=== PATIENT | male | born 1955 | race Caucasian/White ===

== ENCOUNTER 2021-08-04 20:48 | Inpatient (IN) | payer MEDICARE, MEDICAID, SELFPAY ==
[2021-08-04 21:20] VITALS: BP 131/73; PULSE 75; RESP 16; TEMP 36.7; O2SAT 97
[2021-08-04 22:54] LABS: Anion Gap 9 (12-20); Blood Urea Nitrogen 26 mg/dL (9-16); Carbon Dioxide 27 mmol/L (22-29); Chloride 109 mmol/L (96-108); Estimated Glomerular Filt Rate > 60; Potassium 4.1 mmol/L (3.3-5.1); Sodium 141 mmol/L (135-145)
[2021-08-05 02:28] VITALS: BMI 25.7
[2021-08-05] MEDS: LORazepam 0.5 MG TABLET PO (03:55)
--- NOTE | 2021-08-05 06:07 | PC.NURSE ---
Patient arrived on unit at 5 via stretcher. He was dressed in [facility] and appeared somewhat dissheveled. Vitals were taken and were stable. Patient was alert and oriented to person and place. Patient was tired and did not want to engage in conversation. As a result, admission assessment was not done. Patient went to sleep very quickly.
[2021-08-05 07:02] LABS: MANUAL DIFF FLAG NO
[2021-08-05 07:05] LABS: Basophils Percent Auto 0.5 % (0-2); Eosinophils Absolute Auto 0.2 X10*3/uL (0.0-0.4); Eosinophils Percent Auto 1.8 % (0-4); Hematocrit 39.3 % (42-52); Hemoglobin 13.5 g/dl (14.0-18.0); Imm Gran Abs Auto 0.04 X10*3/uL (0.00-0.03); Imm Gran Pct Auto 0.5 % (0.0-0.4); Lymphocytes Absolute Auto 2.2 X10*3/uL (1.2-4.9); Lymphocytes Percent Auto 25.9 % (20-40); Mean Corpuscular HGB Conc 34.4 g/dl (31.0-36.0); Mean Corpuscular Hemoglobin 29.2 pg (27.0-33.0); Mean Corpuscular Volume 85.1 fL (80-98); Mean Platelet Volume 10.2 fL (9.4-12.4); Monocytes Absolute Auto 0.5 X10*3/uL (0.1-1.2); Monocytes Percent Auto 6.3 % (2-11); Neutrophils Absolute Auto 5.6 X10*3/uL (2.0-8.3); Platelet Count 201 X10*3/uL (160-400); Red Blood Count 4.62 X10*6/uL (4.60-5.80); Red Cell Distribution Width 13.3 % (11.0-16.0); White Blood Count 8.6 X10*3/uL (4.8-10.8)
[2021-08-05 07:29] LABS: Alanine Aminotransferase 18 U/L (0-40); Albumin Level 3.5 g/dL (3.5-5.0); Alkaline Phosphatase 56 U/L (39-117); Aspartate Amino Transferase 15 U/L (5-37); Bilirubin Direct 0.2 mg/dL (0.0-0.5); Bilirubin Total 0.5 mg/dL (0.0-1.0); Cholesterol 178 mg/dL; HDL Cholesterol 43 mg/dL; LDL Cholesterol Calculated 115 mg/dl; Total Protein 5.6 g/dL (6.5-8.0); Triglycerides 103 mg/dL
[2021-08-05 07:50] LABS: Thyroid Stimulating Hormone 0.98 uIU/mL (0.32-4.0)
[2021-08-05 08:26] LABS: Estimated Average Glucose 114 mg/dL; Hemoglobin A1c % 5.6 %
[2021-08-05 10:04] VITALS: BP 168/83; PULSE 84; RESP 16; TEMP 36.5
--- NOTE | 2021-08-05 12:11 | HO.PSYADMNOT ---
HPI Chief Complaint: Major Depression Disorder Sources of Information: patient interviewed and chart reviewed HPI Subjective Notes: Conditional Voluntary Narrative: The patient is a 65-year-old male, single, with no children, unemployed on SSI for several years, living by himself with good social support provided by her sister and brother who does not live with him. He was referred by crisis since he walked into the emergency room asking for help. The patient's last admission was 10 days ago when he was discharged from [facility] with antidepressants for his depression and OCD. He stated that over there, he had ECT at least 9 sessions with fair improvement of his depression. But, as soon as he arrived home, he lost ?his jinriksha driver's license? and he could not fill the scripts. He called crisis asking for help after 10 days without any treatment. On interview, the patient denies active suicidal ideation, he is very dysphoric but able to contract for safety. He stated that he has not taking any medications in more than 10 days. He denies past history of manic symptoms and he denies history of psychosis. Past Psychiatric History: The patient's 1st psychiatric contact was in his 20s for depression. He also carries a diagnosis of OCD and he has germ phobia. He has several admissions into the hospital at [facility], this facility, and others. He has outpatient providers Medical Evaluation Reviewed: No [facility] Narrative: The patient denies medical problems, he reported high blood pressure sporadically. Family History: Denies Social History: The patient is due oldest of 3 children, his milestones were achieved at expected age, he was raised by his parents and he had a good childhood. 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 He has never been and he has been admitted several times into the hospital for depression and OCD and he has received ECT Substance History: . Denies. Trauma History: Denies. Diagnostics Vital Signs (24Hr): Vital Signs - 24 hr 08/04/21 21:20 08/05/21 10:04 Temperature 98.1 F 97.7 F Pulse Rate 75 84 Respiratory Rate 16 16 Blood Pressure 131/73 168/83 H Pulse Oximetry 97 Body Mass Index 25.7 Labs Results: 08/05/21 06:56 08/04/21 22:27 Labs: Laboratory Results - last 48 hr 08/04/21 08/05/21 08/05/21 22:27 06:56 06:56 WBC 8.6 RBC 4.62 Hgb 13.5 L Hct 39.3 L MCV 85.1 MCH 29.2 MCHC 34.4 RDW 13.3 Plt Count 201 MPV 10.2 Immature Gran % (Auto) 0.5 H Neut % (Auto) 65.0 Lymph % (Auto) 25.9 [place] % (Auto) 6.3 Eos % (Auto) 1.8 Baso % (Auto) 0.5 Lymph # (Auto) 2.2 [place] # (Auto) 0.5 Eos # (Auto) 0.2 Baso # (Auto) 0.0 Abs Immat Gran (auto) 0.04 H Absolute Neuts (auto) 5.6 Absolute Nucleated RBC 0.000 Nucleated RBC % (auto) 0.0 Sodium 141 Potassium 4.1 Chloride 109 H Carbon Dioxide 27 Anion Gap 9 L BUN 26 H Creatinine 0.83 Estim Creat Clear Calc TNP Estimated GFR > 60 Estimat Average Glucose Hemoglobin A1c % Total Bilirubin 0.5 Direct Bilirubin 0.2 AST 15 ALT 18 Alkaline Phosphatase 56 Total Protein 5.6 L Albumin 3.5 Triglycerides 103 Cholesterol 178 LDL Cholesterol, Calc 115 HDL Cholesterol 43 TSH 0.98 08/05/21 06:56 WBC RBC Hgb Hct MCV MCH MCHC RDW Plt Count MPV Immature Gran % (Auto) Neut % (Auto) Lymph % (Auto) [place] % (Auto) Eos % (Auto) Baso % (Auto) Lymph # (Auto) [place] # (Auto) Eos # (Auto) Baso # (Auto) Abs Immat Gran (auto) Absolute Neuts (auto) Absolute Nucleated RBC Nucleated RBC % (auto) Sodium Potassium Chloride Carbon Dioxide Anion Gap BUN Creatinine Estim Creat Clear Calc Estimated GFR Estimat Average Glucose 114 Hemoglobin A1c % 5.6 Total Bilirubin Direct Bilirubin AST ALT Alkaline Phosphatase Total Protein Albumin Triglycerides Cholesterol LDL Cholesterol, Calc HDL Cholesterol TSH Meds/Allergies Meds Home Medications Acetaminophen (Acetaminophen 325 Mg Tablet) 650 mg PO Q6H PRN PRN Reason: Headache/Pain Mild Scale (1-3) Al Hydroxide/Mg Hydroxide (Magnesium Hydrox/Alum Hydrox 30 Ml Oral.Susp) 30 ml PO Q6H PRN PRN Reason: Heartburn/Nausea Hydroxyzine HCl (Hydroxyzine Hcl 50 Mg Tablet) 50 mg PO BID PRN PRN Reason: Anxiety Lorazepam (Lorazepam 0.5 Mg Tablet) 0.5 mg PO Q8H PRN PRN Reason: anxiety Last Admin: 08/05/21 03:55 Dose: 0.5 mg Documented by: Magnesium Hydroxide (Milk Of Magnesia 30 Ml Oral.Susp) 30 ml PO DAILY PRN PRN Reason: Constipation Allergies Allergies Allergy/AdvReac Type Severity Reaction Status Date / Time paroxetine [From PAXIL] AdvReac Unknown AGITATION, Unverified 08/07/20 17:12 MOOD SWINGS, ALL KINDS OF WEIRD THOUGHTS Mental Status Exam Mental Status Exam Narrative: On hospital gowns, looks disheveled with good eye contact. The patient is awake and alert, oriented in time person and place. Mood is described as dysphoric, his affect is constricted and appropriate. Thought processes is circumstantial, thought content denies hallucinations or delusions no suicidal or homicidal ideation. Insight judgment and impulse control limited Assessment & Plan Assessment & Plan (1) Major depressive disorder, recurrent: Status: Acute Code(s): F33.9 - Major depressive disorder, recurrent, unspecified (2) Obsessive compulsive disorder: Status: Acute Code(s): F42.9 - Obsessive-compulsive disorder, unspecified Assessment and Plan: The patient is a 65-year-old male with a long history of depression and OCD symptoms with several admissions into the hospital for suicidality. The patient was recently discharged from [facility] but he was unable to continue treatment in the community. Plan 1. Start Prozac 20 mg p.o. now. 2. Start Remeron 15 mg p.o. q.h.s.. 3. Get collateral information. Reason for continued inpatient stay Substantial Risk for: harm to self, inability to function, rapid decompensation and med/psych decompensation
[2021-08-05] MEDS: FLUoxetine HCl Oral Solution 20 MG/5 ML SOLUTION PO (16:01)
--- NOTE | 2021-08-05 16:40 | HO.HSGERICON ---
History of Present Illness Data of Consult Service Date: 08/05/21 Primary Care Provider: Unknown Physician HPI Reason for consult: medical H+P 65yo M with HTN, depression, OCD with history of ECT sessions who called crisis for dysphoria and has been admitted to inpatient psychiatry. He denies fever, chills, dyspnea, cough, chest pain, or headache. No history of CAD or angina or CVA. He states he was fully vaccinated against COVID-19. Review of Systems Review of Systems: Yes all other systems are reviewed and are negative (except for psychiatric symptom) [facility] Social History Household Members: None Housing: Apartment Do you presently have visiting nurse or other home services: No Patient Tobacco Use Status: Former Tobacco user Tobacco use type: Cigarette Smoked in Last 30 Days: No e-Cigarette/Vaping Use: Never Used Patient Interested in Nicotine Replacement: No Patient Given Instructions on How to Stop Smoking: No (Patient declined teaching) Second Hand Smoke Exposure: No Use of substances other than those prescribed or required for medical reasons: No Currently Displaying Signs/Symptoms of Drug Intoxication Withdrawal: No Any prior treatment program specific to substance use: No Have you been hit, kicked, punched, or otherwise hurt by someone within the past year? If so, by whom?: No Do you feel safe in your current relationship?: No Current Relationship Is there a partner from a previous relationship who is making you feel unsafe now?: No Are you made to feel afraid or neglected: No Advance Directives: No Do you have thoughts of harming others: None Do you have a plan to hurt others: No Plan Recently lost weight without trying: No Nutrition Risks: No Nutritional Risk service: No Sexual orientation: Straight/Heterosexual Meds Allergies Allergy/AdvReac Type Severity Reaction Status Date / Time paroxetine [From PAXIL] AdvReac Unknown AGITATION, Unverified 08/07/20 17:12 MOOD SWINGS, ALL KINDS OF WEIRD THOUGHTS Active Medications: Current Medications Generic Name Dose Route Start Last Admin Trade Name Freq PRN Reason Stop Dose Admin Acetaminophen 650 mg 08/04/21 22:10 Acetaminophen 325 Mg Tablet PO Q6H PRN Headache/Pain Mild Scale (1-3) Al Hydroxide/Mg Hydroxide 30 ml 08/04/21 22:10 Magnesium Hydrox/Alum Hydrox 30 Ml Oral.Susp PO Q6H PRN Heartburn/Nausea Fluoxetine HCl 40 mg 08/06/21 09:00 Fluoxetine Hcl Oral Solution 20 Mg/5 Ml Solution PO DAILY ELEAZAR Hydroxyzine HCl 50 mg 08/04/21 22:10 Hydroxyzine Hcl 50 Mg Tablet PO BID PRN Anxiety Lorazepam 0.5 mg 08/04/21 22:10 08/05/21 03:55 Lorazepam 0.5 Mg Tablet PO 0.5 mg Q8H PRN Administration anxiety Magnesium Hydroxide 30 ml 08/04/21 22:10 Milk Of Magnesia 30 Ml Oral.Susp PO DAILY PRN Constipation Mirtazapine 15 mg 08/05/21 21:00 Mirtazapine 15 Mg Tablet PO BEDTIME ELEAZAR Non-Formulary Medication 5 mg 08/05/21 16:45 Amlodipine PO DAILY [facility] Home Medications Medication Instructions Recorded Confirmed Last Taken Type Risperdal 0.5 mg PO QAM 08/04/21 08/05/21 08/04/21 07:30 History 0.5 mg Risperdal 2 mg PO QPM 08/04/21 08/05/21 08/03/21 21:35 History 2 mg amlodipine 5 mg PO DAILY 08/04/21 08/05/21 08/04/21 09:00 History 5 mg clonazepam 0.5 mg tablet 0.25 mg PO BID 08/04/21 08/05/21 08/04/21 09:00 History 0.25 fluoxetine 20 mg tablet 80 mg PO DAILY 08/04/21 08/05/21 08/04/21 09:00 History 20 mg hydroxyzine HCl 50 mg PO BID PRN 08/04/21 08/05/21 08/03/21 01:00 History 50 mg lorazepam 0.5 mg PO TID PRN 08/04/21 08/05/21 08/02/21 03:30 History 2 mg mirtazapine 7.5 mg PO QPM 08/04/21 08/04/21 Unknown History Results Labs CBC and Chem 7: 08/05/21 06:56 08/04/21 22:27 Labs: Laboratory Results - last 24 hr 08/04/21 08/05/21 08/05/21 22:27 06:56 06:56 MCV 85.1 MCH 29.2 MCHC 34.4 RDW 13.3 Plt Count 201 MPV 10.2 Immature Gran % (Auto) 0.5 H Neut % (Auto) 65.0 Lymph % (Auto) 25.9 [place] % (Auto) 6.3 Eos % (Auto) 1.8 Baso % (Auto) 0.5 Lymph # (Auto) 2.2 [place] # (Auto) 0.5 Eos # (Auto) 0.2 Baso # (Auto) 0.0 Abs Immat Gran (auto) 0.04 H Absolute Neuts (auto) 5.6 Absolute Nucleated RBC 0.000 Nucleated RBC % (auto) 0.0 Anion Gap 9 L Estim Creat Clear Calc TNP Estimated GFR > 60 Estimat Average Glucose Hemoglobin A1c % Total Bilirubin 0.5 Direct Bilirubin 0.2 AST 15 ALT 18 Alkaline Phosphatase 56 Total Protein 5.6 L Albumin 3.5 Triglycerides 103 Cholesterol 178 LDL Cholesterol, Calc 115 HDL Cholesterol 43 TSH 0.98 08/05/21 06:56 MCV MCH MCHC RDW Plt Count MPV Immature Gran % (Auto) Neut % (Auto) Lymph % (Auto) [place] % (Auto) Eos % (Auto) Baso % (Auto) Lymph # (Auto) [place] # (Auto) Eos # (Auto) Baso # (Auto) Abs Immat Gran (auto) Absolute Neuts (auto) Absolute Nucleated RBC Nucleated RBC % (auto) Anion Gap Estim Creat Clear Calc Estimated GFR Estimat Average Glucose 114 Hemoglobin A1c % 5.6 Total Bilirubin Direct Bilirubin AST ALT Alkaline Phosphatase Total Protein Albumin Triglycerides Cholesterol LDL Cholesterol, Calc HDL Cholesterol TSH Assessment and Plan (1) Hypertension: Status: Acute 65yo M with HTN, OCD, depression admitted to inpatient psychiatry, routine medical H+P # HTN - continue amlodipine # depression/OCD - medications as per psychiatry team. QT monitoring as indicated by pharmacology of agents used. Thank you for this consult. We are signing off. Please call if there are any questions. If he were to undergo ECT, I recommend he have an EKG, and if unremarkable for ischemic changes, he would be considered low-risk for the procedure. Physical Exam Vital Signs: Last Vital Signs Temp 97.7 F 08/05/21 10:04 Pulse 84 08/05/21 10:04 Resp 16 08/05/21 10:04 BP 168/83 H 08/05/21 10:04 Pulse Ox 97 08/04/21 21:20 Body Mass Index 25.7 Gen: in no acute distress HEENT: sclera anicteric, moist mucus membranes Neck: supple Lungs: clear to auscultation bilaterally Heart: regular rate and rhythm, no murmurs Abd: soft, non-tender, non-distended Ext: no edema Skin: warm/well-perfused Neuro: alert and oriented x3, no focal findings Psych: appropriate affect Neuro Cranial nerves: Yes CN's II-XII intact bilaterally
[2021-08-05 18:00] VITALS: BP 159/88; PULSE 81; RESP 16; TEMP 36.8; O2SAT 95
--- NOTE | 2021-08-05 19:57 | PC.ADMIT ---
Admission completed. Patient admit 08/04/2021 at 2115. Patient admitted here from [facility] ED. Patient was discharged from [facility] in-patient Behavioral Health were He had 9 ECT treatments. patient stop his medications when at home. Patient became very disorganized and quickly decompensated. Patient was unable to participate in admission assessment last night due to fatigue. Today patient was alert and oriented x 3. Patient remains depressed and anxious. Denies suicidal ideation. Patient reports he feels safe on unit and would come to staff with any thoughts of SI. Patient denies ,VH. Patient met with Dr Choi, started on Prozac 20mg liquid solution x one dose. Scheduled Prozac will start 08/06/21. Patient isolative to self and room. Patient did come out for meals, appetite good. Patient now on 15 minute checks. Legal: CV Patient lives alone in apartment, patient has out-patient mental health support.
[2021-08-05] MEDS: Mirtazapine 15 MG TABLET PO (20:36)
[2021-08-06 10:08] VITALS: BP 134/76; PULSE 65; RESP 18; TEMP 36.4; O2SAT 97
[2021-08-06] MEDS: FLUoxetine HCl Oral Solution 20 MG/5 ML SOLUTION 40 MG PO (10:12)
[2021-08-06 10:13] VITALS: BP 134/76; PULSE 65
[2021-08-06] MEDS: amLODIPine Besylate 5 MG TABLET PO (10:13)
--- NOTE | 2021-08-06 14:57 | HO.PSYCHPN ---
Subjective Subjective Date of Service: 08/06/21 Reason For Visit: Major Depression Disorder Subjective Notes: Conditional Voluntary Interim History: Nursing staff reported that patient slept well last night. He showered today. Occupational therapy reported he attended to some groups but he has been mostly sleepy during the day. On interview, the patient denies new symptoms he reports chronic dysphoria and anxiety, no new symptoms with that fast titration of Prozac. He agreed on the plan to increase Prozac up to 60 mg tomorrow a.m.. Medication Compliance: Yes Side effects from medications: No Attending Groups: Intermittent Review of Systems Acute medical concerns: No Medical Review of Systems: unchanged Mental Status Exam Mental Status Exam Patient Appearance: Well Grooomed (On hospital gowns) Patient Orientation: Person Level of Consciousness: Awake Patient Behavior: Cooperative Mood Description: Constricted Affect Description: Depressed Patient Cognition Impaired: Yes Ability to Follow Directions: Fair Speech Pattern: Clear Hallucinations: None Delusions: Not Present Thought Process: Distracted and Evasive Thought Content: positive for Circumstantial Judgement: Fair Diagnostics Vital Signs (24Hr): Vital Signs - 24 hr 08/05/21 18:00 08/06/21 10:08 08/06/21 10:13 Temperature 98.3 F 97.5 F Pulse Rate 81 65 65 Respiratory Rate 16 18 Blood Pressure 159/88 H 134/76 134/76 Pulse Oximetry 95 97 Body Mass Index 25.7 Labs Results: 08/05/21 06:56 08/04/21 22:27 Labs: Laboratory Results - last 48 hr 08/04/21 08/05/21 08/05/21 22:27 06:56 06:56 WBC 8.6 RBC 4.62 Hgb 13.5 L Hct 39.3 L MCV 85.1 MCH 29.2 MCHC 34.4 RDW 13.3 Plt Count 201 MPV 10.2 Immature Gran % (Auto) 0.5 H Neut % (Auto) 65.0 Lymph % (Auto) 25.9 [place] % (Auto) 6.3 Eos % (Auto) 1.8 Baso % (Auto) 0.5 Lymph # (Auto) 2.2 [place] # (Auto) 0.5 Eos # (Auto) 0.2 Baso # (Auto) 0.0 Abs Immat Gran (auto) 0.04 H Absolute Neuts (auto) 5.6 Absolute Nucleated RBC 0.000 Nucleated RBC % (auto) 0.0 Sodium 141 Potassium 4.1 Chloride 109 H Carbon Dioxide 27 Anion Gap 9 L BUN 26 H Creatinine 0.83 Estim Creat Clear Calc TNP Estimated GFR > 60 Estimat Average Glucose Hemoglobin A1c % Total Bilirubin 0.5 Direct Bilirubin 0.2 AST 15 ALT 18 Alkaline Phosphatase 56 Total Protein 5.6 L Albumin 3.5 Triglycerides 103 Cholesterol 178 LDL Cholesterol, Calc 115 HDL Cholesterol 43 TSH 0.98 08/05/21 06:56 WBC RBC Hgb Hct MCV MCH MCHC RDW Plt Count MPV Immature Gran % (Auto) Neut % (Auto) Lymph % (Auto) [place] % (Auto) Eos % (Auto) Baso % (Auto) Lymph # (Auto) [place] # (Auto) Eos # (Auto) Baso # (Auto) Abs Immat Gran (auto) Absolute Neuts (auto) Absolute Nucleated RBC Nucleated RBC % (auto) Sodium Potassium Chloride Carbon Dioxide Anion Gap BUN Creatinine Estim Creat Clear Calc Estimated GFR Estimat Average Glucose 114 Hemoglobin A1c % 5.6 Total Bilirubin Direct Bilirubin AST ALT Alkaline Phosphatase Total Protein Albumin Triglycerides Cholesterol LDL Cholesterol, Calc HDL Cholesterol TSH Medications Medications Current Medications Generic Name Dose Route Start Last Admin Trade Name Freq PRN Reason Stop Dose Admin Acetaminophen 650 mg 08/04/21 22:10 Acetaminophen 325 Mg Tablet PO Q6H PRN Headache/Pain Mild Scale (1-3) Al Hydroxide/Mg Hydroxide 30 ml 08/04/21 22:10 Magnesium Hydrox/Alum Hydrox 30 Ml Oral.Susp PO Q6H PRN Heartburn/Nausea Amlodipine Besylate 5 mg 08/06/21 09:00 08/06/21 10:13 Amlodipine Besylate 5 Mg Tablet PO 5 mg DAILY ELEAZAR Administration Fluoxetine HCl 40 mg 08/06/21 09:00 08/06/21 10:12 Fluoxetine Hcl Oral Solution 20 Mg/5 Ml Solution PO 40 mg DAILY ELEAZAR Administration Hydroxyzine HCl 50 mg 08/04/21 22:10 Hydroxyzine Hcl 50 Mg Tablet PO BID PRN Anxiety Lorazepam 0.5 mg 08/04/21 22:10 08/05/21 03:55 Lorazepam 0.5 Mg Tablet PO 0.5 mg Q8H PRN Administration anxiety Magnesium Hydroxide 30 ml 08/04/21 22:10 Milk Of Magnesia 30 Ml Oral.Susp PO DAILY PRN Constipation Mirtazapine 15 mg 08/05/21 21:00 08/05/21 20:36 Mirtazapine 15 Mg Tablet PO 15 mg BEDTIME ELEAZAR Administration Allergies Allergies Allergy/AdvReac Type Severity Reaction Status Date / Time paroxetine [From PAXIL] AdvReac Unknown AGITATION, Unverified 08/07/20 17:12 MOOD SWINGS, ALL KINDS OF WEIRD THOUGHTS Assessment & Plan Assessment & Plan (1) Hypertension: Status: Acute Code(s): I10 - Essential (primary) hypertension Assessment and Plan: 65yo M with HTN, OCD, depression admitted to inpatient psychiatry, routine medical H+P # HTN - continue amlodipine # depression/OCD - medications as per psychiatry team. QT monitoring as indicated by pharmacology of agents used. Plan 1. Continue titration of Prozac up to 80 mg daily. Currently he is on 40 mg tumor will have 60 mg p.o. q.a.m. and will keep that over the weekend. On Tuesday we will continue the titration up to 80 mg p.o. q.day Greater than 50% of the session was spent on counseling and/or coordination of care Reason for contiued inpatient stay Substantial Risk for: inability to function, rapid decompensation and med/psych decompensation
[2021-08-06 18:35] VITALS: BP 153/82; PULSE 77; RESP 18; TEMP 37.2; O2SAT 98
[2021-08-06] MEDS: Mirtazapine 15 MG TABLET PO (21:03)
[2021-08-07 08:07] VITALS: BP 133/88; PULSE 88; RESP 18; TEMP 36.1; O2SAT 96
[2021-08-07] MEDS: FLUoxetine HCl Oral Solution 20 MG/5 ML SOLUTION 60 MG PO (08:16)
[2021-08-07 08:17] VITALS: BP 133/88; PULSE 88
[2021-08-07] MEDS: LORazepam 0.5 MG TABLET PO (08:17)
[2021-08-07] MEDS: amLODIPine Besylate 5 MG TABLET PO (08:17)
--- NOTE | 2021-08-07 13:43 | P.PNPSI_ITS ---
Subjective Subjective Date of Service: 08/07/21 Reason For Visit: Major Depression Disorder Subjective Notes: Conditional Voluntary Healthcare Proxy: Yes Guardianship: No Medical Problems Affecting Mental Status: No Interim History: The nursing staff reported the patient has been isolative he reports anxiety 04/30, denies pain. Also, the nursing staff has reported at night some restless leg syndrome The social media assistant has arranged a family meeting on Tuesday. He was referred to [facility] and her services Medication Compliance: Yes Side effects from medications: Yes (Restless leg syndrome) Attending Groups: No Review of Systems Acute medical concerns: No Medical Review of Systems: unchanged Mental Status Exam Mental Status Exam Patient Appearance: Disheveled Patient Orientation: Person Level of Consciousness: Awake Patient Behavior: Appropriate and Passive Mood Description: Depressed Affect Description: Constricted Patient Cognition Impaired: No Ability to Follow Directions: Good Speech Pattern: Clear Hallucinations: None Delusions: Not Present Thought Process: Distracted Thought Content: positive for Circumstantial Judgement: Fair Diagnostics Vital Signs (24Hr): Vital Signs - 24 hr 08/06/21 18:35 08/07/21 08:07 08/07/21 08:17 Temperature 98.9 F 97.0 F Pulse Rate 77 88 88 Respiratory Rate 18 18 Blood Pressure 153/82 H 133/88 133/88 Pulse Oximetry 98 96 Body Mass Index 25.7 Labs Results: 08/05/21 06:56 08/04/21 22:27 Medications Medications Current Medications Acetaminophen (Acetaminophen 325 Mg Tablet) 650 mg PO Q6H PRN PRN Reason: Headache/Pain Mild Scale (1-3) Al Hydroxide/Mg Hydroxide (Magnesium Hydrox/Alum Hydrox 30 Ml Oral.Susp) 30 ml PO Q6H PRN PRN Reason: Heartburn/Nausea Amlodipine Besylate (Amlodipine Besylate 5 Mg Tablet) 5 mg PO DAILY [facility] Last Admin: 08/07/21 08:17 Dose: 5 mg Documented by: Fluoxetine HCl (Fluoxetine Hcl Oral Solution 20 Mg/5 Ml Solution) 60 mg PO DAILY [facility] Last Admin: 08/07/21 08:16 Dose: 60 mg Documented by: Hydroxyzine HCl (Hydroxyzine Hcl 50 Mg Tablet) 50 mg PO BID PRN PRN Reason: Anxiety Lorazepam (Lorazepam 0.5 Mg Tablet) 0.5 mg PO Q8H PRN PRN Reason: anxiety Last Admin: 08/07/21 08:17 Dose: 0.5 mg Documented by: Magnesium Hydroxide (Milk Of Magnesia 30 Ml Oral.Susp) 30 ml PO DAILY PRN PRN Reason: Constipation Mirtazapine (Mirtazapine 15 Mg Tablet) 15 mg PO BEDTIME ELEAZAR Last Admin: 08/06/21 21:03 Dose: 15 mg Documented by: Allergies Allergies Allergy/AdvReac Type Severity Reaction Status Date / Time paroxetine [From PAXIL] AdvReac Unknown AGITATION, Unverified 08/07/20 17:12 MOOD SWINGS, ALL KINDS OF WEIRD THOUGHTS Assessment & Plan Assessment & Plan (1) Hypertension: Status: Acute Code(s): I10 - Essential (primary) hypertension Assessment and Plan: 65yo M with HTN, OCD, depression admitted to inpatient psychiatry, routine medical H+P # HTN - continue amlodipine # depression/OCD - medications as per psychiatry team. QT monitoring as indicated by pharmacology of agents used. Plan 1. Continue titration of Prozac up to 80 mg daily, we will get it on Tuesday or Tuesday Currently he is on 60 mg . Greater than 50% of the session was spent on counseling and/or coordination of care Reason for contiued inpatient stay Substantial Risk for: inability to function, rapid decompensation and med/psych decompensation
[2021-08-07] MEDS: Mirtazapine 15 MG TABLET PO (20:02)
[2021-08-07 21:41] VITALS: BP 137/76; PULSE 75; RESP 18; TEMP 37.1; O2SAT 99
[2021-08-08] MEDS: LORazepam 0.5 MG TABLET PO ×2 (02:46→23:27)
[2021-08-08] MEDS: hydrOXYzine HCL 50 MG TABLET PO ×2 (03:44→22:43)
[2021-08-08 08:00] VITALS: BP 137/65; PULSE 65; RESP 18; TEMP 36.4; O2SAT 97
[2021-08-08 08:31] VITALS: BP 137/65; PULSE 65
[2021-08-08] MEDS: amLODIPine Besylate 5 MG TABLET PO (08:31)
[2021-08-08] MEDS: FLUoxetine HCl Oral Solution 20 MG/5 ML SOLUTION 60 MG PO (08:32)
[2021-08-08 18:00] VITALS: BP 142/84; PULSE 72; RESP 18; TEMP 37; O2SAT 98
[2021-08-08] MEDS: Mirtazapine 15 MG TABLET PO (21:02)
--- NOTE | 2021-08-08 21:05 | P.PNPSI_ITS ---
Subjective Subjective Date of Service: 08/09/21 Reason For Visit: Major Depression Disorder Interim History: H and P reviewed. Pt known to [facility] from [facility] admissions. Looks more deteriorated with loss of teeth. States Anxiety >> depression. Asks for Lorazepam. Recent ECT followed by non compliance with meds. Ct meds. Medication Compliance: Yes Side effects from medications: No Attending Groups: No Review of Systems Acute medical concerns: No Review of Systems Review of Systems Yes all other systems are reviewed and are negative (except for psychiatric symptom) Mental Status Exam Mental Status Exam Narrative: On hospital gowns, looks disheveled with good eye contact. The patient is awake and alert, oriented in time person and place. Mood is described as dysphoric, his affect is constricted and appropriate. Thought processes is circumstantial, thought content denies hallucinations or delusions no suicidal or homicidal ideation. Insight judgment and impulse control limited Patient Appearance: Disheveled Patient Orientation: Person Level of Consciousness: Awake Patient Behavior: Appropriate and Passive Mood Description: Depressed Affect Description: Constricted Patient Cognition Impaired: No Ability to Follow Directions: Good Speech Pattern: Clear Diagnostics Vital Signs (24Hr): Vital Signs - 24 hr 08/07/21 21:41 08/08/21 08:00 08/08/21 08:31 Temperature 98.8 F 97.6 F Pulse Rate 75 65 65 Respiratory Rate 18 18 Blood Pressure 137/76 137/65 137/65 Pulse Oximetry 99 97 Body Mass Index 25.7 Labs Results: 08/05/21 06:56 08/04/21 22:27 Medications Medications Current Medications Acetaminophen (Acetaminophen 325 Mg Tablet) 650 mg PO Q6H PRN PRN Reason: Headache/Pain Mild Scale (1-3) Al Hydroxide/Mg Hydroxide (Magnesium Hydrox/Alum Hydrox 30 Ml Oral.Susp) 30 ml PO Q6H PRN PRN Reason: Heartburn/Nausea Amlodipine Besylate (Amlodipine Besylate 5 Mg Tablet) 5 mg PO DAILY [facility] Last Admin: 08/08/21 08:31 Dose: 5 mg Documented by: Fluoxetine HCl (Fluoxetine Hcl Oral Solution 20 Mg/5 Ml Solution) 60 mg PO DAILY [facility] Last Admin: 08/08/21 08:32 Dose: 60 mg Documented by: Hydroxyzine HCl (Hydroxyzine Hcl 50 Mg Tablet) 50 mg PO BID PRN PRN Reason: Anxiety Last Admin: 08/08/21 03:44 Dose: 50 mg Documented by: Lorazepam (Lorazepam 0.5 Mg Tablet) 0.5 mg PO Q8H PRN PRN Reason: anxiety Last Admin: 08/08/21 02:46 Dose: 0.5 mg Documented by: Magnesium Hydroxide (Milk Of Magnesia 30 Ml Oral.Susp) 30 ml PO DAILY PRN PRN Reason: Constipation Mirtazapine (Mirtazapine 15 Mg Tablet) 15 mg PO BEDTIME [facility] Last Admin: 08/08/21 21:02 Dose: 15 mg Documented by: Allergies Allergies Allergy/AdvReac Type Severity Reaction Status Date / Time paroxetine [From PAXIL] AdvReac Unknown AGITATION, Unverified 08/07/20 17:12 MOOD SWINGS, ALL KINDS OF WEIRD THOUGHTS Assessment & Plan Assessment & Plan (1) Hypertension: Status: Acute Code(s): I10 - Essential (primary) hypertension Assessment and Plan: 65yo M with HTN, OCD, depression admitted to inpatient psychiatry, routine medical H+P # HTN - continue amlodipine # depression/OCD - medications as per psychiatry team. QT monitoring as indicated by pharmacology of agents used. Plan 1. Continue titration of Prozac up to 80 mg daily, we will get it on Tuesday or Tuesday Currently he is on 60 mg . Greater than 50% of the session was spent on counseling and/or coordination of care Patient educated on: diagnosis Reason for contiued inpatient stay Substantial Risk for: inability to function
--- NOTE | 2021-08-09 07:31 | P.PNPSI_ITS ---
Subjective Subjective Date of Service: 08/09/21 Reason For Visit: Major Depression Disorder Interim History: H and P reviewed. Pt known to [facility] from [facility] admissions. Looks more deteriorated with loss of teeth. States Anxiety >> depression. Asks for Lorazepam. Recent ECT followed by non compliance with meds. Ct meds. Remains much the same as 08/08. Review of Systems Review of Systems Yes all other systems are reviewed and are negative (except for psychiatric symptom) Mental Status Exam Mental Status Exam Narrative: On hospital gowns, looks disheveled with good eye contact. The patient is awake and alert, oriented in time person and place. Mood is described as dysphoric, his affect is constricted and appropriate. Thought processes is circumstantial, thought content denies hallucinations or delusions no suicidal or homicidal ideation. Insight judgment and impulse control limited Patient Appearance: Disheveled Patient Orientation: Person Level of Consciousness: Awake Patient Behavior: Appropriate and Passive Mood Description: Depressed Affect Description: Constricted Patient Cognition Impaired: No Ability to Follow Directions: Good Speech Pattern: Clear Diagnostics Vital Signs (24Hr): Vital Signs - 24 hr 08/08/21 08:00 08/08/21 08:31 08/08/21 18:00 Temperature 97.6 F 98.6 F Pulse Rate 65 65 72 Respiratory Rate 18 18 Blood Pressure 137/65 137/65 142/84 H Pulse Oximetry 97 98 Body Mass Index 25.7 Labs Results: 08/05/21 06:56 08/04/21 22:27 Medications Medications Current Medications Acetaminophen (Acetaminophen 325 Mg Tablet) 650 mg PO Q6H PRN PRN Reason: Headache/Pain Mild Scale (1-3) Al Hydroxide/Mg Hydroxide (Magnesium Hydrox/Alum Hydrox 30 Ml Oral.Susp) 30 ml PO Q6H PRN PRN Reason: Heartburn/Nausea Amlodipine Besylate (Amlodipine Besylate 5 Mg Tablet) 5 mg PO DAILY [facility] Last Admin: 08/08/21 08:31 Dose: 5 mg Documented by: Fluoxetine HCl (Fluoxetine Hcl Oral Solution 20 Mg/5 Ml Solution) 60 mg PO DAILY [facility] Last Admin: 08/08/21 08:32 Dose: 60 mg Documented by: Hydroxyzine HCl (Hydroxyzine Hcl 50 Mg Tablet) 50 mg PO BID PRN PRN Reason: Anxiety Last Admin: 08/08/21 22:43 Dose: 50 mg Documented by: Lorazepam (Lorazepam 0.5 Mg Tablet) 0.5 mg PO Q8H PRN PRN Reason: anxiety Last Admin: 08/08/21 23:27 Dose: 0.5 mg Documented by: Magnesium Hydroxide (Milk Of Magnesia 30 Ml Oral.Susp) 30 ml PO DAILY PRN PRN Reason: Constipation Mirtazapine (Mirtazapine 15 Mg Tablet) 15 mg PO BEDTIME [facility] Last Admin: 08/08/21 21:02 Dose: 15 mg Documented by: Allergies Allergies Allergy/AdvReac Type Severity Reaction Status Date / Time paroxetine [From PAXIL] AdvReac Unknown AGITATION, Unverified 08/07/20 17:12 MOOD SWINGS, ALL KINDS OF WEIRD THOUGHTS Assessment & Plan Assessment & Plan (1) Hypertension: Status: Acute Code(s): I10 - Essential (primary) hypertension Assessment and Plan: 65yo M with HTN, OCD, depression admitted to inpatient psychiatry, routine medical H+P # HTN - continue amlodipine # depression/OCD - medications as per psychiatry team. QT monitoring as indicated by pharmacology of agents used. Plan 1. Continue titration of Prozac up to 80 mg daily, we will get it on Tuesday or Tuesday Currently he is on 60 mg . Greater than 50% of the session was spent on counseling and/or coordination of care Reason for contiued inpatient stay Substantial Risk for: inability to function
[2021-08-09 07:42] VITALS: BP 140/85; PULSE 98
[2021-08-09] MEDS: amLODIPine Besylate 5 MG TABLET PO ×2 (07:42→10:21)
[2021-08-09] MEDS: LORazepam 0.5 MG TABLET PO (07:42)
[2021-08-09] MEDS: FLUoxetine HCl Oral Solution 20 MG/5 ML SOLUTION 60 MG PO (07:44)
[2021-08-09 09:00] VITALS: BP 142/83; PULSE 91; RESP 18; TEMP 36.4; O2SAT 94
[2021-08-09 10:21] VITALS: BP 140/80; PULSE 98
[2021-08-09] MEDS: hydrOXYzine HCL 50 MG TABLET PO (10:43)
[2021-08-09 18:00] VITALS: BP 150/87; PULSE 63; RESP 18; TEMP 36.2; O2SAT 96
[2021-08-09] MEDS: Mirtazapine 15 MG TABLET PO (20:32)
[2021-08-10] MEDS: hydrOXYzine HCL 50 MG TABLET PO (02:18)
[2021-08-10] MEDS: Acetaminophen 325 MG TABLET 650 MG PO (03:23)
[2021-08-10 09:51] VITALS: BP 190/89; PULSE 84; RESP 18; TEMP 35.7; O2SAT 97
[2021-08-10 09:54] VITALS: BP 190/89; PULSE 84
[2021-08-10] MEDS: FLUoxetine HCl Oral Solution 20 MG/5 ML SOLUTION 60 MG PO (09:54)
[2021-08-10] MEDS: amLODIPine Besylate 5 MG TABLET PO (09:54)
[2021-08-10] MEDS: LORazepam 0.5 MG TABLET PO ×3 (11:02→20:48)
[2021-08-10 11:04] VITALS: BP 161/95; PULSE 83
[2021-08-10 13:03] VITALS: BP 145/86; PULSE 75; O2SAT 98
--- NOTE | 2021-08-10 13:27 | HO.PSYCHPN ---
Subjective Subjective Date of Service: 08/10/21 Reason For Visit: Major Depression Disorder Subjective Notes: Conditional Voluntary Interim History: The nursing staff reported that the patient has been withdrawn, depressed and isolative, very guarded and flat. He has not attended to groups. On interview, the patient denies new symptoms, he complains of depression and lack of energy. He is fully aware that we are increasing his Prozac up to 80 mg today. The mental health social worker will arrange a family meeting tomorrow by Zoom at 11:00 o'clock Mental Status Exam Mental Status Exam Patient Appearance: Disheveled Patient Orientation: Person Level of Consciousness: Awake Patient Behavior: Cooperative and Passive Mood Description: Constricted Affect Description: Constricted and Depressed Patient Cognition Impaired: Yes Ability to Follow Directions: Good Speech Pattern: Clear Hallucinations: None Thought Process: Evasive and Slowed Thinking Thought Content: positive for Poverty of Content Judgement: Fair Diagnostics Vital Signs (24Hr): Vital Signs - 24 hr 08/09/21 18:00 08/10/21 09:51 08/10/21 09:54 Temperature 97.2 F 96.3 F L Pulse Rate 63 84 84 Respiratory Rate 18 18 Blood Pressure 150/87 H 190/89 H 190/89 H Pulse Oximetry 96 97 08/10/21 11:04 08/10/21 13:03 Temperature Pulse Rate 83 75 Respiratory Rate Blood Pressure 161/95 H 145/86 H Pulse Oximetry 98 Body Mass Index 25.7 Labs Results: 08/05/21 06:56 08/04/21 22:27 Medications Medications Current Medications Acetaminophen (Acetaminophen 325 Mg Tablet) 650 mg PO Q6H PRN PRN Reason: Headache/Pain Mild Scale (1-3) Last Admin: 08/10/21 03:23 Dose: 650 mg Documented by: Al Hydroxide/Mg Hydroxide (Magnesium Hydrox/Alum Hydrox 30 Ml Oral.Susp) 30 ml PO Q6H PRN PRN Reason: Heartburn/Nausea Amlodipine Besylate (Amlodipine Besylate 5 Mg Tablet) 5 mg PO DAILY [facility] Last Admin: 08/10/21 09:54 Dose: 5 mg Documented by: Fluoxetine HCl (Fluoxetine Hcl Oral Solution 20 Mg/5 Ml Solution) 80 mg PO DAILY [facility] Hydroxyzine HCl (Hydroxyzine Hcl 50 Mg Tablet) 50 mg PO BID PRN PRN Reason: Anxiety Last Admin: 09/20/21 02:18 Dose: 50 mg Documented by: Lorazepam (Lorazepam 0.5 Mg Tablet) 0.5 mg PO BID PRN PRN Reason: Anxiety Last Admin: 08/10/21 11:02 Dose: 0.5 mg Documented by: Magnesium Hydroxide (Milk Of Magnesia 30 Ml Oral.Susp) 30 ml PO DAILY PRN PRN Reason: Constipation Mirtazapine (Mirtazapine 15 Mg Tablet) 15 mg PO BEDTIME [facility] Last Admin: 08/09/21 20:32 Dose: 15 mg Documented by: Allergies Allergies Allergy/AdvReac Type Severity Reaction Status Date / Time paroxetine [From PAXIL] AdvReac Unknown AGITATION, Unverified 08/07/20 17:12 MOOD SWINGS, ALL KINDS OF WEIRD THOUGHTS Assessment & Plan Assessment & Plan (1) Hypertension: Status: Acute Code(s): I10 - Essential (primary) hypertension Assessment and Plan: 65yo M with HTN, OCD, depression admitted to inpatient psychiatry, routine medical H+P # HTN - continue amlodipine # depression/OCD - medications as per psychiatry team. QT monitoring as indicated by pharmacology of agents used. Plan 1. Continue titration of Prozac up to 80 mg daily, we will get it on Tuesday Currently he is on 60 mg . Greater than 50% of the session was spent on counseling and/or coordination of care Reason for contiued inpatient stay Substantial Risk for: inability to function, rapid decompensation and med/psych decompensation
[2021-08-10 18:00] VITALS: BP 135/84; PULSE 70; RESP 17; TEMP 36.6; O2SAT 98
[2021-08-10] MEDS: Mirtazapine 15 MG TABLET PO (20:47)
[2021-08-11] MEDS: hydrOXYzine HCL 50 MG TABLET PO ×2 (03:04→08:23)
[2021-08-11 04:55] VITALS: BP 135/88; PULSE 224; RESP 16; O2SAT 99
[2021-08-11] MEDS: LORazepam 0.5 MG TABLET PO (05:16)
[2021-08-11 05:37] VITALS: BP 163/97; PULSE 74; O2SAT 97
[2021-08-11] MEDS: FLUoxetine HCl Oral Solution 20 MG/5 ML SOLUTION 80 MG PO (08:21)
[2021-08-11 08:23] VITALS: BP 119/75; PULSE 76
[2021-08-11] MEDS: amLODIPine Besylate 5 MG TABLET PO (08:23)
--- NOTE | 2021-08-11 11:24 | P.PNPSI_ITS ---
Subjective Subjective Date of Service: 08/11/21 Reason For Visit: Major Depression Disorder Subjective Notes: Conditional Voluntary Interim History: The nursing staff reported that the patient has shortness of breath, anxiety, restless legs syndrome, frequent panic attacks mostly at night. We review his medication list and apparently has been on Klonopin in the [facility] in the past and he has been using Ativan very frequently. Today home family meeting over Zoom, his brother reports a long history of anxiety and dysphoria. Today on interview, the patient reports anxiety shortness of breath and panic attacks most likely used to the lack of benzodiazepines in the last days. We discussed risks, benefits, side-effects and alternatives and he agreed to change Ativan to Klonopin that he has been using the community before. Medication Compliance: Yes Side effects from medications: No Attending Groups: Intermittent Review of Systems Acute medical concerns: No Medical Review of Systems: unchanged Mental Status Exam Mental Status Exam Patient Appearance: Well Grooomed (on hospital gowns) Patient Orientation: Person, Place and Situation Level of Consciousness: Awake and Alert Patient Behavior: Appropriate, Cooperative and Passive Mood Description: Withdrawn and Constricted Affect Description: Depressed Ability to Follow Directions: Fair Speech Pattern: Clear Hallucinations: None Delusions: Not Present Thought Process: Linear and Slowed Thinking Thought Content: positive for Circumstantial, positive for Perseveration and positive for Poverty of Content Depressive Symptoms: Changes in Appetite Judgement: Fair Diagnostics Vital Signs (24Hr): Vital Signs - 24 hr 08/10/21 13:03 08/10/21 18:00 08/11/21 04:55 Temperature 97.8 F Pulse Rate 75 70 224 H Respiratory Rate 17 16 Blood Pressure 145/86 H 135/84 135/88 Pulse Oximetry 98 98 99 08/11/21 05:37 08/11/21 08:23 Temperature Pulse Rate 74 76 Respiratory Rate Blood Pressure 163/97 H 119/75 Pulse Oximetry 97 Body Mass Index 25.7 Labs Results: 08/05/21 06:56 08/04/21 22:27 Medications Medications Current Medications Acetaminophen (Acetaminophen 325 Mg Tablet) 650 mg PO Q6H PRN PRN Reason: Headache/Pain Mild Scale (1-3) Last Admin: 08/10/21 03:23 Dose: 650 mg Documented by: Al Hydroxide/Mg Hydroxide (Magnesium Hydrox/Alum Hydrox 30 Ml Oral.Susp) 30 ml PO Q6H PRN PRN Reason: Heartburn/Nausea Amlodipine Besylate (Amlodipine Besylate 5 Mg Tablet) 5 mg PO DAILY [facility] Last Admin: 08/11/21 08:23 Dose: 5 mg Documented by: Clonazepam (Clonazepam 0.5 Mg Tablet) 0.5 mg PO TID [facility] Fluoxetine HCl (Fluoxetine Hcl Oral Solution 20 Mg/5 Ml Solution) 80 mg PO DAILY [facility] [place] Last Admin: 08/11/21 08:21 Dose: 80 mg Documented by: Hydroxyzine HCl (Hydroxyzine Hcl 50 Mg Tablet) 50 mg PO BID PRN PRN Reason: Anxiety Last Admin: 08/11/21 08:23 Dose: 50 mg Documented by: Magnesium Hydroxide (Milk Of Magnesia 30 Ml Oral.Susp) 30 ml PO DAILY PRN PRN Reason: Constipation Mirtazapine (Mirtazapine 15 Mg Tablet) 15 mg PO BEDTIME [facility] [place] Last Admin: 08/10/21 20:47 Dose: 15 mg Documented by: Allergies Allergies Allergy/AdvReac Type Severity Reaction Status Date / Time paroxetine [From PAXIL] AdvReac Unknown AGITATION, Unverified 08/07/20 17:12 MOOD SWINGS, ALL KINDS OF WEIRD THOUGHTS Assessment & Plan Assessment & Plan (1) Hypertension: Status: Acute Code(s): I10 - Essential (primary) hypertension Assessment and Plan: 65yo M with HTN, OCD, depression admitted to inpatient psychiatry, routine medical H+P # HTN - continue amlodipine # depression/OCD - medications as per psychiatry team. QT monitoring as indicated by pharmacology of agents used. Plan 1. Continue Prozac 80 mg daily. 2. Change Ativan to Klonopin 0.5 mg po tid. 3. Bloodwork for tomorrow. Greater than 50% of the session was spent on counseling and/or coordination of care Reason for contiued inpatient stay Substantial Risk for: inability to function, rapid decompensation and med/psych decompensation
[2021-08-11] MEDS: clonazePAM 0.5 MG TABLET PO ×2 (12:28→21:03)
[2021-08-11 20:05] VITALS: BP 105/68; PULSE 71; RESP 16; TEMP 36.1; O2SAT 100
[2021-08-11] MEDS: Mirtazapine 15 MG TABLET PO (21:03)
[2021-08-12 06:00] VITALS: BP 120/77; PULSE 78; RESP 20; TEMP 36.3; O2SAT 98
[2021-08-12 06:12] LABS: MANUAL DIFF FLAG NO
[2021-08-12] MEDS: hydrOXYzine HCL 50 MG TABLET PO ×2 (06:22→13:46)
[2021-08-12 06:39] LABS: Basophils Percent Auto 0.4 % (0-2); Eosinophils Absolute Auto 0.1 X10*3/uL (0.0-0.4); Eosinophils Percent Auto 1.9 % (0-4); Hematocrit 41.3 % (42-52); Hemoglobin 13.9 g/dl (14.0-18.0); Imm Gran Abs Auto 0.02 X10*3/uL (0.00-0.03); Imm Gran Pct Auto 0.4 % (0.0-0.4); Lymphocytes Absolute Auto 1.6 X10*3/uL (1.2-4.9); Lymphocytes Percent Auto 30.5 % (20-40); Mean Corpuscular HGB Conc 33.7 g/dl (31.0-36.0); Mean Corpuscular Hemoglobin 28.6 pg (27.0-33.0); Mean Platelet Volume 9.9 fL (9.4-12.4); Monocytes Absolute Auto 0.4 X10*3/uL (0.1-1.2); Monocytes Percent Auto 8.1 % (2-11); Neutrophils Absolute Auto 3.1 X10*3/uL (2.0-8.3); Neutrophils Percent Auto 58.7 % (45-73); Platelet Count 196 X10*3/uL (160-400); Red Blood Count 4.86 X10*6/uL (4.60-5.80); Red Cell Distribution Width 13.6 % (11.0-16.0); White Blood Count 5.3 X10*3/uL (4.8-10.8)
[2021-08-12 06:41] LABS: Anion Gap 12 (12-20); Blood Urea Nitrogen 15 mg/dL (9-16); Calcium 8.8 mg/dL (8.4-10.2); Carbon Dioxide 21 mmol/L (22-29); Chloride 110 mmol/L (96-108); Creatinine Clr Calc Pharmacy 90.4; Estimated Glomerular Filt Rate > 60; Glucose Random 113 mg/dL (60-115); Potassium 4.1 mmol/L (3.3-5.1); Sodium 139 mmol/L (135-145)
[2021-08-12 07:04] LABS: Thyroid Stimulating Hormone 1.02 uIU/mL (0.32-4.0)
[2021-08-12 09:18] VITALS: BP 133/80; PULSE 72
[2021-08-12] MEDS: amLODIPine Besylate 5 MG TABLET PO (09:18)
[2021-08-12] MEDS: FLUoxetine HCl Oral Solution 20 MG/5 ML SOLUTION 80 MG PO (09:19)
[2021-08-12] MEDS: clonazePAM 0.5 MG TABLET PO ×3 (09:19→20:25)
[2021-08-12 09:27] VITALS: BP 133/80; PULSE 72; RESP 17; TEMP 36.9; O2SAT 96
--- NOTE | 2021-08-12 11:09 | P.PNPSI_ITS ---
Subjective Subjective Date of Service: 08/12/21 Reason For Visit: Major Depression Disorder Subjective Notes: Conditional Voluntary Guardianship: No Interim History: pt with severe anxiety ruminations dysphoric tardive dyskinesia restlessness ? akathesia Medication Compliance: Yes Side effects from medications: Yes Mental Status Exam Mental Status Exam Patient Appearance: Well Grooomed (on hospital gowns) Patient Orientation: Person, Place and Situation Level of Consciousness: Awake and Alert Patient Behavior: Cooperative, Passive and Anxious Mood Description: Withdrawn and Constricted Affect Description: Depressed Ability to Follow Directions: Fair Speech Pattern: Clear Hallucinations: None Delusions: Not Present Thought Process: Linear and Slowed Thinking Thought Content: positive for Circumstantial, positive for Perseveration and positive for Poverty of Content Depressive Symptoms: Changes in Appetite Judgement: Fair Diagnostics Vital Signs (24Hr): Vital Signs - 24 hr 08/11/21 20:05 08/12/21 06:00 08/12/21 09:18 Temperature 96.9 F 97.3 F Pulse Rate 71 78 72 Respiratory Rate 16 20 Blood Pressure 105/68 120/77 133/80 Pulse Oximetry 100 98 08/12/21 09:27 Temperature 98.5 F Pulse Rate 72 Respiratory Rate 17 Blood Pressure 133/80 Pulse Oximetry 96 Body Mass Index 25.7 Labs Results: 08/12/21 06:07 08/12/21 06:07 Labs: Laboratory Results - last 48 hr 08/12/21 08/12/21 06:07 06:07 WBC 5.3 RBC 4.86 Hgb 13.9 L Hct 41.3 L MCV 85.0 MCH 28.6 MCHC 33.7 RDW 13.6 Plt Count 196 MPV 9.9 Immature Gran % (Auto) 0.4 Neut % (Auto) 58.7 Lymph % (Auto) 30.5 [place] % (Auto) 8.1 Eos % (Auto) 1.9 Baso % (Auto) 0.4 Lymph # (Auto) 1.6 [place] # (Auto) 0.4 Eos # (Auto) 0.1 Baso # (Auto) 0.0 Abs Immat Gran (auto) 0.02 Absolute Neuts (auto) 3.1 Absolute Nucleated RBC 0.000 Nucleated RBC % (auto) 0.0 Sodium 139 Potassium 4.1 Chloride 110 H Carbon Dioxide 21 L Anion Gap 12 BUN 15 Creatinine 0.87 Estim Creat Clear Calc 90.4 Estimated GFR > 60 Random Glucose 113 Calcium 8.8 TSH 1.02 Medications Medications Current Medications Acetaminophen (Acetaminophen 325 Mg Tablet) 650 mg PO Q6H PRN PRN Reason: Headache/Pain Mild Scale (1-3) Last Admin: 08/10/21 03:23 Dose: 650 mg Documented by: Al Hydroxide/Mg Hydroxide (Magnesium Hydrox/Alum Hydrox 30 Ml Oral.Susp) 30 ml PO Q6H PRN PRN Reason: Heartburn/Nausea Amlodipine Besylate (Amlodipine Besylate 5 Mg Tablet) 5 mg PO DAILY [facility] Last Admin: 08/12/21 09:18 Dose: 5 mg Documented by: Clonazepam (Clonazepam 0.5 Mg Tablet) 0.5 mg PO TID [facility] Last Admin: 08/12/21 09:19 Dose: 0.5 mg Documented by: Fluoxetine HCl (Fluoxetine Hcl Oral Solution 20 Mg/5 Ml Solution) 80 mg PO DAILY [facility] Last Admin: 08/12/21 09:19 Dose: 80 mg Documented by: Hydroxyzine HCl (Hydroxyzine Hcl 50 Mg Tablet) 50 mg PO BID PRN PRN Reason: Anxiety Last Admin: 08/12/21 06:22 Dose: 50 mg Documented by: Magnesium Hydroxide (Milk Of Magnesia 30 Ml Oral.Susp) 30 ml PO DAILY PRN PRN Reason: Constipation Mirtazapine (Mirtazapine 15 Mg Tablet) 15 mg PO BEDTIME [facility] Last Admin: 08/11/21 21:03 Dose: 15 mg Documented by: Allergies Allergies Allergy/AdvReac Type Severity Reaction Status Date / Time paroxetine [From PAXIL] AdvReac Unknown AGITATION, Unverified 08/07/20 17:12 MOOD SWINGS, ALL KINDS OF WEIRD THOUGHTS Assessment & Plan Assessment & Plan (1) Hypertension: Status: Acute Code(s): I10 - Essential (primary) hypertension Assessment and Plan: Patient depressed patient depressed anxious ruminating restless complains of shortness of breath no noted tachypnea no fever Patient recently had ECT some improvement noted from [facility] anxious agitated and ruminating question akathisia from fluoxetine 80 mg versus anxiety patient with noted tardive dyskinesia Plan 1. Continue Prozac 80 mg daily. Consider decreasefluoxetine Continue mirtazapine consider low-dose Seroquel start tenormin 12.5 mg for restlessness and anxiety Greater than 50% of the session was spent on counseling and/or coordination of care Reason for contiued inpatient stay Substantial Risk for: inability to function and rapid decompensation
[2021-08-12 18:00] VITALS: BP 138/78; PULSE 70; RESP 18; TEMP 36.6; O2SAT 97
[2021-08-12] MEDS: Mirtazapine 15 MG TABLET PO (20:25)
[2021-08-13 06:00] VITALS: BP 138/87; PULSE 78; RESP 18; TEMP 36.4; O2SAT 97
[2021-08-13 07:00] VITALS: BMI 27.7
[2021-08-13] MEDS: clonazePAM 0.5 MG TABLET PO ×3 (08:03→20:11)
[2021-08-13 08:04] VITALS: BP 154/76; PULSE 86
[2021-08-13] MEDS: atenoloL 25 MG TABLET 12.5 MG PO (08:04)
[2021-08-13 08:06] VITALS: BP 154/76; PULSE 86
[2021-08-13] MEDS: amLODIPine Besylate 5 MG TABLET PO (08:06)
[2021-08-13] MEDS: FLUoxetine HCl Oral Solution 20 MG/5 ML SOLUTION 80 MG PO (09:37)
[2021-08-13] MEDS: hydrOXYzine HCL 50 MG TABLET PO ×2 (10:09→18:38)
[2021-08-13] MEDS: QUEtiapine Fumarate 25 MG TABLET PO ×2 (11:00→22:23)
[2021-08-13] MEDS: LORazepam 1 MG TABLET PO (20:11)
[2021-08-13] MEDS: Mirtazapine 15 MG TABLET PO (20:11)
--- NOTE | 2021-08-13 20:28 | P.PNPSI_ITS ---
Subjective Subjective Date of Service: 08/13/21 Reason For Visit: Major Depression Disorder Subjective Notes: Conditional Voluntary Interim History: Patient anxious ruminating restless. Does not appear to be related to antidepressants patient had been on fluoxetine 80 mg previously. He he had however been off them for 1 month. Patient does have tardive dyskinesia but he had been on 2.5 mg of Risperdal after being discharged a month ago from [facility] patient hopeless helpless isolated Medication Compliance: Yes Mental Status Exam Mental Status Exam Narrative: Restless pacing Patient Appearance: Fatigued Patient Orientation: Person, Place and Situation Level of Consciousness: Awake and Alert Patient Behavior: Cooperative, Passive and Anxious Mood Description: Withdrawn and Constricted Affect Description: Depressed Ability to Follow Directions: Fair Speech Pattern: Clear Hallucinations: None Delusions: Not Present Thought Process: Linear and Slowed Thinking Thought Content: positive for Circumstantial, positive for Perseveration and positive for Poverty of Content Depressive Symptoms: Changes in Appetite Judgement: Fair Diagnostics Vital Signs (24Hr): Vital Signs - 24 hr 08/13/21 06:00 08/13/21 08:04 08/13/21 08:06 Temperature 97.5 F Pulse Rate 78 86 86 Respiratory Rate 18 Blood Pressure 138/87 154/76 H 154/76 H Pulse Oximetry 97 Body Mass Index 27.7 Labs Results: 08/12/21 06:07 08/12/21 06:07 Labs: Laboratory Results - last 48 hr 08/12/21 08/12/21 06:07 06:07 WBC 5.3 RBC 4.86 Hgb 13.9 L Hct 41.3 L MCV 85.0 MCH 28.6 MCHC 33.7 RDW 13.6 Plt Count 196 MPV 9.9 Immature Gran % (Auto) 0.4 Neut % (Auto) 58.7 Lymph % (Auto) 30.5 [place] % (Auto) 8.1 Eos % (Auto) 1.9 Baso % (Auto) 0.4 Lymph # (Auto) 1.6 [place] # (Auto) 0.4 Eos # (Auto) 0.1 Baso # (Auto) 0.0 Abs Immat Gran (auto) 0.02 Absolute Neuts (auto) 3.1 Absolute Nucleated RBC 0.000 Nucleated RBC % (auto) 0.0 Sodium 139 Potassium 4.1 Chloride 110 H Carbon Dioxide 21 L Anion Gap 12 BUN 15 Creatinine 0.87 Estim Creat Clear Calc 90.4 Estimated GFR > 60 Random Glucose 113 Calcium 8.8 TSH 1.02 Medications Medications Current Medications Acetaminophen (Acetaminophen 325 Mg Tablet) 650 mg PO Q6H PRN PRN Reason: Headache/Pain Mild Scale (1-3) Last Admin: 08/10/21 03:23 Dose: 650 mg Documented by: Al Hydroxide/Mg Hydroxide (Magnesium Hydrox/Alum Hydrox 30 Ml Oral.Susp) 30 ml PO Q6H PRN PRN Reason: Heartburn/Nausea Amlodipine Besylate (Amlodipine Besylate 5 Mg Tablet) 5 mg PO DAILY [facility] Last Admin: 08/13/21 08:06 Dose: 5 mg Documented by: Atenolol (Atenolol 25 Mg Tablet) 12.5 mg PO DAILY [facility]; Protocol Last Admin: 08/13/21 08:04 Dose: 12.5 mg Documented by: Clonazepam (Clonazepam 0.5 Mg Tablet) 0.5 mg PO TID [facility] Last Admin: 08/13/21 20:11 Dose: 0.5 mg Documented by: Fluoxetine HCl (Fluoxetine Hcl Oral Solution 20 Mg/5 Ml Solution) 80 mg PO DAILY [facility] Last Admin: 08/13/21 09:37 Dose: 80 mg Documented by: Hydroxyzine HCl (Hydroxyzine Hcl 50 Mg Tablet) 50 mg PO BID PRN PRN Reason: Anxiety Last Admin: 08/13/21 18:38 Dose: 50 mg Documented by: Magnesium Hydroxide (Milk Of Magnesia 30 Ml Oral.Susp) 30 ml PO DAILY PRN PRN Reason: Constipation Mirtazapine (Mirtazapine 15 Mg Tablet) 15 mg PO BEDTIME [facility] Last Admin: 08/13/21 20:11 Dose: 15 mg Documented by: Quetiapine Fumarate (Quetiapine Fumarate 25 Mg Tablet) 25 mg PO Q6H PRN PRN Reason: anxiety/restlessness Allergies Allergies Allergy/AdvReac Type Severity Reaction Status Date / Time paroxetine [From PAXIL] AdvReac Unknown AGITATION, Verified 08/12/21 20:25 MOOD SWINGS, ALL KINDS OF WEIRD THOUGHTS Assessment & Plan Assessment & Plan (1) Hypertension: Status: Acute Code(s): I10 - Essential (primary) hypertension Assessment and Plan: Patient depressed patient depressed anxious ruminating restless complains of shortness of breath no noted tachypnea no fever Patient recently had ECT some improvement noted from [facility] anxious agitated and ruminating question akathisia from fluoxetine 80 mg versus anxiety patient with noted tardive dyskinesia Plan [place] started for anxiety and restlessness. Continue clonazepam. Seroquel 25 mg appear to be quite helpful for anxiety will start 25 t.i.d. hold for systolic less than 90 could consider maintenance continuation treatments while in the hospital if needed ECT Greater than 50% of the session was spent on counseling and/or coordination of care Reason for contiued inpatient stay Substantial Risk for: inability to function, rapid decompensation and med/psych decompensation
[2021-08-13 21:13] VITALS: BP 111/62; PULSE 65; RESP 18; TEMP 36.9; O2SAT 99
[2021-08-14 06:00] VITALS: BP 123/70; PULSE 71; TEMP 36.6; O2SAT 98
[2021-08-14] MEDS: amLODIPine Besylate 5 MG TABLET PO (10:01)
[2021-08-14] MEDS: clonazePAM 0.5 MG TABLET PO ×3 (10:02→19:45)
[2021-08-14] MEDS: atenoloL 25 MG TABLET 12.5 MG PO (10:02)
[2021-08-14] MEDS: FLUoxetine HCl Oral Solution 20 MG/5 ML SOLUTION 80 MG PO (10:02)
[2021-08-14] MEDS: QUEtiapine Fumarate 25 MG TABLET PO ×4 (10:05→19:45)
--- NOTE | 2021-08-14 13:36 | P.PNPSI_ITS ---
Subjective Subjective Date of Service: 08/14/21 Reason For Visit: Major Depression Disorder Interim History: Pt seen in bed, tapping feet and moving feet as meeting with this life insurance underwriter. He reports some anxious mood but thinks it may be better than yesterday. He does report some sense of restlessness. He reports intermittent suicidal ideation but denies any plan or intent. He reports sleeping and eating well. Medication Compliance: Yes Attending Groups: No Review of Systems Review of Systems Yes all other systems are reviewed and are negative (except for psychiatric symptom) Diagnostics Vital Signs (24Hr): Vital Signs - 24 hr 08/13/21 21:13 08/14/21 06:00 Temperature 98.5 F 97.8 F Pulse Rate 65 71 Respiratory Rate 18 Blood Pressure 111/62 123/70 Pulse Oximetry 99 98 Body Mass Index 27.7 Labs Results: 08/12/21 06:07 08/12/21 06:07 Medications Medications Current Medications Acetaminophen (Acetaminophen 325 Mg Tablet) 650 mg PO Q6H PRN PRN Reason: Headache/Pain Mild Scale (1-3) Last Admin: 08/10/21 03:23 Dose: 650 mg Documented by: Al Hydroxide/Mg Hydroxide (Magnesium Hydrox/Alum Hydrox 30 Ml Oral.Susp) 30 ml PO Q6H PRN PRN Reason: Heartburn/Nausea Amlodipine Besylate (Amlodipine Besylate 5 Mg Tablet) 5 mg PO DAILY [facility] Last Admin: 08/14/21 10:01 Dose: 5 mg Documented by: Atenolol (Atenolol 25 Mg Tablet) 12.5 mg PO DAILY [facility]; Protocol Last Admin: 08/14/21 10:02 Dose: 12.5 mg Documented by: Clonazepam (Clonazepam 0.5 Mg Tablet) 0.5 mg PO TID [facility] Last Admin: 08/14/21 10:02 Dose: 0.5 mg Documented by: Fluoxetine HCl (Fluoxetine Hcl Oral Solution 20 Mg/5 Ml Solution) 80 mg PO DAILY [facility] Last Admin: 08/14/21 10:02 Dose: 80 mg Documented by: Hydroxyzine HCl (Hydroxyzine Hcl 50 Mg Tablet) 50 mg PO BID PRN PRN Reason: Anxiety Last Admin: 08/13/21 18:38 Dose: 50 mg Documented by: Magnesium Hydroxide (Milk Of Magnesia 30 Ml Oral.Susp) 30 ml PO DAILY PRN PRN Reason: Constipation Mirtazapine (Mirtazapine 15 Mg Tablet) 15 mg PO BEDTIME [facility] Last Admin: 08/13/21 20:11 Dose: 15 mg Documented by: Quetiapine Fumarate (Quetiapine Fumarate 25 Mg Tablet) 25 mg PO Q6H PRN PRN Reason: anxiety/restlessness Last Admin: 08/14/21 13:01 Dose: 25 mg Documented by: Quetiapine Fumarate (Quetiapine Fumarate 25 Mg Tablet) 25 mg PO TID [facility] Last Admin: 08/14/21 10:05 Dose: 25 mg Documented by: Allergies Allergies Allergy/AdvReac Type Severity Reaction Status Date / Time paroxetine [From PAXIL] AdvReac Unknown AGITATION, Verified 08/12/21 20:25 MOOD SWINGS, ALL KINDS OF WEIRD THOUGHTS Assessment & Plan Assessment & Plan (1) Hypertension: Status: Acute Code(s): I10 - Essential (primary) hypertension Assessment and Plan: Patient depressed patient depressed anxious ruminating restless complains of shortness of breath no noted tachypnea no fever Patient recently had ECT some improvement noted from [facility] anxious agitated and ruminating question akathisia from fluoxetine 80 mg versus anxiety patient with noted tardive dyskinesia Continue PLAN: [place] started for anxiety and restlessness. Continue clonazepam. Seroquel 25 mg appear to be quite helpful for anxiety will start 25 t.i.d. hold for systolic less than 90 could consider maintenance continuation treatments while in the hospital if needed ECT Greater than 50% of the session was spent on counseling and/or coordination of care Reason for contiued inpatient stay Substantial Risk for: inability to function
[2021-08-14] MEDS: hydrOXYzine HCL 50 MG TABLET PO (17:45)
[2021-08-14] MEDS: Mirtazapine 15 MG TABLET PO (19:45)
[2021-08-15 08:18] VITALS: BP 120/77; PULSE 60; RESP 16; TEMP 36.6; O2SAT 100
[2021-08-15 08:23] VITALS: BP 120/77; PULSE 60
[2021-08-15] MEDS: amLODIPine Besylate 5 MG TABLET PO (08:23)
[2021-08-15] MEDS: clonazePAM 0.5 MG TABLET PO ×3 (08:23→20:37)
[2021-08-15] MEDS: QUEtiapine Fumarate 25 MG TABLET PO ×5 (08:23→20:37)
[2021-08-15] MEDS: FLUoxetine HCl Oral Solution 20 MG/5 ML SOLUTION 80 MG PO (08:23)
[2021-08-15 08:24] VITALS: BP 120/77; PULSE 60
[2021-08-15] MEDS: atenoloL 25 MG TABLET 12.5 MG PO (08:24)
--- NOTE | 2021-08-15 10:15 | HO.PSYCHPN ---
Subjective Subjective Date of Service: 08/15/21 Reason For Visit: Major Depression Disorder Subjective Notes: [place] Warning and Conditional Voluntary Interim History: Patient was seen in rounds today. He has been doing better since taking Klonopin. There is less shaking of his leg. He is more mobile. Attending some groups. He does state that he is feeling better. No complaints or side effects. Eating and sleeping adequately. No changes were made today Review of Systems Review of Systems Yes all other systems are reviewed and are negative (except for psychiatric symptom) Mental Status Exam Mental Status Exam Narrative: Restless pacing Patient Appearance: Fatigued Patient Orientation: Person, Place and Situation Level of Consciousness: Awake and Alert Patient Behavior: Cooperative, Passive and Anxious Mood Description: Withdrawn and Constricted Affect Description: Depressed Ability to Follow Directions: Fair Speech Pattern: Clear Hallucinations: None Delusions: Not Present Thought Process: Linear and Slowed Thinking Thought Content: positive for Circumstantial, positive for Perseveration and positive for Poverty of Content Depressive Symptoms: Changes in Appetite Judgement: Fair Diagnostics Vital Signs (24Hr): Vital Signs - 24 hr 08/15/21 08:18 08/15/21 08:23 08/15/21 08:24 Temperature 97.9 F Pulse Rate 60 60 60 Respiratory Rate 16 Blood Pressure 120/77 120/77 120/77 Pulse Oximetry 100 Body Mass Index 27.7 Labs Results: 08/12/21 06:07 08/12/21 06:07 Medications Medications Current Medications Acetaminophen (Acetaminophen 325 Mg Tablet) 650 mg PO Q6H PRN PRN Reason: Headache/Pain Mild Scale (1-3) Last Admin: 08/10/21 03:23 Dose: 650 mg Documented by: Al Hydroxide/Mg Hydroxide (Magnesium Hydrox/Alum Hydrox 30 Ml Oral.Susp) 30 ml PO Q6H PRN PRN Reason: Heartburn/Nausea Amlodipine Besylate (Amlodipine Besylate 5 Mg Tablet) 5 mg PO DAILY [facility] Last Admin: 08/15/21 08:23 Dose: 5 mg Documented by: Atenolol (Atenolol 25 Mg Tablet) 12.5 mg PO DAILY [facility]; Protocol Last Admin: 08/15/21 08:24 Dose: 12.5 mg Documented by: Clonazepam (Clonazepam 0.5 Mg Tablet) 0.5 mg PO TID [facility] Last Admin: 08/15/21 08:23 Dose: 0.5 mg Documented by: Fluoxetine HCl (Fluoxetine Hcl Oral Solution 20 Mg/5 Ml Solution) 80 mg PO DAILY [facility] Last Admin: 08/15/21 08:23 Dose: 80 mg Documented by: Hydroxyzine HCl (Hydroxyzine Hcl 50 Mg Tablet) 50 mg PO BID PRN PRN Reason: Anxiety Last Admin: 08/14/21 17:45 Dose: 50 mg Documented by: Magnesium Hydroxide (Milk Of Magnesia 30 Ml Oral.Susp) 30 ml PO DAILY PRN PRN Reason: Constipation Mirtazapine (Mirtazapine 15 Mg Tablet) 15 mg PO BEDTIME [facility] Last Admin: 08/14/21 19:45 Dose: 15 mg Documented by: Quetiapine Fumarate (Quetiapine Fumarate 25 Mg Tablet) 25 mg PO Q6H PRN PRN Reason: anxiety/restlessness Last Admin: 08/14/21 13:01 Dose: 25 mg Documented by: Quetiapine Fumarate (Quetiapine Fumarate 25 Mg Tablet) 25 mg PO TID [facility] Last Admin: 08/15/21 08:23 Dose: 25 mg Documented by: Allergies Allergies Allergy/AdvReac Type Severity Reaction Status Date / Time paroxetine [From PAXIL] AdvReac Unknown AGITATION, Verified 08/12/21 20:25 MOOD SWINGS, ALL KINDS OF WEIRD THOUGHTS Assessment & Plan Assessment & Plan (1) Hypertension: Status: Acute Code(s): I10 - Essential (primary) hypertension Assessment and Plan: Patient depressed patient depressed anxious ruminating restless complains of shortness of breath no noted tachypnea no fever Patient recently had ECT some improvement noted from [facility] anxious agitated and ruminating question akathisia from fluoxetine 80 mg versus anxiety patient with noted tardive dyskinesia Continue current regimen and plans. Plans and medications were reviewed Greater than 50% of the session was spent on counseling and/or coordination of care Reason for contiued inpatient stay Substantial Risk for: other
[2021-08-15 18:00] VITALS: BP 118/65; PULSE 62; RESP 18; TEMP 36.9; O2SAT 96
[2021-08-15] MEDS: Mirtazapine 15 MG TABLET PO (20:36)
[2021-08-16 06:00] VITALS: BP 128/65; PULSE 60; TEMP 36.4; O2SAT 98
[2021-08-16] MEDS: FLUoxetine HCl Oral Solution 20 MG/5 ML SOLUTION 80 MG PO (07:57)
[2021-08-16 07:58] VITALS: BP 128/68; PULSE 60
[2021-08-16] MEDS: QUEtiapine Fumarate 25 MG TABLET PO ×3 (07:58→21:01)
[2021-08-16] MEDS: atenoloL 25 MG TABLET 12.5 MG PO (07:58)
[2021-08-16] MEDS: clonazePAM 0.5 MG TABLET PO ×3 (07:58→21:01)
[2021-08-16 07:59] VITALS: BP 128/68; PULSE 60
[2021-08-16] MEDS: amLODIPine Besylate 5 MG TABLET PO (07:59)
--- NOTE | 2021-08-16 09:25 | P.PNPSI_ITS ---
Subjective Subjective Date of Service: 08/16/21 Reason For Visit: Major Depression Disorder Subjective Notes: Conditional Voluntary Interim History: Patient was seen and reviewed in rounds. Records were reviewed. He is doing much better. These Seroquel and Klonopin have been very helpful to him. Hardly having an restlessness in his legs. He is less depressed. Eating and sleeping adequately. No complaints were side effects. No changes were made today. Review of Systems Review of Systems Yes all other systems are reviewed and are negative (except for psychiatric symptom) Mental Status Exam Mental Status Exam Narrative: Restless pacing Patient Appearance: Fatigued Patient Orientation: Person, Place and Situation Level of Consciousness: Awake and Alert Patient Behavior: Cooperative, Passive and Anxious Mood Description: Withdrawn and Constricted Affect Description: Depressed Ability to Follow Directions: Fair Speech Pattern: Clear Hallucinations: None Delusions: Not Present Thought Process: Linear and Slowed Thinking Thought Content: positive for Circumstantial, positive for Perseveration and po sitive for Poverty of Content Depressive Symptoms: Changes in Appetite Judgement: Fair Diagnostics Vital Signs (24Hr): Vital Signs - 24 hr 08/15/21 18:00 08/16/21 06:00 08/16/21 07:58 Temperature 98.5 F 97.6 F Pulse Rate 62 60 60 Respiratory Rate 18 Blood Pressure 118/65 128/65 128/68 Pulse Oximetry 96 98 08/16/21 07:59 Temperature Pulse Rate 60 Respiratory Rate Blood Pressure 128/68 Pulse Oximetry Body Mass Index 27.7 Labs Results: 08/12/21 06:07 08/12/21 06:07 Medications Medications Current Medications Acetaminophen (Acetaminophen 325 Mg Tablet) 650 mg PO Q6H PRN PRN Reason: Headache/Pain Mild Scale (1-3) Last Admin: 08/10/21 03:23 Dose: 650 mg Documented by: Al Hydroxide/Mg Hydroxide (Magnesium Hydrox/Alum Hydrox 30 Ml Oral.Susp) 30 ml PO Q6H PRN PRN Reason: Heartburn/Nausea Amlodipine Besylate (Amlodipine Besylate 5 Mg Tablet) 5 mg PO DAILY [facility] Last Admin: 08/16/21 07:59 Dose: 5 mg Documented by: Atenolol (Atenolol 25 Mg Tablet) 12.5 mg PO DAILY [facility]; Protocol Last Admin: 08/16/21 07:58 Dose: 12.5 mg Documented by: Clonazepam (Clonazepam 0.5 Mg Tablet) 0.5 mg PO TID [facility] Last Admin: 08/16/21 07:58 Dose: 0.5 mg Documented by: Fluoxetine HCl (Fluoxetine Hcl Oral Solution 20 Mg/5 Ml Solution) 80 mg PO DAILY [facility] Last Admin: 08/16/21 07:57 Dose: 80 mg Documented by: Hydroxyzine HCl (Hydroxyzine Hcl 50 Mg Tablet) 50 mg PO BID PRN PRN Reason: Anxiety Last Admin: 08/14/21 17:45 Dose: 50 mg Documented by: Magnesium Hydroxide (Milk Of Magnesia 30 Ml Oral.Susp) 30 ml PO DAILY PRN PRN Reason: Constipation Mirtazapine (Mirtazapine 15 Mg Tablet) 15 mg PO BEDTIME [facility] Last Admin: 08/15/21 20:36 Dose: 15 mg Documented by: Quetiapine Fumarate (Quetiapine Fumarate 25 Mg Tablet) 25 mg PO Q6H PRN PRN Reason: anxiety/restlessness Last Admin: 08/15/21 17:38 Dose: 25 mg Documented by: Quetiapine Fumarate (Quetiapine Fumarate 25 Mg Tablet) 25 mg PO TID [facility] Last Admin: 08/16/21 07:58 Dose: 25 mg Documented by: Allergies Allergies Allergy/AdvReac Type Severity Reaction Status Date / Time paroxetine [From PAXIL] AdvReac Unknown AGITATION, Verified 08/12/21 20:25 MOOD SWINGS, ALL KINDS OF WEIRD THOUGHTS Assessment & Plan Assessment & Plan (1) Hypertension: Status: Acute Code(s): I10 - Essential (primary) hypertension Assessment and Plan: Patient depressed patient depressed anxious ruminating restless complains of shortness of breath no noted tachypnea no fever Patient recently had ECT some improvement noted from [facility] anxious agitated and ruminating question akathisia from fluoxetine 80 mg versus anxiety patient with noted tardive dyskinesia Continue current regimen and plans. Plans and medications were reviewed Continue current regimen and plans Reason for contiued inpatient stay Substantial Risk for: other
--- NOTE | 2021-08-16 14:01 | PC.NURSE ---
Patient out of room much more this shift compared to yesterday. He states I am feeling much better with the Klonopin and Seroque. He is dressed today in street clothes insteaad of hospital attire. Appetitie is good. Enjoying football game with peers. Acknowledges depression 03/30. Compliant with care and meds.
[2021-08-16 18:51] VITALS: BP 101/60; PULSE 58; RESP 18; TEMP 36.3; O2SAT 98
[2021-08-16] MEDS: Mirtazapine 15 MG TABLET PO (21:01)
[2021-08-17 08:07] VITALS: BP 127/72; PULSE 58; RESP 14; TEMP 36.2; O2SAT 97
[2021-08-17 08:33] VITALS: BP 127/72; PULSE 58
[2021-08-17] MEDS: amLODIPine Besylate 5 MG TABLET PO (08:33)
[2021-08-17] MEDS: clonazePAM 0.5 MG TABLET PO ×3 (08:33→20:00)
[2021-08-17] MEDS: QUEtiapine Fumarate 25 MG TABLET PO ×3 (08:34→20:00)
[2021-08-17] MEDS: FLUoxetine HCl Oral Solution 20 MG/5 ML SOLUTION 80 MG PO (08:36)
[2021-08-17 09:37] VITALS: BP 132/68; PULSE 68
[2021-08-17 09:38] VITALS: BP 132/68; PULSE 68
[2021-08-17] MEDS: atenoloL 25 MG TABLET 12.5 MG PO (09:38)
[2021-08-17 15:12] VITALS: BP 109/65; PULSE 56; RESP 14; O2SAT 98
--- NOTE | 2021-08-17 15:49 | HO.PSYCHPN ---
Subjective Subjective Date of Service: 08/17/21 Reason For Visit: Major Depression Disorder Subjective Notes: Conditional Voluntary Interim History: The nursing staff reported that patient has been eating well and sleeping well the last 2 days. She feels much better with the combination of Klonopin and Seroquel 25 t.i.d.. Even though, they have noticed that he is restless at times. Today he was seen playing actively with the occupational therapist with a brighter affect. On interview, the patient denies new symptoms and he was contemplated the possibility of ECT in the future Review of Systems Acute medical concerns: No Medical Review of Systems: unchanged Mental Status Exam Mental Status Exam Patient Appearance: Unkempt Patient Orientation: Person Patient Behavior: Appropriate and Cooperative Mood Description: Depressed Affect Description: Constricted Patient Cognition Impaired: Yes Ability to Follow Directions: Good Speech Pattern: Clear Thought Process: Linear and Evasive Thought Content: positive for Circumstantial and positive for Poverty of Content Judgement: Fair Diagnostics Vital Signs (24Hr): Vital Signs - 24 hr 08/16/21 18:51 08/17/21 08:07 08/17/21 08:33 Temperature 97.3 F 97.1 F Pulse Rate 58 58 58 Respiratory Rate 18 14 Blood Pressure 101/60 127/72 127/72 Pulse Oximetry 98 97 08/17/21 09:37 08/17/21 09:38 08/17/21 15:12 Temperature Pulse Rate 68 68 56 Respiratory Rate 14 Blood Pressure 132/68 132/68 109/65 Pulse Oximetry 98 Body Mass Index 27.7 Labs Results: 08/12/21 06:07 08/12/21 06:07 Medications Medications Current Medications Acetaminophen (Acetaminophen 325 Mg Tablet) 650 mg PO Q6H PRN PRN Reason: Headache/Pain Mild Scale (1-3) Last Admin: 08/10/21 03:23 Dose: 650 mg Documented by: Al Hydroxide/Mg Hydroxide (Magnesium Hydrox/Alum Hydrox 30 Ml Oral.Susp) 30 ml PO Q6H PRN PRN Reason: Heartburn/Nausea Amlodipine Besylate (Amlodipine Besylate 5 Mg Tablet) 5 mg PO DAILY [facility] Last Admin: 08/17/21 08:33 Dose: 5 mg Documented by: Atenolol (Atenolol 25 Mg Tablet) 12.5 mg PO DAILY [facility]; Protocol Last Admin: 08/17/21 09:38 Dose: 12.5 mg Documented by: Clonazepam (Clonazepam 0.5 Mg Tablet) 0.5 mg PO TID [facility] Last Admin: 08/17/21 15:11 Dose: 0.5 mg Documented by: Fluoxetine HCl (Fluoxetine Hcl Oral Solution 20 Mg/5 Ml Solution) 80 mg PO DAILY [facility] Last Admin: 08/17/21 08:36 Dose: 80 mg Documented by: Hydroxyzine HCl (Hydroxyzine Hcl 50 Mg Tablet) 50 mg PO BID PRN PRN Reason: Anxiety Last Admin: 08/14/21 17:45 Dose: 50 mg Documented by: Magnesium Hydroxide (Milk Of Magnesia 30 Ml Oral.Susp) 30 ml PO DAILY PRN PRN Reason: Constipation Mirtazapine (Mirtazapine 15 Mg Tablet) 15 mg PO BEDTIME [facility] Last Admin: 08/16/21 21:01 Dose: 15 mg Documented by: Quetiapine Fumarate (Quetiapine Fumarate 25 Mg Tablet) 25 mg PO Q6H PRN PRN Reason: anxiety/restlessness Last Admin: 08/15/21 17:38 Dose: 25 mg Documented by: Quetiapine Fumarate (Quetiapine Fumarate 25 Mg Tablet) 25 mg PO TID [facility] Last Admin: 08/17/21 15:11 Dose: 25 mg Documented by: Allergies Allergies Allergy/AdvReac Type Severity Reaction Status Date / Time paroxetine [From PAXIL] AdvReac Unknown AGITATION, Verified 08/12/21 20:25 MOOD SWINGS, ALL KINDS OF WEIRD THOUGHTS Assessment & Plan Assessment & Plan (1) Hypertension: Status: Acute Code(s): I10 - Essential (primary) hypertension Assessment and Plan: Patient depressed patient depressed anxious ruminating restless complains of shortness of breath no noted tachypnea no fever Patient recently had ECT some improvement noted from [facility] anxious agitated and ruminating question akathisia from fluoxetine 80 mg versus anxiety patient with noted tardive dyskinesia Continue current regimen and plans. Plans and medications were reviewed Continue current regimen and plans [place] testing tomorrow Greater than 50% of the session was spent on counseling and/or coordination of care Reason for contiued inpatient stay Substantial Risk for: inability to function, rapid decompensation and med/psych decompensation
[2021-08-17 18:00] VITALS: BP 96/53; PULSE 54; RESP 17; TEMP 36.6; O2SAT 97
[2021-08-17] MEDS: Mirtazapine 15 MG TABLET PO (20:00)
[2021-08-18 06:00] VITALS: BP 123/81; PULSE 59; TEMP 36.4; O2SAT 97
[2021-08-18 10:10] VITALS: BP 123/81; PULSE 59
[2021-08-18] MEDS: atenoloL 25 MG TABLET 12.5 MG PO (10:10)
[2021-08-18] MEDS: amLODIPine Besylate 5 MG TABLET PO (10:10)
[2021-08-18] MEDS: clonazePAM 0.5 MG TABLET PO ×3 (10:11→20:25)
[2021-08-18] MEDS: QUEtiapine Fumarate 25 MG TABLET PO ×3 (10:11→20:25)
--- NOTE | 2021-08-18 14:57 | HO.PSYCHPN ---
Subjective Subjective Date of Service: 08/18/21 Reason For Visit: Major Depression Disorder Subjective Notes: Conditional Voluntary Interim History: The patient has been isolative as per nursing report but he has attended a few groups. Usually he does not interact with peers or staff. On interview the patient denies new symptoms he is slightly depressed but able to cope with stressors. Most likely his discharge would be scheduled for this week Mental Status Exam Mental Status Exam Patient Appearance: Well Grooomed Patient Orientation: Person Level of Consciousness: Awake Patient Behavior: Cooperative Mood Description: Constricted Affect Description: Depressed Patient Cognition Impaired: Yes Ability to Follow Directions: Good Memory Description: Intact Delusions: Not Present Thought Process: Intact Thought Content: positive for Circumstantial Judgement: Fair Diagnostics Vital Signs (24Hr): Vital Signs - 24 hr 08/17/21 15:12 08/17/21 18:00 08/18/21 06:00 Temperature 97.9 F 97.6 F Pulse Rate 56 54 59 Respiratory Rate 14 17 Blood Pressure 109/65 96/53 L 123/81 Pulse Oximetry 98 97 97 08/18/21 10:10 Temperature Pulse Rate 59 Respiratory Rate Blood Pressure 123/81 Pulse Oximetry Body Mass Index 27.7 Labs Results: 08/12/21 06:07 08/12/21 06:07 Medications Medications Current Medications Acetaminophen (Acetaminophen 325 Mg Tablet) 650 mg PO Q6H PRN PRN Reason: Headache/Pain Mild Scale (1-3) Last Admin: 08/10/21 03:23 Dose: 650 mg Documented by: Al Hydroxide/Mg Hydroxide (Magnesium Hydrox/Alum Hydrox 30 Ml Oral.Susp) 30 ml PO Q6H PRN PRN Reason: Heartburn/Nausea Amlodipine Besylate (Amlodipine Besylate 5 Mg Tablet) 5 mg PO DAILY [facility] Last Admin: 08/18/21 10:10 Dose: 5 mg Documented by: Atenolol (Atenolol 25 Mg Tablet) 12.5 mg PO DAILY [facility]; Protocol Last Admin: 08/18/21 10:10 Dose: 12.5 mg Documented by: Clonazepam (Clonazepam 0.5 Mg Tablet) 0.5 mg PO TID [facility] Last Admin: 08/18/21 10:11 Dose: 0.5 mg Documented by: Fluoxetine HCl (Fluoxetine Hcl Oral Solution 20 Mg/5 Ml Solution) 80 mg PO DAILY [facility] Last Admin: 08/17/21 08:36 Dose: 80 mg Documented by: Hydroxyzine HCl (Hydroxyzine Hcl 50 Mg Tablet) 50 mg PO BID PRN PRN Reason: Anxiety Last Admin: 08/14/21 17:45 Dose: 50 mg Documented by: Magnesium Hydroxide (Milk Of Magnesia 30 Ml Oral.Susp) 30 ml PO DAILY PRN PRN Reason: Constipation Mirtazapine (Mirtazapine 15 Mg Tablet) 15 mg PO BEDTIME [facility] Last Admin: 08/17/21 20:00 Dose: 15 mg Documented by: Quetiapine Fumarate (Quetiapine Fumarate 25 Mg Tablet) 25 mg PO Q6H PRN PRN Reason: anxiety/restlessness Last Admin: 08/15/21 17:38 Dose: 25 mg Documented by: Quetiapine Fumarate (Quetiapine Fumarate 25 Mg Tablet) 25 mg PO TID [facility] Last Admin: 08/18/21 10:11 Dose: 25 mg Documented by: Allergies Allergies Allergy/AdvReac Type Severity Reaction Status Date / Time paroxetine [From PAXIL] AdvReac Unknown AGITATION, Verified 08/12/21 20:25 MOOD SWINGS, ALL KINDS OF WEIRD THOUGHTS Assessment & Plan Assessment & Plan (1) Hypertension: Status: Acute Code(s): I10 - Essential (primary) hypertension Assessment and Plan: Patient depressed patient depressed anxious ruminating restless complains of shortness of breath no noted tachypnea no fever Patient recently had ECT some improvement noted from [facility] anxious agitated and ruminating question akathisia from fluoxetine 80 mg versus anxiety patient with noted tardive dyskinesia Continue current regimen and plans. Plans and medications were reviewed Continue current regimen and plans [place] testing tomorrow Greater than 50% of the session was spent on counseling and/or coordination of care Reason for contiued inpatient stay Substantial Risk for: inability to function and med/psych decompensation
[2021-08-18] MEDS: FLUoxetine HCl Oral Solution 20 MG/5 ML SOLUTION 80 MG PO (15:47)
[2021-08-18] MEDS: Mirtazapine 15 MG TABLET PO (20:25)
[2021-08-18 20:50] VITALS: BP 128/76; PULSE 57; RESP 18; TEMP 36.9; O2SAT 98
[2021-08-18] MEDS: Acetaminophen 325 MG TABLET 650 MG PO (21:04)
[2021-08-19] MEDS: Acetaminophen 325 MG TABLET 650 MG PO ×2 (06:18→21:01)
[2021-08-19 07:56] VITALS: BP 127/73; PULSE 56; RESP 16; TEMP 36.1; O2SAT 99
[2021-08-19 09:42] VITALS: BP 123/63; PULSE 52; RESP 14; O2SAT 96
[2021-08-19 09:43] VITALS: BP 123/63; PULSE 52
[2021-08-19 09:44] VITALS: BP 123/63; PULSE 52
[2021-08-19] MEDS: clonazePAM 0.5 MG TABLET PO ×3 (09:54→20:02)
[2021-08-19] MEDS: FLUoxetine HCl 20 MG CAPSULE 80 MG PO (09:54)
[2021-08-19] MEDS: QUEtiapine Fumarate 25 MG TABLET PO ×3 (09:54→20:02)
--- NOTE | 2021-08-19 10:35 | HO.PSYCHPN ---
Subjective Subjective Date of Service: 08/19/21 Reason For Visit: Major Depression Disorder Subjective Notes: Conditional Voluntary Interim History: The nursing staff has reported that the patient has been medication compliant he looks better. OT has reported that he is more visible and he attends to groups since Seroquel and Klonopin was increased. On interview, the patient reports that he is doing much better, still mildly dysphoric but with no safety concerns at this moment. We discussed the possibility of discharge at the end of this week. Review of Systems Acute medical concerns: No Medical Review of Systems: unchanged Mental Status Exam Mental Status Exam Patient Appearance: Well Grooomed Patient Orientation: Person Level of Consciousness: Awake Patient Behavior: Appropriate and Passive Mood Description: Constricted Affect Description: Calm Patient Cognition Impaired: Yes Ability to Follow Directions: Good Speech Pattern: Appropriate Hallucinations: None Delusions: Not Present Thought Process: Linear Thought Content: positive for Circumstantial Judgement: Fair Diagnostics Vital Signs (24Hr): Vital Signs - 24 hr 08/18/21 20:50 08/19/21 07:56 08/19/21 09:42 Temperature 98.5 F 97.0 F Pulse Rate 57 56 52 Respiratory Rate 18 16 14 Blood Pressure 128/76 127/73 123/63 Pulse Oximetry 98 99 96 08/19/21 09:43 08/19/21 09:44 Temperature Pulse Rate 52 52 Respiratory Rate Blood Pressure 123/63 123/63 Pulse Oximetry Body Mass Index 27.7 Labs Results: 08/12/21 06:07 08/12/21 06:07 Medications Medications Current Medications Acetaminophen (Acetaminophen 325 Mg Tablet) 650 mg PO Q6H PRN PRN Reason: Headache/Pain Mild Scale (1-3) Last Admin: 08/19/21 06:18 Dose: 650 mg Documented by: Al Hydroxide/Mg Hydroxide (Magnesium Hydrox/Alum Hydrox 30 Ml Oral.Susp) 30 ml PO Q6H PRN PRN Reason: Heartburn/Nausea Amlodipine Besylate (Amlodipine Besylate 5 Mg Tablet) 5 mg PO DAILY [facility] Last Admin: 08/19/21 09:43 Dose: Not Given Documented by: Atenolol (Atenolol 25 Mg Tablet) 12.5 mg PO DAILY [facility]; Protocol Last Admin: 08/19/21 09:44 Dose: Not Given Documented by: Clonazepam (Clonazepam 0.5 Mg Tablet) 0.5 mg PO TID [facility] Last Admin: 08/19/21 09:54 Dose: 0.5 mg Documented by: Fluoxetine HCl (Fluoxetine Hcl 20 Mg Capsule) 80 mg PO DAILY [facility] Last Admin: 08/19/21 09:54 Dose: 80 mg Documented by: Hydroxyzine HCl (Hydroxyzine Hcl 50 Mg Tablet) 50 mg PO BID PRN PRN Reason: Anxiety Last Admin: 08/14/21 17:45 Dose: 50 mg Documented by: Magnesium Hydroxide (Milk Of Magnesia 30 Ml Oral.Susp) 30 ml PO DAILY PRN PRN Reason: Constipation Mirtazapine (Mirtazapine 15 Mg Tablet) 15 mg PO BEDTIME [facility] Last Admin: 08/18/21 20:25 Dose: 15 mg Documented by: Quetiapine Fumarate (Quetiapine Fumarate 25 Mg Tablet) 25 mg PO Q6H PRN PRN Reason: anxiety/restlessness Last Admin: 08/15/21 17:38 Dose: 25 mg Documented by: Quetiapine Fumarate (Quetiapine Fumarate 25 Mg Tablet) 25 mg PO TID [facility] Last Admin: 08/19/21 09:54 Dose: 25 mg Documented by: Allergies Allergies Allergy/AdvReac Type Severity Reaction Status Date / Time paroxetine [From PAXIL] AdvReac Unknown AGITATION, Verified 08/12/21 20:25 MOOD SWINGS, ALL KINDS OF WEIRD THOUGHTS Assessment & Plan Assessment & Plan (1) Hypertension: Status: Acute Code(s): I10 - Essential (primary) hypertension Assessment and Plan: Patient depressed patient depressed anxious ruminating restless complains of shortness of breath no noted tachypnea no fever Patient recently had ECT some improvement noted from [facility] anxious agitated and ruminating question akathisia from fluoxetine 80 mg versus anxiety patient with noted tardive dyskinesia Continue current regimen and plans. Plans and medications were reviewed Continue current regimen and plans [place] testing soon. Discharge most likely at the end of the week Greater than 50% of the session was spent on counseling and/or coordination of care Reason for contiued inpatient stay Substantial Risk for: inability to function, rapid decompensation and med/psych decompensation
[2021-08-19 14:43] VITALS: BP 123/61; PULSE 61
--- NOTE | 2021-08-19 15:28 | PC.NURSE ---
Patient's pulse has been consistently in the low 50s. MD was notified. AM Blood pressure medication were held.
[2021-08-19 18:00] VITALS: BP 119/63; PULSE 60; RESP 18; TEMP 36.3; O2SAT 98
[2021-08-19] MEDS: Mirtazapine 15 MG TABLET PO (20:02)
[2021-08-20 06:00] VITALS: BP 138/60; PULSE 66; RESP 16; TEMP 36.2; O2SAT 97
[2021-08-20 07:00] VITALS: BMI 29.0
[2021-08-20] MEDS: FLUoxetine HCl 20 MG CAPSULE 80 MG PO (08:53)
[2021-08-20] MEDS: QUEtiapine Fumarate 25 MG TABLET PO ×3 (08:55→20:04)
[2021-08-20] MEDS: clonazePAM 0.5 MG TABLET PO ×3 (08:55→20:04)
[2021-08-20 08:56] VITALS: BP 138/60; PULSE 66
[2021-08-20] MEDS: amLODIPine Besylate 5 MG TABLET PO (08:56)
[2021-08-20] MEDS: atenoloL 25 MG TABLET 12.5 MG PO (08:56)
--- NOTE | 2021-08-20 16:09 | HO.PSYCHPN ---
Subjective Subjective Date of Service: 08/20/21 Reason For Visit: Major Depression Disorder Subjective Notes: Conditional Voluntary Interim History: The nursing staff reported that the patient has been referred well. OT reported that he has attended a few groups. On interview, the patient denies new symptoms he feels comfortable with the current regimen, his only complaint is restless leg syndrome. He agreed to tried Requip Review of Systems Acute medical concerns: No Medical Review of Systems: unchanged Mental Status Exam Mental Status Exam Patient Appearance: Well Grooomed Patient Orientation: Person, Place and Situation Level of Consciousness: Awake Patient Behavior: Cooperative Mood Description: Depressed Affect Description: Constricted Patient Cognition Impaired: Yes Ability to Follow Directions: Good Speech Pattern: Clear Hallucinations: None Thought Process: Goal Oriented Thought Content: positive for Circumstantial Judgement: Fair Diagnostics Vital Signs (24Hr): Vital Signs - 24 hr 08/19/21 18:00 08/20/21 06:00 08/20/21 08:56 Temperature 97.4 F 97.2 F Pulse Rate 60 66 66 Respiratory Rate 18 16 Blood Pressure 119/63 138/60 138/60 Pulse Oximetry 98 97 Body Mass Index 29.0 Labs Results: 08/12/21 06:07 08/12/21 06:07 Medications Medications Current Medications Acetaminophen (Acetaminophen 325 Mg Tablet) 650 mg PO Q6H PRN PRN Reason: Headache/Pain Mild Scale (1-3) Last Admin: 08/19/21 21:01 Dose: 650 mg Documented by: Al Hydroxide/Mg Hydroxide (Magnesium Hydrox/Alum Hydrox 30 Ml Oral.Susp) 30 ml PO Q6H PRN PRN Reason: Heartburn/Nausea Amlodipine Besylate (Amlodipine Besylate 5 Mg Tablet) 5 mg PO DAILY [facility] Last Admin: 08/20/21 08:56 Dose: 5 mg Documented by: Atenolol (Atenolol 25 Mg Tablet) 12.5 mg PO DAILY [facility]; Protocol Last Admin: 08/20/21 08:56 Dose: 12.5 mg Documented by: Clonazepam (Clonazepam 0.5 Mg Tablet) 0.5 mg PO TID [facility] Last Admin: 08/20/21 15:05 Dose: 0.5 mg Documented by: Fluoxetine HCl (Fluoxetine Hcl 20 Mg Capsule) 80 mg PO DAILY [facility] Last Admin: 08/20/21 08:53 Dose: 80 mg Documented by: Hydroxyzine HCl (Hydroxyzine Hcl 50 Mg Tablet) 50 mg PO BID PRN PRN Reason: Anxiety Last Admin: 08/14/21 17:45 Dose: 50 mg Documented by: Magnesium Hydroxide (Milk Of Magnesia 30 Ml Oral.Susp) 30 ml PO DAILY PRN PRN Reason: Constipation Mirtazapine (Mirtazapine 15 Mg Tablet) 15 mg PO BEDTIME [facility] Last Admin: 08/19/21 20:02 Dose: 15 mg Documented by: Quetiapine Fumarate (Quetiapine Fumarate 25 Mg Tablet) 25 mg PO Q6H PRN PRN Reason: anxiety/restlessness Last Admin: 08/15/21 17:38 Dose: 25 mg Documented by: Quetiapine Fumarate (Quetiapine Fumarate 25 Mg Tablet) 25 mg PO TID [facility] Last Admin: 08/20/21 15:05 Dose: 25 mg Documented by: Allergies Allergies Allergy/AdvReac Type Severity Reaction Status Date / Time paroxetine [From PAXIL] AdvReac Unknown AGITATION, Verified 08/12/21 20:25 MOOD SWINGS, ALL KINDS OF WEIRD THOUGHTS Assessment & Plan Assessment & Plan (1) Hypertension: Status: Acute Code(s): I10 - Essential (primary) hypertension Assessment and Plan: Patient depressed patient depressed anxious ruminating restless complains of shortness of breath no noted tachypnea no fever Patient recently had ECT some improvement noted from [facility] anxious agitated and ruminating question akathisia from fluoxetine 80 mg versus anxiety patient with noted tardive dyskinesia Continue current regimen and plans. Plans and medications were reviewed Continue current regimen and plans [place] testing soon. Discharge most likely at the end of the week Requip Greater than 50% of the session was spent on counseling and/or coordination of care Reason for contiued inpatient stay Substantial Risk for: stable for discharge
[2021-08-20 18:00] VITALS: BP 105/54; PULSE 56; RESP 16; TEMP 36; O2SAT 97
[2021-08-20] MEDS: rOPINIRole HCL 0.25 MG TABLET PO (20:04)
[2021-08-20] MEDS: Mirtazapine 15 MG TABLET PO (20:04)
[2021-08-21] MEDS: clonazePAM 0.5 MG TABLET PO ×2 (09:27→14:42)
[2021-08-21] MEDS: amLODIPine Besylate 5 MG TABLET PO (09:27)
[2021-08-21] MEDS: FLUoxetine HCl 20 MG CAPSULE 80 MG PO (09:27)
[2021-08-21] MEDS: QUEtiapine Fumarate 25 MG TABLET PO ×2 (09:27→14:42)
[2021-08-21] MEDS: atenoloL 25 MG TABLET 12.5 MG PO (09:27)
--- NOTE | 2021-08-21 10:10 | PM.PSYDC ---
DS: Providers Provider Date of Service: 08/21/21 Date of admission: 08/04/21 20:48 Date of discharge: 08/21/21 Primary care physician: Unknown Physician Consults: 08/04/21 22:10 Consult to Hospitalist Routine Consulting Provider: Hospitalist Reason For Exam: admission physical Attending physician on discharge: Geraldo Choi DS: Diagnosis Discharge Diagnosis (1) Hypertension: Status: Acute (2) Major depressive disorder, recurrent: Status: Acute (3) Obsessive compulsive disorder: Status: Acute DS: Medications Discharge Medications Home Medications: Home Medications Medication Instructions Recorded Confirmed Risperdal 0.5 mg PO QAM 08/04/21 08/05/21 Risperdal 2 mg PO QPM 08/04/21 08/05/21 amlodipine 5 mg PO DAILY 08/04/21 08/05/21 clonazepam 0.5 mg tablet 0.25 mg PO BID 08/04/21 08/05/21 fluoxetine 20 mg tablet 80 mg PO DAILY 08/04/21 08/05/21 hydroxyzine HCl 50 mg PO BID PRN 08/04/21 08/05/21 lorazepam 0.5 mg PO TID PRN 08/04/21 08/05/21 mirtazapine 7.5 mg PO QPM 08/04/21 08/04/21 Mental Status Exam Mental Status Exam Patient Appearance: Well Grooomed Patient Orientation: Person, Place and Situation Level of Consciousness: Awake Patient Behavior: Appropriate and Cooperative Mood Description: Withdrawn Affect Description: Constricted Patient Cognition Impaired: Yes Ability to Follow Directions: Good Speech Pattern: Clear Hallucinations: None Delusions: Not Present Thought Process: Goal Oriented Thought Content: positive for Circumstantial Abnormal Motor Activity Signs and Symptoms: Restlessness Judgement: Fair DS: Summary Hospital Course Hospital Course: The patient was admitted after 10 days of being discharged from another facility due to noncompliance, apparently the patient could not fill his scripts and he decompensated with exacerbation of depression, anhedonia, lack of energy and feelings of hopelessness. Please see HPI for more details. On admission, the patient stated that he was on Prozac 80 mg a day for OCD and depression, we started slow titration up to 80 mg and restarted Remeron 15 mg p.o. q.h.s. to target depression. His mood started to improve slightly, even though that he was mostly isolative in his room. He was able to participate in group activities but his anxiety did improve. We titrated up Klonopin up to 0.5 mg p.o. t.i.d. and we have to what a low dose of Seroquel 25 mg p.o. t.i.d. with for improvement. We stopped her Risperdal and replace it with Seroquel with fair response. He complained of restless leg syndrome so we added Requip 0.5 mg at HS with good response. Since there were no safety concerns, discharge planning was discussed. The social service agency director contact his brother who is involved in his care and we arranged several outpatient services such as VNA and other ancillary services. Time spent discussing smoking cessation with patient: 3 to 10 minutes Status at Discharge Cognitive/behavioral status at discharge: At baseline Functional status at discharge: independent ambulation Overall status at discharge: patient is back to baseline Time Spent with Patient Time attestation: Total time spent providing and/or coordinating discharge services: Time spent: Less than 30 minutes Discharge Plan Discharge Patient Disposition: Home Health Service Discharge Diagnosis: Major depressive disorder recurrent episode severe without psychosis. Obsessive-compulsive disorder. Referrals: [facility] [Other] - 1 Week (Referral made for [facility] home care services on 08/18/21, they will call you to follow up and scheduled home visit after discharge back.) [facility] (therapsits) [Other] - 08/25/21 1:00 am (Appointment scheduled with [facility] outpatient therapists for 08/25/21 @ 1 PM in office visit.) [facility] (psychiatrist) [Other] - 09/15/21 8:00 am (Initial medication appointment scheduled for 09/15/21 @ 8:00-9:00 AM with [employer] via phone. Follow up appointment scheduled for 10/09/21 @ 8:30-8:50 AM with [employer] via phone. Please make sure you are by your phone to receive phone call.) [facility] [Other] - 1 Week (Please fax D/C paperwork to Attn: Iveth Musa ) Physician,Unknown [Primary Care Provider] - 1 Week Discharge Medications: New quetiapine 25 mg Tablet 25 mg PO TID 30 Days Qty: 90 RF: 0 clonazepam 0.5 mg Tablet 0.5 mg PO TID 30 Days Qty: 90 RF: 0 atenolol 25 mg Tablet 12.5 mg PO DAILY 30 Days Qty: 30 RF: 0 ropinirole 0.25 mg Tablet 0.25 mg PO BEDTIME 30 Days Qty: 30 RF: 0 mirtazapine 15 mg Tablet 15 mg PO BEDTIME 30 Days Qty: 30 RF: 0 fluoxetine 20 mg Capsule 80 mg PO DAILY 30 Days Qty: 120 RF: 0 Continued amlodipine 5 mg PO DAILY 30 Days Qty: 30 RF: 0 Discontinued clonazepam 0.5 mg Tablet 0.25 mg PO BID RF: 0 fluoxetine 20 mg Tablet 80 mg PO DAILY RF: 0 hydroxyzine HCl 50 mg PO BID PRN (Reason: Anxiety) RF: 0 Risperdal 0.5 mg PO QAM RF: 0 Risperdal 2 mg PO QPM RF: 0 lorazepam 0.5 mg PO TID PRN (Reason: Anxiety) RF: 0 mirtazapine 7.5 mg PO QPM RF: 0 Discharge Orders: Discharge Order (Routine); Ordered 08/21/21 Ordered By: Geraldo Choi Diet: advance to usual diet Activity on Discharge: As tolerated Stand Alone Forms: Patient Portal Discharge page Care Plan Goals: Care plan goals were achieved in the unit Health Concerns: Blood pressure controlled with the addition of atenolol, continue treatment as an outpatient with PCP Plan of Treatment: Continue medication treatment with his regular provider, psychotherapy for OCD as an outpatient. Ancillary services such as VNA, caser up in orders were already arranged Assessment: The patient is a middle-aged male with a known history of major depressive disorder and OCD, poorly functional at baseline who was readmitted into the hospital after 10 days of discharge due to noncompliance. The patient was restarted on Prozac but we change his Risperdal to Seroquel to target his anxiety with further improvement. Also increase Klonopin up to t.i.d. with for improvement of anxiety. At this moment, the patient is safe for discharge and several services were already arranged.
== END 2021-08-21 15:45 | disposition home health service (06) | DRG 885 ==
PROVIDERS: Psychiatry & Neurology Psychiatry; Admitting Provider Psychiatry & Neurology Psychiatry; Visit Provider Psychiatry & Neurology Psychiatry
DX: F33.2 Major depressive disorder, recurrent severe without psychotic features (principal); F42.9 Obsessive-compulsive disorder, unspecified; I10 Essential (primary) hypertension; Z91.19 Patient's noncompliance with other medical treatment and regimen; Z87.891 Personal history of nicotine dependence; Z79.899 Other long term (current) drug therapy
CPT/HCPCS: 36415; 80048; 80051; 80061; 80076; 82565; 83036; 84443; 84520; 85025

== ENCOUNTER 2021-11-19 12:21 | Emergency (ER) | payer MEDICARE, MEDICAID, SELFPAY ==
[2021-11-19 12:29] VITALS: BP 135/91; PULSE 108; RESP 20; TEMP 36.6; O2SAT 97; BMI 28.7
--- NOTE | 2021-11-19 12:51 | ED_ITS ---
HPI - Psych General Chief Complaint: Psychiatric Symptoms Stated Complaint: DEPRESSED X'S 2 DAYS W/SI Time Seen by Provider: 11/19/21 12:48 Source: patient Mode of arrival: EMS Limitations: no limitations History of Present Illness MD complaint: suicidal ideation and feels depressed Onset (ago): week(s) Duration: getting worse History of same: Yes Relieving factors: none Exacerbating factors: none Context: other (states his medications aren't helping) Associated psychiatric symptoms: depression and suicidal ideation Associated symptoms: denies other symptoms If self harm: admits thoughts of self harm and has plan Related Data Home Medications Medication Instructions Recorded Confirmed amlodipine 5 mg tablet 5 mg PO DAILY 11/19/21 11/19/21 cholecalciferol (vitamin D3) 25 25 mcg PO DAILY 11/19/21 11/19/21 mcg (1,000 unit) tablet (Vitamin D3) clonazepam 0.5 mg tablet 0.5 mg PO BID 11/19/21 11/19/21 mirtazapine 30 mg tablet 1 tab PO BEDTIME 11/19/21 11/19/21 omega-3 fatty acids 1 cap PO DAILY 11/19/21 11/19/21 Previous Rx's Medication Instructions Recorded fluoxetine 20 mg capsule 80 mg PO DAILY 30 Days #120 cap 08/21/21 Allergies Allergy/AdvReac Type Severity Reaction Status Date / Time paroxetine [From PAXIL] AdvReac Unknown AGITATION, Verified 11/19/21 12:38 MOOD SWINGS, ALL KINDS OF WEIRD THOUGHTS Review of Systems Review of Systems: Constitutional : No Fever, No Chills ENT/Mouth : No Ear Pain, No Nasal Congestion, No sore throat Eyes: No Eye Pain, No Swelling, No Redness Cardiovascular : No Chest Pain, No SOB Respiratory : No Cough, No Sputum, No Dyspnea Gastrointestinal : No Nausea, No Vomiting, No Diarrhea, No Hematochezia, No Melena Genitourinary : No Dysuria, No Urinary Frequency, No Hematuria Musculoskeletal : No Myalgias Skin : No Skin Lesions, No rash Neuro : No Weakness, No Numbness, No Paresthesias, No Dizziness, No Headache Psych : positive Anxiety, positive Depression, positive SI no HI Heme/Lymph: No Lymphadenopathy Endocrine : No Polyuria, No Polydipsia All other systems reviewed and are negative [facility] Past Medical History Medical History Anxiety Depression Social History Social History Household Members: None Housing: Apartment Do you presently have visiting nurse or other home services: No Patient Tobacco Use Status: Former Tobacco user Tobacco use type: Cigarette e-Cigarette/Vaping Use: Never Used Second Hand Smoke Exposure: No Advance Directives: No Advance Directives Information Provided: Yes service: No Sexual orientation: Straight/Heterosexual Physical Exam Vital Signs: Vital Signs: Last Vital Signs Temp 98 F 11/19/21 12:29 Pulse 108 H 11/19/21 12:29 Resp 20 11/19/21 12:29 BP 135/91 H 11/19/21 12:29 Pulse Ox 97 11/19/21 12:29 BMI result Body Mass Index 28.7 Appearance: Alert. Oriented X3. No acute distress. Anxious and pacing Eyes: Pupils equal, round and reactive to light. ENT: Pharynx normal. Neck: Normal inspection. Neck supple. CVS: Normal heart rate and rhythm. Pulses normal. Respiratory: No respiratory distress. Breath sounds normal. Abdomen: Soft and non-tender. Skin: Skin warm and dry. Normal skin color. Normal skin turgor. Extremities: No lower extremity edema. No calf ttp Neuro: Oriented X 3. No motor deficit. No sensory deficit. CN 2-12 intact Course Course Course Narrative: Physician observation started at 345pm. Patient placed in physician observation because the patient needed more time for BHN to assess the need for inpatient level of care given SI reports. At the time observation was started the patient's vitals were stable, patient is alert and oriented but slightly anxious, Neuro: nonfocal, CV RRR, Lungs clear MDM - Psych MDM Narrative Medical decision making narrative: 66 yo male with anxiety and depression here with c/o SI feels his meds aren't working at this time labs, BHN consult ordered, PO clonazepam for anxiety Lab Data Result diagrams: 11/19/21 14:02 11/19/21 14:02 Labs: Lab Results 11/19/21 11/19/21 11/19/21 Range/Units 14:02 14:02 14:02 WBC 6.4 (4.8-10.8) X10*3/uL RBC 5.03 (4.60-5.80) X10*6/uL Hgb 14.6 (14.0-18.0) g/dl Hct 43.3 (42.0-52.0) % MCV 86.1 (80.0-98.0) fL MCH 29.0 (27.0-33.0) pg MCHC 33.7 (31.0-36.0) g/dl RDW 13.2 (11.0-16.0) % Plt Count 230 (160-400) X10*3/uL MPV 10.0 (9.4-12.4) fL Immature Gran % (Auto) 0.3 (0.0-0.4) % Neut % (Auto) 66.3 (45-73) % Lymph % (Auto) 24.7 (20-40) % [place] % (Auto) 7.8 (2-11) % Eos % (Auto) 0.6 (0-4) % Baso % (Auto) 0.3 (0-2) % Lymph # (Auto) 1.6 (1.2-4.9) X10*3/uL [place] # (Auto) 0.5 (0.1-1.2) X10*3/uL Eos # (Auto) 0.0 (0.0-0.4) X10*3/uL Baso # (Auto) 0.0 (0.0-0.2) X10*3/uL Abs Immat Gran (auto) 0.02 (0.00-0.03) X10*3/uL Absolute Neuts (auto) 4.2 (2.0-8.3) x10*3/uL Absolute Nucleated RBC 0.000 (0.0-0.012) X10*3/uL Nucleated RBC % (auto) 0.0 (0.0-0.2) /100WBC Sodium 142 (135-145) mmol/L Potassium 4.9 (3.3-5.1) mmol/L Chloride 110 H (96-108) mmol/L Carbon Dioxide 25 (22-29) mmol/L Anion Gap 12 (12-20) BUN 26 H (9-16) mg/dL Creatinine 1.38 (0.5-1.4) mg/dL Estim Creat Clear Calc 66.9 Estimated GFR 51 Random Glucose 126 H (60-115) mg/dL Calcium 9.3 (8.4-10.2) mg/dL Total Bilirubin 0.6 (0.0-1.0) mg/dL Direct Bilirubin 0.2 (0.0-0.5) mg/dL AST 21 (5-37) U/L ALT 22 (0-40) U/L Alkaline Phosphatase 91 D (39-117) U/L Total Protein 7.0 D (6.5-8.0) g/dL Albumin 4.1 (3.5-5.0) g/dL Ethyl Alcohol mg/dL COVID-19 ([place]) Negative (Negative) COVID-19 Clin Com See Note 11/19/21 Range/Units 14:02 WBC (4.8-10.8) X10*3/uL RBC (4.60-5.80) X10*6/uL Hgb (14.0-18.0) g/dl Hct (42.0-52.0) % MCV (80.0-98.0) fL MCH (27.0-33.0) pg MCHC (31.0-36.0) g/dl RDW (11.0-16.0) % Plt Count (160-400) X10*3/uL MPV (9.4-12.4) fL Immature Gran % (Auto) (0.0-0.4) % Neut % (Auto) (45-73) % Lymph % (Auto) (20-40) % [place] % (Auto) (2-11) % Eos % (Auto) (0-4) % Baso % (Auto) (0-2) % Lymph # (Auto) (1.2-4.9) X10*3/uL [place] # (Auto) (0.1-1.2) X10*3/uL Eos # (Auto) (0.0-0.4) X10*3/uL Baso # (Auto) (0.0-0.2) X10*3/uL Abs Immat Gran (auto) (0.00-0.03) X10*3/uL Absolute Neuts (auto) (2.0-8.3) x10*3/uL Absolute Nucleated RBC (0.0-0.012) X10*3/uL Nucleated RBC % (auto) (0.0-0.2) /100WBC Sodium (135-145) mmol/L Potassium (3.3-5.1) mmol/L Chloride (96-108) mmol/L Carbon Dioxide (22-29) mmol/L Anion Gap (12-20) BUN (9-16) mg/dL Creatinine (0.5-1.4) mg/dL Estim Creat Clear Calc Estimated GFR Random Glucose (60-115) mg/dL Calcium (8.4-10.2) mg/dL Total Bilirubin (0.0-1.0) mg/dL Direct Bilirubin (0.0-0.5) mg/dL AST (5-37) U/L ALT (0-40) U/L Alkaline Phosphatase (39-117) U/L Total Protein (6.5-8.0) g/dL Albumin (3.5-5.0) g/dL Ethyl Alcohol < 10 mg/dL COVID-19 ([place]) (Negative) COVID-19 Clin Com Discharge Plan Discharge Clinical Impression: Depression, Suicidal ideation Prescriptions: No Action fluoxetine 20 mg Capsule 80 mg PO DAILY 30 Days Qty: 120 RF: 0 amlodipine 5 mg tablet 5 mg PO DAILY RF: 0 mirtazapine 30 mg tablet 1 tab PO BEDTIME RF: 0 clonazepam 0.5 mg tablet 0.5 mg PO BID RF: 0 Fish Oil Capsule 1 cap PO DAILY RF: 0 cholecalciferol (vitamin D3) [Vitamin D3] 25 mcg (1,000 unit) Tablet 25 mcg PO DAILY RF: 0
[2021-11-19] MEDS: clonazePAM 1 MG TABLET PO (13:15)
--- NOTE | 2021-11-19 13:17 | PC.NURSE ---
Pt received: AOX4 and noted to be in mild to moderately anxious. PO klonopin given. Pt currently sitting up and eating lunch. Pt came in stating SI with specific plan to hurt himself with knife. Pt continues with SI statement.
--- NOTE | 2021-11-19 13:55 | PHA.MEDREC ---
Pharmacy Consult ? Medication Reconciliation Pharmacy has completed the medication reconciliation. There are no remarkable issues for provider's attention. Anita Tesfaye, TamiD
[2021-11-19 14:08] LABS: MANUAL DIFF FLAG NO
[2021-11-19 14:12] LABS: Basophils Percent Auto 0.3 % (0-2); Eosinophils Percent Auto 0.6 % (0-4); Hematocrit 43.3 % (42.0-52.0); Hemoglobin 14.6 g/dl (14.0-18.0); Imm Gran Abs Auto 0.02 X10*3/uL (0.00-0.03); Imm Gran Pct Auto 0.3 % (0.0-0.4); Lymphocytes Absolute Auto 1.6 X10*3/uL (1.2-4.9); Lymphocytes Percent Auto 24.7 % (20-40); Mean Corpuscular HGB Conc 33.7 g/dl (31.0-36.0); Mean Corpuscular Volume 86.1 fL (80.0-98.0); Monocytes Absolute Auto 0.5 X10*3/uL (0.1-1.2); Monocytes Percent Auto 7.8 % (2-11); Neutrophils Absolute Auto 4.2 x10*3/uL (2.0-8.3); Neutrophils Percent Auto 66.3 % (45-73); Platelet Count 230 X10*3/uL (160-400); Red Blood Count 5.03 X10*6/uL (4.60-5.80); Red Cell Distribution Width 13.2 % (11.0-16.0); White Blood Count 6.4 X10*3/uL (4.8-10.8)
[2021-11-19 14:26] LABS: Ethanol < 10 mg/dL
[2021-11-19 14:34] LABS: Alanine Aminotransferase 22 U/L (0-40); Albumin Level 4.1 g/dL (3.5-5.0); Alkaline Phosphatase 91 U/L (39-117); Anion Gap 12 (12-20); Aspartate Amino Transferase 21 U/L (5-37); Bilirubin Direct 0.2 mg/dL (0.0-0.5); Bilirubin Total 0.6 mg/dL (0.0-1.0); Blood Urea Nitrogen 26 mg/dL (9-16); COVID-19 Test Negative (Negative); Calcium 9.3 mg/dL (8.4-10.2); Carbon Dioxide 25 mmol/L (22-29); Chloride 110 mmol/L (96-108); Creatinine Clr Calc Pharmacy 66.9; Estimated Glomerular Filt Rate 51; Glucose Random 126 mg/dL (60-115); Potassium 4.9 mmol/L (3.3-5.1); Sodium 142 mmol/L (135-145)
--- NOTE | 2021-11-19 19:04 | PC.NURSE ---
Pt D/C from [facility] as per orders. Pending ride home in about 1 hour. Handoff given to oncoming VIRY Pacheco
== END 2021-11-19 19:52 | disposition home or self-care (01) ==
PROVIDERS: Emergency Provider Emergency Medicine; PCP Nurse Practitioner Primary Care
DX: F33.1 Major depressive disorder, recurrent, moderate (principal); R45.851 Suicidal ideations; Z79.899 Other long term (current) drug therapy; Z87.891 Personal history of nicotine dependence; Z20.822 Contact with and (suspected) exposure to COVID-19
CPT/HCPCS: 36415; 80048; 80076; 82077; 85025; 87635; 99283; 99284

== ENCOUNTER 2021-11-20 13:30 | Emergency (ER) | payer MEDICARE, MEDICAID, SELFPAY ==
[2021-11-20 14:31] VITALS: BP 121/72; PULSE 73; RESP 18; TEMP 36.4; O2SAT 99; BMI 28.7
--- NOTE | 2021-11-20 14:42 | ED.PSYCH ---
HPI - Psych General Chief Complaint: Psychiatric Symptoms Stated Complaint: panic attack Time Seen by Provider: 11/20/21 14:35 Source: patient and old records reviewed Mode of arrival: ambulatory Limitations: no limitations History of Present Illness MD complaint: suicidal ideation and feels depressed Onset (ago): day(s) (5) Duration: getting worse History of same: Yes Relieving factors: none Exacerbating factors: other (felt his medications aren't working) Associated psychiatric symptoms: depression and suicidal ideation Associated symptoms: denies other symptoms Treatments prior to arrival: other (seen by N yesterday plan was for DC) If self harm: has plan Related Data Home Medications Medication Instructions Recorded Confirmed amlodipine 5 mg tablet 5 mg PO DAILY 11/19/21 11/20/21 cholecalciferol (vitamin D3) 25 25 mcg PO DAILY 11/19/21 11/19/21 mcg (1,000 unit) tablet (Vitamin D3) clonazepam 0.5 mg tablet 0.5 mg PO BID 11/19/21 11/20/21 mirtazapine 30 mg tablet 1 tab PO BEDTIME 11/19/21 11/19/21 omega-3 fatty acids 1 cap PO DAILY 11/19/21 11/19/21 Previous Rx's Medication Instructions Recorded fluoxetine 20 mg capsule 80 mg PO DAILY 30 Days #120 cap 08/21/21 Allergies Allergy/AdvReac Type Severity Reaction Status Date / Time paroxetine [From PAXIL] AdvReac Unknown AGITATION, Verified 11/19/21 12:38 MOOD SWINGS, ALL KINDS OF WEIRD THOUGHTS Review of Systems Review of Systems: Constitutional : No Fever, No Chills ENT/Mouth : No Ear Pain, No Nasal Congestion, No sore throat Eyes: No Eye Pain, No Swelling, No Redness Cardiovascular : No Chest Pain, No SOB Respiratory : No Cough, No Sputum, No Dyspnea Gastrointestinal : No Nausea, No Vomiting, No Diarrhea, No Hematochezia, No Melena Genitourinary : No Dysuria, No Urinary Frequency, No Hematuria Musculoskeletal : No Myalgias Skin : No Skin Lesions, No rash Neuro : No Weakness, No Numbness, No Paresthesias, No Dizziness, No Headache Psych : positive Anxiety, positive Depression, positive SI no HI Heme/Lymph: No Lymphadenopathy Endocrine : No Polyuria, No Polydipsia All other systems reviewed and are negative [facility] Past Medical History Medical History Anxiety Depression Social History Social History Household Members: None Housing: Apartment Do you presently have visiting nurse or other home services: No Patient Tobacco Use Status: Former Tobacco user Tobacco use type: Cigarette e-Cigarette/Vaping Use: Never Used Second Hand Smoke Exposure: No Advance Directives: No Advance Directives Information Provided: No service: No Sexual orientation: Straight/Heterosexual Physical Exam Vital Signs: Vital Signs: Last Vital Signs Temp 98.3 F 11/20/21 15:30 Pulse 69 11/20/21 15:30 Resp 18 11/20/21 15:30 BP 143/89 H 11/20/21 15:30 Pulse Ox 97 11/20/21 15:30 BMI result Body Mass Index 28.7 Appearance: Alert. Oriented X3. No acute distress. Anxious Eyes: Pupils equal, round and reactive to light. ENT: Pharynx normal. Neck: Normal inspection. Neck supple. CVS: Normal heart rate and rhythm. Pulses normal. Respiratory: No respiratory distress. Breath sounds normal. Abdomen: Soft and nontender. Skin: Skin warm and dry. Normal skin color. Normal skin turgor. Extremities: No lower extremity edema. No calf ttp Neuro: Oriented X 3. No motor deficit. No sensory deficit. CN2-12 intact Course Course Course Narrative: signed out to ALDEN Singer pending [facility] input MDM - Psych MDM Narrative Medical decision making narrative: 66 yo male with hx of anxiety and depression here with c/o SI again - was cleared states no one called him today will refer again to [facility] Lab Data Labs: Lab Results 11/20/21 Range/Units 15:15 COVID-19 ([facility]) Negative (Negative) COVID-19 Clin Com See Note Discharge Plan Discharge Clinical Impression: Acute anxiety Prescriptions: No Action fluoxetine 20 mg Capsule 80 mg PO DAILY 30 Days Qty: 120 RF: 0 amlodipine 5 mg tablet 5 mg PO DAILY RF: 0 mirtazapine 30 mg tablet 1 tab PO BEDTIME RF: 0 clonazepam 0.5 mg tablet 0.5 mg PO BID RF: 0 Fish Oil Capsule 1 cap PO DAILY RF: 0 cholecalciferol (vitamin D3) [Vitamin D3] 25 mcg (1,000 unit) Tablet 25 mcg PO DAILY RF: 0
[2021-11-20 15:30] VITALS: BP 143/89; PULSE 69; RESP 18; TEMP 36.8; O2SAT 97
[2021-11-20 15:36] LABS: COVID-19 Test Negative (Negative)
[2021-11-20 17:06] LABS: Amphetamine Screen Urine Not Detected (Not Detect); Barbiturates, Urine Not Detected (Not Detect); Benzodiazepines Screen Urine Not Detected (Not Detect); Cannabinoid Screen Urine Not Detected (Not Detect); Cocaine Screen Urine Not Detected (Not Detect); Fentanyl, urine Not Detected (Not Detect); Opiate Screen Urine Not Detected (Not Detect); Phencyclidine Screen Urine Not Detected (Not Detect)
[2021-11-20] MEDS: clonazePAM 0.5 MG TABLET PO (17:33)
--- NOTE | 2021-11-20 17:35 | PC.NURSE ---
bhn at bedside speaking w pt, given prn for anxiety. tolerating po w/o issue.
[2021-11-20] MEDS: Mirtazapine 30 MG TABLET PO (20:58)
[2021-11-21 03:48] VITALS: BP 119/84; PULSE 75; RESP 18; TEMP 36.4; O2SAT 96
--- NOTE | 2021-11-21 05:48 | PC.NURSE ---
Patient slept though the night, no distress observed/reported, patient was assessed by BHN with disposition Respite bed search in the morning, patient and provider aware of the plan, behavior appropriate and cooperative, medication compliant, VSS, appetite good, elimination intact, will continue to monitor.
--- NOTE | 2021-11-21 07:04 | PC.NURSE ---
patient appears to remain at rest at present respirations are even and unlabored patient appears in no distress
[2021-11-21 08:29] VITALS: BP 119/84; PULSE 75
[2021-11-21] MEDS: FLUoxetine HCl 20 MG CAPSULE 80 MG PO (08:29)
[2021-11-21] MEDS: amLODIPine Besylate 5 MG TABLET PO (08:29)
[2021-11-21] MEDS: clonazePAM 0.5 MG TABLET PO (08:29)
== END 2021-11-21 14:20 ==
PROVIDERS: Emergency Provider Emergency Medicine
DX: F41.9 Anxiety disorder, unspecified (principal); R45.851 Suicidal ideations; F32.A Depression, unspecified; Z79.899 Other long term (current) drug therapy; Z20.822 Contact with and (suspected) exposure to COVID-19
CPT/HCPCS: 36415; 80307; 87635; 99284; 99285

== ENCOUNTER 2021-11-28 20:18 | Inpatient (IN) | payer MEDICARE, MEDICAID, SELFPAY ==
[2021-11-28 20:38] VITALS: BP 146/100; PULSE 91; RESP 18; TEMP 37.2; O2SAT 98; BMI 29.9
[2021-11-28 21:09] LABS: COVID-19 Test Negative (Negative)
[2021-11-28 22:13] LABS: MANUAL DIFF FLAG NO
[2021-11-28 22:14] LABS: Amphetamine Screen Urine Not Detected (Not Detect); Barbiturates, Urine Not Detected (Not Detect); Benzodiazepines Screen Urine Not Detected (Not Detect); Cannabinoid Screen Urine Not Detected (Not Detect); Cocaine Screen Urine Not Detected (Not Detect); Fentanyl, urine Not Detected (Not Detect); Opiate Screen Urine Not Detected (Not Detect); Phencyclidine Screen Urine Not Detected (Not Detect)
[2021-11-28 22:15] LABS: Basophils Percent Auto 0.4 % (0-2); Eosinophils Percent Auto 0.3 % (0-4); Hematocrit 42.5 % (42.0-52.0); Hemoglobin 14.8 g/dl (14.0-18.0); Imm Gran Abs Auto 0.03 X10*3/uL (0.00-0.03); Imm Gran Pct Auto 0.3 % (0.0-0.4); Lymphocytes Absolute Auto 1.9 X10*3/uL (1.2-4.9); Lymphocytes Percent Auto 20.8 % (20-40); Mean Corpuscular HGB Conc 34.8 g/dl (31.0-36.0); Mean Corpuscular Hemoglobin 29.6 pg (27.0-33.0); Monocytes Absolute Auto 0.7 X10*3/uL (0.1-1.2); Monocytes Percent Auto 7.4 % (2-11); Neutrophils Absolute Auto 6.6 x10*3/uL (2.0-8.3); Neutrophils Percent Auto 70.8 % (45-73); Platelet Count 224 X10*3/uL (160-400); White Blood Count 9.3 X10*3/uL (4.8-10.8)
[2021-11-28 22:29] LABS: Ethanol < 10 mg/dL
[2021-11-28 22:36] LABS: Alanine Aminotransferase 21 U/L (0-40); Albumin Level 4.3 g/dL (3.5-5.0); Alkaline Phosphatase 79 U/L (39-117); Anion Gap 12 (12-20); Aspartate Amino Transferase 22 U/L (5-37); Bilirubin Total 0.4 mg/dL (0.0-1.0); Blood Urea Nitrogen 30 mg/dL (9-16); Calcium 9.5 mg/dL (8.4-10.2); Carbon Dioxide 19 mmol/L (22-29); Chloride 110 mmol/L (96-108); Creatinine Clr Calc Pharmacy 67.8; Estimated Glomerular Filt Rate 51; Glucose Random 114 mg/dL (60-115); Potassium 4.3 mmol/L (3.3-5.1); Sodium 137 mmol/L (135-145)
--- NOTE | 2021-11-28 22:43 | PC.NURSE ---
Patient resting comfortably in bed awaiting bhn eval.
--- NOTE | 2021-11-28 23:53 | ED_ITS ---
HPI - Psych General Chief Complaint: Psychiatric Symptoms Stated Complaint: SI W/PLAN Time Seen by Provider: 11/28/21 23:43 Source: patient Mode of arrival: ambulatory Limitations: no limitations History of Present Illness HPI Narrative: [age] year male with past medical history of major depressive disorder, obsessive-compulsive disorder and hypertension to the ED for anxiety, depression, and suicidal ideation. Patient was Section 12 by [facility]. Patient states he will try to kill himself by running into traffic or putting a knife into his heart. Patient's Section 12. Patient states no physical complaints Related Data Home Medications Medication Instructions Recorded Confirmed amlodipine 5 mg tablet 5 mg PO DAILY 11/19/21 11/28/21 cholecalciferol (vitamin D3) 25 125 mcg PO DAILY 11/19/21 11/28/21 mcg (1,000 unit) tablet (Vitamin D3) clonazepam 0.5 mg tablet 0.5 mg PO BID 11/19/21 11/28/21 mirtazapine 30 mg tablet 1 tab PO BEDTIME 11/19/21 11/28/21 omega-3 fatty acids 1 cap PO DAILY 11/19/21 11/28/21 buspirone 10 mg tablet 1.5 tab PO BID 11/28/21 11/28/21 Previous Rx's Medication Instructions Recorded fluoxetine 20 mg capsule 80 mg PO DAILY 30 Days #120 cap 08/21/21 Allergies Allergy/AdvReac Type Severity Reaction Status Date / Time paroxetine [From PAXIL] AdvReac Unknown AGITATION, Verified 11/19/21 12:38 MOOD SWINGS, ALL KINDS OF WEIRD THOUGHTS Review of Systems Review of Systems: Depression, suicide ideation, anxiety Yes all other systems are reviewed and are negative Constitutional: Constitutional: Reports as per HPI and Reports no additional constitutional complaints PMFSH Past Medical History Medical History Anxiety Depression Social History Social History Household Members: None Housing: Apartment Do you presently have visiting nurse or other home services: No Patient Tobacco Use Status: Former Tobacco user Tobacco use type: Cigarette e-Cigarette/Vaping Use: Never Used Second Hand Smoke Exposure: No Advance Directives: No Advance Directives Information Provided: No service: No Sexual orientation: Straight/Heterosexual Physical Exam Vital Signs: Vital Signs: Last Vital Signs Temp 98.9 F 11/28/21 20:38 Pulse 91 11/28/21 20:38 Resp 18 11/28/21 20:38 BP 146/100 H 11/28/21 20:38 Pulse Ox 98 11/28/21 20:38 BMI result Body Mass Index 29.9 Const: General: cooperative, healthy appearing, comfortable, no acute distress, well developed, alert, awake and Physically active Orientation/consciousness: patient oriented x3 HENMT: Head: Yes normal to inspection, Yes No palpable skull fracture present, Yes normocephalic, Yes atraumatic and No abrasion Eyes: General: appearance normal, both eyes and all related structures Neck: Neck: Yes normal visual inspection, Yes full ROM, Yes no lymphadenopathy, Yes no meningeal signs, Yes trachea midline, No supple, No anterior neck swelling and No tender Chest: Chest palpation & inspection: normal inspection of the chest and normal palpation of entire chest wall Resp: Effort & Inspection: normal respiratory effort and able to speak in complete sentences Auscultation: clear to auscultation bilaterally Cardio: Jugular venous distension: no JVD Heart sounds: S1 normal heart sound present and S2 normal heart sound present GI: Inspection: Yes normal to inspection and No abdominal wall ecchymosis Palpation (GI): Soft to palpation, not firm, nontender, no guarding and not rigid : General: Yes no CVA tenderness Back/Spine/Pelvis: Back: no CVA tenderness and No back tenderness Skin: General skin exam: no rashes or lesions noted and elasticity normal Neuro: General: patient oriented x3, gait normal and no meningeal signs Cranial nerves: Yes CN's II-XII intact bilaterally Extrem: General: Yes normal to inspection and Yes full ROM Psych: Other: Anxious. Depressed. Suicidal Appearance: grossly normal, well kempt and not disheveled Course Course Course Narrative: Labs ordered. Reevaluation(s) Reevaluation #1: Labs at baseline. Awaiting crisis evaluation Time: 02:29 MDM - Psych MDM Narrative Medical decision making narrative: Depression Lab Data Result diagrams: 11/28/21 22:08 11/28/21 22:08 Labs: Lab Results 11/28/21 11/28/21 11/28/21 Range/Units 20:48 21:45 22:08 WBC 9.3 (4.8-10.8) X10*3/uL RBC 5.00 (4.60-5.80) X10*6/uL Hgb 14.8 (14.0-18.0) g/dl Hct 42.5 (42.0-52.0) % MCV 85.0 (80.0-98.0) fL MCH 29.6 (27.0-33.0) pg MCHC 34.8 (31.0-36.0) g/dl RDW 13.0 (11.0-16.0) % Plt Count 224 (160-400) X10*3/uL MPV 11.0 (9.4-12.4) fL Immature Gran % (Auto) 0.3 (0.0-0.4) % Neut % (Auto) 70.8 (45-73) % Lymph % (Auto) 20.8 (20-40) % [place] % (Auto) 7.4 (2-11) % Eos % (Auto) 0.3 (0-4) % Baso % (Auto) 0.4 (0-2) % Lymph # (Auto) 1.9 (1.2-4.9) X10*3/uL [place] # (Auto) 0.7 (0.1-1.2) X10*3/uL Eos # (Auto) 0.0 (0.0-0.4) X10*3/uL Baso # (Auto) 0.0 (0.0-0.2) X10*3/uL Abs Immat Gran (auto) 0.03 (0.00-0.03) X10*3/uL Absolute Neuts (auto) 6.6 (2.0-8.3) x10*3/uL Absolute Nucleated RBC 0.000 (0.0-0.012) X10*3/uL Nucleated RBC % (auto) 0.0 (0.0-0.2) /100WBC Sodium (135-145) mmol/L Potassium (3.3-5.1) mmol/L Chloride (96-108) mmol/L Carbon Dioxide (22-29) mmol/L Anion Gap (12-20) BUN (9-16) mg/dL Creatinine (0.5-1.4) mg/dL Estim Creat Clear Calc Estimated GFR Random Glucose (60-115) mg/dL Calcium (8.4-10.2) mg/dL Total Bilirubin (0.0-1.0) mg/dL AST (5-37) U/L ALT (0-40) U/L Alkaline Phosphatase (39-117) U/L Total Protein (6.5-8.0) g/dL Albumin (3.5-5.0) g/dL Urine Opiates Screen Not Detected (Not Detect) Urine Fentanyl Screen Not Detected (Not Detect) Ur Barbiturates Screen Not Detected (Not Detect) Ur Phencyclidine Scrn Not Detected (Not Detect) Ur Amphetamines Screen Not Detected (Not Detect) U Benzodiazepines Scrn Not Detected (Not Detect) Urine Cocaine Screen Not Detected (Not Detect) U Marijuana (THC) Screen Not Detected (Not Detect) Ethyl Alcohol mg/dL COVID-19 ([facility]) Negative (Negative) COVID-19 Clin Com See Note 11/28/21 11/28/21 Range/Units 22:08 22:09 WBC (4.8-10.8) X10*3/uL RBC (4.60-5.80) X10*6/uL Hgb (14.0-18.0) g/dl Hct (42.0-52.0) % MCV (80.0-98.0) fL MCH (27.0-33.0) pg MCHC (31.0-36.0) g/dl RDW (11.0-16.0) % Plt Count (160-400) X10*3/uL MPV (9.4-12.4) fL Immature Gran % (Auto) (0.0-0.4) % Neut % (Auto) (45-73) % Lymph % (Auto) (20-40) % [place] % (Auto) (2-11) % Eos % (Auto) (0-4) % Baso % (Auto) (0-2) % Lymph # (Auto) (1.2-4.9) X10*3/uL [place] # (Auto) (0.1-1.2) X10*3/uL Eos # (Auto) (0.0-0.4) X10*3/uL Baso # (Auto) (0.0-0.2) X10*3/uL Abs Immat Gran (auto) (0.00-0.03) X10*3/uL Absolute Neuts (auto) (2.0-8.3) x10*3/uL Absolute Nucleated RBC (0.0-0.012) X10*3/uL Nucleated RBC % (auto) (0.0-0.2) /100WBC Sodium 137 (135-145) mmol/L Potassium 4.3 (3.3-5.1) mmol/L Chloride 110 H (96-108) mmol/L Carbon Dioxide 19 L (22-29) mmol/L Anion Gap 12 (12-20) BUN 30 H (9-16) mg/dL Creatinine 1.39 (0.5-1.4) mg/dL Estim Creat Clear Calc 67.8 Estimated GFR 51 Random Glucose 114 (60-115) mg/dL Calcium 9.5 (8.4-10.2) mg/dL Total Bilirubin 0.4 (0.0-1.0) mg/dL AST 22 (5-37) U/L ALT 21 (0-40) U/L Alkaline Phosphatase 79 (39-117) U/L Total Protein 7.0 (6.5-8.0) g/dL Albumin 4.3 (3.5-5.0) g/dL Urine Opiates Screen (Not Detect) Urine Fentanyl Screen (Not Detect) Ur Barbiturates Screen (Not Detect) Ur Phencyclidine Scrn (Not Detect) Ur Amphetamines Screen (Not Detect) U Benzodiazepines Scrn (Not Detect) Urine Cocaine Screen (Not Detect) U Marijuana (THC) Screen (Not Detect) Ethyl Alcohol < 10 mg/dL COVID-19 ([facility]) (Negative) COVID-19 Clin Com Discharge Plan Discharge Clinical Impression: Major depressive disorder, recurrent Patient Disposition: Still a Patient Prescriptions: No Action fluoxetine 20 mg Capsule 80 mg PO DAILY 30 Days Qty: 120 RF: 0 amlodipine 5 mg tablet 5 mg PO DAILY RF: 0 mirtazapine 30 mg tablet 1 tab PO BEDTIME RF: 0 clonazepam 0.5 mg tablet 0.5 mg PO BID RF: 0 Fish Oil Capsule 1 cap PO DAILY RF: 0 cholecalciferol (vitamin D3) [Vitamin D3] 25 mcg (1,000 unit) Tablet 125 mcg PO DAILY RF: 0 buspirone 10 mg tablet 1.5 tab PO BID RF: 0
[2021-11-29] MEDS: busPIRone HCl 5 MG TABLET 15 MG PO ×3 (00:21→21:30)
[2021-11-29] MEDS: Mirtazapine 30 MG TABLET PO ×2 (00:21→21:30)
[2021-11-29] MEDS: clonazePAM 0.5 MG TABLET PO ×3 (00:21→21:30)
[2021-11-29 08:37] VITALS: BP 113/67; PULSE 67; TEMP 36.6; O2SAT 97
[2021-11-29] MEDS: Cholecalciferol (Vitamin D3) 25 MCG TABLET 125 MCG PO (08:57)
[2021-11-29] MEDS: amLODIPine Besylate 5 MG TABLET PO (08:58)
[2021-11-29] MEDS: FLUoxetine HCl 20 MG CAPSULE 80 MG PO (08:58)
--- NOTE | 2021-11-29 19:25 | PC.NURSE ---
VIJAYA called spoke with Teresa, who confirmed patient's disposition, inpatient bed search, not clear on section 12, patient currently resting, will continue to monitor.
[2021-11-29 19:31] VITALS: BP 97/58; PULSE 69; RESP 16; TEMP 37; O2SAT 100
[2021-11-29 23:12] VITALS: BP 123/77; PULSE 67; RESP 16; TEMP 36.8; O2SAT 97
--- NOTE | 2021-11-30 | ECG_ITS ---
Test Reason : MED CLEARANCE Blood Pressure : / mmHG Vent. Rate : 073 BPM Atrial Rate : 073 BPM P-R Int : 176 ms QRS Dur : 124 ms QT Int : 422 ms P-R-T Axes : 070 -88 040 degrees QTc Int : 464 ms Normal sinus rhythm Left axis deviation Right bundle branch block Abnormal ECG When compared with ECG of 01-MAR-2020 23:18, Borderline criteria for Inferior infarct are no longer Present Nonspecific T wave abnormality now evident in Anterior leads Referred By: Ward Sanchez Electronically Signed By:MIMA RICO
--- NOTE | 2021-11-30 05:26 | PC.NURSE ---
Patient slept through the night, no distress observed/reported, behavior calm, quiet, cooperative, medication compliant, patient's disposition per [facility] is section inpatient bed search, VSS, will continue to monitor.
--- NOTE | 2021-11-30 07:34 | PC.NURSE ---
BKFST EATEN.BEDSEARCH CONTINUES
[2021-11-30 08:29] VITALS: BP 131/71; PULSE 66; RESP 17; TEMP 36.6; O2SAT 96
[2021-11-30] MEDS: busPIRone HCl 5 MG TABLET 15 MG PO ×2 (09:20→20:22)
[2021-11-30] MEDS: FLUoxetine HCl 20 MG CAPSULE 80 MG PO (09:20)
[2021-11-30] MEDS: Cholecalciferol (Vitamin D3) 25 MCG TABLET 125 MCG PO (09:21)
[2021-11-30] MEDS: clonazePAM 0.5 MG TABLET PO ×2 (09:21→20:22)
[2021-11-30] MEDS: amLODIPine Besylate 5 MG TABLET PO (09:21)
[2021-11-30 14:59] LABS: COVID-19 Test Negative (Negative)
--- NOTE | 2021-11-30 17:51 | PC.NURSE ---
Pt alert and oriented x4, calm and cooperative. Noted to be anxious at times. Ambulating without issues. Denies pain. Pt resting comfortably in bed. Will continue to monitor.
[2021-11-30 19:30] VITALS: BP 149/80; PULSE 83; RESP 14; TEMP 36.6; O2SAT 97
[2021-11-30] MEDS: Mirtazapine 30 MG TABLET PO (20:22)
[2021-11-30 23:24] VITALS: BMI 27.5
--- NOTE | 2021-11-30 23:25 | PC.ADMIT ---
Addendum entered by Charlee Ronquillo RN 12/01/21 00:22: DR. Lydia Rodriguez and Charlotte Bueno informed of admission and orders put in by Charlotte Bueno. Original Note: Admitted a 66 yrs old ,male patient from ED PER W/C accompanied by the security w/ presenting problem of increased anxiety and SI, plan and intent. Upon admission to the unit, pt. is alert and oriented x4, pleasant on approach and cooperative w/ adm. process. pt. signs all the paperwork and he is on CV. Skin is dry and no open areas.A small bruise to his l arm.Patient at this time denies SI/HI/AVH.No c/o pain.DR. LYDIA Rodriguez, Charlotte Bueno .Called the brother Christopher Wagner to inform him of the admission but no answer,left a message for him to call back.Patient is independent in adls,continent of urine, wears eyeglasses for reading and he has no teeth.We will continue to monitor pt.
[2021-12-01 06:00] VITALS: BP 135/81; PULSE 67; RESP 14; TEMP 35.9; O2SAT 96
[2021-12-01] MEDS: FLUoxetine HCl 20 MG CAPSULE 80 MG PO (08:16)
[2021-12-01] MEDS: amLODIPine Besylate 5 MG TABLET PO (08:19)
[2021-12-01] MEDS: clonazePAM 0.5 MG TABLET PO ×2 (08:19→20:42)
[2021-12-01] MEDS: Cholecalciferol (Vitamin D3) 25 MCG TABLET 125 MCG PO (08:19)
[2021-12-01 08:25] LABS: Estimated Average Glucose 111 mg/dL; Hemoglobin A1c % 5.5 %
[2021-12-01 08:33] LABS: Cholesterol 199 mg/dL; HDL Cholesterol 35 mg/dL; LDL Cholesterol Calculated 132 mg/dl; Triglycerides 163 mg/dL
[2021-12-01 08:54] LABS: Free T4 (Free Thyroxine) 1.22 ng/dL (0.71-1.85); Thyroid Stimulating Hormone 1.97 uIU/mL (0.32-4.0)
[2021-12-01 09:27] LABS: Vitamin B12 336 pg/mL (200-900)
[2021-12-01] MEDS: busPIRone HCl 10 MG TABLET 15 MG PO ×2 (12:19→20:40)
--- NOTE | 2021-12-01 14:53 | HO.PSYADMNOT ---
HPI Date of Service: 12/01/21 Chief Complaint: Depression, SI Sources of Information: patient interviewed HPI Subjective Notes: [place] Warning and Conditional Voluntary Narrative: The patient is a 66-year-old male, single, with no children, unemployed on SSI for several years, living by himself with good social support provided by her sister and brother who does not live with him.?? The patient was already assessed a few weeks ago for exacerbation of depression and he was transferred to [facility]. While he was in [facility], the patient verbalized suicidal ideation with a plan to run into the traffic or stab himself with a knife. He was assessed by crisis and transferring to this facility for psychiatric stabilization. The patient is very well known by the [facility] disease he was admitted into the hospital on August last year. The patient stated that he feels very anxious and he Seroquel was stopped a few days ago. He also reported that he has involuntary movements. Historically, the patient responded very well to Seroquel and Requip and he agreed to restart his medications. He complained of depressed mood, anhedonia, lack of energy, feelings of worthlessness and helplessness. He also admitted suicidal ideation but no evidence of psychotic symptoms or tyrone. We discussed risks, benefits, side-effects and alternatives and he agreed on restarting Seroquel and Requip for involuntary movements. Past Psychiatric History: The patient's 1st psychiatric contact was in his 20s for depression. He also carries a diagnosis of OCD and he has germ phobia. He has several admissions into the hospital at [facility] [address], this facility, and others. He has outpatient providers. Medical Evaluation Reviewed: Yes [facility] Medical History Anxiety Depression Family History: Denies Social History: The patient is due oldest of 3 children, his milestones were achieved at expected age, he was raised by his parents and he had a good childhood. 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 He has never been and he has been admitted several times into the hospital for depression and OCD and he has received ECT Substance History: Denies Trauma History: Denies. Diagnostics Vital Signs (24Hr): Vital Signs - 24 hr 11/30/21 19:30 12/01/21 06:00 Temperature 97.9 F 96.7 F L Pulse Rate 83 67 Respiratory Rate 14 14 Blood Pressure 149/80 H 135/81 Pulse Oximetry 97 96 BMI result Body Mass Index 27.5 Labs Results: 11/28/21 22:08 11/28/21 22:08 Labs: Laboratory Results - last 48 hr 11/30/21 12/01/21 12/01/21 14:29 08:04 08:04 Estimat Average Glucose 111 Hemoglobin A1c % 5.5 Triglycerides 163 Cholesterol 199 LDL Cholesterol, Calc 132 HDL Cholesterol 35 Vitamin B12 TSH 1.97 Free T4 1.22 COVID-19 ([facility]) Negative COVID-19 Clin Com See Note 12/01/21 08:04 Estimat Average Glucose Hemoglobin A1c % Triglycerides Cholesterol LDL Cholesterol, Calc HDL Cholesterol Vitamin B12 336 TSH Free T4 COVID-19 ([facility]) COVID-19 Clin Com Meds/Allergies Meds Home Medications Acetaminophen (Acetaminophen 325 Mg Tablet) 650 mg PO Q6H PRN PRN Reason: Headache/Pain Mild Scale (1-3) Al Hydroxide/Mg Hydroxide (Magnesium Hydrox/Alum Hydrox 30 Ml Oral.Susp) 30 ml PO Q6H PRN PRN Reason: Heartburn/Nausea Amlodipine Besylate (Amlodipine Besylate 5 Mg Tablet) 5 mg PO DAILY [facility]; Protocol Last Admin: 12/01/21 08:19 Dose: 5 mg Documented by: Buspirone HCl (Buspirone Hcl 10 Mg Tablet) 15 mg PO BID [facility] Last Admin: 12/01/21 12:19 Dose: 15 mg Documented by: Clonazepam (Clonazepam 0.5 Mg Tablet) 0.5 mg PO BID [facility] Last Admin: 12/01/21 08:19 Dose: 0.5 mg Documented by: Fluoxetine HCl (Fluoxetine Hcl 20 Mg Capsule) 80 mg PO DAILY [facility] Last Admin: 12/01/21 08:16 Dose: 80 mg Documented by: Hydroxyzine HCl (Hydroxyzine Hcl 25 Mg Tablet) 25 mg PO Q6H PRN PRN Reason: Anxiety Magnesium Hydroxide (Milk Of Magnesia 30 Ml Oral.Susp) 30 ml PO DAILY PRN PRN Reason: Constipation Mirtazapine (Mirtazapine 30 Mg Tablet) 30 mg PO BEDTIME [facility] Last Admin: 11/30/21 20:22 Dose: 30 mg Documented by: Trazodone HCl (Trazodone Hcl 50 Mg Tablet) 50 mg PO BEDTIME PRN PRN Reason: Insomnia Vitamin D (Cholecalciferol (Vitamin D3) 25 Mcg Tablet) 125 mcg PO DAILY [facility] Last Admin: 12/01/21 08:19 Dose: 125 mcg Documented by: Allergies Allergies Allergy/AdvReac Type Severity Reaction Status Date / Time paroxetine [From PAXIL] AdvReac Unknown AGITATION, Verified 11/19/21 12:38 MOOD SWINGS, ALL KINDS OF WEIRD THOUGHTS Mental Status Exam Mental Status Exam Patient Appearance: Disheveled and Unkempt Patient Orientation: Person and Place Level of Consciousness: Awake Patient Behavior: Guarded, Passive and Suspicious Mood Description: Depressed Affect Description: Constricted Ability to Follow Directions: Good Speech Pattern: Clear and Monotone Delusions: Not Present Thought Process: Distracted and Confusion Thought Content: positive for Circumstantial, positive for Perseveration and positive for Poverty of Content Judgement: Fair Assessment & Plan Assessment & Plan (1) Major depressive disorder, recurrent: Status: Acute Qualifiers: Active/Remission status: currently active Major depression episode severity: severe Psychotic features: with psychotic features Qualified Code(s): F33.3 - Major depressive disorder, recurrent, severe with psychotic symptoms Code(s): F33.9 - Major depressive disorder, recurrent, unspecified (2) Obsessive compulsive disorder: Status: Acute Code(s): F42.9 - Obsessive-compulsive disorder, unspecified Assessment and Plan: Middle-aged male with a long history of generalized anxiety disorder, depression and OCD, very well known by DC unit since he was admitted in August last year for similar presentation, admitted for suicidal ideation and transfer from respite to the emergency room. Plan 1. Gather collateral information. 2. Start Seroquel 25 mg p.o. t.i.d. to target anxiety and dysphoria. 3. Continue other antidepressants. Reason for continued inpatient stay Substantial Risk for: harm to self, inability to function, rapid decompensation and med/psych decompensation
[2021-12-01] MEDS: QUEtiapine Fumarate 25 MG TABLET PO ×2 (15:39→20:42)
[2021-12-01] MEDS: hydrOXYzine HCL 25 MG TABLET PO (15:39)
[2021-12-01 18:00] VITALS: BP 134/79; PULSE 72; RESP 18; TEMP 36.2; O2SAT 97
[2021-12-01] MEDS: Mirtazapine 30 MG TABLET PO (20:42)
[2021-12-01] MEDS: rOPINIRole HCL 0.25 MG TABLET PO (20:42)
[2021-12-02 08:00] VITALS: BP 137/70; PULSE 63; RESP 16; TEMP 36.2; O2SAT 100
[2021-12-02] MEDS: clonazePAM 0.5 MG TABLET PO ×2 (08:26→19:55)
[2021-12-02] MEDS: busPIRone HCl 10 MG TABLET 15 MG PO ×2 (08:27→19:55)
[2021-12-02] MEDS: amLODIPine Besylate 5 MG TABLET PO (08:28)
[2021-12-02] MEDS: rOPINIRole HCL 0.25 MG TABLET PO ×2 (08:28→19:55)
[2021-12-02] MEDS: QUEtiapine Fumarate 25 MG TABLET PO ×2 (08:28→14:11)
[2021-12-02] MEDS: Cholecalciferol (Vitamin D3) 25 MCG TABLET 125 MCG PO (08:28)
[2021-12-02] MEDS: FLUoxetine HCl 20 MG CAPSULE 80 MG PO (08:31)
[2021-12-02] MEDS: hydrOXYzine HCL 25 MG TABLET PO ×2 (14:12→19:55)
--- NOTE | 2021-12-02 16:10 | P.PNPSI_ITS ---
Subjective Subjective Date of Service: 12/02/21 Reason For Visit: Depression, SI Subjective Notes: Conditional Voluntary Interim History: The nursing staff reported that he is isolative, compliant with treatment but anxious. On interview, he reported anxiety and requested an increase of Seroquel Mental Status Exam Mental Status Exam Patient Appearance: Well Grooomed Patient Orientation: Person Level of Consciousness: Awake Patient Behavior: Guarded and Suspicious Mood Description: Depressed Affect Description: Constricted Patient Cognition Impaired: Yes Ability to Follow Directions: Good Speech Pattern: Clear Hallucinations: None Delusions: Not Present Thought Content: positive for Perseveration Judgement: Fair Diagnostics Vital Signs (24Hr): Vital Signs - 24 hr 12/01/21 18:00 12/02/21 08:00 Temperature 97.1 F 97.1 F Pulse Rate 72 63 Respiratory Rate 18 16 Blood Pressure 134/79 137/70 Pulse Oximetry 97 100 BMI result Body Mass Index 27.5 Labs Results: 11/28/21 22:08 11/28/21 22:08 Labs: Laboratory Results - last 48 hr 12/01/21 12/01/21 12/01/21 08:04 08:04 08:04 Estimat Average Glucose 111 Hemoglobin A1c % 5.5 Triglycerides 163 Cholesterol 199 LDL Cholesterol, Calc 132 HDL Cholesterol 35 Vitamin B12 336 TSH 1.97 Free T4 1.22 Medications Medications Current Medications Acetaminophen (Acetaminophen 325 Mg Tablet) 650 mg PO Q6H PRN PRN Reason: Headache/Pain Mild Scale (1-3) Al Hydroxide/Mg Hydroxide (Magnesium Hydrox/Alum Hydrox 30 Ml Oral.Susp) 30 ml PO Q6H PRN PRN Reason: Heartburn/Nausea Amlodipine Besylate (Amlodipine Besylate 5 Mg Tablet) 5 mg PO DAILY [facility]; Protocol Last Admin: 12/02/21 08:28 Dose: 5 mg Documented by: Buspirone HCl (Buspirone Hcl 10 Mg Tablet) 15 mg PO BID [facility] Last Admin: 12/02/21 08:27 Dose: 15 mg Documented by: Clonazepam (Clonazepam 0.5 Mg Tablet) 0.5 mg PO BID [facility] Last Admin: 12/02/21 08:26 Dose: 0.5 mg Documented by: Fluoxetine HCl (Fluoxetine Hcl 20 Mg Capsule) 80 mg PO DAILY [facility] Last Admin: 12/02/21 08:31 Dose: 80 mg Documented by: Hydroxyzine HCl (Hydroxyzine Hcl 25 Mg Tablet) 25 mg PO Q6H PRN PRN Reason: Anxiety Last Admin: 12/02/21 14:12 Dose: 25 mg Documented by: Magnesium Hydroxide (Milk Of Magnesia 30 Ml Oral.Susp) 30 ml PO DAILY PRN PRN Reason: Constipation Mirtazapine (Mirtazapine 30 Mg Tablet) 30 mg PO BEDTIME [facility] Last Admin: 12/01/21 20:42 Dose: 30 mg Documented by: Quetiapine Fumarate (Quetiapine Fumarate 50 Mg Tablet) 50 mg PO TID [facility] Ropinirole HCl (Ropinirole Hcl 0.25 Mg Tablet) 0.25 mg PO BID [facility] Last Admin: 12/02/21 08:28 Dose: 0.25 mg Documented by: Trazodone HCl (Trazodone Hcl 50 Mg Tablet) 50 mg PO BEDTIME PRN PRN Reason: Insomnia Vitamin D (Cholecalciferol (Vitamin D3) 25 Mcg Tablet) 125 mcg PO DAILY [facility] Last Admin: 12/02/21 08:28 Dose: 125 mcg Documented by: Allergies Allergies Allergy/AdvReac Type Severity Reaction Status Date / Time paroxetine [From PAXIL] AdvReac Unknown AGITATION, Verified 11/19/21 12:38 MOOD SWINGS, ALL KINDS OF WEIRD THOUGHTS Assessment & Plan Assessment & Plan (1) Major depressive disorder, recurrent: Qualifiers: Active/Remission status: currently active Major depression episode severity: severe Psychotic features: with psychotic features Qualified Code(s): F33.3 - Major depressive disorder, recurrent, severe with psychotic symptoms Status: Acute Code(s): F33.9 - Major depressive disorder, recurrent, unspecified (2) Obsessive compulsive disorder: Status: Acute Code(s): F42.9 - Obsessive-compulsive disorder, unspecified Assessment and Plan: Middle-aged male with a long history of generalized anxiety disorder, depression and OCD, very well known by DC unit since he was admitted in August last year for similar presentation, admitted for suicidal ideation and transfer from respite to the emergency room. Plan 1. Gather collateral information. 2. Increase Seroquel up to 50 mg p.o. t.i.d. to target anxiety and dysphoria. 3. Continue other antidepressants. I spent minutes with the patient and/or on the patient floor today, greater than?50% of which was spent counseling/coordinating care. Reason for contiued inpatient stay Substantial Risk for: harm to self, inability to function, rapid decompensation and med/psych decompensation
[2021-12-02 19:50] VITALS: BP 144/84; PULSE 70; RESP 19; TEMP 36.6; O2SAT 96
[2021-12-02] MEDS: QUEtiapine Fumarate 50 MG TABLET PO (19:55)
[2021-12-02] MEDS: Mirtazapine 30 MG TABLET PO (19:55)
[2021-12-02 20:09] VITALS: BP 144/84; PULSE 70; RESP 19; TEMP 36.6; O2SAT 96
[2021-12-03 06:00] VITALS: BP 129/79; PULSE 65; RESP 14; TEMP 36.3; O2SAT 97
[2021-12-03 07:00] VITALS: BMI 27.7
[2021-12-03] MEDS: busPIRone HCl 10 MG TABLET 15 MG PO ×2 (08:27→20:12)
[2021-12-03] MEDS: rOPINIRole HCL 0.25 MG TABLET PO ×2 (08:29→20:12)
[2021-12-03] MEDS: FLUoxetine HCl 20 MG CAPSULE 80 MG PO (08:29)
[2021-12-03] MEDS: clonazePAM 0.5 MG TABLET PO ×2 (08:29→20:12)
[2021-12-03] MEDS: Cholecalciferol (Vitamin D3) 25 MCG TABLET 125 MCG PO (08:30)
[2021-12-03] MEDS: amLODIPine Besylate 5 MG TABLET PO (08:31)
[2021-12-03] MEDS: QUEtiapine Fumarate 50 MG TABLET PO ×3 (08:31→20:12)
[2021-12-03] MEDS: Milk of Magnesia 30 ML ORAL.SUSP PO (09:28)
--- NOTE | 2021-12-03 15:25 | P.PNPSI_ITS ---
Subjective Subjective Date of Service: 12/03/21 Reason For Visit: Depression, SI Subjective Notes: Conditional Voluntary Interim History: the nursing staff reported that the patient has been compliant with treatment. He looks anxious and internally preoccupied but he attends to groups. On interview the patient requested Seroquel as a p.r.n. to since he responds very well with this medication. Mental Status Exam Mental Status Exam Patient Appearance: Well Grooomed Patient Orientation: Person Level of Consciousness: Awake Patient Behavior: Cooperative and Passive Mood Description: Depressed Affect Description: Constricted Patient Cognition Impaired: No Ability to Follow Directions: Good Speech Pattern: Appropriate Hallucinations: None Delusions: Not Present Thought Process: Distracted and Evasive Thought Content: positive for Circumstantial Judgement: Fair Diagnostics Vital Signs (24Hr): Vital Signs - 24 hr 12/02/21 19:50 12/02/21 20:09 12/03/21 06:00 Temperature 97.9 F 97.9 F 97.4 F Pulse Rate 70 70 65 Respiratory Rate 19 19 14 Blood Pressure 144/84 H 144/84 H 129/79 Pulse Oximetry 96 96 97 BMI result Body Mass Index 27.7 Labs Results: 11/28/21 22:08 11/28/21 22:08 Medications Medications Current Medications Acetaminophen (Acetaminophen 325 Mg Tablet) 650 mg PO Q6H PRN PRN Reason: Headache/Pain Mild Scale (1-3) Al Hydroxide/Mg Hydroxide (Magnesium Hydrox/Alum Hydrox 30 Ml Oral.Susp) 30 ml PO Q6H PRN PRN Reason: Heartburn/Nausea Amlodipine Besylate (Amlodipine Besylate 5 Mg Tablet) 5 mg PO DAILY [facility]; Protocol Last Admin: 12/03/21 08:31 Dose: 5 mg Documented by: Buspirone HCl (Buspirone Hcl 10 Mg Tablet) 15 mg PO BID [facility] Last Admin: 12/03/21 08:27 Dose: 15 mg Documented by: Clonazepam (Clonazepam 0.5 Mg Tablet) 0.5 mg PO BID [facility] Last Admin: 12/03/21 08:29 Dose: 0.5 mg Documented by: Fluoxetine HCl (Fluoxetine Hcl 20 Mg Capsule) 80 mg PO DAILY [facility] Last Admin: 12/03/21 08:29 Dose: 80 mg Documented by: Hydroxyzine HCl (Hydroxyzine Hcl 25 Mg Tablet) 25 mg PO Q6H PRN PRN Reason: Anxiety Last Admin: 12/02/21 19:55 Dose: 25 mg Documented by: Magnesium Hydroxide (Milk Of Magnesia 30 Ml Oral.Susp) 30 ml PO DAILY PRN PRN Reason: Constipation Last Admin: 12/03/21 09:28 Dose: 30 ml Documented by: Mirtazapine (Mirtazapine 30 Mg Tablet) 30 mg PO BEDTIME [facility] Last Admin: 12/02/21 19:55 Dose: 30 mg Documented by: Quetiapine Fumarate (Quetiapine Fumarate 50 Mg Tablet) 50 mg PO TID [facility] Last Admin: 12/03/21 14:51 Dose: 50 mg Documented by: Quetiapine Fumarate (Quetiapine Fumarate 25 Mg Tablet) 25 mg PO BID PRN PRN Reason: Anxiety Ropinirole HCl (Ropinirole Hcl 0.25 Mg Tablet) 0.25 mg PO BID [facility] Last Admin: 12/03/21 08:29 Dose: 0.25 mg Documented by: Trazodone HCl (Trazodone Hcl 50 Mg Tablet) 50 mg PO BEDTIME PRN PRN Reason: Insomnia Vitamin D (Cholecalciferol (Vitamin D3) 25 Mcg Tablet) 125 mcg PO DAILY [facility] Last Admin: 12/03/21 08:30 Dose: 125 mcg Documented by: Allergies Allergies Allergy/AdvReac Type Severity Reaction Status Date / Time paroxetine [From PAXIL] AdvReac Unknown AGITATION, Verified 11/19/21 12:38 MOOD SWINGS, ALL KINDS OF WEIRD THOUGHTS Assessment & Plan Assessment & Plan (1) Major depressive disorder, recurrent: Qualifiers: Active/Remission status: currently active Major depression episode severity: severe Psychotic features: with psychotic features Qualified Code(s): F33.3 - Major depressive disorder, recurrent, severe with psychotic symptoms Status: Acute Code(s): F33.9 - Major depressive disorder, recurrent, unspecified (2) Obsessive compulsive disorder: Status: Acute Code(s): F42.9 - Obsessive-compulsive disorder, unspecified Assessment and Plan: Middle-aged male with a long history of generalized anxiety disorder, depression and OCD, very well known by DC unit since he was admitted in August last year for similar presentation, admitted for suicidal ideation and transfer from respite to the emergency room. Plan 1. Gather collateral information. 2. Increase Seroquel up to 50 mg p.o. t.i.d. to target anxiety and dysphoria. Also add Seroquel 25 mg p.o. b.i.d. p.r.n. anxiety 3. Continue other antidepressants. I spent minutes with the patient and/or on the patient floor today, greater than?50% of which was spent counseling/coordinating care. Reason for contiued inpatient stay Substantial Risk for: harm to self, inability to function, rapid decompensation and med/psych decompensation
[2021-12-03] MEDS: hydrOXYzine HCL 25 MG TABLET PO (16:11)
[2021-12-03 18:00] VITALS: BP 142/67; PULSE 79; RESP 19; TEMP 36.6; O2SAT 97
[2021-12-03] MEDS: LORazepam 1 MG TABLET PO (18:26)
[2021-12-03] MEDS: Mirtazapine 30 MG TABLET PO (20:12)
[2021-12-04 06:00] VITALS: BP 128/78; PULSE 59; RESP 16; TEMP 36.2; O2SAT 97
[2021-12-04] MEDS: FLUoxetine HCl 20 MG CAPSULE 80 MG PO (08:26)
[2021-12-04] MEDS: clonazePAM 0.5 MG TABLET PO ×3 (08:26→20:16)
[2021-12-04] MEDS: QUEtiapine Fumarate 50 MG TABLET PO ×3 (08:26→20:16)
[2021-12-04] MEDS: busPIRone HCl 10 MG TABLET 15 MG PO ×2 (08:26→20:15)
[2021-12-04] MEDS: rOPINIRole HCL 0.25 MG TABLET PO ×2 (08:26→20:16)
[2021-12-04] MEDS: amLODIPine Besylate 5 MG TABLET PO (08:26)
[2021-12-04] MEDS: Cholecalciferol (Vitamin D3) 25 MCG TABLET 125 MCG PO (08:26)
[2021-12-04] MEDS: QUEtiapine Fumarate 25 MG TABLET PO (12:10)
--- NOTE | 2021-12-04 14:02 | HO.PSYCHPN ---
Subjective Subjective Date of Service: 12/04/21 Reason For Visit: Depression, SI Subjective Notes: Conditional Voluntary Interim History: the nursing staff reported the patient have a slept well, he is anxious as per his report and he wants to go to a rest home. On interview, the patient requested Ativan as a p.r.n. but we discussed his options and he agreed to stick with clonazepam and not add more benzodiazepines. In general, the patient has been visible in the unit and he has participated in some groups. Mental Status Exam Mental Status Exam Patient Appearance: Well Grooomed Patient Orientation: Person Level of Consciousness: Awake Patient Behavior: Cooperative Mood Description: Withdrawn Affect Description: Constricted Patient Cognition Impaired: No Ability to Follow Directions: Good Speech Pattern: Clear Memory Description: Intact Hallucinations: None Delusions: Not Present Thought Process: Linear Thought Content: positive for Poverty of Content Judgement: Fair Diagnostics Vital Signs (24Hr): Vital Signs - 24 hr 12/03/21 18:00 12/04/21 06:00 Temperature 98 F 97.2 F Pulse Rate 79 59 Respiratory Rate 19 16 Blood Pressure 142/67 H 128/78 Pulse Oximetry 97 97 BMI result Body Mass Index 27.7 Labs Results: 11/28/21 22:08 11/28/21 22:08 Medications Medications Current Medications Acetaminophen (Acetaminophen 325 Mg Tablet) 650 mg PO Q6H PRN PRN Reason: Headache/Pain Mild Scale (1-3) Al Hydroxide/Mg Hydroxide (Magnesium Hydrox/Alum Hydrox 30 Ml Oral.Susp) 30 ml PO Q6H PRN PRN Reason: Heartburn/Nausea Amlodipine Besylate (Amlodipine Besylate 5 Mg Tablet) 5 mg PO DAILY [facility]; Protocol Last Admin: 12/04/21 08:26 Dose: 5 mg Documented by: Buspirone HCl (Buspirone Hcl 10 Mg Tablet) 15 mg PO BID [facility] Last Admin: 12/04/21 08:26 Dose: 15 mg Documented by: Clonazepam (Clonazepam 0.5 Mg Tablet) 0.5 mg PO BID [facility] Last Admin: 12/04/21 08:26 Dose: 0.5 mg Documented by: Clonazepam (Clonazepam 0.5 Mg Tablet) 0.5 mg PO DAILY PRN PRN Reason: anxiety Fluoxetine HCl (Fluoxetine Hcl 20 Mg Capsule) 80 mg PO DAILY [facility] Last Admin: 12/04/21 08:26 Dose: 80 mg Documented by: Hydroxyzine HCl (Hydroxyzine Hcl 25 Mg Tablet) 25 mg PO Q6H PRN PRN Reason: Anxiety Last Admin: 12/03/21 16:11 Dose: 25 mg Documented by: Magnesium Hydroxide (Milk Of Magnesia 30 Ml Oral.Susp) 30 ml PO DAILY PRN PRN Reason: Constipation Last Admin: 12/03/21 09:28 Dose: 30 ml Documented by: Mirtazapine (Mirtazapine 30 Mg Tablet) 30 mg PO BEDTIME [facility] Last Admin: 12/03/21 20:12 Dose: 30 mg Documented by: Quetiapine Fumarate (Quetiapine Fumarate 50 Mg Tablet) 50 mg PO TID [facility] Last Admin: 12/04/21 08:26 Dose: 50 mg Documented by: Quetiapine Fumarate (Quetiapine Fumarate 25 Mg Tablet) 25 mg PO BID PRN PRN Reason: Anxiety Last Admin: 12/04/21 12:10 Dose: 25 mg Documented by: Ropinirole HCl (Ropinirole Hcl 0.25 Mg Tablet) 0.25 mg PO BID [facility] Last Admin: 12/04/21 08:26 Dose: 0.25 mg Documented by: Trazodone HCl (Trazodone Hcl 50 Mg Tablet) 50 mg PO BEDTIME PRN PRN Reason: Insomnia Vitamin D (Cholecalciferol (Vitamin D3) 25 Mcg Tablet) 125 mcg PO DAILY [facility] Last Admin: 12/04/21 08:26 Dose: 125 mcg Documented by: Allergies Allergies Allergy/AdvReac Type Severity Reaction Status Date / Time paroxetine [From PAXIL] AdvReac Unknown AGITATION, Verified 11/19/21 12:38 MOOD SWINGS, ALL KINDS OF WEIRD THOUGHTS Assessment & Plan Assessment & Plan (1) Major depressive disorder, recurrent: Qualifiers: Active/Remission status: currently active Major depression episode severity: severe Psychotic features: with psychotic features Qualified Code(s): F33.3 - Major depressive disorder, recurrent, severe with psychotic symptoms Status: Acute Code(s): F33.9 - Major depressive disorder, recurrent, unspecified (2) Obsessive compulsive disorder: Status: Acute Code(s): F42.9 - Obsessive-compulsive disorder, unspecified Assessment and Plan: Middle-aged male with a long history of generalized anxiety disorder, depression and OCD, very well known by DC unit since he was admitted in August last year for similar presentation, admitted for suicidal ideation and transfer from [facility] to the emergency room. Plan 1. Gather collateral information. 2. Increase Seroquel up to 50 mg p.o. t.i.d. to target anxiety and dysphoria. Also add Seroquel 25 mg p.o. b.i.d. p.r.n. anxiety 3. Continue other antidepressants. 4. Add Klonopin 0.5 mg daily p.r.n. anxiety not exceed of clonazepam 1.5 mg per day I spent minutes with the patient and/or on the patient floor today, greater than?50% of which was spent counseling/coordinating care. Reason for contiued inpatient stay Substantial Risk for: inability to function, rapid decompensation and med/psych decompensation
[2021-12-04 18:00] VITALS: BP 115/75; PULSE 67; RESP 19; TEMP 37.2; O2SAT 95
[2021-12-04] MEDS: Mirtazapine 30 MG TABLET PO (20:16)
[2021-12-05 07:30] VITALS: BP 120/76; PULSE 69; RESP 17; TEMP 36.5; O2SAT 97
[2021-12-05] MEDS: amLODIPine Besylate 5 MG TABLET PO (08:45)
[2021-12-05] MEDS: QUEtiapine Fumarate 50 MG TABLET PO ×3 (08:45→20:10)
[2021-12-05] MEDS: clonazePAM 0.5 MG TABLET PO ×3 (08:45→20:10)
[2021-12-05] MEDS: FLUoxetine HCl 20 MG CAPSULE 80 MG PO (08:45)
[2021-12-05] MEDS: Cholecalciferol (Vitamin D3) 25 MCG TABLET 125 MCG PO (08:45)
[2021-12-05] MEDS: rOPINIRole HCL 0.25 MG TABLET PO ×2 (08:46→20:10)
[2021-12-05] MEDS: busPIRone HCl 10 MG TABLET 15 MG PO ×2 (08:46→20:10)
--- NOTE | 2021-12-05 10:22 | P.PNPSI_ITS ---
Subjective Subjective Date of Service: 12/05/21 Reason For Visit: Depression, SI Subjective Notes: Conditional Voluntary Interim History: Patient was seen and discussed in rounds today. He continues to complain of some anxiety. The p.r.n. Klonopin and Seroquel have been very helpful to him. He is med compliant. Eating and sleeping adequately. No complaints or side effects. No behavioral issues. No changes were made today Medication Compliance: Yes Side effects from medications: No Review of Systems Review of Systems Depression, suicide ideation, anxiety Yes all other systems are reviewed and are negative Constitutional: Reports as per HPI and Reports no additional constitutional complaints Mental Status Exam Mental Status Exam Patient Appearance: Well Grooomed Patient Orientation: Person Level of Consciousness: Awake Patient Behavior: Cooperative Mood Description: Withdrawn Affect Description: Constricted Patient Cognition Impaired: No Ability to Follow Directions: Good Speech Pattern: Clear Memory Description: Intact Hallucinations: None Delusions: Not Present Thought Process: Linear Thought Content: positive for Poverty of Content Judgement: Fair Diagnostics Vital Signs (24Hr): Vital Signs - 24 hr 12/04/21 18:00 12/05/21 07:30 Temperature 98.9 F 97.7 F Pulse Rate 67 69 Respiratory Rate 19 17 Blood Pressure 115/75 120/76 Pulse Oximetry 95 97 BMI result Body Mass Index 27.7 Labs Results: 11/28/21 22:08 11/28/21 22:08 Medications Medications Current Medications Acetaminophen (Acetaminophen 325 Mg Tablet) 650 mg PO Q6H PRN PRN Reason: Headache/Pain Mild Scale (1-3) Al Hydroxide/Mg Hydroxide (Magnesium Hydrox/Alum Hydrox 30 Ml Oral.Susp) 30 ml PO Q6H PRN PRN Reason: Heartburn/Nausea Amlodipine Besylate (Amlodipine Besylate 5 Mg Tablet) 5 mg PO DAILY [facility]; Protocol Last Admin: 12/05/21 08:45 Dose: 5 mg Documented by: Buspirone HCl (Buspirone Hcl 10 Mg Tablet) 15 mg PO BID [facility] Last Admin: 12/05/21 08:46 Dose: 15 mg Documented by: Clonazepam (Clonazepam 0.5 Mg Tablet) 0.5 mg PO BID [facility] Last Admin: 12/05/21 08:45 Dose: 0.5 mg Documented by: Clonazepam (Clonazepam 0.5 Mg Tablet) 0.5 mg PO DAILY PRN PRN Reason: anxiety Last Admin: 12/04/21 15:48 Dose: 0.5 mg Documented by: Fluoxetine HCl (Fluoxetine Hcl 20 Mg Capsule) 80 mg PO DAILY [facility] Last Admin: 12/05/21 08:45 Dose: 80 mg Documented by: Hydroxyzine HCl (Hydroxyzine Hcl 25 Mg Tablet) 25 mg PO Q6H PRN PRN Reason: Anxiety Last Admin: 12/03/21 16:11 Dose: 25 mg Documented by: Magnesium Hydroxide (Milk Of Magnesia 30 Ml Oral.Susp) 30 ml PO DAILY PRN PRN Reason: Constipation Last Admin: 12/03/21 09:28 Dose: 30 ml Documented by: Mirtazapine (Mirtazapine 30 Mg Tablet) 30 mg PO BEDTIME [facility] Last Admin: 12/04/21 20:16 Dose: 30 mg Documented by: Quetiapine Fumarate (Quetiapine Fumarate 50 Mg Tablet) 50 mg PO TID [facility] Last Admin: 12/05/21 08:45 Dose: 50 mg Documented by: Quetiapine Fumarate (Quetiapine Fumarate 25 Mg Tablet) 25 mg PO BID PRN PRN Reason: Anxiety Last Admin: 12/04/21 12:10 Dose: 25 mg Documented by: Ropinirole HCl (Ropinirole Hcl 0.25 Mg Tablet) 0.25 mg PO BID [facility] Last Admin: 12/05/21 08:46 Dose: 0.25 mg Documented by: Trazodone HCl (Trazodone Hcl 50 Mg Tablet) 50 mg PO BEDTIME PRN PRN Reason: Insomnia Vitamin D (Cholecalciferol (Vitamin D3) 25 Mcg Tablet) 125 mcg PO DAILY [facility] Last Admin: 12/05/21 08:45 Dose: 125 mcg Documented by: Allergies Allergies Allergy/AdvReac Type Severity Reaction Status Date / Time paroxetine [From PAXIL] AdvReac Unknown AGITATION, Verified 11/19/21 12:38 MOOD SWINGS, ALL KINDS OF WEIRD THOUGHTS Assessment & Plan Assessment & Plan (1) Major depressive disorder, recurrent: Qualifiers: Active/Remission status: currently active Major depression episode severity: severe Psychotic features: with psychotic features Qualified Code(s): F33.3 - Major depressive disorder, recurrent, severe with psychotic symptoms Status: Acute Code(s): F33.9 - Major depressive disorder, recurrent, unspecified (2) Obsessive compulsive disorder: Status: Acute Code(s): F42.9 - Obsessive-compulsive disorder, unspecified Assessment and Plan: Middle-aged male with a long history of generalized anxiety disorder, depression and OCD, very well known by DC unit since he was admitted in August last year for similar presentation, admitted for suicidal ideation and transfer from respite to the emergency room. Plan 1. Gather collateral information. 2. Increase Seroquel up to 50 mg p.o. t.i.d. to target anxiety and dysphoria. A lso add Seroquel 25 mg p.o. b.i.d. p.r.n. anxiety 3. Continue other antidepressants. 4. Add Klonopin 0.5 mg daily p.r.n. anxiety not exceed of clonazepam 1.5 mg per day 12/05/2021 Continue current regimen and plans. No changes were made today I spent minutes with the patient and/or on the patient floor today, greater than?50% of which was spent counseling/coordinating care. Reason for contiued inpatient stay Substantial Risk for: inability to function
[2021-12-05] MEDS: QUEtiapine Fumarate 25 MG TABLET PO (13:17)
[2021-12-05 18:00] VITALS: BP 147/68; PULSE 70; RESP 16; TEMP 36.1; O2SAT 95
[2021-12-05] MEDS: Mirtazapine 30 MG TABLET PO (20:10)
[2021-12-06 06:00] VITALS: BP 120/71; PULSE 72; RESP 17; TEMP 36.2; O2SAT 95
[2021-12-06] MEDS: Cholecalciferol (Vitamin D3) 25 MCG TABLET 125 MCG PO (09:22)
[2021-12-06] MEDS: FLUoxetine HCl 20 MG CAPSULE 80 MG PO (09:23)
[2021-12-06] MEDS: QUEtiapine Fumarate 50 MG TABLET PO ×3 (09:24→21:20)
[2021-12-06] MEDS: clonazePAM 0.5 MG TABLET PO ×2 (09:25→21:19)
[2021-12-06] MEDS: busPIRone HCl 10 MG TABLET 15 MG PO ×2 (09:25→21:17)
[2021-12-06] MEDS: amLODIPine Besylate 5 MG TABLET PO (09:25)
[2021-12-06] MEDS: rOPINIRole HCL 0.25 MG TABLET PO ×2 (09:25→21:20)
--- NOTE | 2021-12-06 10:28 | HO.PSYCHPN ---
Subjective Subjective Date of Service: 12/06/21 Reason For Visit: Depression, SI Subjective Notes: Conditional Voluntary Medical Problems Affecting Mental Status: No Interim History: Patient was seen and discussed in rounds today. Records and plans were reviewed. He continues to have some anxiety but overall doing better. He is using his PRNs frequently. Attending some groups. No complaints or side effects. No dangerous behaviors. Eating and sleeping adequately. No changes were made today Medication Compliance: Yes Side effects from medications: No Review of Systems Review of Systems Depression, suicide ideation, anxiety Yes all other systems are reviewed and are negative Constitutional: Reports as per HPI and Reports no additional constitutional complaints Mental Status Exam Mental Status Exam Patient Appearance: Appropriate Patient Orientation: Person Level of Consciousness: Awake Patient Behavior: Cooperative Mood Description: Withdrawn and Constricted Affect Description: Constricted Patient Cognition Impaired: No Ability to Follow Directions: Good Speech Pattern: Clear Memory Description: Intact Hallucinations: None Delusions: Not Present Thought Process: Linear Thought Content: positive for Poverty of Content Judgement: Fair Diagnostics Vital Signs (24Hr): Vital Signs - 24 hr 12/05/21 18:00 12/06/21 06:00 Temperature 97.0 F 97.2 F Pulse Rate 70 72 Respiratory Rate 16 17 Blood Pressure 147/68 H 120/71 Pulse Oximetry 95 95 BMI result Body Mass Index 27.7 Labs Results: 11/28/21 22:08 11/28/21 22:08 Medications Medications Current Medications Acetaminophen (Acetaminophen 325 Mg Tablet) 650 mg PO Q6H PRN PRN Reason: Headache/Pain Mild Scale (1-3) Al Hydroxide/Mg Hydroxide (Magnesium Hydrox/Alum Hydrox 30 Ml Oral.Susp) 30 ml PO Q6H PRN PRN Reason: Heartburn/Nausea Amlodipine Besylate (Amlodipine Besylate 5 Mg Tablet) 5 mg PO DAILY [facility]; Protocol Last Admin: 12/06/21 09:25 Dose: 5 mg Documented by: Buspirone HCl (Buspirone Hcl 10 Mg Tablet) 15 mg PO BID [facility] Last Admin: 12/06/21 09:25 Dose: 15 mg Documented by: Clonazepam (Clonazepam 0.5 Mg Tablet) 0.5 mg PO BID [facility] Last Admin: 12/06/21 09:25 Dose: 0.5 mg Documented by: Clonazepam (Clonazepam 0.5 Mg Tablet) 0.5 mg PO DAILY PRN PRN Reason: anxiety Last Admin: 12/05/21 18:31 Dose: 0.5 mg Documented by: Fluoxetine HCl (Fluoxetine Hcl 20 Mg Capsule) 80 mg PO DAILY [facility] Last Admin: 12/06/21 09:23 Dose: 80 mg Documented by: Hydroxyzine HCl (Hydroxyzine Hcl 25 Mg Tablet) 25 mg PO Q6H PRN PRN Reason: Anxiety Last Admin: 12/03/21 16:11 Dose: 25 mg Documented by: Magnesium Hydroxide (Milk Of Magnesia 30 Ml Oral.Susp) 30 ml PO DAILY PRN PRN Reason: Constipation Last Admin: 12/03/21 09:28 Dose: 30 ml Documented by: Mirtazapine (Mirtazapine 30 Mg Tablet) 30 mg PO BEDTIME [facility] Last Admin: 12/05/21 20:10 Dose: 30 mg Documented by: Quetiapine Fumarate (Quetiapine Fumarate 50 Mg Tablet) 50 mg PO TID [facility] Last Admin: 12/06/21 09:24 Dose: 50 mg Documented by: Quetiapine Fumarate (Quetiapine Fumarate 25 Mg Tablet) 25 mg PO BID PRN PRN Reason: Anxiety Last Admin: 12/05/21 13:17 Dose: 25 mg Documented by: Ropinirole HCl (Ropinirole Hcl 0.25 Mg Tablet) 0.25 mg PO BID [facility] Last Admin: 12/06/21 09:25 Dose: 0.25 mg Documented by: Trazodone HCl (Trazodone Hcl 50 Mg Tablet) 50 mg PO BEDTIME PRN PRN Reason: Insomnia Vitamin D (Cholecalciferol (Vitamin D3) 25 Mcg Tablet) 125 mcg PO DAILY [facility] Last Admin: 12/06/21 09:22 Dose: 125 mcg Documented by: Allergies Allergies Allergy/AdvReac Type Severity Reaction Status Date / Time paroxetine [From PAXIL] AdvReac Unknown AGITATION, Verified 11/19/21 12:38 MOOD SWINGS, ALL KINDS OF WEIRD THOUGHTS Assessment & Plan Assessment & Plan (1) Major depressive disorder, recurrent: Qualifiers: Active/Remission status: currently active Major depression episode severity: severe Psychotic features: with psychotic features Qualified Code(s): F33.3 - Major depressive disorder, recurrent, severe with psychotic symptoms Status: Acute Code(s): F33.9 - Major depressive disorder, recurrent, unspecified (2) Obsessive compulsive disorder: Status: Acute Code(s): F42.9 - Obsessive-compulsive disorder, unspecified Assessment and Plan: Middle-aged male with a long history of generalized anxiety disorder, depression and OCD, very well known by DC unit since he was admitted in August last year for similar presentation, admitted for suicidal ideation and transfer from respite to the emergency room. Plan 1. Gather collateral information. 2. Increase Seroquel up to 50 mg p.o. t.i.d. to target anxiety and dysphoria. Also add Seroquel 25 mg p.o. b.i.d. p.r.n. anxiety 3. Continue other antidepressants. 4. Add Klonopin 0.5 mg daily p.r.n. anxiety not exceed of clonazepam 1.5 mg per day 12/05/2021 Continue current regimen and plans. No changes were made today 12/06/2021 Continue current regimen and plans. No changes were made today I spent minutes with the patient and/or on the patient floor today, greater than?50% of which was spent counseling/coordinating care. Reason for contiued inpatient stay Substantial Risk for: other
[2021-12-06] MEDS: hydrOXYzine HCL 25 MG TABLET PO (13:04)
[2021-12-06] MEDS: Mirtazapine 30 MG TABLET PO (21:20)
[2021-12-06 23:16] VITALS: BP 131/79; PULSE 63; RESP 17; TEMP 36.6; O2SAT 98
[2021-12-07 06:00] VITALS: BP 111/70; PULSE 68; RESP 15; TEMP 36.1; O2SAT 96
[2021-12-07] MEDS: busPIRone HCl 10 MG TABLET 15 MG PO ×2 (09:03→21:01)
[2021-12-07] MEDS: FLUoxetine HCl 20 MG CAPSULE 80 MG PO (09:03)
[2021-12-07] MEDS: QUEtiapine Fumarate 50 MG TABLET PO ×3 (09:03→21:01)
[2021-12-07] MEDS: Cholecalciferol (Vitamin D3) 25 MCG TABLET 125 MCG PO (09:03)
[2021-12-07] MEDS: rOPINIRole HCL 0.25 MG TABLET PO ×2 (09:04→21:01)
[2021-12-07] MEDS: amLODIPine Besylate 5 MG TABLET PO (09:04)
[2021-12-07] MEDS: clonazePAM 0.5 MG TABLET PO ×3 (09:04→21:01)
[2021-12-07 09:38] VITALS: BP 111/70; PULSE 68; RESP 15; TEMP 36.1; O2SAT 96
--- NOTE | 2021-12-07 14:34 | P.PNPSI_ITS ---
Subjective Subjective Date of Service: 12/07/21 Reason For Visit: Depression, SI Interim History: the staff reported that the patient tends to groups but he complains of anxiety and depression. Apparently, he feels very unsafe in his home. He is scared of getting discharged. Today we discussed the case with the sr. social media & mobile manager and the patient and it was clear that he feels very safe in the unit and he lacks of a structure in the community. Mental Status Exam Mental Status Exam Patient Appearance: Well Grooomed Patient Orientation: Person Level of Consciousness: Awake Patient Behavior: Guarded, Cooperative, Passive and Restless Mood Description: Withdrawn and Fearful Affect Description: Constricted Patient Cognition Impaired: No Ability to Follow Directions: Good Speech Pattern: Clear Memory Description: Intact Hallucinations: None Delusions: Not Present Thought Process: Linear Thought Content: positive for Perseveration and positive for Poverty of Content Judgement: Fair Diagnostics Vital Signs (24Hr): Vital Signs - 24 hr 12/06/21 23:16 12/07/21 06:00 12/07/21 09:38 Temperature 98 F 97.0 F 97 F Pulse Rate 63 68 68 Respiratory Rate 17 15 15 Blood Pressure 131/79 111/70 111/70 Pulse Oximetry 98 96 96 BMI result Body Mass Index 27.7 Labs Results: 11/28/21 22:08 11/28/21 22:08 Medications Medications Current Medications Acetaminophen (Acetaminophen 325 Mg Tablet) 650 mg PO Q6H PRN PRN Reason: Headache/Pain Mild Scale (1-3) Al Hydroxide/Mg Hydroxide (Magnesium Hydrox/Alum Hydrox 30 Ml Oral.Susp) 30 ml PO Q6H PRN PRN Reason: Heartburn/Nausea Amlodipine Besylate (Amlodipine Besylate 5 Mg Tablet) 5 mg PO DAILY [facility]; Protocol Last Admin: 12/07/21 09:04 Dose: 5 mg Documented by: Buspirone HCl (Buspirone Hcl 10 Mg Tablet) 15 mg PO BID [facility] Last Admin: 12/07/21 09:03 Dose: 15 mg Documented by: Clonazepam (Clonazepam 0.5 Mg Tablet) 0.5 mg PO BID [facility] Last Admin: 12/07/21 09:04 Dose: 0.5 mg Documented by: Clonazepam (Clonazepam 0.5 Mg Tablet) 0.5 mg PO DAILY PRN PRN Reason: anxiety Last Admin: 12/07/21 13:29 Dose: 0.5 mg Documented by: Fluoxetine HCl (Fluoxetine Hcl 20 Mg Capsule) 80 mg PO DAILY [facility] Last Admin: 12/07/21 09:03 Dose: 80 mg Documented by: Hydroxyzine HCl (Hydroxyzine Hcl 25 Mg Tablet) 25 mg PO Q6H PRN PRN Reason: Anxiety Last Admin: 12/06/21 13:04 Dose: 25 mg Documented by: Magnesium Hydroxide (Milk Of Magnesia 30 Ml Oral.Susp) 30 ml PO DAILY PRN PRN Reason: Constipation Last Admin: 12/03/21 09:28 Dose: 30 ml Documented by: Mirtazapine (Mirtazapine 30 Mg Tablet) 30 mg PO BEDTIME [facility] Last Admin: 12/06/21 21:20 Dose: 30 mg Documented by: Quetiapine Fumarate (Quetiapine Fumarate 50 Mg Tablet) 50 mg PO TID [facility] Last Admin: 12/07/21 09:03 Dose: 50 mg Documented by: Quetiapine Fumarate (Quetiapine Fumarate 25 Mg Tablet) 25 mg PO BID PRN PRN Reason: Anxiety Last Admin: 12/05/21 13:17 Dose: 25 mg Documented by: Ropinirole HCl (Ropinirole Hcl 0.25 Mg Tablet) 0.25 mg PO BID [facility] Last Admin: 12/07/21 09:04 Dose: 0.25 mg Documented by: Trazodone HCl (Trazodone Hcl 50 Mg Tablet) 50 mg PO BEDTIME PRN PRN Reason: Insomnia Vitamin D (Cholecalciferol (Vitamin D3) 25 Mcg Tablet) 125 mcg PO DAILY [facility] Last Admin: 12/07/21 09:03 Dose: 125 mcg Documented by: Allergies Allergies Allergy/AdvReac Type Severity Reaction Status Date / Time paroxetine [From PAXIL] AdvReac Unknown AGITATION, Verified 11/19/21 12:38 MOOD SWINGS, ALL KINDS OF WEIRD THOUGHTS Assessment & Plan Assessment & Plan (1) Major depressive disorder, recurrent: Qualifiers: Active/Remission status: currently active Major depression episode severity: severe Psychotic features: with psychotic features Qualified Code(s): F33.3 - Major depressive disorder, recurrent, severe with psychotic symptoms Status: Acute Code(s): F33.9 - Major depressive disorder, recurrent, unspecified (2) Obsessive compulsive disorder: Status: Acute Code(s): F42.9 - Obsessive-compulsive disorder, unspecified [facility] Plan[facility] of generalized anxiety disorder, depression and OCD, very well known by DC unit since he was admitted in August last year for similar presentation, admitted for suicidal ideation and transfer from respite to the emergency room. Plan 1. Gather collateral information. 2. Increase Seroquel up to 50 mg p.o. t.i.d. to target anxiety and dysphoria. Also add Seroquel 25 mg p.o. b.i.d. p.r.n. anxiety 3. Continue other antidepressants. 4. Add Klonopin 0.5 mg daily p.r.n. anxiety not exceed of clonazepam 1.5 mg per day 5. Possible discharge at the end of the week I spent minutes with the patient and/or on the patient floor today, greater than?50% of which was spent counseling/coordinating care. Reason for contiued inpatient stay Substantial Risk for: harm to self, inability to function, rapid decompensation and med/psych decompensation
[2021-12-07 18:00] VITALS: BP 149/81; PULSE 82; RESP 16; TEMP 36.9; O2SAT 93
[2021-12-07] MEDS: Mirtazapine 30 MG TABLET PO (21:01)
[2021-12-08 06:00] VITALS: BP 105/60; PULSE 63; RESP 14; TEMP 36.1; O2SAT 97
[2021-12-08] MEDS: Cholecalciferol (Vitamin D3) 25 MCG TABLET 125 MCG PO (08:00)
[2021-12-08] MEDS: busPIRone HCl 10 MG TABLET 15 MG PO ×2 (08:04→21:02)
[2021-12-08] MEDS: FLUoxetine HCl 20 MG CAPSULE 80 MG PO (08:06)
[2021-12-08] MEDS: clonazePAM 0.5 MG TABLET PO (08:07)
[2021-12-08] MEDS: QUEtiapine Fumarate 50 MG TABLET PO ×3 (08:07→21:02)
[2021-12-08] MEDS: rOPINIRole HCL 0.25 MG TABLET PO ×2 (08:07→21:02)
[2021-12-08] MEDS: amLODIPine Besylate 5 MG TABLET PO (14:02)
--- NOTE | 2021-12-08 16:38 | HO.PSYCHPN ---
Subjective Subjective Date of Service: 12/08/21 Reason For Visit: Depression, SI Subjective Notes: Conditional Voluntary Interim History: the nursing staff reports that the patient remains insulated of, he goes to some groups. On interview the patient remains anxious and depressed but he looks more functional than before. He is scared of going back home. Mental Status Exam Mental Status Exam Patient Appearance: Well Grooomed Patient Orientation: Person Level of Consciousness: Awake Patient Behavior: Cooperative Mood Description: Withdrawn Affect Description: Constricted Patient Cognition Impaired: No Ability to Follow Directions: Good Speech Pattern: Clear Hallucinations: None Delusions: Not Present Thought Process: Linear Thought Content: positive for Circumstantial Judgement: Fair Diagnostics Vital Signs (24Hr): Vital Signs - 24 hr 12/07/21 18:00 12/08/21 06:00 Temperature 98.4 F 96.9 F Pulse Rate 82 63 Respiratory Rate 16 14 Blood Pressure 149/81 H 105/60 Pulse Oximetry 93 97 BMI result Body Mass Index 27.7 Labs Results: 11/28/21 22:08 11/28/21 22:08 Medications Medications Current Medications Acetaminophen (Acetaminophen 325 Mg Tablet) 650 mg PO Q6H PRN PRN Reason: Headache/Pain Mild Scale (1-3) Al Hydroxide/Mg Hydroxide (Magnesium Hydrox/Alum Hydrox 30 Ml Oral.Susp) 30 ml PO Q6H PRN PRN Reason: Heartburn/Nausea Amlodipine Besylate (Amlodipine Besylate 5 Mg Tablet) 5 mg PO DAILY [facility]; Protocol Last Admin: 12/08/21 14:02 Dose: 5 mg Documented by: Buspirone HCl (Buspirone Hcl 10 Mg Tablet) 15 mg PO BID [facility] Last Admin: 12/08/21 08:04 Dose: 15 mg Documented by: Clonazepam (Clonazepam 0.5 Mg Tablet) 0.5 mg PO DAILY PRN PRN Reason: anxiety Last Admin: 12/07/21 13:29 Dose: 0.5 mg Documented by: Fluoxetine HCl (Fluoxetine Hcl 20 Mg Capsule) 80 mg PO DAILY [facility] Last Admin: 12/08/21 08:06 Dose: 80 mg Documented by: Hydroxyzine HCl (Hydroxyzine Hcl 25 Mg Tablet) 25 mg PO Q6H PRN PRN Reason: Anxiety Last Admin: 12/06/21 13:04 Dose: 25 mg Documented by: Magnesium Hydroxide (Milk Of Magnesia 30 Ml Oral.Susp) 30 ml PO DAILY PRN PRN Reason: Constipation Last Admin: 12/03/21 09:28 Dose: 30 ml Documented by: Mirtazapine (Mirtazapine 30 Mg Tablet) 30 mg PO BEDTIME [facility] Last Admin: 12/07/21 21:01 Dose: 30 mg Documented by: Quetiapine Fumarate (Quetiapine Fumarate 50 Mg Tablet) 50 mg PO TID [facility] Last Admin: 12/08/21 14:02 Dose: 50 mg Documented by: Quetiapine Fumarate (Quetiapine Fumarate 25 Mg Tablet) 25 mg PO BID PRN PRN Reason: Anxiety Last Admin: 12/05/21 13:17 Dose: 25 mg Documented by: Ropinirole HCl (Ropinirole Hcl 0.25 Mg Tablet) 0.25 mg PO BID [facility] Last Admin: 12/08/21 08:07 Dose: 0.25 mg Documented by: Trazodone HCl (Trazodone Hcl 50 Mg Tablet) 50 mg PO BEDTIME PRN PRN Reason: Insomnia Vitamin D (Cholecalciferol (Vitamin D3) 25 Mcg Tablet) 125 mcg PO DAILY [facility] Last Admin: 12/08/21 08:00 Dose: 125 mcg Documented by: Allergies Allergies Allergy/AdvReac Type Severity Reaction Status Date / Time paroxetine [From PAXIL] AdvReac Unknown AGITATION, Verified 11/19/21 12:38 MOOD SWINGS, ALL KINDS OF WEIRD THOUGHTS Assessment & Plan Assessment & Plan (1) Major depressive disorder, recurrent: Qualifiers: Active/Remission status: currently active Major depression episode severity: severe Psychotic features: with psychotic features Qualified Code(s): F33.3 - Major depressive disorder, recurrent, severe with psychotic symptoms Status: Acute Code(s): F33.9 - Major depressive disorder, recurrent, unspecified (2) Obsessive compulsive disorder: Status: Acute Code(s): F42.9 - Obsessive-compulsive disorder, unspecified Assessment and Plan: Middle-aged male with a long history of generalized anxiety disorder, depression and OCD, very well known by DC unit since he was admitted in August last year for similar presentation, [facility]. Plan 1. Gather collateral information. 2. Increase Seroquel up to 50 mg p.o. t.i.d. to target anxiety and dysphoria. Also add Seroquel 25 mg p.o. b.i.d. p.r.n. anxiety 3. Continue other antidepressants. 4. Add Klonopin 0.5 mg daily p.r.n. anxiety not exceed of clonazepam 1.5 mg per day 5. Possible discharge at the end of the week I spent minutes with the patient and/or on the patient floor today, greater than?50% of which was spent counseling/coordinating care. Reason for contiued inpatient stay Substantial Risk for: inability to function, rapid decompensation and med/psych decompensation
[2021-12-08] MEDS: hydrOXYzine HCL 25 MG TABLET PO (17:38)
[2021-12-08 18:00] VITALS: BP 132/80; PULSE 61; RESP 18; TEMP 36.6; O2SAT 98
[2021-12-08] MEDS: Mirtazapine 30 MG TABLET PO (21:02)
[2021-12-08] MEDS: traZODone HCL 50 MG TABLET PO ×2 (21:44→22:54)
[2021-12-09 08:00] VITALS: BP 135/72; PULSE 61; TEMP 35.9; O2SAT 95
[2021-12-09] MEDS: rOPINIRole HCL 0.25 MG TABLET PO ×2 (08:53→20:11)
[2021-12-09] MEDS: QUEtiapine Fumarate 50 MG TABLET PO ×3 (08:53→20:10)
[2021-12-09] MEDS: Cholecalciferol (Vitamin D3) 25 MCG TABLET 125 MCG PO (08:53)
[2021-12-09] MEDS: FLUoxetine HCl 20 MG CAPSULE 80 MG PO (08:53)
[2021-12-09] MEDS: clonazePAM 0.5 MG TABLET PO (08:54)
[2021-12-09] MEDS: amLODIPine Besylate 5 MG TABLET PO (08:54)
[2021-12-09] MEDS: busPIRone HCl 10 MG TABLET 15 MG PO ×2 (08:54→20:10)
--- NOTE | 2021-12-09 16:36 | HO.PSYCHPN ---
Subjective Subjective Date of Service: 12/09/21 Reason For Visit: Depression, SI Subjective Notes: Conditional Voluntary Interim History: The nursing staff reported the patient has been isolative and withdrawn but he was able to participate in a few groups. On interview the patient reports more anxiety he does not want to go home by himself. Again may explore the possibility of him going [facility] and will help him with the application. Mental Status Exam Mental Status Exam Patient Appearance: Well Grooomed Patient Orientation: Person Level of Consciousness: Awake Patient Behavior: Cooperative Mood Description: Anxious and Apprehensive Affect Description: Constricted Patient Cognition Impaired: No Ability to Follow Directions: Good Speech Pattern: Clear Memory Description: Intact Hallucinations: None Delusions: Not Present Thought Process: Evasive Thought Content: positive for [place], positive for Perseveration and positive for Poverty of Content Judgement: Fair Diagnostics Vital Signs (24Hr): Vital Signs - 24 hr 12/08/21 18:00 12/09/21 08:00 Temperature 97.9 F 96.7 F L Pulse Rate 61 61 Respiratory Rate 18 Blood Pressure 132/80 135/72 Pulse Oximetry 98 95 BMI result Body Mass Index 27.7 Labs Results: 11/28/21 22:08 11/28/21 22:08 Medications Medications Current Medications Acetaminophen (Acetaminophen 325 Mg Tablet) 650 mg PO Q6H PRN PRN Reason: Headache/Pain Mild Scale (1-3) Al Hydroxide/Mg Hydroxide (Magnesium Hydrox/Alum Hydrox 30 Ml Oral.Susp) 30 ml PO Q6H PRN PRN Reason: Heartburn/Nausea Amlodipine Besylate (Amlodipine Besylate 5 Mg Tablet) 5 mg PO DAILY [facility]; Protocol Last Admin: 12/09/21 08:54 Dose: 5 mg Documented by: Buspirone HCl (Buspirone Hcl 10 Mg Tablet) 15 mg PO BID [facility] Last Admin: 12/09/21 08:54 Dose: 15 mg Documented by: Fluoxetine HCl (Fluoxetine Hcl 20 Mg Capsule) 80 mg PO DAILY [facility] Last Admin: 12/09/21 08:53 Dose: 80 mg Documented by: Hydroxyzine HCl (Hydroxyzine Hcl 25 Mg Tablet) 25 mg PO Q6H PRN PRN Reason: Anxiety Last Admin: 12/08/21 17:38 Dose: 25 mg Documented by: Magnesium Hydroxide (Milk Of Magnesia 30 Ml Oral.Susp) 30 ml PO DAILY PRN PRN Reason: Constipation Last Admin: 12/03/21 09:28 Dose: 30 ml Documented by: Mirtazapine (Mirtazapine 30 Mg Tablet) 30 mg PO BEDTIME [facility] Last Admin: 12/08/21 21:02 Dose: 30 mg Documented by: Quetiapine Fumarate (Quetiapine Fumarate 50 Mg Tablet) 50 mg PO TID [facility] Last Admin: 12/09/21 14:27 Dose: 50 mg Documented by: Quetiapine Fumarate (Quetiapine Fumarate 25 Mg Tablet) 25 mg PO BID PRN PRN Reason: Anxiety Last Admin: 12/05/21 13:17 Dose: 25 mg Documented by: Ropinirole HCl (Ropinirole Hcl 0.25 Mg Tablet) 0.25 mg PO BID [facility] Last Admin: 12/09/21 08:53 Dose: 0.25 mg Documented by: Trazodone HCl (Trazodone Hcl 50 Mg Tablet) 50 mg PO BEDTIME PRN PRN Reason: Insomnia Last Admin: 12/08/21 22:54 Dose: 50 mg Documented by: Vitamin D (Cholecalciferol (Vitamin D3) 25 Mcg Tablet) 125 mcg PO DAILY [facility] Last Admin: 12/09/21 08:53 Dose: 125 mcg Documented by: Allergies Allergies Allergy/AdvReac Type Severity Reaction Status Date / Time paroxetine [From PAXIL] AdvReac Unknown AGITATION, Verified 11/19/21 12:38 MOOD SWINGS, ALL KINDS OF WEIRD THOUGHTS Assessment & Plan Assessment & Plan (1) Major depressive disorder, recurrent: Qualifiers: Active/Remission status: currently active Major depression episode severity: severe Psychotic features: with psychotic features Qualified Code(s): F33.3 - Major depressive disorder, recurrent, severe with psychotic symptoms Status: Acute Code(s): F33.9 - Major depressive disorder, recurrent, unspecified (2) Obsessive compulsive disorder: Status: Acute Code(s): F42.9 - Obsessive-compulsive disorder, unspecified Assessment and Plan: Middle-aged male with a long history of generalized anxiety disorder, depression and OCD, very well known by DC unit since he was admitted in August last year for similar presentation, admitted for suicidal ideation and transfer from respite to the emergency room. Plan 1. Gather collateral information. 2. Increase Seroquel up to 50 mg p.o. t.i.d. to target anxiety and dysphoria. Also add Seroquel 25 mg p.o. b.i.d. p.r.n. anxiety 3. Continue other antidepressants. 4. Add Klonopin 0.5 mg daily p.r.n. anxiety not exceed of clonazepam 1.5 mg per day 5. Possible discharge at the end of the week I spent minutes with the patient and/or on the patient floor today, greater than?50% of which was spent counseling/coordinating care. Reason for contiued inpatient stay Substantial Risk for: inability to function, rapid decompensation and med/psych decompensation
[2021-12-09 18:00] VITALS: BP 123/78; PULSE 66; RESP 18; TEMP 36.4; O2SAT 97
[2021-12-09] MEDS: Mirtazapine 30 MG TABLET PO (20:10)
[2021-12-09] MEDS: traZODone HCL 50 MG TABLET PO (20:16)
[2021-12-10 08:00] VITALS: BP 101/58; PULSE 68; TEMP 36.4; O2SAT 98
[2021-12-10] MEDS: FLUoxetine HCl 20 MG CAPSULE 80 MG PO (09:02)
[2021-12-10] MEDS: Cholecalciferol (Vitamin D3) 25 MCG TABLET 125 MCG PO (09:03)
[2021-12-10] MEDS: QUEtiapine Fumarate 50 MG TABLET PO ×3 (09:03→20:59)
[2021-12-10] MEDS: amLODIPine Besylate 5 MG TABLET PO (09:03)
[2021-12-10] MEDS: hydrOXYzine HCL 25 MG TABLET PO ×2 (09:03→18:26)
[2021-12-10] MEDS: rOPINIRole HCL 0.25 MG TABLET PO ×2 (09:03→20:59)
[2021-12-10] MEDS: busPIRone HCl 10 MG TABLET 15 MG PO ×2 (09:03→20:57)
[2021-12-10 11:39] VITALS: BMI 28.0
[2021-12-10] MEDS: QUEtiapine Fumarate 25 MG TABLET PO (12:33)
--- NOTE | 2021-12-10 16:44 | P.PNPSI_ITS ---
Subjective Subjective Date of Service: 12/10/21 Reason For Visit: Depression, SI Subjective Notes: Conditional Voluntary Interim History: the nursing staff reported that the patient has been isolative in his room reading a book. He has very anxious regarding discharged and yesterday he filed a complain for an appeal to medicate. On interview, the patient denies new symptoms, waiting for appropriate discharge planning Mental Status Exam Mental Status Exam Patient Appearance: Well Grooomed Patient Orientation: Person Level of Consciousness: Awake Patient Behavior: Passive Mood Description: Constricted Affect Description: Constricted Patient Cognition Impaired: Yes Ability to Follow Directions: Good Speech Pattern: Clear Hallucinations: None Delusions: Not Present Thought Process: Linear Thought Content: positive for Circumstantial Judgement: Fair Diagnostics Vital Signs (24Hr): Vital Signs - 24 hr 12/09/21 18:00 12/10/21 08:00 Temperature 97.6 F 97.6 F Pulse Rate 66 68 Respiratory Rate 18 Blood Pressure 123/78 101/58 L Pulse Oximetry 97 98 BMI result Body Mass Index 28.0 Labs Results: 11/28/21 22:08 11/28/21 22:08 Medications Medications Current Medications Acetaminophen (Acetaminophen 325 Mg Tablet) 650 mg PO Q6H PRN PRN Reason: Headache/Pain Mild Scale (1-3) Al Hydroxide/Mg Hydroxide (Magnesium Hydrox/Alum Hydrox 30 Ml Oral.Susp) 30 ml PO Q6H PRN PRN Reason: Heartburn/Nausea Amlodipine Besylate (Amlodipine Besylate 5 Mg Tablet) 5 mg PO DAILY [facility]; Protocol Last Admin: 12/10/21 09:03 Dose: 5 mg Documented by: Buspirone HCl (Buspirone Hcl 10 Mg Tablet) 15 mg PO BID [facility] Last Admin: 12/10/21 09:03 Dose: 15 mg Documented by: Fluoxetine HCl (Fluoxetine Hcl 20 Mg Capsule) 80 mg PO DAILY [facility] Last Admin: 12/10/21 09:02 Dose: 80 mg Documented by: Hydroxyzine HCl (Hydroxyzine Hcl 25 Mg Tablet) 25 mg PO Q6H PRN PRN Reason: Anxiety Last Admin: 12/10/21 09:03 Dose: 25 mg Documented by: Magnesium Hydroxide (Milk Of Magnesia 30 Ml Oral.Susp) 30 ml PO DAILY PRN PRN Reason: Constipation Last Admin: 12/03/21 09:28 Dose: 30 ml Documented by: Mirtazapine (Mirtazapine 30 Mg Tablet) 30 mg PO BEDTIME [facility] Last Admin: 12/09/21 20:10 Dose: 30 mg Documented by: Quetiapine Fumarate (Quetiapine Fumarate 50 Mg Tablet) 50 mg PO TID [facility] Last Admin: 12/10/21 14:27 Dose: 50 mg Documented by: Quetiapine Fumarate (Quetiapine Fumarate 25 Mg Tablet) 25 mg PO BID PRN PRN Reason: Anxiety Last Admin: 12/10/21 12:33 Dose: 25 mg Documented by: Ropinirole HCl (Ropinirole Hcl 0.25 Mg Tablet) 0.25 mg PO BID [facility] Last Admin: 12/10/21 09:03 Dose: 0.25 mg Documented by: Trazodone HCl (Trazodone Hcl 50 Mg Tablet) 50 mg PO BEDTIME PRN PRN Reason: Insomnia Last Admin: 12/09/21 20:16 Dose: 50 mg Documented by: Vitamin D (Cholecalciferol (Vitamin D3) 25 Mcg Tablet) 125 mcg PO DAILY [facility] Last Admin: 12/10/21 09:03 Dose: 125 mcg Documented by: Allergies Allergies Allergy/AdvReac Type Severity Reaction Status Date / Time paroxetine [From PAXIL] AdvReac Unknown AGITATION, Verified 11/19/21 12:38 MOOD SWINGS, ALL KINDS OF WEIRD THOUGHTS Assessment & Plan Assessment & Plan (1) Major depressive disorder, recurrent: Qualifiers: Active/Remission status: currently active Major depression episode severity: severe Psychotic features: with psychotic features Qualified Code(s): F33.3 - Major depressive disorder, recurrent, severe with psychotic symptoms Status: Acute Code(s): F33.9 - Major depressive disorder, recurrent, unspecified (2) Obsessive compulsive disorder: Status: Acute Code(s): F42.9 - Obsessive-compulsive disorder, unspecified Assessment and Plan: Middle-aged male with a long history of generalized anxiety disorder, depression and OCD, very well known by DC unit since he was admitted in August last year for similar presentation, admitted for suicidal ideation and transfer from [facility] to the emergency room. Plan 1. Gather collateral information. 2. Increase Seroquel up to 50 mg p.o. t.i.d. to target anxiety and dysphoria. Also add Seroquel 25 mg p.o. b.i.d. p.r.n. anxiety 3. Continue other antidepressants. 4. Add Klonopin 0.5 mg daily p.r.n. anxiety not exceed of clonazepam 1.5 mg per day 5. Possible discharge at the end of the week I spent minutes with the patient and/or on the patient floor today, greater than?50% of which was spent counseling/coordinating care. Reason for contiued inpatient stay Substantial Risk for: inability to function, rapid decompensation and med/psych decompensation
[2021-12-10] MEDS: traZODone HCL 50 MG TABLET PO ×2 (20:59→22:59)
[2021-12-10] MEDS: Mirtazapine 30 MG TABLET PO (20:59)
[2021-12-10 22:04] VITALS: BP 143/72; PULSE 72; RESP 19; TEMP 37; O2SAT 96
[2021-12-11 08:27] VITALS: BP 123/60; PULSE 61; RESP 16; TEMP 36.5; O2SAT 97
[2021-12-11] MEDS: FLUoxetine HCl 20 MG CAPSULE 80 MG PO (09:13)
[2021-12-11] MEDS: Cholecalciferol (Vitamin D3) 25 MCG TABLET 125 MCG PO (09:16)
[2021-12-11] MEDS: amLODIPine Besylate 5 MG TABLET PO (09:16)
[2021-12-11] MEDS: QUEtiapine Fumarate 50 MG TABLET PO ×3 (09:17→20:07)
[2021-12-11] MEDS: rOPINIRole HCL 0.25 MG TABLET PO ×2 (09:17→20:08)
[2021-12-11] MEDS: busPIRone HCl 10 MG TABLET 15 MG PO ×2 (10:41→20:07)
[2021-12-11] MEDS: QUEtiapine Fumarate 25 MG TABLET PO (12:35)
--- NOTE | 2021-12-11 14:25 | HO.PSYCHPN ---
Subjective Subjective Date of Service: 12/11/21 Reason For Visit: Depression, SI Subjective Notes: Conditional Voluntary Interim History: the nursing staff reported the patient remains most of the time in his room, reading his book. He has being seen in the common areas at times. On interview the patient reports that he is extremely anxious with possibility of discharge he feels extremely comfortable here and he wishes that he could live in this facility but he is fully aware that we need to think on long-term discharge planning. During the interview, he stated he was suicidal but his affect was full and appropriate. Mental Status Exam Mental Status Exam Patient Appearance: Well Grooomed Patient Orientation: Person Level of Consciousness: Awake and Appropriate Patient Behavior: Cooperative Mood Description: Constricted Affect Description: Constricted Patient Cognition Impaired: No Ability to Follow Directions: Good Speech Pattern: Clear Memory Description: Intact Hallucinations: None Delusions: Not Present Thought Process: Linear Thought Content: positive for Circumstantial Judgement: Fair Diagnostics Vital Signs (24Hr): Vital Signs - 24 hr 12/10/21 22:04 12/11/21 08:27 Temperature 98.6 F 97.7 F Pulse Rate 72 61 Respiratory Rate 19 16 Blood Pressure 143/72 H 123/60 Pulse Oximetry 96 97 BMI result Body Mass Index 28.0 Labs Results: 11/28/21 22:08 11/28/21 22:08 Medications Medications Current Medications Acetaminophen (Acetaminophen 325 Mg Tablet) 650 mg PO Q6H PRN PRN Reason: Headache/Pain Mild Scale (1-3) Al Hydroxide/Mg Hydroxide (Magnesium Hydrox/Alum Hydrox 30 Ml Oral.Susp) 30 ml PO Q6H PRN PRN Reason: Heartburn/Nausea Amlodipine Besylate (Amlodipine Besylate 5 Mg Tablet) 5 mg PO DAILY [facility]; Protocol Last Admin: 12/11/21 09:16 Dose: 5 mg Documented by: Buspirone HCl (Buspirone Hcl 10 Mg Tablet) 15 mg PO BID [facility] Last Admin: 12/11/21 10:41 Dose: 15 mg Documented by: Fluoxetine HCl (Fluoxetine Hcl 20 Mg Capsule) 80 mg PO DAILY [facility] Last Admin: 12/11/21 09:13 Dose: 80 mg Documented by: Hydroxyzine HCl (Hydroxyzine Hcl 25 Mg Tablet) 25 mg PO Q6H PRN PRN Reason: Anxiety Last Admin: 12/10/21 18:26 Dose: 25 mg Documented by: Magnesium Hydroxide (Milk Of Magnesia 30 Ml Oral.Susp) 30 ml PO DAILY PRN PRN Reason: Constipation Last Admin: 12/03/21 09:28 Dose: 30 ml Documented by: Mirtazapine (Mirtazapine 30 Mg Tablet) 30 mg PO BEDTIME [facility] Last Admin: 12/10/21 20:59 Dose: 30 mg Documented by: Quetiapine Fumarate (Quetiapine Fumarate 50 Mg Tablet) 50 mg PO TID [facility] Last Admin: 12/11/21 09:17 Dose: 50 mg Documented by: Quetiapine Fumarate (Quetiapine Fumarate 25 Mg Tablet) 25 mg PO BID PRN PRN Reason: Anxiety Last Admin: 12/11/21 12:35 Dose: 25 mg Documented by: Ropinirole HCl (Ropinirole Hcl 0.25 Mg Tablet) 0.25 mg PO BID [facility] Last Admin: 12/11/21 09:17 Dose: 0.25 mg Documented by: Trazodone HCl (Trazodone Hcl 50 Mg Tablet) 50 mg PO BEDTIME PRN PRN Reason: Insomnia Last Admin: 12/10/21 22:59 Dose: 50 mg Documented by: Vitamin D (Cholecalciferol (Vitamin D3) 25 Mcg Tablet) 125 mcg PO DAILY [facility] Last Admin: 12/11/21 09:16 Dose: 125 mcg Documented by: Allergies Allergies Allergy/AdvReac Type Severity Reaction Status Date / Time paroxetine [From PAXIL] AdvReac Unknown AGITATION, Verified 11/19/21 12:38 MOOD SWINGS, ALL KINDS OF WEIRD THOUGHTS Assessment & Plan Assessment & Plan (1) Major depressive disorder, recurrent: Qualifiers: Active/Remission status: currently active Major depression episode severity: severe Psychotic features: with psychotic features Qualified Code(s): F33.3 - Major depressive disorder, recurrent, severe with psychotic symptoms Status: Acute Code(s): F33.9 - Major depressive disorder, recurrent, unspecified (2) Obsessive compulsive disorder: Status: Acute Code(s): F42.9 - Obsessive-compulsive disorder, unspecified Assessment and Plan: Middle-aged male with a long history of generalized anxiety disorder, depression and OCD, very well known by DC unit since he was admitted in August last year for similar presentation, admitted for suicidal ideation and transfer from respite to the emergency room. Plan 1. Gather collateral information. 2. Increase Seroquel up to 50 mg p.o. t.i.d. to target anxiety and dysphoria. Also add Seroquel 25 mg p.o. b.i.d. p.r.n. anxiety 3. Continue other antidepressants. 4. Add Klonopin 0.5 mg daily p.r.n. anxiety not exceed of clonazepam 1.5 mg per day 5. Possible discharge , we can find a suitable [facility] I spent minutes with the patient and/or on the patient floor today, greater than?50% of which was spent counseling/coordinating care. Reason for contiued inpatient stay Substantial Risk for: inability to function, rapid decompensation and med/psych decompensation
[2021-12-11 20:00] VITALS: BP 109/61; PULSE 69; RESP 19; TEMP 36.9; O2SAT 97
[2021-12-11] MEDS: traZODone HCL 50 MG TABLET PO ×2 (20:08→22:28)
[2021-12-11] MEDS: Mirtazapine 30 MG TABLET PO (20:08)
[2021-12-12 08:00] VITALS: BP 124/63; PULSE 66; RESP 16; TEMP 36.4; O2SAT 96
[2021-12-12] MEDS: busPIRone HCl 10 MG TABLET 15 MG PO ×2 (10:14→21:38)
[2021-12-12] MEDS: Cholecalciferol (Vitamin D3) 25 MCG TABLET 125 MCG PO (10:15)
[2021-12-12] MEDS: FLUoxetine HCl 20 MG CAPSULE 80 MG PO (10:17)
[2021-12-12] MEDS: QUEtiapine Fumarate 50 MG TABLET PO ×3 (10:18→21:38)
[2021-12-12] MEDS: amLODIPine Besylate 5 MG TABLET PO (10:18)
[2021-12-12] MEDS: rOPINIRole HCL 0.25 MG TABLET PO ×2 (10:19→21:38)
[2021-12-12] MEDS: hydrOXYzine HCL 25 MG TABLET PO ×2 (13:02→21:38)
--- NOTE | 2021-12-12 15:35 | HO.PSYCHPN ---
Subjective Subjective Date of Service: 12/12/21 Reason For Visit: Depression, SI Subjective Notes: Conditional Voluntary Interim History: Record reviewed. Discussed with Nursing. Seen in room. Reports today he is having difficulty getting started in the morning. If however trying to read a book and Helping him review his hindu and spirituality. Reports overall anxiety and hopelessness have decreased since admission and feels positive about this. Is hopeful that he will be discharged to a rest home in the upcoming week. Feels the medications in groups have been beneficial. Sleep okay. Appetite okay. No medication concerns. Medication Compliance: Yes Side effects from medications: No Attending Groups: Yes Review of Systems Review of Systems unremarkable Mental Status Exam Mental Status Exam Narrative: pleasant and engaged. In room. Casually dressed. Hygiene okay. Organized. Restricted affect. Endorses some anxiety and low mood, but improved since admission. No SI. No HI. No agitation. No psychosis. Insight and judgment fair Diagnostics Vital Signs (24Hr): Vital Signs - 24 hr 12/11/21 20:00 12/12/21 08:00 Temperature 98.4 F 97.6 F Pulse Rate 69 66 Respiratory Rate 19 16 Blood Pressure 109/61 124/63 Pulse Oximetry 97 96 BMI result Body Mass Index 28.0 Labs Results: 11/28/21 22:08 11/28/21 22:08 Medications Medications Current Medications Acetaminophen (Acetaminophen 325 Mg Tablet) 650 mg PO Q6H PRN PRN Reason: Headache/Pain Mild Scale (1-3) Al Hydroxide/Mg Hydroxide (Magnesium Hydrox/Alum Hydrox 30 Ml Oral.Susp) 30 ml PO Q6H PRN PRN Reason: Heartburn/Nausea Amlodipine Besylate (Amlodipine Besylate 5 Mg Tablet) 5 mg PO DAILY [facility]; Protocol Last Admin: 12/12/21 10:18 Dose: 5 mg Documented by: Buspirone HCl (Buspirone Hcl 10 Mg Tablet) 15 mg PO BID [facility] Last Admin: 12/12/21 10:14 Dose: 15 mg Documented by: Fluoxetine HCl (Fluoxetine Hcl 20 Mg Capsule) 80 mg PO DAILY [facility] Last Admin: 12/12/21 10:17 Dose: 80 mg Documented by: Hydroxyzine HCl (Hydroxyzine Hcl 25 Mg Tablet) 25 mg PO Q6H PRN PRN Reason: Anxiety Last Admin: 12/12/21 13:02 Dose: 25 mg Documented by: Magnesium Hydroxide (Milk Of Magnesia 30 Ml Oral.Susp) 30 ml PO DAILY PRN PRN Reason: Constipation Last Admin: 12/03/21 09:28 Dose: 30 ml Documented by: Mirtazapine (Mirtazapine 30 Mg Tablet) 30 mg PO BEDTIME [facility] Last Admin: 12/11/21 20:08 Dose: 30 mg Documented by: Quetiapine Fumarate (Quetiapine Fumarate 50 Mg Tablet) 50 mg PO TID [facility] Last Admin: 12/12/21 15:02 Dose: 50 mg Documented by: Quetiapine Fumarate (Quetiapine Fumarate 25 Mg Tablet) 25 mg PO BID PRN PRN Reason: Anxiety Last Admin: 12/11/21 12:35 Dose: 25 mg Documented by: Ropinirole HCl (Ropinirole Hcl 0.25 Mg Tablet) 0.25 mg PO BID [facility] Last Admin: 12/12/21 10:19 Dose: 0.25 mg Documented by: Trazodone HCl (Trazodone Hcl 50 Mg Tablet) 50 mg PO BEDTIME PRN PRN Reason: Insomnia Last Admin: 12/11/21 22:28 Dose: 50 mg Documented by: Vitamin D (Cholecalciferol (Vitamin D3) 25 Mcg Tablet) 125 mcg PO DAILY [facility] Last Admin: 12/12/21 10:15 Dose: 125 mcg Documented by: Allergies Allergies Allergy/AdvReac Type Severity Reaction Status Date / Time paroxetine [From PAXIL] AdvReac Unknown AGITATION, Verified 11/19/21 12:38 MOOD SWINGS, ALL KINDS OF WEIRD THOUGHTS Assessment & Plan Assessment & Plan (1) Major depressive disorder, recurrent: Qualifiers: Active/Remission status: currently active Major depression episode severity: severe Psychotic features: with psychotic features Qualified Code(s): F33.3 - Major depressive disorder, recurrent, severe with psychotic symptoms Status: Acute Code(s): F33.9 - Major depressive disorder, recurrent, unspecified (2) Obsessive compulsive disorder: Status: Acute Code(s): F42.9 - Obsessive-compulsive disorder, unspecified Assessment and Plan: Middle-aged male with a long history of generalized anxiety disorder, depression and OCD, very well known by DC unit since he was admitted in August last year for similar presentation, admitted for suicidal ideation and transfer from respite to the emergency room. Plan 1. Gather collateral information. 2. Increase Seroquel up to 50 mg p.o. t.i.d. to target anxiety and dysphoria. Also add Seroquel 25 mg p.o. b.i.d. p.r.n. anxiety 3. Continue other antidepressants. 4. Add Klonopin 0.5 mg daily p.r.n. anxiety not exceed of clonazepam 1.5 mg per day 5. Possible discharge , we can find a suitable SNF 12/12/2021: No changes to primary team treatment plan I spent minutes with the patient and/or on the patient floor today, greater than?50% of which was spent counseling/coordinating care. Reason for contiued inpatient stay Substantial Risk for: rapid decompensation
[2021-12-12 21:25] VITALS: BP 121/80; PULSE 66; RESP 16; TEMP 36.4; O2SAT 97
[2021-12-12] MEDS: traZODone HCL 50 MG TABLET PO ×2 (21:38→23:00)
[2021-12-12] MEDS: Mirtazapine 30 MG TABLET PO (21:38)
[2021-12-13] MEDS: QUEtiapine Fumarate 25 MG TABLET PO ×2 (04:20→13:02)
[2021-12-13 06:00] VITALS: BP 120/69; PULSE 70; TEMP 36.7; O2SAT 95
[2021-12-13] MEDS: rOPINIRole HCL 0.25 MG TABLET PO ×2 (08:32→20:08)
[2021-12-13] MEDS: FLUoxetine HCl 20 MG CAPSULE 80 MG PO (08:32)
[2021-12-13] MEDS: Cholecalciferol (Vitamin D3) 25 MCG TABLET 125 MCG PO (08:32)
[2021-12-13] MEDS: busPIRone HCl 10 MG TABLET 15 MG PO ×2 (08:32→20:07)
[2021-12-13] MEDS: QUEtiapine Fumarate 50 MG TABLET PO ×3 (08:33→20:08)
[2021-12-13] MEDS: amLODIPine Besylate 5 MG TABLET PO (08:33)
--- NOTE | 2021-12-13 11:09 | HO.PSYCHPN ---
Subjective Subjective Date of Service: 12/13/21 Reason For Visit: Depression, SI Subjective Notes: Conditional Voluntary Interim History: Seen in room. reports today feeling more anxious compared to yesterday. Is concerned about discharge planning. We did discuss potentially working on a management plan for when he feels anxious at strategies that he can utilize. This could be helpful in alleviating anxiety and how he may manage and new rest home setting. Otherwise reports feeling overall less anxious more hopeful. Feels the medications in groups have been beneficial. Sleep okay. Appetite okay. No medication concerns. Medication Compliance: Yes Side effects from medications: No Attending Groups: Yes Review of Systems Acute medical concerns: No Review of Systems Review of Systems unremarkable Mental Status Exam Mental Status Exam Narrative: pleasant and engaged. In room. Casually dressed. Hygiene okay. Organized. Restricted affect. Endorses some anxiety and low mood, but improved since admission. No SI. No HI. No agitation. No psychosis. Insight and judgment fair Diagnostics Vital Signs (24Hr): Vital Signs - 24 hr 12/12/21 21:25 12/13/21 06:00 Temperature 97.5 F 98.1 F Pulse Rate 66 70 Respiratory Rate 16 Blood Pressure 121/80 120/69 Pulse Oximetry 97 95 BMI result Body Mass Index 28.0 Labs Results: 11/28/21 22:08 11/28/21 22:08 Medications Medications Current Medications Acetaminophen (Acetaminophen 325 Mg Tablet) 650 mg PO Q6H PRN PRN Reason: Headache/Pain Mild Scale (1-3) Al Hydroxide/Mg Hydroxide (Magnesium Hydrox/Alum Hydrox 30 Ml Oral.Susp) 30 ml PO Q6H PRN PRN Reason: Heartburn/Nausea Amlodipine Besylate (Amlodipine Besylate 5 Mg Tablet) 5 mg PO DAILY [facility]; Protocol Last Admin: 12/13/21 08:33 Dose: 5 mg Documented by: Buspirone HCl (Buspirone Hcl 10 Mg Tablet) 15 mg PO BID [facility] Last Admin: 12/13/21 08:32 Dose: 15 mg Documented by: Fluoxetine HCl (Fluoxetine Hcl 20 Mg Capsule) 80 mg PO DAILY [facility] Last Admin: 12/13/21 08:32 Dose: 80 mg Documented by: Hydroxyzine HCl (Hydroxyzine Hcl 25 Mg Tablet) 25 mg PO Q6H PRN PRN Reason: Anxiety Last Admin: 12/12/21 21:38 Dose: 25 mg Documented by: Magnesium Hydroxide (Milk Of Magnesia 30 Ml Oral.Susp) 30 ml PO DAILY PRN PRN Reason: Constipation Last Admin: 12/03/21 09:28 Dose: 30 ml Documented by: Mirtazapine (Mirtazapine 30 Mg Tablet) 30 mg PO BEDTIME [facility] Last Admin: 12/12/21 21:38 Dose: 30 mg Documented by: Quetiapine Fumarate (Quetiapine Fumarate 50 Mg Tablet) 50 mg PO TID [facility] Last Admin: 12/13/21 08:33 Dose: 50 mg Documented by: Quetiapine Fumarate (Quetiapine Fumarate 25 Mg Tablet) 25 mg PO BID PRN PRN Reason: Anxiety Last Admin: 12/13/21 04:20 Dose: 25 mg Documented by: Ropinirole HCl (Ropinirole Hcl 0.25 Mg Tablet) 0.25 mg PO BID [facility] Last Admin: 12/13/21 08:32 Dose: 0.25 mg Documented by: Trazodone HCl (Trazodone Hcl 50 Mg Tablet) 50 mg PO BEDTIME PRN PRN Reason: Insomnia Last Admin: 12/12/21 23:00 Dose: 50 mg Documented by: Vitamin D (Cholecalciferol (Vitamin D3) 25 Mcg Tablet) 125 mcg PO DAILY [facility] Last Admin: 12/13/21 08:32 Dose: 125 mcg Documented by: Allergies Allergies Allergy/AdvReac Type Severity Reaction Status Date / Time paroxetine [From PAXIL] AdvReac Unknown AGITATION, Verified 11/19/21 12:38 MOOD SWINGS, ALL KINDS OF WEIRD THOUGHTS Assessment & Plan Assessment & Plan (1) Major depressive disorder, recurrent: Qualifiers: Active/Remission status: currently active Major depression episode severity: severe Psychotic features: with psychotic features Qualified Code(s): F33.3 - Major depressive disorder, recurrent, severe with psychotic symptoms Status: Acute Code(s): F33.9 - Major depressive disorder, recurrent, unspecified (2) Obsessive compulsive disorder: Status: Acute Code(s): F42.9 - Obsessive-compulsive disorder, unspecified Assessment and Plan: Middle-aged male with a long history of generalized anxiety disorder, depression and OCD, very well known by DC unit since he was admitted in August last year for similar presentation, admitted for suicidal ideation and transfer from respite to the emergency room. Plan 1. Gather collateral information. 2. Increase Seroquel up to 50 mg p.o. t.i.d. to target anxiety and dysphoria. Also add Seroquel 25 mg p.o. b.i.d. p.r.n. anxiety 3. Continue other antidepressants. 4. Add Klonopin 0.5 mg daily p.r.n. anxiety not exceed of clonazepam 1.5 mg per day 5. Possible discharge , we can find a suitable [facility] 12/13/2021: No changes to primary team treatment plan I spent minutes with the patient and/or on the patient floor today, greater than?50% of which was spent counseling/coordinating care. Reason for contiued inpatient stay Substantial Risk for: rapid decompensation
[2021-12-13 18:00] VITALS: BP 150/89; PULSE 77; RESP 19; TEMP 36.5; O2SAT 97
[2021-12-13] MEDS: traZODone HCL 50 MG TABLET PO (20:08)
[2021-12-13] MEDS: Mirtazapine 30 MG TABLET PO (20:09)
[2021-12-14 06:00] VITALS: BP 108/55; PULSE 71; RESP 17; TEMP 36.4; O2SAT 95
[2021-12-14] MEDS: FLUoxetine HCl 20 MG CAPSULE 80 MG PO (08:28)
[2021-12-14] MEDS: QUEtiapine Fumarate 50 MG TABLET PO ×3 (08:29→22:02)
[2021-12-14] MEDS: amLODIPine Besylate 5 MG TABLET PO (08:29)
[2021-12-14] MEDS: rOPINIRole HCL 0.25 MG TABLET PO ×2 (08:29→22:02)
[2021-12-14] MEDS: busPIRone HCl 10 MG TABLET 15 MG PO ×2 (08:29→22:01)
[2021-12-14] MEDS: Cholecalciferol (Vitamin D3) 25 MCG TABLET 125 MCG PO (08:29)
[2021-12-14] MEDS: hydrOXYzine HCL 25 MG TABLET PO ×2 (11:44→23:59)
--- NOTE | 2021-12-14 15:23 | HO.PSYCHPN ---
Subjective Subjective Date of Service: 12/14/21 Reason For Visit: Depression, SI Subjective Notes: Conditional Voluntary Interim History: the nursing staff reported the patient has being isolated in his room but he is out for meals he denied having suicidal ideation. On interview the patient denies new symptoms he is fully aware that the manager social work has already referred him to an assisted living facility but he wants more medications for anxiety. He does not want to be discharged and he wants to stay on this facility the longest time possible Mental Status Exam Mental Status Exam Patient Appearance: Well Grooomed Patient Orientation: Person Level of Consciousness: Awake Patient Behavior: Cooperative Mood Description: Constricted Affect Description: Constricted Patient Cognition Impaired: Yes Ability to Follow Directions: Good Speech Pattern: Clear Hallucinations: None Delusions: Not Present Thought Process: Evasive Thought Content: positive for Linear Judgement: Fair Diagnostics Vital Signs (24Hr): Vital Signs - 24 hr 12/13/21 18:00 12/14/21 06:00 Temperature 97.7 F 97.5 F Pulse Rate 77 71 Respiratory Rate 19 17 Blood Pressure 150/89 H 108/55 L Pulse Oximetry 97 95 BMI result Body Mass Index 28.0 Labs Results: 11/28/21 22:08 11/28/21 22:08 Medications Medications Current Medications Acetaminophen (Acetaminophen 325 Mg Tablet) 650 mg PO Q6H PRN PRN Reason: Headache/Pain Mild Scale (1-3) Al Hydroxide/Mg Hydroxide (Magnesium Hydrox/Alum Hydrox 30 Ml Oral.Susp) 30 ml PO Q6H PRN PRN Reason: Heartburn/Nausea Amlodipine Besylate (Amlodipine Besylate 5 Mg Tablet) 5 mg PO DAILY [facility]; Protocol Last Admin: 12/14/21 08:29 Dose: 5 mg Documented by: Buspirone HCl (Buspirone Hcl 10 Mg Tablet) 15 mg PO BID [facility] Last Admin: 12/14/21 08:29 Dose: 15 mg Documented by: Fluoxetine HCl (Fluoxetine Hcl 20 Mg Capsule) 80 mg PO DAILY [facility] Last Admin: 12/14/21 08:28 Dose: 80 mg Documented by: Hydroxyzine HCl (Hydroxyzine Hcl 25 Mg Tablet) 25 mg PO Q6H PRN PRN Reason: Anxiety Last Admin: 12/14/21 11:44 Dose: 25 mg Documented by: Magnesium Hydroxide (Milk Of Magnesia 30 Ml Oral.Susp) 30 ml PO DAILY PRN PRN Reason: Constipation Last Admin: 12/03/21 09:28 Dose: 30 ml Documented by: Mirtazapine (Mirtazapine 30 Mg Tablet) 30 mg PO BEDTIME [facility] Last Admin: 12/13/21 20:09 Dose: 30 mg Documented by: Quetiapine Fumarate (Quetiapine Fumarate 50 Mg Tablet) 50 mg PO TID [facility] Last Admin: 12/14/21 08:29 Dose: 50 mg Documented by: Quetiapine Fumarate (Quetiapine Fumarate 25 Mg Tablet) 25 mg PO BID PRN PRN Reason: Anxiety Last Admin: 12/13/21 13:02 Dose: 25 mg Documented by: Ropinirole HCl (Ropinirole Hcl 0.25 Mg Tablet) 0.25 mg PO BID [facility] Last Admin: 12/14/21 08:29 Dose: 0.25 mg Documented by: Trazodone HCl (Trazodone Hcl 50 Mg Tablet) 50 mg PO BEDTIME PRN PRN Reason: Insomnia Last Admin: 12/13/21 20:08 Dose: 50 mg Documented by: Vitamin D (Cholecalciferol (Vitamin D3) 25 Mcg Tablet) 125 mcg PO DAILY [facility] Last Admin: 12/14/21 08:29 Dose: 125 mcg Documented by: Allergies Allergies Allergy/AdvReac Type Severity Reaction Status Date / Time paroxetine [From PAXIL] AdvReac Unknown AGITATION, Verified 11/19/21 12:38 MOOD SWINGS, ALL KINDS OF WEIRD THOUGHTS Assessment & Plan Assessment & Plan (1) Major depressive disorder, recurrent: Qualifiers: Active/Remission status: currently active Major depression episode severity: severe Psychotic features: with psychotic features Qualified Code(s): F33.3 - Major depressive disorder, recurrent, severe with psychotic symptoms Status: Acute Code(s): F33.9 - Major depressive disorder, recurrent, unspecified (2) Obsessive compulsive disorder: Status: Acute Code(s): F42.9 - Obsessive-compulsive disorder, unspecified Assessment and Plan: Middle-aged male with a long history of generalized anxiety disorder, depression and OCD, very well known by DC unit since he was admitted in August last year for similar presentation, admitted for suicidal ideation and transfer from [facility] to the emergency room. Plan 1. Gather collateral information. 2. Increase Seroquel up to 50 mg p.o. t.i.d. to target anxiety and dysphoria. Also add Seroquel 25 mg p.o. b.i.d. p.r.n. anxiety 3. Continue other antidepressants. 4. Add Klonopin 0.5 mg daily p.r.n. anxiety not exceed of clonazepam 1.5 mg per day 5. Possible discharge , we can find a suitable [facility] I spent minutes with the patient and/or on the patient floor today, greater than?50% of which was spent counseling/coordinating care. Reason for contiued inpatient stay Substantial Risk for: stable for discharge, rapid decompensation and med/psych decompensation
[2021-12-14 18:00] VITALS: BP 150/72; PULSE 80; TEMP 36.9; O2SAT 97
[2021-12-14] MEDS: traZODone HCL 50 MG TABLET PO ×2 (22:02→23:59)
[2021-12-14] MEDS: Mirtazapine 30 MG TABLET PO (22:02)
[2021-12-15 08:00] VITALS: BP 117/69; PULSE 70; RESP 19; TEMP 36.1; O2SAT 96
[2021-12-15] MEDS: FLUoxetine HCl 20 MG CAPSULE 80 MG PO (08:28)
[2021-12-15] MEDS: Cholecalciferol (Vitamin D3) 25 MCG TABLET 125 MCG PO (08:31)
[2021-12-15] MEDS: amLODIPine Besylate 5 MG TABLET PO (08:31)
[2021-12-15] MEDS: busPIRone HCl 10 MG TABLET 15 MG PO (08:32)
[2021-12-15] MEDS: QUEtiapine Fumarate 50 MG TABLET PO ×3 (08:32→20:27)
[2021-12-15] MEDS: rOPINIRole HCL 0.25 MG TABLET PO ×2 (08:33→20:27)
[2021-12-15] MEDS: hydrOXYzine HCL 25 MG TABLET PO (12:35)
--- NOTE | 2021-12-15 17:45 | P.PNPSI_ITS ---
Subjective Subjective Date of Service: 12/15/21 Reason For Visit: Depression, SI Subjective Notes: Conditional Voluntary Interim History: The nursing staff reported that he complains of anxiety and depression due to his discharge planning. He stated that he feels suicidal and he has for a medication adjustment. On interview I acknowledged that he should be very anxious to the possibility of leaving this control environment by explained him that he would be well taking care in an [facility] environment. He agreed to increased BuSpar to target anxiety Mental Status Exam Mental Status Exam Patient Appearance: Well Grooomed Patient Orientation: Person Level of Consciousness: Awake Patient Behavior: Cooperative Mood Description: Depressed Affect Description: Constricted Patient Cognition Impaired: No Ability to Follow Directions: Good Speech Pattern: Coherent Hallucinations: None Delusions: Not Present Thought Process: Linear Judgement: Fair Diagnostics Vital Signs (24Hr): Vital Signs - 24 hr 12/14/21 18:00 12/15/21 08:00 Temperature 98.5 F 97.0 F Pulse Rate 80 70 Respiratory Rate 19 Blood Pressure 150/72 H 117/69 Pulse Oximetry 97 96 BMI result Body Mass Index 28.0 Labs Results: 11/28/21 22:08 11/28/21 22:08 Medications Medications Current Medications Acetaminophen (Acetaminophen 325 Mg Tablet) 650 mg PO Q6H PRN PRN Reason: Headache/Pain Mild Scale (1-3) Al Hydroxide/Mg Hydroxide (Magnesium Hydrox/Alum Hydrox 30 Ml Oral.Susp) 30 ml PO Q6H PRN PRN Reason: Heartburn/Nausea Amlodipine Besylate (Amlodipine Besylate 5 Mg Tablet) 5 mg PO DAILY [facility]; Protocol Last Admin: 12/15/21 08:31 Dose: 5 mg Documented by: Buspirone HCl (Buspirone Hcl 10 Mg Tablet) 15 mg PO BID [facility] Last Admin: 12/15/21 08:32 Dose: 15 mg Documented by: Fluoxetine HCl (Fluoxetine Hcl 20 Mg Capsule) 80 mg PO DAILY [facility] Last Admin: 12/15/21 08:28 Dose: 80 mg Documented by: Hydroxyzine HCl (Hydroxyzine Hcl 25 Mg Tablet) 25 mg PO Q6H PRN PRN Reason: Anxiety Last Admin: 12/15/21 12:35 Dose: 25 mg Documented by: Magnesium Hydroxide (Milk Of Magnesia 30 Ml Oral.Susp) 30 ml PO DAILY PRN PRN Reason: Constipation Last Admin: 12/03/21 09:28 Dose: 30 ml Documented by: Mirtazapine (Mirtazapine 30 Mg Tablet) 30 mg PO BEDTIME [facility] Last Admin: 12/14/21 22:02 Dose: 30 mg Documented by: Quetiapine Fumarate (Quetiapine Fumarate 50 Mg Tablet) 50 mg PO TID [facility] Last Admin: 12/15/21 15:46 Dose: 50 mg Documented by: Quetiapine Fumarate (Quetiapine Fumarate 25 Mg Tablet) 25 mg PO BID PRN PRN Reason: Anxiety Last Admin: 12/13/21 13:02 Dose: 25 mg Documented by: Ropinirole HCl (Ropinirole Hcl 0.25 Mg Tablet) 0.25 mg PO BID [facility] Last Admin: 12/15/21 08:33 Dose: 0.25 mg Documented by: Trazodone HCl (Trazodone Hcl 50 Mg Tablet) 50 mg PO BEDTIME PRN PRN Reason: Insomnia Last Admin: 12/14/21 23:59 Dose: 50 mg Documented by: Vitamin D (Cholecalciferol (Vitamin D3) 25 Mcg Tablet) 125 mcg PO DAILY [facility] Last Admin: 12/15/21 08:31 Dose: 125 mcg Documented by: Allergies Allergies Allergy/AdvReac Type Severity Reaction Status Date / Time paroxetine [From PAXIL] AdvReac Unknown AGITATION, Verified 11/19/21 12:38 MOOD SWINGS, ALL KINDS OF WEIRD THOUGHTS Assessment & Plan Assessment & Plan (1) Major depressive disorder, recurrent: Qualifiers: Active/Remission status: currently active Major depression episode severity: severe Psychotic features: with psychotic features Qualified Code(s): F33.3 - Major depressive disorder, recurrent, severe with psychotic symptoms Status: Acute Code(s): F33.9 - Major depressive disorder, recurrent, unspecified (2) Obsessive compulsive disorder: Status: Acute Code(s): F42.9 - Obsessive-compulsive disorder, unspecified Assessment and Plan: Middle-aged male with a long history of generalized anxiety disorder, depression and OCD, very well known by DC unit since he was admitted in August last year for similar presentation, [facility]. Plan 1. Gather collateral information. 2. Increase Seroquel up to 50 mg p.o. t.i.d. to target anxiety and dysphoria. Also add Seroquel 25 mg p.o. b.i.d. p.r.n. anxiety 3. Continue other antidepressants. 4. Add Klonopin 0.5 mg daily p.r.n. anxiety not exceed of clonazepam 1.5 mg per day 5. Possible discharge , we can find a suitable [facility] I spent minutes with the patient and/or on the patient floor today, greater than?50% of which was spent counseling/coordinating care. Reason for contiued inpatient stay Substantial Risk for: inability to function, rapid decompensation and med/psych decompensation
[2021-12-15 20:15] VITALS: BP 119/74; PULSE 67; RESP 19; TEMP 36.6; O2SAT 95
[2021-12-15] MEDS: busPIRone HCl 10 MG TABLET 20 MG PO (20:27)
[2021-12-15] MEDS: Mirtazapine 30 MG TABLET PO (20:28)
[2021-12-15] MEDS: traZODone HCL 50 MG TABLET PO (20:32)
[2021-12-16 08:00] VITALS: BP 118/72; PULSE 62; RESP 17; TEMP 36.3; O2SAT 96
[2021-12-16] MEDS: amLODIPine Besylate 5 MG TABLET PO (09:25)
[2021-12-16] MEDS: FLUoxetine HCl 20 MG CAPSULE 80 MG PO (09:25)
[2021-12-16] MEDS: busPIRone HCl 10 MG TABLET 20 MG PO (09:25)
[2021-12-16] MEDS: QUEtiapine Fumarate 50 MG TABLET PO ×3 (09:25→20:04)
[2021-12-16] MEDS: rOPINIRole HCL 0.25 MG TABLET PO ×2 (09:25→20:04)
[2021-12-16] MEDS: Cholecalciferol (Vitamin D3) 25 MCG TABLET 125 MCG PO (09:25)
[2021-12-16] MEDS: hydrOXYzine HCL 25 MG TABLET PO ×2 (11:05→17:47)
--- NOTE | 2021-12-16 15:32 | P.PNPSI_ITS ---
Subjective Subjective Date of Service: 12/16/21 Reason For Visit: Depression, SI Subjective Notes: Conditional Voluntary Interim History: The nursing staff reported that the patient has attended to groups, he eats his meals out of his room but he is mostly seclusive. He stated that his suicidal without a plan but he is mostly anxious due to his pending discharge to the assisted living facility. On interview, the patient denies over-sedation with BuSpar 20 mg p.o. t.i.d. and he agreed to increase up to 30 that this the maximum dose. Mental Status Exam Mental Status Exam Patient Appearance: Disheveled Patient Orientation: Person Level of Consciousness: Awake Patient Behavior: Cooperative Mood Description: Depressed Affect Description: Constricted Speech Pattern: Monotone Hallucinations: None Delusions: Not Present Thought Process: Linear Thought Content: positive for Poverty of Content and positive for Thought Blocking Judgement: Fair Diagnostics Vital Signs (24Hr): Vital Signs - 24 hr 12/15/21 20:15 12/16/21 08:00 Temperature 97.8 F 97.3 F Pulse Rate 67 62 Respiratory Rate 19 17 Blood Pressure 119/74 118/72 Pulse Oximetry 95 96 BMI result Verdana 4 Body Mass Index Verdana 4 28.0 Verdana 4 Verdana 4 Labs Results: 11/28/21 22:08 11/28/21 22:08 Medications Medications Current Medications Acetaminophen (Acetaminophen 325 Mg Tablet) 650 mg PO Q6H PRN PRN Reason: Headache/Pain Mild Scale (1-3) Al Hydroxide/Mg Hydroxide (Magnesium Hydrox/Alum Hydrox 30 Ml Oral.Susp) 30 ml PO Q6H PRN PRN Reason: Heartburn/Nausea Amlodipine Besylate (Amlodipine Besylate 5 Mg Tablet) 5 mg PO DAILY [facility]; Protocol Last Admin: 12/16/21 09:25 Dose: 5 mg Documented by: Buspirone HCl (Buspirone Hcl 10 Mg Tablet) 20 mg PO BID [facility] Last Admin: 12/16/21 09:25 Dose: 20 mg Documented by: Fluoxetine HCl (Fluoxetine Hcl 20 Mg Capsule) 80 mg PO DAILY [facility] Last Admin: 12/16/21 09:25 Dose: 80 mg Documented by: Hydroxyzine HCl (Hydroxyzine Hcl 25 Mg Tablet) 25 mg PO Q6H PRN PRN Reason: Anxiety Last Admin: 12/16/21 11:05 Dose: 25 mg Documented by: Magnesium Hydroxide (Milk Of Magnesia 30 Ml Oral.Susp) 30 ml PO DAILY PRN PRN Reason: Constipation Last Admin: 12/03/21 09:28 Dose: 30 ml Documented by: Mirtazapine (Mirtazapine 30 Mg Tablet) 30 mg PO BEDTIME [facility] Last Admin: 12/15/21 20:28 Dose: 30 mg Documented by: Quetiapine Fumarate (Quetiapine Fumarate 50 Mg Tablet) 50 mg PO TID [facility] Last Admin: 12/16/21 09:25 Dose: 50 mg Documented by: Quetiapine Fumarate (Quetiapine Fumarate 25 Mg Tablet) 25 mg PO BID PRN PRN Reason: Anxiety Last Admin: 12/13/21 13:02 Dose: 25 mg Documented by: Ropinirole HCl (Ropinirole Hcl 0.25 Mg Tablet) 0.25 mg PO BID [facility] Last Admin: 12/16/21 09:25 Dose: 0.25 mg Documented by: Trazodone HCl (Trazodone Hcl 50 Mg Tablet) 50 mg PO BEDTIME PRN PRN Reason: Insomnia Last Admin: 12/15/21 20:32 Dose: 50 mg Documented by: Vitamin D (Cholecalciferol (Vitamin D3) 25 Mcg Tablet) 125 mcg PO DAILY [facility] Last Admin: 12/16/21 09:25 Dose: 125 mcg Documented by: Allergies Allergies Allergy/AdvReac Type Severity Reaction Status Date / Time paroxetine [From PAXIL] AdvReac Unknown AGITATION, Verified 11/19/21 12:38 MOOD SWINGS, ALL KINDS OF WEIRD THOUGHTS Assessment & Plan Assessment & Plan (1) Major depressive disorder, recurrent: Qualifiers: Active/Remission status: currently active Major depression episode severity: severe Psychotic features: with psychotic features Qualified Code(s): F33.3 - Major depressive disorder, recurrent, severe with psychotic symptoms Status: Acute Code(s): F33.9 - Major depressive disorder, recurrent, unspecified (2) Obsessive compulsive disorder: Status: Acute Code(s): F42.9 - Obsessive-compulsive disorder, unspecified Plan Adult male with a long history of OCD, major depressive disorder and other psychiatric conditions, readmitted for exacerbation of depression with suicidal ideation. Plan 1. Continue with same medications. 2. Increase BuSpar up to 30 mg p.o. t.i.d. I spent minutes with the patient and/or on the patient floor today, greater than?50% of which was spent counseling/coordinating care. Reason for contiued inpatient stay Substantial Risk for: inability to function, rapid decompensation and med/psych decompensation
[2021-12-16 19:35] VITALS: BP 151/84; PULSE 87; RESP 18; TEMP 37.2; O2SAT 95
[2021-12-16] MEDS: busPIRone HCl 10 MG TABLET 30 MG PO (20:04)
[2021-12-16] MEDS: Mirtazapine 30 MG TABLET PO (20:04)
[2021-12-16] MEDS: traZODone HCL 50 MG TABLET PO ×2 (20:04→23:25)
[2021-12-16] MEDS: Acetaminophen 325 MG TABLET 650 MG PO (20:14)
[2021-12-16] MEDS: QUEtiapine Fumarate 25 MG TABLET PO (23:25)
[2021-12-17] MEDS: hydrOXYzine HCL 25 MG TABLET PO (04:24)
[2021-12-17 06:00] VITALS: BP 116/78; PULSE 82; RESP 18; TEMP 36.4; O2SAT 96
[2021-12-17] MEDS: Cholecalciferol (Vitamin D3) 25 MCG TABLET 125 MCG PO (09:46)
[2021-12-17] MEDS: busPIRone HCl 10 MG TABLET 30 MG PO ×2 (09:46→19:47)
[2021-12-17] MEDS: QUEtiapine Fumarate 50 MG TABLET PO ×3 (09:46→19:47)
[2021-12-17] MEDS: rOPINIRole HCL 0.25 MG TABLET PO ×2 (09:46→19:46)
[2021-12-17] MEDS: FLUoxetine HCl 20 MG CAPSULE 80 MG PO (09:46)
[2021-12-17] MEDS: amLODIPine Besylate 5 MG TABLET PO (09:47)
[2021-12-17 09:58] VITALS: BMI 28.1
[2021-12-17] MEDS: clonazePAM 0.5 MG TABLET PO ×3 (11:57→19:48)
--- NOTE | 2021-12-17 14:44 | HO.PSYCHPN ---
Subjective Subjective Date of Service: 12/17/21 Reason For Visit: Depression, SI Subjective Notes: Conditional Voluntary Interim History: The nursing staff reported that he is fully compliant with treatment, spent most of the itme in his room. On interview, the patient reported that he is extremely anxious and depressed, he does not want to be discharged. We discussed options and he agreed on continue BuSpar another medications. Mental Status Exam Mental Status Exam Patient Appearance: Well Grooomed Patient Orientation: Person Level of Consciousness: Awake Patient Behavior: Cooperative Mood Description: Depressed Affect Description: Constricted Patient Cognition Impaired: No Ability to Follow Directions: Good Speech Pattern: Clear and Appropriate Hallucinations: None Delusions: Not Present Thought Process: Distracted and Linear Thought Content: positive for Perseveration and positive for Poverty of Content Judgement: Fair Diagnostics Vital Signs (24Hr): Vital Signs - 24 hr 12/16/21 19:35 12/17/21 06:00 Temperature 99 F 97.6 F Pulse Rate 87 82 Respiratory Rate 18 18 Blood Pressure 151/84 H 116/78 Pulse Oximetry 95 96 BMI result Body Mass Index 28.1 Labs Results: 11/28/21 22:08 11/28/21 22:08 Medications Medications Current Medications Acetaminophen (Acetaminophen 325 Mg Tablet) 650 mg PO Q6H PRN PRN Reason: Headache/Pain Mild Scale (1-3) Last Admin: 12/16/21 20:14 Dose: 650 mg Documented by: Al Hydroxide/Mg Hydroxide (Magnesium Hydrox/Alum Hydrox 30 Ml Oral.Susp) 30 ml PO Q6H PRN PRN Reason: Heartburn/Nausea Amlodipine Besylate (Amlodipine Besylate 5 Mg Tablet) 5 mg PO DAILY [facility]; Protocol Last Admin: 12/17/21 09:47 Dose: 5 mg Documented by: Buspirone HCl (Buspirone Hcl 10 Mg Tablet) 30 mg PO BID [facility] Last Admin: 12/17/21 09:46 Dose: 30 mg Documented by: Clonazepam (Clonazepam 0.5 Mg Tablet) 0.5 mg PO TID [facility] Clonazepam (Clonazepam 0.5 Mg Tablet) 0.5 mg PO BID PRN PRN Reason: Anxiety Last Admin: 12/17/21 11:57 Dose: 0.5 mg Documented by: Fluoxetine HCl (Fluoxetine Hcl 20 Mg Capsule) 80 mg PO DAILY [facility] Last Admin: 12/17/21 09:46 Dose: 80 mg Documented by: Hydroxyzine HCl (Hydroxyzine Hcl 25 Mg Tablet) 25 mg PO Q6H PRN PRN Reason: Anxiety Last Admin: 12/17/21 04:24 Dose: 25 mg Documented by: Magnesium Hydroxide (Milk Of Magnesia 30 Ml Oral.Susp) 30 ml PO DAILY PRN PRN Reason: Constipation Last Admin: 12/03/21 09:28 Dose: 30 ml Documented by: Mirtazapine (Mirtazapine 30 Mg Tablet) 30 mg PO BEDTIME [facility] Last Admin: 12/16/21 20:04 Dose: 30 mg Documented by: Quetiapine Fumarate (Quetiapine Fumarate 50 Mg Tablet) 50 mg PO TID [facility] Last Admin: 12/17/21 09:46 Dose: 50 mg Documented by: Quetiapine Fumarate (Quetiapine Fumarate 25 Mg Tablet) 25 mg PO BID PRN PRN Reason: Anxiety Last Admin: 12/16/21 23:25 Dose: 25 mg Documented by: Ropinirole HCl (Ropinirole Hcl 0.25 Mg Tablet) 0.25 mg PO BID [facility] Last Admin: 12/17/21 09:46 Dose: 0.25 mg Documented by: Trazodone HCl (Trazodone Hcl 50 Mg Tablet) 50 mg PO BEDTIME PRN PRN Reason: Insomnia Last Admin: 12/16/21 23:25 Dose: 50 mg Documented by: Vitamin D (Cholecalciferol (Vitamin D3) 25 Mcg Tablet) 125 mcg PO DAILY [facility] Last Admin: 12/17/21 09:46 Dose: 125 mcg Documented by: Allergies Allergies Allergy/AdvReac Type Severity Reaction Status Date / Time paroxetine [From PAXIL] AdvReac Unknown AGITATION, Verified 11/19/21 12:38 MOOD SWINGS, ALL KINDS OF WEIRD THOUGHTS Assessment & Plan Assessment & Plan (1) Major depressive disorder, recurrent: Qualifiers: Active/Remission status: currently active Major depression episode severity: severe Psychotic features: with psychotic features Qualified Code(s): F33.3 - Major depressive disorder, recurrent, severe with psychotic symptoms Status: Acute Code(s): F33.9 - Major depressive disorder, recurrent, unspecified (2) Obsessive compulsive disorder: Status: Acute Code(s): F42.9 - Obsessive-compulsive disorder, unspecified Plan Adult male with a long history of OCD, major depressive disorder and other psychiatric conditions, readmitted for exacerbation of depression with suicidal ideation. Plan 1. Continue with same medications. 2. Increase BuSpar up to 30 mg p.o. t.i.d. I spent minutes with the patient and/or on the patient floor today, greater than?50% of which was spent counseling/coordinating care. Reason for contiued inpatient stay Substantial Risk for: harm to self, inability to function, rapid decompensation and med/psych decompensation
[2021-12-17 19:08] VITALS: BP 131/71; PULSE 74; RESP 18; TEMP 37.1; O2SAT 95
[2021-12-17] MEDS: Mirtazapine 30 MG TABLET PO (19:47)
[2021-12-17] MEDS: traZODone HCL 50 MG TABLET PO (19:50)
[2021-12-18 06:00] VITALS: BP 145/77; PULSE 71; RESP 16; TEMP 36.2; O2SAT 99
[2021-12-18] MEDS: busPIRone HCl 10 MG TABLET 30 MG PO ×2 (09:35→20:18)
[2021-12-18] MEDS: QUEtiapine Fumarate 50 MG TABLET PO ×3 (09:35→20:18)
[2021-12-18] MEDS: amLODIPine Besylate 5 MG TABLET PO (09:36)
[2021-12-18] MEDS: rOPINIRole HCL 0.25 MG TABLET PO ×2 (09:36→20:18)
[2021-12-18] MEDS: FLUoxetine HCl 20 MG CAPSULE 80 MG PO (09:36)
[2021-12-18] MEDS: clonazePAM 0.5 MG TABLET PO ×3 (09:36→20:18)
[2021-12-18] MEDS: Cholecalciferol (Vitamin D3) 25 MCG TABLET 125 MCG PO (09:36)
--- NOTE | 2021-12-18 17:26 | HO.PSYCHPN ---
Subjective Subjective Date of Service: 12/18/21 Reason For Visit: Depression, SI Subjective Notes: Conditional Voluntary Interim History: The nursing staff reported the patient has been more visible in the unit, he slept 7 hours and apparently he said to the family welfare social work professor that he was feeling okay with Klonopin. It seems that Klonopin suits him and helps in his anxiety. On interview the patient denies new symptoms he is very anxious with the possibility of discharge. So far no over-sedation with increase of Buspar Mental Status Exam Mental Status Exam Patient Appearance: Well Grooomed Patient Orientation: Person Level of Consciousness: Awake Patient Behavior: Cooperative Mood Description: Depressed Affect Description: Constricted Patient Cognition Impaired: No Ability to Follow Directions: Good Speech Pattern: Clear Hallucinations: None Delusions: Not Present Thought Process: Linear Thought Content: positive for Circumstantial Judgement: Fair Diagnostics Vital Signs (24Hr): Vital Signs - 24 hr 12/17/21 19:08 Temperature 98.8 F Pulse Rate 74 Respiratory Rate 18 Blood Pressure 131/71 Pulse Oximetry 95 BMI result Body Mass Index 28.1 Labs Results: 11/28/21 22:08 11/28/21 22:08 Medications Medications Current Medications Acetaminophen (Acetaminophen 325 Mg Tablet) 650 mg PO Q6H PRN PRN Reason: Headache/Pain Mild Scale (1-3) Last Admin: 12/16/21 20:14 Dose: 650 mg Documented by: Al Hydroxide/Mg Hydroxide (Magnesium Hydrox/Alum Hydrox 30 Ml Oral.Susp) 30 ml PO Q6H PRN PRN Reason: Heartburn/Nausea Amlodipine Besylate (Amlodipine Besylate 5 Mg Tablet) 5 mg PO DAILY [facility]; Protocol Last Admin: 12/18/21 09:36 Dose: 5 mg Documented by: Buspirone HCl (Buspirone Hcl 10 Mg Tablet) 30 mg PO BID [facility] Last Admin: 12/18/21 09:35 Dose: 30 mg Documented by: Clonazepam (Clonazepam 0.5 Mg Tablet) 0.5 mg PO TID [facility] Last Admin: 12/18/21 16:27 Dose: 0.5 mg Documented by: Clonazepam (Clonazepam 0.5 Mg Tablet) 0.5 mg PO BID PRN PRN Reason: Anxiety Last Admin: 12/17/21 11:57 Dose: 0.5 mg Documented by: Fluoxetine HCl (Fluoxetine Hcl 20 Mg Capsule) 80 mg PO DAILY [facility] Last Admin: 12/18/21 09:36 Dose: 80 mg Documented by: Hydroxyzine HCl (Hydroxyzine Hcl 25 Mg Tablet) 25 mg PO Q6H PRN PRN Reason: Anxiety Last Admin: 12/17/21 04:24 Dose: 25 mg Documented by: Magnesium Hydroxide (Milk Of Magnesia 30 Ml Oral.Susp) 30 ml PO DAILY PRN PRN Reason: Constipation Last Admin: 12/03/21 09:28 Dose: 30 ml Documented by: Mirtazapine (Mirtazapine 30 Mg Tablet) 30 mg PO BEDTIME [facility] Last Admin: 12/17/21 19:47 Dose: 30 mg Documented by: Quetiapine Fumarate (Quetiapine Fumarate 50 Mg Tablet) 50 mg PO TID [facility] Last Admin: 12/18/21 16:26 Dose: 50 mg Documented by: Quetiapine Fumarate (Quetiapine Fumarate 25 Mg Tablet) 25 mg PO BID PRN PRN Reason: Anxiety Last Admin: 12/16/21 23:25 Dose: 25 mg Documented by: Ropinirole HCl (Ropinirole Hcl 0.25 Mg Tablet) 0.25 mg PO BID [facility] Last Admin: 12/18/21 09:36 Dose: 0.25 mg Documented by: Trazodone HCl (Trazodone Hcl 50 Mg Tablet) 50 mg PO BEDTIME PRN PRN Reason: Insomnia Last Admin: 12/17/21 19:50 Dose: 50 mg Documented by: Vitamin D (Cholecalciferol (Vitamin D3) 25 Mcg Tablet) 125 mcg PO DAILY [facility] Last Admin: 12/18/21 09:36 Dose: 125 mcg Documented by: Allergies Allergies Allergy/AdvReac Type Severity Reaction Status Date / Time paroxetine [From PAXIL] AdvReac Unknown AGITATION, Verified 11/19/21 12:38 MOOD SWINGS, ALL KINDS OF WEIRD THOUGHTS Assessment & Plan Assessment & Plan (1) Major depressive disorder, recurrent: Qualifiers: Active/Remission status: currently active Major depression episode severity: severe Psychotic features: with psychotic features Qualified Code(s): F33.3 - Major depressive disorder, recurrent, severe with psychotic symptoms Status: Acute Code(s): F33.9 - Major depressive disorder, recurrent, unspecified (2) Obsessive compulsive disorder: Status: Acute Code(s): F42.9 - Obsessive-compulsive disorder, unspecified Plan Adult male with a long history of OCD, major depressive disorder and other psychiatric conditions, readmitted for exacerbation of depression with suicidal ideation. Plan 1. Continue with same medications. 2. Increase BuSpar up to 30 mg p.o. t.i.d. I spent minutes with the patient and/or on the patient floor today, greater than?50% of which was spent counseling/coordinating care. Reason for contiued inpatient stay Substantial Risk for: stable for discharge, rapid decompensation and med/psych decompensation
[2021-12-18 18:00] VITALS: BP 116/62; PULSE 71; RESP 19; TEMP 36.4; O2SAT 95
[2021-12-18] MEDS: traZODone HCL 50 MG TABLET PO (20:18)
[2021-12-18] MEDS: Mirtazapine 30 MG TABLET PO (20:18)
[2021-12-19 06:00] VITALS: BP 115/71; PULSE 71; RESP 16; TEMP 36.1; O2SAT 96
[2021-12-19] MEDS: rOPINIRole HCL 0.25 MG TABLET PO ×2 (08:18→20:15)
[2021-12-19] MEDS: busPIRone HCl 10 MG TABLET 30 MG PO ×2 (08:18→20:16)
[2021-12-19] MEDS: FLUoxetine HCl 20 MG CAPSULE 80 MG PO (08:19)
[2021-12-19] MEDS: amLODIPine Besylate 5 MG TABLET PO (08:19)
[2021-12-19] MEDS: Cholecalciferol (Vitamin D3) 25 MCG TABLET 125 MCG PO (08:19)
[2021-12-19] MEDS: QUEtiapine Fumarate 50 MG TABLET PO ×3 (08:19→20:16)
[2021-12-19] MEDS: clonazePAM 0.5 MG TABLET PO ×4 (08:20→20:16)
--- NOTE | 2021-12-19 09:41 | P.PNPSI_ITS ---
Subjective Subjective Date of Service: 12/19/21 Reason For Visit: Depression, SI Subjective Notes: Conditional Voluntary Interim History: The nursing staff reports no changes on the patient's mental status, he attends to some groups but he looks less anxious. On interview, the patient reported that he is feeling very anxious with a DD of discharge he wants to state the longest possible. No over-sedation with increase of was per. Mental Status Exam Mental Status Exam Patient Appearance: Well Grooomed Patient Orientation: Person Level of Consciousness: Awake Patient Behavior: Cooperative Mood Description: Calm and Depressed Affect Description: Constricted Patient Cognition Impaired: No Ability to Follow Directions: Good Speech Pattern: Clear Hallucinations: None Delusions: Not Present Thought Process: Distracted and Linear Thought Content: positive for Poverty of Content Judgement: Fair Diagnostics Vital Signs (24Hr): Vital Signs - 24 hr 12/18/21 18:00 12/19/21 06:00 Temperature 97.5 F 97.0 F Pulse Rate 71 71 Respiratory Rate 19 16 Blood Pressure 116/62 115/71 Pulse Oximetry 95 96 BMI result Verdana 4 Body Mass Index Verdana 4 28.1 Verdana 4 Verdana 4 Labs Results: 11/28/21 22:08 11/28/21 22:08 Medications Medications Current Medications Acetaminophen (Acetaminophen 325 Mg Tablet) 650 mg PO Q6H PRN PRN Reason: Headache/Pain Mild Scale (1-3) Last Admin: 12/16/21 20:14 Dose: 650 mg Documented by: Al Hydroxide/Mg Hydroxide (Magnesium Hydrox/Alum Hydrox 30 Ml Oral.Susp) 30 ml PO Q6H PRN PRN Reason: Heartburn/Nausea Amlodipine Besylate (Amlodipine Besylate 5 Mg Tablet) 5 mg PO DAILY [facility]; Protocol Last Admin: 12/19/21 08:19 Dose: 5 mg Documented by: Buspirone HCl (Buspirone Hcl 10 Mg Tablet) 30 mg PO BID [facility] Last Admin: 12/19/21 08:18 Dose: 30 mg Documented by: Clonazepam (Clonazepam 0.5 Mg Tablet) 0.5 mg PO TID [facility] Last Admin: 12/19/21 08:20 Dose: 0.5 mg Documented by: Clonazepam (Clonazepam 0.5 Mg Tablet) 0.5 mg PO BID PRN PRN Reason: Anxiety Last Admin: 12/17/21 11:57 Dose: 0.5 mg Documented by: Fluoxetine HCl (Fluoxetine Hcl 20 Mg Capsule) 80 mg PO DAILY [facility] Last Admin: 12/19/21 08:19 Dose: 80 mg Documented by: Hydroxyzine HCl (Hydroxyzine Hcl 25 Mg Tablet) 25 mg PO Q6H PRN PRN Reason: Anxiety Last Admin: 12/17/21 04:24 Dose: 25 mg Documented by: Magnesium Hydroxide (Milk Of Magnesia 30 Ml Oral.Susp) 30 ml PO DAILY PRN PRN Reason: Constipation Last Admin: 12/03/21 09:28 Dose: 30 ml Documented by: Mirtazapine (Mirtazapine 30 Mg Tablet) 30 mg PO BEDTIME [facility] Last Admin: 12/18/21 20:18 Dose: 30 mg Documented by: Quetiapine Fumarate (Quetiapine Fumarate 50 Mg Tablet) 50 mg PO TID [facility] Last Admin: 12/19/21 08:19 Dose: 50 mg Documented by: Quetiapine Fumarate (Quetiapine Fumarate 25 Mg Tablet) 25 mg PO BID PRN PRN Reason: Anxiety Last Admin: 12/16/21 23:25 Dose: 25 mg Documented by: Ropinirole HCl (Ropinirole Hcl 0.25 Mg Tablet) 0.25 mg PO BID [facility] Last Admin: 12/19/21 08:18 Dose: 0.25 mg Documented by: Trazodone HCl (Trazodone Hcl 50 Mg Tablet) 50 mg PO BEDTIME PRN PRN Reason: Insomnia Last Admin: 12/18/21 20:18 Dose: 50 mg Documented by: Vitamin D (Cholecalciferol (Vitamin D3) 25 Mcg Tablet) 125 mcg PO DAILY [facility] Last Admin: 12/19/21 08:19 Dose: 125 mcg Documented by: Allergies Allergies Allergy/AdvReac Type Severity Reaction Status Date / Time paroxetine [From PAXIL] AdvReac Unknown AGITATION, Verified 11/19/21 12:38 MOOD SWINGS, ALL KINDS OF WEIRD THOUGHTS Assessment & Plan Assessment & Plan (1) Major depressive disorder, recurrent: Qualifiers: Active/Remission status: currently active Major depression episode sev erity: severe Psychotic features: with psychotic features Qualified Code(s): F33.3 - Major depressive disorder, recurrent, severe with psychotic symptoms Status: Acute Code(s): F33.9 - Major depressive disorder, recurrent, unspecified (2) Obsessive compulsive disorder: Status: Acute Code(s): F42.9 - Obsessive-compulsive disorder, unspecified Plan Adult male with a long history of OCD, major depressive disorder and o ther psychiatric conditions, readmitted for exacerbation of depression with suicidal ideation. Plan 1. Continue with same medications. 2. Increase BuSpar up to 30 mg p.o. t.i.d. I spent minutes with the patient and/or on the patient floor today, greater than?50% of which was spent counseling/coordinating care. Reason for contiued inpatient stay Substantial Risk for: inability to function, rapid decompensation and med/psych decompensation
[2021-12-19 18:00] VITALS: BP 113/67; PULSE 102; RESP 16; TEMP 36.5; O2SAT 98
[2021-12-19] MEDS: Mirtazapine 30 MG TABLET PO (20:15)
[2021-12-19] MEDS: traZODone HCL 50 MG TABLET PO (20:20)
[2021-12-20 06:00] VITALS: BP 135/71; PULSE 73; TEMP 36.6; O2SAT 95
[2021-12-20] MEDS: Cholecalciferol (Vitamin D3) 25 MCG TABLET 125 MCG PO (08:59)
[2021-12-20] MEDS: QUEtiapine Fumarate 50 MG TABLET PO ×3 (08:59→20:06)
[2021-12-20] MEDS: rOPINIRole HCL 0.25 MG TABLET PO ×2 (08:59→20:06)
[2021-12-20] MEDS: FLUoxetine HCl 20 MG CAPSULE 80 MG PO (08:59)
[2021-12-20] MEDS: clonazePAM 0.5 MG TABLET PO ×3 (08:59→20:07)
[2021-12-20] MEDS: busPIRone HCl 10 MG TABLET 30 MG PO ×2 (08:59→20:06)
--- NOTE | 2021-12-20 08:59 | HO.PSYCHPN ---
Subjective Subjective Date of Service: 12/20/21 Reason For Visit: Depression, SI Subjective Notes: Conditional Voluntary Interim History: The nursing staff reported that he is compliant with treatment. He stated that he is not suicidal since I have the Lord on myself . As far as discharge planning is not discussed, he feels OK. On interview, he denied new symptoms Mental Status Exam Mental Status Exam Patient Appearance: Well Grooomed Patient Orientation: Person Level of Consciousness: Awake Patient Behavior: Cooperative Mood Description: Depressed Affect Description: Constricted Ability to Follow Directions: Good Speech Pattern: Clear Memory Description: Intact Hallucinations: None Delusions: Not Present Thought Process: Linear Thought Content: positive for Circumstantial and positive for Poverty of Content Judgement: Fair Diagnostics Vital Signs (24Hr): Vital Signs - 24 hr 12/19/21 18:00 Temperature 97.7 F Pulse Rate 102 H Respiratory Rate 16 Blood Pressure 113/67 Pulse Oximetry 98 BMI result Body Mass Index 28.1 Labs Results: 11/28/21 22:08 11/28/21 22:08 Medications Medications Current Medications Acetaminophen (Acetaminophen 325 Mg Tablet) 650 mg PO Q6H PRN PRN Reason: Headache/Pain Mild Scale (1-3) Last Admin: 12/16/21 20:14 Dose: 650 mg Documented by: Al Hydroxide/Mg Hydroxide (Magnesium Hydrox/Alum Hydrox 30 Ml Oral.Susp) 30 ml PO Q6H PRN PRN Reason: Heartburn/Nausea Amlodipine Besylate (Amlodipine Besylate 5 Mg Tablet) 5 mg PO DAILY [facility]; Protocol Last Admin: 12/19/21 08:19 Dose: 5 mg Documented by: Buspirone HCl (Buspirone Hcl 10 Mg Tablet) 30 mg PO BID [facility] Last Admin: 12/19/21 20:16 Dose: 30 mg Documented by: Clonazepam (Clonazepam 0.5 Mg Tablet) 0.5 mg PO TID [facility] Last Admin: 12/19/21 20:16 Dose: 0.5 mg Documented by: Clonazepam (Clonazepam 0.5 Mg Tablet) 0.5 mg PO BID PRN PRN Reason: Anxiety Last Admin: 12/19/21 12:25 Dose: 0.5 mg Documented by: Fluoxetine HCl (Fluoxetine Hcl 20 Mg Capsule) 80 mg PO DAILY [facility] Last Admin: 12/19/21 08:19 Dose: 80 mg Documented by: Hydroxyzine HCl (Hydroxyzine Hcl 25 Mg Tablet) 25 mg PO Q6H PRN PRN Reason: Anxiety Last Admin: 12/17/21 04:24 Dose: 25 mg Documented by: Magnesium Hydroxide (Milk Of Magnesia 30 Ml Oral.Susp) 30 ml PO DAILY PRN PRN Reason: Constipation Last Admin: 12/03/21 09:28 Dose: 30 ml Documented by: Mirtazapine (Mirtazapine 30 Mg Tablet) 30 mg PO BEDTIME [facility] Last Admin: 12/19/21 20:15 Dose: 30 mg Documented by: Quetiapine Fumarate (Quetiapine Fumarate 50 Mg Tablet) 50 mg PO TID [facility] Last Admin: 12/19/21 20:16 Dose: 50 mg Documented by: Quetiapine Fumarate (Quetiapine Fumarate 25 Mg Tablet) 25 mg PO BID PRN PRN Reason: Anxiety Last Admin: 12/16/21 23:25 Dose: 25 mg Documented by: Ropinirole HCl (Ropinirole Hcl 0.25 Mg Tablet) 0.25 mg PO BID [facility] Last Admin: 12/19/21 20:15 Dose: 0.25 mg Documented by: Trazodone HCl (Trazodone Hcl 50 Mg Tablet) 50 mg PO BEDTIME PRN PRN Reason: Insomnia Last Admin: 12/19/21 20:20 Dose: 50 mg Documented by: Vitamin D (Cholecalciferol (Vitamin D3) 25 Mcg Tablet) 125 mcg PO DAILY [facility] Last Admin: 12/19/21 08:19 Dose: 125 mcg Documented by: Allergies Allergies Allergy/AdvReac Type Severity Reaction Status Date / Time paroxetine [From PAXIL] AdvReac Unknown AGITATION, Verified 11/19/21 12:38 MOOD SWINGS, ALL KINDS OF WEIRD THOUGHTS Assessment & Plan Assessment & Plan (1) Major depressive disorder, recurrent: Qualifiers: Active/Remission status: currently active Major depression episode severity: severe Psychotic features: with psychotic features Qualified Code(s): F33.3 - Major depressive disorder, recurrent, severe with psychotic symptoms Status: Acute Code(s): F33.9 - Major depressive disorder, recurrent, unspecified (2) Obsessive compulsive disorder: Status: Acute Code(s): F42.9 - Obsessive-compulsive disorder, unspecified Plan Adult male with a long history of OCD, major depressive disorder and other psychiatric conditions, readmitted for exacerbation of depression with suicidal ideation. Plan 1. Continue with same medications. 2. Increase BuSpar up to 30 mg p.o. t.i.d. I spent minutes with the patient and/or on the patient floor today, greater than?50% of which was spent counseling/coordinating care. Reason for contiued inpatient stay Substantial Risk for: inability to function, rapid decompensation and med/psych decompensation
[2021-12-20] MEDS: amLODIPine Besylate 5 MG TABLET PO (09:00)
[2021-12-20 20:00] VITALS: BP 126/76; PULSE 71; RESP 19; TEMP 36.6; O2SAT 95
[2021-12-20] MEDS: Mirtazapine 30 MG TABLET PO (20:06)
[2021-12-20] MEDS: traZODone HCL 50 MG TABLET PO (20:06)
[2021-12-21 06:00] VITALS: BP 111/74; PULSE 68; RESP 16; TEMP 36.9; O2SAT 95
[2021-12-21] MEDS: FLUoxetine HCl 20 MG CAPSULE 80 MG PO (08:39)
[2021-12-21] MEDS: QUEtiapine Fumarate 50 MG TABLET PO ×3 (08:39→20:13)
[2021-12-21] MEDS: rOPINIRole HCL 0.25 MG TABLET PO ×2 (08:39→20:13)
[2021-12-21] MEDS: busPIRone HCl 10 MG TABLET 30 MG PO ×2 (08:39→20:12)
[2021-12-21] MEDS: Cholecalciferol (Vitamin D3) 25 MCG TABLET 125 MCG PO (08:40)
[2021-12-21] MEDS: amLODIPine Besylate 5 MG TABLET PO (08:40)
[2021-12-21] MEDS: clonazePAM 0.5 MG TABLET PO ×3 (08:40→20:13)
--- NOTE | 2021-12-21 15:12 | HO.PSYCHPN ---
Subjective Subjective Date of Service: 12/21/21 Reason For Visit: Depression, SI Subjective Notes: Conditional Voluntary Interim History: The nursing staff reported that the patient has been isolative mostly in his room not interacting with peers and staff. On interview the patient denies new symptoms he is very anxious of the possibility of discharge but he is aware that he will be discharged tomorrow. Mental Status Exam Mental Status Exam Patient Appearance: Well Grooomed Patient Orientation: Person and Situation Level of Consciousness: Awake Patient Behavior: Cooperative Mood Description: Withdrawn Affect Description: Constricted Patient Cognition Impaired: No Ability to Follow Directions: Good Speech Pattern: Clear Hallucinations: None Delusions: Paranoid Ideation Thought Process: Distracted and Linear Thought Content: positive for Circumstantial Judgement: Fair Diagnostics Vital Signs (24Hr): Vital Signs - 24 hr 12/20/21 20:00 12/21/21 06:00 Temperature 97.8 F 98.4 F Pulse Rate 71 68 Respiratory Rate 19 16 Blood Pressure 126/76 111/74 Pulse Oximetry 95 95 BMI result Body Mass Index 28.1 Labs Results: 11/28/21 22:08 11/28/21 22:08 Medications Medications Current Medications Acetaminophen (Acetaminophen 325 Mg Tablet) 650 mg PO Q6H PRN PRN Reason: Headache/Pain Mild Scale (1-3) Last Admin: 12/16/21 20:14 Dose: 650 mg Documented by: Al Hydroxide/Mg Hydroxide (Magnesium Hydrox/Alum Hydrox 30 Ml Oral.Susp) 30 ml PO Q6H PRN PRN Reason: Heartburn/Nausea Amlodipine Besylate (Amlodipine Besylate 5 Mg Tablet) 5 mg PO DAILY [facility]; Protocol Last Admin: 12/21/21 08:40 Dose: 5 mg Documented by: Buspirone HCl (Buspirone Hcl 10 Mg Tablet) 30 mg PO BID [facility] Last Admin: 12/21/21 08:39 Dose: 30 mg Documented by: Clonazepam (Clonazepam 0.5 Mg Tablet) 0.5 mg PO TID [facility] Last Admin: 12/21/21 14:57 Dose: 0.5 mg Documented by: Clonazepam (Clonazepam 0.5 Mg Tablet) 0.5 mg PO BID PRN PRN Reason: Anxiety Last Admin: 12/19/21 12:25 Dose: 0.5 mg Documented by: Fluoxetine HCl (Fluoxetine Hcl 20 Mg Capsule) 80 mg PO DAILY [facility] Last Admin: 12/21/21 08:39 Dose: 80 mg Documented by: Hydroxyzine HCl (Hydroxyzine Hcl 25 Mg Tablet) 25 mg PO Q6H PRN PRN Reason: Anxiety Last Admin: 12/17/21 04:24 Dose: 25 mg Documented by: Magnesium Hydroxide (Milk Of Magnesia 30 Ml Oral.Susp) 30 ml PO DAILY PRN PRN Reason: Constipation Last Admin: 12/03/21 09:28 Dose: 30 ml Documented by: Mirtazapine (Mirtazapine 30 Mg Tablet) 30 mg PO BEDTIME [facility] Last Admin: 12/20/21 20:06 Dose: 30 mg Documented by: Quetiapine Fumarate (Quetiapine Fumarate 50 Mg Tablet) 50 mg PO TID [facility] Last Admin: 12/21/21 14:57 Dose: 50 mg Documented by: Quetiapine Fumarate (Quetiapine Fumarate 25 Mg Tablet) 25 mg PO BID PRN PRN Reason: Anxiety Last Admin: 12/16/21 23:25 Dose: 25 mg Documented by: Ropinirole HCl (Ropinirole Hcl 0.25 Mg Tablet) 0.25 mg PO BID [facility] Last Admin: 12/21/21 08:39 Dose: 0.25 mg Documented by: Trazodone HCl (Trazodone Hcl 50 Mg Tablet) 50 mg PO BEDTIME PRN PRN Reason: Insomnia Last Admin: 12/20/21 20:06 Dose: 50 mg Documented by: Vitamin D (Cholecalciferol (Vitamin D3) 25 Mcg Tablet) 125 mcg PO DAILY [facility] Last Admin: 12/21/21 08:40 Dose: 125 mcg Documented by: Allergies Allergies Allergy/AdvReac Type Severity Reaction Status Date / Time paroxetine [From PAXIL] AdvReac Unknown AGITATION, Verified 11/19/21 12:38 MOOD SWINGS, ALL KINDS OF WEIRD THOUGHTS Assessment & Plan Assessment & Plan (1) Major depressive disorder, recurrent: Qualifiers: Active/Remission status: currently active Major depression episode severity: severe Psychotic features: with psychotic features Qualified Code(s): F33.3 - Major depressive disorder, recurrent, severe with psychotic symptoms Status: Acute Code(s): F33.9 - Major depressive disorder, recurrent, unspecified (2) Obsessive compulsive disorder: Status: Acute Code(s): F42.9 - Obsessive-compulsive disorder, unspecified Plan Adult male with a long history of OCD, major depressive disorder and other psychiatric conditions, readmitted for exacerbation of depression with suicidal ideation. Plan 1. Continue with same medications. 2. Increase BuSpar up to 30 mg p.o. t.i.d. 3. Discharge for tomorrow. I spent minutes with the patient and/or on the patient floor today, greater than?50% of which was spent counseling/coordinating care. Reason for contiued inpatient stay Substantial Risk for: harm to self, inability to function, rapid decompensation and med/psych decompensation
[2021-12-21 20:00] VITALS: BP 129/65; PULSE 69; RESP 19; TEMP 36.6; O2SAT 96
[2021-12-21] MEDS: traZODone HCL 50 MG TABLET PO (20:12)
[2021-12-21] MEDS: Mirtazapine 30 MG TABLET PO (20:13)
[2021-12-22 06:00] VITALS: BP 124/57; PULSE 67; TEMP 36.1; O2SAT 95
[2021-12-22] MEDS: amLODIPine Besylate 5 MG TABLET PO (08:23)
[2021-12-22] MEDS: FLUoxetine HCl 20 MG CAPSULE 80 MG PO (08:24)
[2021-12-22] MEDS: clonazePAM 0.5 MG TABLET PO (08:25)
[2021-12-22] MEDS: rOPINIRole HCL 0.25 MG TABLET PO (08:26)
[2021-12-22] MEDS: Cholecalciferol (Vitamin D3) 25 MCG TABLET 125 MCG PO (08:26)
[2021-12-22] MEDS: busPIRone HCl 10 MG TABLET 30 MG PO (08:26)
[2021-12-22] MEDS: QUEtiapine Fumarate 50 MG TABLET PO (08:26)
--- NOTE | 2021-12-22 09:37 | P.DS_ITS ---
DS: Providers Provider Date of Service: 12/22/21 Date of admission: 11/30/21 20:59 Date of discharge: 12/22/21 Primary care physician: Mikaela Physician Attending physician on discharge: Geraldo Choi DS: Diagnosis Discharge Diagnosis (1) Major depressive disorder, recurrent: Status: Acute (2) Obsessive compulsive disorder: Status: Acute DS: Medications Discharge Medications Home Medications: Home Medications Medication Instructions Recorded Confirmed clonazepam 0.5 mg tablet 0.5 mg PO BID 11/19/21 11/28/21 omega-3 fatty acids 1 cap PO DAILY 11/19/21 11/28/21 buspirone 10 mg tablet 1.5 tab PO BID 11/28/21 11/28/21 Previous Rx's Medication Instructions Recorded amlodipine 5 mg tablet 5 mg PO DAILY 30 Days #30 tab 12/22/21 buspirone 30 mg tablet 20 mg PO TID 30 Days #90 tab 12/22/21 cholecalciferol (vitamin D3) 25 125 mcg PO DAILY 30 Days #150 tab 12/22/21 mcg (1,000 unit) tablet (Vitamin D3) clonazepam 0.5 mg tablet 0.5 mg PO BID PRN 30 Days #30 tab 12/22/21 clonazepam 0.5 mg tablet 0.5 mg PO TID 30 Days #90 tab 12/22/21 fluoxetine 20 mg capsule 80 mg PO DAILY 30 Days #120 cap 12/22/21 mirtazapine 30 mg tablet 1 tab PO BEDTIME 30 Days #30 tab 12/22/21 quetiapine 25 mg tablet 25 mg PO BID PRN 30 Days #60 tab 12/22/21 quetiapine 50 mg tablet 50 mg PO TID 30 Days #90 tab 12/22/21 ropinirole 0.25 mg tablet 0.25 mg PO BID 30 Days #60 tab 12/22/21 trazodone 50 mg tablet 50 mg PO BEDTIME PRN 30 Days #30 12/22/21 tab Mental Status Exam Mental Status Exam Patient Appearance: Appropriate Patient Orientation: Person and Situation Level of Consciousness: Awake Patient Behavior: Guarded, Cooperative and Passive Mood Description: Depressed Affect Description: Constricted Ability to Follow Directions: Good Speech Pattern: Clear Hallucinations: None Delusions: Not Present Thought Process: Distracted and Linear Thought Content: positive for Circumstantial, positive for Goal Oriented, positi ve for Perseveration and positive for Poverty of Content Judgement: Fair DS: Summary Hospital Course Hospital Course: The patient was admitted for exacerbation of depressive symptoms with suicidal ideation. Please see HPI of the admission note for further details. The patient is very well known by the team since he was admitted a few months ago for similar presentation. We reviewed his list of medications and apparently after discharge, his outpatient providers discontinued Seroquel. We discussed risks, benefits, side-effects and alternatives and he agreed to restart Seroquel titrated up to 50 mg p.o. t.i.d. with for improvement of his anxiety and dysphoria. We did several family meetings with his brother and friend and apparently the patient is unable to take care of himself 100% when he is outside. The patient was able to participate in a few groups but he is at baseline, very anxious and dysphoric. He gets very anxious and suicidal whenever we discussed the possibility of discharge. It was clear that the patient wants to be on this locked facility since he feels safer. Physical therapy and occupational therapy reviewed his case and we proposed him if he will want to go to an assisted living facility where he would have more services on his daily care and he agreed with the plan. Since the patient was cooperative pleasant with no active suicidal ideation discharge planning was discussed. There were no safety concerns at the moment of discharge. Time spent discussing smoking cessation with patient: 3 to 10 minutes Status at Discharge Cognitive/behavioral status at discharge: At baseline Functional status at discharge: independent ambulation Overall status at discharge: patient is back to baseline Time Spent with Patient Time attestation: Total time spent providing and/or coordinating discharge services: Time spent: Less than 30 minutes Discharge Plan Discharge Patient Disposition: er [facility] Discharge Diagnosis: Major depressive disorder recurrent episode severe without psychosis. Obsessive-compulsive disorder Referrals: Peewee Walters [Other] - 12/22/21 1:00 pm (Your next appointment with Alex Walters is in office on 12/22/21 at 1:00PM.) Dr Miguel Angel Pike [facility] [Other] - 12/29/21 10:20 am (Your next appointment with Dr Miguel Angel Pike is 12/29/21 10:20am. The appointment is telehealth. ) [facility] [Other] - 1 Week Jo Mendez CHILD CUSTODY EVALUATOR [Nurse Practitioner] - 1 Week Discharge Medications: New buspirone 30 mg tablet 20 mg PO TID 30 Days Qty: 90 0RF quetiapine 25 mg Tablet 25 mg PO BID PRN (Reason: Anxiety) 30 Days Qty: 60 0RF trazodone 50 mg Tablet 50 mg PO BEDTIME PRN (Reason: Insomnia) 30 Days Qty: 30 0RF clonazepam 0.5 mg Tablet 0.5 mg PO TID 30 Days Qty: 90 0RF clonazepam 0.5 mg Tablet 0.5 mg PO BID PRN (Reason: Anxiety) 30 Days Qty: 30 0RF ropinirole 0.25 mg Tablet 0.25 mg PO BID 30 Days Qty: 60 0RF quetiapine 50 mg Tablet 50 mg PO TID 30 Days Qty: 90 0RF Continued omega-3 fatty acids Capsule 1 cap PO DAILY 0RF amlodipine 5 mg tablet 5 mg PO DAILY 30 Days Qty: 30 0RF mirtazapine 30 mg tablet 1 tab PO BEDTIME 30 Days Qty: 30 0RF fluoxetine 20 mg Capsule 80 mg PO DAILY 30 Days Qty: 120 0RF cholecalciferol (vitamin D3) [Vitamin D3] 25 mcg (1,000 unit) Tablet 125 mcg PO DAILY 30 Days Qty: 150 0RF Discontinued clonazepam 0.5 mg tablet 0.5 mg PO BID 0RF buspirone 10 mg tablet 1.5 tab PO BID 0RF Discharge Orders: Discharge Order (Routine); Ordered 12/22/21 Ordered By: Geraldo Choi Diet: advance to usual diet Activity on Discharge: As tolerated Stand Alone Forms: Patient Portal Discharge page Care Plan Goals: Care plan goals achieved in this unit Health Concerns: Continue outpatient services by primary care physician Plan of Treatment: Continue medication management Assessment: The patient is a middle-aged male with a long history of major depressive disorder, OCD and a remote history of alcohol use disorder readmitted for exacerbation of dysphoria and suicidal ideation. It was also noted that his level of functionality has decline so he agreed to be discharged to an [facility]. At the moment of the discharge, the patient was safe.
[2021-12-22 11:20] LABS: COVID-19 Test Negative (Negative); IDNOW Serial# 08D9AD1C
--- NOTE | 2021-12-22 11:36 | PC.NURSE ---
Patient alert and oriented x4. Vital signs stable. Patient presentation is brighter, pleasant and cooperative. Patient is med compliant and visible on the unit. Patient expresses readiness for discharge. All discharge istructions reviewed with patient and understanding was verbalized. All belongings were inventoried and accounted for with patient. Patient dressed appropriately for discharge and was escorted to front of hospital by staff to taxi.
== END 2021-12-22 11:30 | DRG 885 ==
LOC: HO.ED 11-30 21:10 → HO.PGERI 11-30 21:14
PROVIDERS: Physician Assistant; Admitting Provider Registered Nurse; Emergency Provider Emergency Medicine; Visit Provider Psychiatry & Neurology Psychiatry
DX: F33.3 Major depressive disorder, recurrent, severe with psychotic symptoms (principal); R45.851 Suicidal ideations; F42.9 Obsessive-compulsive disorder, unspecified; Z20.822 Contact with and (suspected) exposure to COVID-19; Z87.891 Personal history of nicotine dependence; Z79.899 Other long term (current) drug therapy
CPT/HCPCS: 36415; 80053; 80061; 80307; 82077; 82607; 83036; 84439; 84443; 85025; 87635; 93005; 99285

== ENCOUNTER 2022-07-30 08:22 | Day surgery (SDC) | payer MEDICARE, MEDICAID, SELFPAY ==
[2022-07-27 09:34] VITALS: BMI 28.3
[2022-07-30 08:38] VITALS: BP 137/92; PULSE 77; RESP 18; TEMP 36.1; O2SAT 98
--- NOTE | 2022-07-30 09:06 | HO.ANESPROP2 ---
HPI - Anesthesia Eval Consult details Narrative: 66yo male patient for colonoscopy PMFSH Active Problems Active Problems: All Active Problems (Updated 07/27/22 @ 09:34 by Sakshi Warner RN) Major depressive disorder, recurrent (Acute) Obsessive compulsive disorder (Acute) Hypertension (Acute) Past Medical History Medical History Anxiety Depression History of electroconvulsive therapy HTN (hypertension) OCD (obsessive compulsive disorder) RBBB (right bundle branch block) Family History Family history of problems with anesthesia: No Surgical History Surgical History History of surgery on arm History of Problems with Anesthesia: No Social History Social History Household Members: None Housing: Other Housing Other:: Elderly apt. Do you presently have visiting nurse or other home services: Yes Patient Tobacco Use Status: Former Tobacco user Quit Date: 1996 Tobacco use type: Cigarette e-Cigarette/Vaping Use: Never Used Second Hand Smoke Exposure: No Use of substances other than those prescribed or required for medical reasons: No Substance Use Type: Former Substance User Are you DNR?: No Advance Directives: No Advance Directives Information Provided: Yes service: No Sexual orientation: Straight/Heterosexual Meds Allergies Allergy/AdvReac Type Severity Reaction Status Date / Time paroxetine [From PAXIL] AdvReac Unknown AGITATION, Verified 11/19/21 12:38 MOOD SWINGS, ALL KINDS OF WEIRD THOUGHTS Home Medications Medication Instructions Recorded Confirmed Last Taken Type omega-3 fatty acids 1 cap PO DAILY 11/19/21 11/28/21 11/28/21 08:00 History amlodipine 2.5 mg-benazepril 10 mg 1 cap PO DAILY 07/27/22 07/27/22 Unknown History capsule quetiapine 50 mg tablet 50 mg PO BEDTIME 07/27/22 07/27/22 Unknown History Exam Exam Date and Time: July 30, [id number] Height,Weight and Vital Signs: Height 6 ft 3.5 in Weight 104.326 kg Last Vital Signs Temp 97.0 F 07/30/22 08:38 Pulse 77 07/30/22 08:38 Resp 18 07/30/22 08:38 BP 137/92 H 07/30/22 08:38 Pulse Ox 98 07/30/22 08:38 O2 Del Method 07/30/22 08:38 Airway Mallampati Class: II TM Dist: >3cm Neck ROM: Full Denture: Upper and Lower Heart: RRR Lungs: CTAB Assessment and Plan Assessment Anesthesia Assessment: Anesthesia Plan Discussed and Chart Reviewed Final Anesthetic Review Family History of Problems with Anesthesia: No History of Problems with Anesthesia: No NPO: Yes ASA Class: III Final Preanesthetic Review: No Changes in Pt Med Stat, Meds/Allgs Chart Reviewed, Consent Obtained/Reviewed and Anes Risks/Benef Reviewed Patient Risk: Intermediate Procedure Risk: Low Assessment/Block/Sedation in SS: Assess/Block/Sedation-SS Anesthetic Plan Anesthetic Plan: MAC: Disposition: Standard PACU
--- NOTE | 2022-07-30 09:19 | P.HPSUR_ITS ---
Pre-Procedural Eval Section A Date of Service: 07/30/22 Section B Chief Complaint: screening Details of Present Illness: see H&P no changes Relevant Family History (Specify if Yes): No Relevant Social History: None Present Medications: see Short Stay Collaborative assessment Medical History: No relevant PMH History of Previous Operations: No relevant previous surgery Allergies: Allergies Allergy/AdvReac Type Severity Reaction Status Date / Time paroxetine [From PAXIL] AdvReac Unknown AGITATION, Verified 11/19/21 12:38 MOOD SWINGS, ALL KINDS OF WEIRD THOUGHTS Review of Systems Sugical H&P ROS: Negative: Constitution, Cardiovascular, Respiratory, Neurological, Psychiatric, Hem-Onc, Allergic/Immunologic, Gastrointestinal, Genitourinary, Musculoskeletal, Integumentary, Endocrine and Eyes/Ears/Nose/ Throat Exam Surgical H&P Exam: Normal: HEENT, Normal: Heart, Normal: Lungs, Normal: Extremities, Normal: Abdomen, Normal: Skin and Normal: Neurological Plan Diagnosis/Plan: Unchanged I have reviewed the history and physical and performed a pertinent physical examination on my patient. No changes have occurred unless specified.
[2022-07-30] MEDS: Lactated Ringers 1,000 ML 100 ML IVCONT (09:21)
[2022-07-30 09:57] VITALS: BP 107/62; PULSE 61; RESP 20; TEMP 36.1; O2SAT 95
--- NOTE | 2022-07-30 09:58 | PM.OP ---
Brief Operative Note Date of Service: 07/30/22 Pre-op diagnosis: screening Post-op diagnosis: same Procedure: colonoscopy Surgeon: Reji Peralta Anesthesia: MAC Was an Plc Technician used for this Procedure?: No Estimated blood loss (mL): 2 Pathology: other Condition: stable Disposition: PACU
[2022-07-30 10:12] VITALS: BP 113/71; PULSE 60; RESP 18; O2SAT 96
[2022-07-30 10:18] VITALS: TEMP 36.3
--- NOTE | 2022-07-30 22:02 | OP_ITS ---
SURGEON: Reji Peralta MD INDICATIONS: Colon cancer screening. PREOPERATIVE DIAGNOSIS: POSTOPERATIVE DIAGNOSIS: PROCEDURE PERFORMED: Colonoscopy to the terminal ileum with biopsy on 07/30/22 ESTIMATED BLOOD LOSS: COMPLICATIONS: ANESTHESIA: Monitored anesthesia care. ASSISTANTS: SPECIMENS: DESCRIPTION OF PROCEDURE: History and physical performed. The risks and benefits of the procedure were explained to the patient. Informed consent was obtained. The patient was placed in the left lateral decubitus position. A digital rectal exam was performed and was found to be normal. The Olympus pediatric video colonoscope was introduced into the rectum and advanced to the cecum without difficulty. The cecum was identified by transillumination, palpation, and identification of ileocecal valve. Examination was performed. The scope was removed. He tolerated the procedure well, and was taken to the recovery area in stable condition. FINDINGS: The terminal ileum was normal. The visualized colonic mucosa was normal. The cecum at the level of the ileocecal valve with a less than 5 mm polyp, which was removed with a biopsy forceps. No other polyps were identified. There appeared to be a small 8 to 10 mm of the lipoma in the right colon. There was some stool and undigested food material in the descending colon which limited the examination for detection of small polyps. This was washed and suctioned as best possible, but did clog the scope frequently. No other polyps were seen. Retroflexed examination showed moderate-sized internal hemorrhoids. IMPRESSION: Colon polyp. RECOMMENDATION: Follow up the biopsy results. MD GEO Saez/ROCIO / [id number] [facility]ITALOliver
== END 2022-07-30 12:16 | disposition home or self-care (01) ==
PROVIDERS: PCP Nurse Practitioner Primary Care; Visit Provider Internal Medicine Gastroenterology
PROC: 0DJD8ZZ Inspection of Lower Intestinal Tract, Via Natural or Artificial Opening Endoscopic (ICD-10-PCS; CPT 45378; principal; 2022-07-30 09:20)
DX: Z12.11 Encounter for screening for malignant neoplasm of colon (principal); D12.0 Benign neoplasm of cecum; K64.8 Other hemorrhoids; I10 Essential (primary) hypertension; F41.8 Other specified anxiety disorders; F42.9 Obsessive-compulsive disorder, unspecified; I45.10 Unspecified right bundle-branch block; Z79.899 Other long term (current) drug therapy
CPT/HCPCS: 45380; 88305

== ENCOUNTER 2023-06-20 15:25 | Emergency (ER) | payer MEDICARE, MEDICAID, SELFPAY ==
--- NOTE | 2023-06-20 16:01 | ED_ITS ---
HPI - General Adult General Chief complaint: General Medical Stated complaint: leg swelling Time Seen by Provider: 06/20/23 23:15 Source: patient Mode of arrival: ambulatory Limitations: no limitations History of Present Illness HPI narrative: Patient history of OCD out of his Klonopin 2 weeks ago started scratching his forearm got erythematous and red seen by MD at [facility] 5 days ago and started on cephalexin comes here as the redness is not getting better getting worse with weeping wounds no fever no chills Related Data Home Medications Medication Instructions Recorded Confirmed omega-3 fatty acids 1 cap PO DAILY 11/19/21 11/28/21 amlodipine 2.5 mg-benazepril 10 mg 1 cap PO DAILY 07/27/22 07/27/22 capsule quetiapine 50 mg tablet 50 mg PO BEDTIME 07/27/22 07/27/22 Previous Rx's Medication Instructions Recorded amlodipine 5 mg tablet 5 mg PO DAILY 30 days #30 tabs 12/22/21 buspirone 30 mg tablet 20 mg PO TID 30 days #90 tabs 12/22/21 cholecalciferol (vitamin D3) 25 125 mcg PO DAILY 30 days #150 tabs 12/22/21 mcg (1,000 unit) tablet (Vitamin D3) clonazepam 0.5 mg tablet 0.5 mg PO BID PRN Anxiety 30 days 12/22/21 #30 tabs clonazepam 0.5 mg tablet 0.5 mg PO TID 30 days #90 tabs 12/22/21 fluoxetine 20 mg capsule 80 mg PO DAILY 30 days #120 caps 12/22/21 mirtazapine 30 mg tablet 1 tab PO BEDTIME 30 days #30 tabs 12/22/21 quetiapine 25 mg tablet 25 mg PO BID PRN Anxiety 30 days 12/22/21 #60 tabs ropinirole 0.25 mg tablet 0.25 mg PO BID 30 days #60 tabs 12/22/21 trazodone 50 mg tablet 50 mg PO BEDTIME PRN Insomnia 30 12/22/21 days #30 tabs cephalexin 500 mg capsule 500 mg PO QID 7 days #28 caps 06/21/23 doxycycline hyclate 100 mg tablet 100 mg PO BID #20 tabs 06/21/23 hydroxyzine HCl 50 mg tablet 50 mg PO Q6-8H PRN itching #20 tabs 06/21/23 prednisone 20 mg tablet 40 mg PO DAILY #10 tabs 06/21/23 Allergies Allergy/AdvReac Type Severity Reaction Status Date / Time paroxetine [From PAXIL] AdvReac Unknown AGITATION, Verified 11/19/21 12:38 MOOD SWINGS, ALL KINDS OF WEIRD THOUGHTS Review of Systems Review of Systems: Yes all other systems are reviewed and are negative [facility] Past Medical History Medical History Anxiety Depression History of electroconvulsive therapy HTN (hypertension) OCD (obsessive compulsive disorder) RBBB (right bundle branch block) Surgical History History of surgery on arm Social History Social History Household Members: None Housing: Other Housing Other:: Elderly apt. Do you presently have visiting nurse or other home services: Yes Patient Tobacco Use Status: Former Tobacco user Quit Date: 1996 Tobacco use type: Cigarette e-Cigarette/Vaping Use: Never Used Second Hand Smoke Exposure: No Substance Use Type: Former Substance User Advance Directives: No Advance Directives Information Provided: Yes service: No Sexual orientation: Straight/Heterosexual Physical Exam ED Vital Signs: Vital Signs - 24 hr 06/20/23 16:03 06/20/23 23:24 Temperature 97.5 F 97.5 F Pulse Rate 57 55 Respiratory Rate 18 16 Blood Pressure 125/75 162/91 H Pulse Oximetry 99 98 Oxygen Delivery Method Room Air Room Air BMI result Body Mass Index 24.7 Appearance: Alert. Oriented X3. No acute distress. ENT: Pharynx normal. Oral Mucosa moist Neck: Normal inspection. Neck supple. CVS: Normal heart rate and rhythm. Pulses normal. Respiratory: No respiratory distress. Equal air entry bilateral, Abdomen: Soft and nontender. Bowel sounds are present, Skin: Skin warm and dry. Normal skin color. Normal skin turgor. Extremities: Rash as picture Neuro: Oriented X 3. Course Course Course Narrative: This is an RME: Additional HPI, ROS, PE not included below will be deferred to primary provider. 67-year-old male presents with redness, warmth to bilateral upper extremities, chest anterior and posterior going on for past few weeks worsening over the past few days patient was seen for this at [facility], was prescribed a cream/lotion which is making it worse now he states the rash is much worse. Was also recently on atbx orally but he forgets what kind PE- w/ singnificant errythema and warmth to b/l UE, unable to visualize chest here in triage ( will leave this to primary provider ) Plan labs Medical Decision Making Medical Decision Making [facility] Narrative: Will discharge patient on doxycycline along with cephalexin and give a short course of prednisone advised patient not to scratch Lab Data MDM Lab Attestation statement: I reviewed the patient's lab results. 06/20/23 17:10 06/20/23 17:09 Labs: Lab Results 06/20/23 06/20/23 06/20/23 Range/Units 17:09 17:09 17:10 WBC 8.1 (4.8-10.8) X10*3/uL RBC 4.40 L (4.60-5.80) X10*6/uL Hgb 13.1 L (14.0-18.0) g/dl Hct 39.1 L (42.0-52.0) % MCV 88.9 (80.0-98.0) fL MCH 29.8 (27.0-33.0) pg MCHC 33.5 (31.0-36.0) g/dl RDW 13.3 (11.0-16.0) % Plt Count 196 (160-400) X10*3/uL MPV 10.3 (9.4-12.4) fL Immature Gran % (Auto) 0.1 (0.0-0.4) % Neut % (Auto) 63.0 (45-73) % Lymph % (Auto) 22.6 (20-40) % [place] % (Auto) 7.8 (2-11) % Eos % (Auto) 5.8 H (0-4) % Baso % (Auto) 0.7 (0-2) % Lymph # (Auto) 1.8 (1.2-4.9) X10*3/uL [place] # (Auto) 0.6 (0.1-1.2) X10*3/uL Eos # (Auto) 0.5 H (0.0-0.4) X10*3/uL Baso # (Auto) 0.1 (0.0-0.2) X10*3/uL Abs Immat Gran (auto) 0.01 (0.00-0.03) X10*3/uL Absolute Neuts (auto) 5.1 (2.0-8.3) x10*3/uL Absolute Nucleated RBC 0.000 (0.0-0.012) X10*3/uL Nucleated RBC % (auto) 0.0 (0.0-0.2) /100WBC ESR (0-15) MM/HR Sodium 139 (135-145) mmol/L Potassium 4.0 (3.3-5.1) mmol/L Chloride 109 H (96-108) mmol/L Carbon Dioxide 21 L (22-29) mmol/L Anion Gap 13 (12-20) BUN 18 H (9-16) mg/dL Creatinine 1.04 (0.5-1.4) mg/dL Estim Creat Clear Calc 80.1 Estimated GFR > 60 Random Glucose 86 (60-115) mg/dL Lactic Acid 1.5 (0.5-2.0) mmol/L Calcium 9.2 (8.4-10.2) mg/dL Total Bilirubin 0.3 (0.0-1.0) mg/dL AST 22 (5-37) U/L ALT 22 (0-40) U/L Alkaline Phosphatase 61 (39-117) U/L Total Creatine Kinase 101 (38-174) U/L C-Reactive Protein 0.68 H (< or = 0.50) mg/dL Total Protein 6.4 L (6.5-8.0) g/dL Albumin 3.8 (3.5-5.0) g/dL 06/20/23 Range/Units 17:10 WBC (4.8-10.8) X10*3/uL RBC (4.60-5.80) X10*6/uL Hgb (14.0-18.0) g/dl Hct (42.0-52.0) % MCV (80.0-98.0) fL MCH (27.0-33.0) pg MCHC (31.0-36.0) g/dl RDW (11.0-16.0) % Plt Count (160-400) X10*3/uL MPV (9.4-12.4) fL Immature Gran % (Auto) (0.0-0.4) % Neut % (Auto) (45-73) % Lymph % (Auto) (20-40) % [place] % (Auto) (2-11) % Eos % (Auto) (0-4) % Baso % (Auto) (0-2) % Lymph # (Auto) (1.2-4.9) X10*3/uL [place] # (Auto) (0.1-1.2) X10*3/uL Eos # (Auto) (0.0-0.4) X10*3/uL Baso # (Auto) (0.0-0.2) X10*3/uL Abs Immat Gran (auto) (0.00-0.03) X10*3/uL Absolute Neuts (auto) (2.0-8.3) x10*3/uL Absolute Nucleated RBC (0.0-0.012) X10*3/uL Nucleated RBC % (auto) (0.0-0.2) /100WBC ESR 5 (0-15) MM/HR Sodium (135-145) mmol/L Potassium (3.3-5.1) mmol/L Chloride (96-108) mmol/L Carbon Dioxide (22-29) mmol/L Anion Gap (12-20) BUN (9-16) mg/dL Creatinine (0.5-1.4) mg/dL Estim Creat Clear Calc Estimated GFR Random Glucose (60-115) mg/dL Lactic Acid (0.5-2.0) mmol/L Calcium (8.4-10.2) mg/dL Total Bilirubin (0.0-1.0) mg/dL AST (5-37) U/L ALT (0-40) U/L Alkaline Phosphatase (39-117) U/L Total Creatine Kinase (38-174) U/L C-Reactive Protein (< or = 0.50) mg/dL Total Protein (6.5-8.0) g/dL Albumin (3.5-5.0) g/dL Discharge Plan Discharge Clinical Impression: Dermatitis, Cellulitis Patient Disposition: Home, Self-Care Instructions: Cellulitis (ED), Dermatitis (ED) Additional Instructions: Continue cephalexin as provided by the provider for total of 14 days Doxycycline 1 capsule twice daily for 10 days Prednisone and Atarax as prescribed Follow with PCP if not better Prescriptions: New prednisone 20 mg tablet 40 mg PO DAILY Qty: 10 0RF cephalexin 500 mg capsule 500 mg PO QID 7 Days Qty: 28 0RF doxycycline hyclate 100 mg tablet 100 mg PO BID Qty: 20 0RF hydroxyzine HCl 50 mg tablet 50 mg PO Q6-8H PRN (Reason: itching) Qty: 20 0RF No Action omega-3 fatty acids Capsule 1 cap PO DAILY buspirone 30 mg tablet 20 mg PO TID 30 Days Qty: 90 0RF quetiapine 25 mg Tablet 25 mg PO BID PRN (Reason: Anxiety) 30 Days Qty: 60 0RF trazodone 50 mg Tablet 50 mg PO BEDTIME PRN (Reason: Insomnia) 30 Days Qty: 30 0RF clonazepam 0.5 mg Tablet 0.5 mg PO TID 30 Days Qty: 90 0RF clonazepam 0.5 mg Tablet 0.5 mg PO BID PRN (Reason: Anxiety) 30 Days Qty: 30 0RF ropinirole 0.25 mg Tablet 0.25 mg PO BID 30 Days Qty: 60 0RF amlodipine 5 mg tablet 5 mg PO DAILY 30 Days Qty: 30 0RF mirtazapine 30 mg tablet 1 tab PO BEDTIME 30 Days Qty: 30 0RF fluoxetine 20 mg Capsule 80 mg PO DAILY 30 Days Qty: 120 0RF cholecalciferol (vitamin D3) [Vitamin D3] 25 mcg (1,000 unit) Tablet 125 mcg PO DAILY 30 Days Qty: 150 0RF amlodipine-benazepril 2.5-10 mg Capsule 1 cap PO DAILY quetiapine 50 mg tablet 50 mg PO BEDTIME
[2023-06-20 16:03] VITALS: BP 125/75; PULSE 57; RESP 18; TEMP 36.4; O2SAT 99; BMI 24.7
[2023-06-20 17:15] LABS: MANUAL DIFF FLAG NO
[2023-06-20 17:24] LABS: Basophils Absolute Auto 0.1 X10*3/uL (0.0-0.2); Basophils Percent Auto 0.7 % (0-2); Eosinophils Absolute Auto 0.5 X10*3/uL (0.0-0.4); Eosinophils Percent Auto 5.8 % (0-4); Hematocrit 39.1 % (42.0-52.0); Hemoglobin 13.1 g/dl (14.0-18.0); Imm Gran Abs Auto 0.01 X10*3/uL (0.00-0.03); Imm Gran Pct Auto 0.1 % (0.0-0.4); Lymphocytes Absolute Auto 1.8 X10*3/uL (1.2-4.9); Lymphocytes Percent Auto 22.6 % (20-40); Mean Corpuscular HGB Conc 33.5 g/dl (31.0-36.0); Mean Corpuscular Hemoglobin 29.8 pg (27.0-33.0); Mean Corpuscular Volume 88.9 fL (80.0-98.0); Mean Platelet Volume 10.3 fL (9.4-12.4); Monocytes Absolute Auto 0.6 X10*3/uL (0.1-1.2); Monocytes Percent Auto 7.8 % (2-11); Neutrophils Absolute Auto 5.1 x10*3/uL (2.0-8.3); Platelet Count 196 X10*3/uL (160-400); Red Cell Distribution Width 13.3 % (11.0-16.0); White Blood Count 8.1 X10*3/uL (4.8-10.8)
[2023-06-20 17:30] LABS: Lactic Acid 1.5 mmol/L (0.5-2.0)
[2023-06-20 17:36] LABS: Alanine Aminotransferase 22 U/L (0-40); Albumin Level 3.8 g/dL (3.5-5.0); Alkaline Phosphatase 61 U/L (39-117); Anion Gap 13 (12-20); Aspartate Amino Transferase 22 U/L (5-37); Bilirubin Total 0.3 mg/dL (0.0-1.0); Blood Urea Nitrogen 18 mg/dL (9-16); C Reactive Protein 0.68 mg/dL (< or = 0.50); Calcium 9.2 mg/dL (8.4-10.2); Carbon Dioxide 21 mmol/L (22-29); Chloride 109 mmol/L (96-108); Creatinine Clr Calc Pharmacy 80.1; Estimated Glomerular Filt Rate > 60; Glucose Random 86 mg/dL (60-115); Sodium 139 mmol/L (135-145); Total Protein 6.4 g/dL (6.5-8.0)
[2023-06-20 18:11] LABS: Erythrocyte Sedimentation Rate 5 MM/HR (0-15)
[2023-06-20 23:24] VITALS: BP 162/91; PULSE 55; RESP 16; TEMP 36.4; O2SAT 98
--- NOTE | 2023-06-20 23:25 | MHC.EDTECH ---
THIS PCT JUST ASSUMED CARE OF PATIENT AT 2300 ,VITALS SIGN TAKEN ,PT WATCHING TELEVISION .
[2023-06-21 00:23] VITALS: BP 166/95; PULSE 56; RESP 16; TEMP 36.5; O2SAT 98
[2023-06-21] MEDS: Doxycycline Monohydrate 100 MG CAPSULE PO (00:25)
[2023-06-21] MEDS: diphenhydrAMINE HCL 25 MG CAPSULE 50 MG PO (00:25)
[2023-06-21] MEDS: dexAMETHasone 2 MG TABLET 10 MG PO (00:26)
--- NOTE | 2023-06-21 00:50 | MHC.EDTECH ---
call out to ivan at 0049 to book transport for pt back to snf, estimated eta given was 0145
== END 2023-06-21 02:15 | disposition home or self-care (01) ==
PROVIDERS: Physician Assistant; Emergency Provider Internal Medicine
DX: L30.8 Other specified dermatitis (principal); L03.114 Cellulitis of left upper limb; L03.113 Cellulitis of right upper limb; I10 Essential (primary) hypertension; F42.9 Obsessive-compulsive disorder, unspecified; Z79.899 Other long term (current) drug therapy
CPT/HCPCS: 36415; 80053; 82550; 83605; 85025; 85652; 86140; 87040; 99283; J8540

== ENCOUNTER 2023-10-27 09:30 | Emergency (ER) | payer MEDICARE, MEDICAID, SELFPAY ==
[2023-10-27 09:38] VITALS: BP 128/76; PULSE 80; O2SAT 98
[2023-10-27 09:50] VITALS: BP 121/69; PULSE 71; RESP 16; TEMP 36.3; O2SAT 97; BMI 24.0
--- NOTE | 2023-10-27 13:43 | ED.SKABFB ---
HPI - Skin/Abscess/Foreign Bdy General Chief complaint: Skin/Abscess/Foreign Body Stated complaint: ITCHY RASH ON ARMS X1 MONTH PER EMS Time Seen by Provider: 10/27/23 13:39 Source: patient, EMS, RN notes reviewed and old records reviewed Mode of arrival: EMS History of Present Illness HPI narrative: 67-year-old male with a past medical history of RBBB, OCD, HTN, anxiety, depression, presenting to the ED complaining of acute on chronic bilateral forearm rash x months. Admits to using OTC topical creams at home without relief. Admits has never seen Dermatology. Denies new exposures/cream/lotions, detergents, medications. Patient was seen and treated in our ED for similar symptoms in the past. Denies fever/chills, weeping, difficulty or inability to swallow, wheezing, SOB MD complaint: rash Related Data Home Medications Medication Instructions Recorded Confirmed omega-3 fatty acids 1 cap PO DAILY 11/19/21 11/28/21 amlodipine 2.5 mg-benazepril 10 mg 1 cap PO DAILY 07/27/22 07/27/22 capsule quetiapine 50 mg tablet 50 mg PO BEDTIME 07/27/22 07/27/22 Previous Rx's Medication Instructions Recorded amlodipine 5 mg tablet 5 mg PO DAILY 30 days #30 tabs 12/22/21 buspirone 30 mg tablet 20 mg (0.6667 x 30 mg) PO TID 30 12/22/21 days #90 tabs cholecalciferol (vitamin D3) 25 125 mcg (5 x 25 mcg (1,000 unit)) 12/22/21 mcg (1,000 unit) tablet (Vitamin PO DAILY 30 days #150 tabs D3) clonazepam 0.5 mg tablet 0.5 mg PO BID PRN Anxiety 30 days 12/22/21 #30 tabs clonazepam 0.5 mg tablet 0.5 mg PO TID 30 days #90 tabs 12/22/21 fluoxetine 20 mg capsule 80 mg (4 x 20 mg) PO DAILY 30 days 12/22/21 #120 caps mirtazapine 30 mg tablet 1 tab PO BEDTIME 30 days #30 tabs 12/22/21 quetiapine 25 mg tablet 25 mg PO BID PRN Anxiety 30 days 12/22/21 #60 tabs ropinirole 0.25 mg tablet 0.25 mg PO BID 30 days #60 tabs 02/01/22 trazodone 50 mg tablet 50 mg PO BEDTIME PRN Insomnia 30 12/22/21 days #30 tabs cephalexin 500 mg capsule 500 mg PO QID 7 days #28 caps 06/21/23 doxycycline hyclate 100 mg tablet 100 mg PO BID #20 tabs 06/21/23 hydroxyzine HCl 50 mg tablet 50 mg PO Q6-8H PRN itching #20 tabs 06/21/23 prednisone 20 mg tablet 40 mg (2 x 20 mg) PO DAILY #10 tabs 06/21/23 Allergies Allergy/AdvReac Type Severity Reaction Status Date / Time paroxetine [From PAXIL] AdvReac Unknown AGITATION, Verified 11/19/21 12:38 MOOD SWINGS, ALL KINDS OF WEIRD THOUGHTS Review of Systems Review of Systems: Constitutional: No Fever, No Chills ENT/Mouth: No Ear Pain, No Nasal Congestion, No sore throat, No Rhinorrhea, No Swallowing Difficulty Cardiovascular: No Chest Pain, No SOB Respiratory: No Cough Gastrointestinal: No Nausea, No Vomiting, No Abdominal pain Musculoskeletal: No joint pain, No Myalgias, No Joint Swelling Skin: No Skin Lesions, + rash Neuro: No Weakness Yes all other systems are reviewed and are negative Constitutional: Constitutional: Reports as per [facility] Past Medical History Attestation statement: The following information was validated with the patient. Source: old records reviewed Medical History History of electroconvulsive therapy RBBB (right bundle branch block) OCD (obsessive compulsive disorder) HTN (hypertension) Anxiety Depression Surgical History History of surgery on arm Social History Social History Household Members: None Housing: Other Housing Other:: Elderly apt. Do you presently have visiting nurse or other home services: Yes Patient Tobacco Use Status: Former Tobacco user Quit Date: 1996 Tobacco use type: Cigarette e-Cigarette/Vaping Use: Never Used Second Hand Smoke Exposure: No Substance Use Type: Former Substance User Advance Directives: No Advance Directives Information Provided: Yes service: No Sexual orientation: Straight/Heterosexual Physical Exam Vital Signs: Vital Signs: Last Vital Signs Temp 97.3 F 10/27/23 09:50 Pulse 71 10/27/23 09:50 Resp 16 10/27/23 09:50 BP 121/69 10/27/23 09:50 Pulse Ox 97 10/27/23 09:50 O2 Del Method Room Air 10/27/23 09:50 BMI result Body Mass Index 24.0 Const: General: cooperative, healthy appearing and no acute distress Orientation/consciousness: patient oriented x3 Limitations: no limitations HEENT: Head: Yes normal to inspection and Yes atraumatic Ears: hearing grossly normal bilaterally General nose exam: Normal external nose present Face and sinus: Yes normal facial exam Eyes: General: appearance normal, both eyes and all related structures EOM: EOMs intact bilaterally Neck: Neck: Yes normal visual inspection and Yes no meningeal signs Resp: Effort & Inspection: normal respiratory effort and no respiratory distress Auscultation: clear to auscultation bilaterally Cardio: Rate: regular rate Heart sounds: S1 normal heart sound present and S2 normal heart sound present Skin: Other: Patient for to images above. Erythematous rash with dry skin/scaling noted. No warmth. No streaking. No mucous membrane or palm/sole involvement Wounds: no wounds Neuro: General: patient oriented x3, tone normal and no meningeal signs Cranial nerves: Yes CN's II-XII intact bilaterally Gait exam (Neuro): Normal gait present Extrem: General: Yes normal to inspection Course Course Course Narrative: -no leukocytosis. BUN chronically elevated. ESR/CRP WNL > plan to DC with p.o. antibiotics, topical hydrocortisone, and dermatology follow-up Results discussed with patient including worrisome signs and symptoms and strict return precautions, and when to return to the emergency department. They verbalized understanding and feel safe for discharge at this time. Medications Administered Discontinued Medications Generic Name Dose Route Start Last Admin Trade Name Freq PRN Reason Stop Dose Admin Hydrocortisone 1 appl 10/27/23 14:29 10/27/23 15:29 Hydrocortisone 1 % Cream 28.35 Gm Tube TOPICAL 10/27/23 14:30 1 appl ONCE ONE Administration Protocol Medical Decision Making Medical Decision Making MDM Narrative: 67-year-old male with a past medical history of RBBB, OCD, HTN, anxiety, depression, presenting to the ED complaining of acute on chronic bilateral forearm rash x months. On exam vital signs stable, NAD, nontoxic appearing, physical exam as noted above. Concern for contact dermatitis vs psoriasis vs cellulitis. Low suspicion for SJS/TENS Plan: Labs, dermatology follow-up Please refer to course for remaining clinical decision making, interpretation of labs/imaging results, and discussions with consultants and/or family members. Differential Diagnosis Differential Diagnoses: The differential diagnosis associated with the presentation includes As above Admission/Observation Consideration of admission/observation: Escalation of care including admission/observation considered Lab Data MDM Lab Attestation statement: I reviewed the patient's lab results. 10/27/23 14:33 10/27/23 14:33 Labs: Lab Results 10/27/23 Range/Units 14:33 WBC 7.7 (4.8-10.8) X10*3/uL RBC 4.30 L (4.60-5.80) X10*6/uL Hgb 13.1 L (14.0-18.0) g/dl Hct 38.0 L (42.0-52.0) % MCV 88.4 (80.0-98.0) fL MCH 30.5 (27.0-33.0) pg MCHC 34.5 (31.0-36.0) g/dl RDW 13.6 (11.0-16.0) % Plt Count 183 (160-400) X10*3/uL MPV 10.2 (9.4-12.4) fL Immature Gran % (Auto) 0.3 (0.0-0.4) % Neut % (Auto) 67.4 (45-73) % Lymph % (Auto) 23.3 (20-40) % [place] % (Auto) 6.0 (2-11) % Eos % (Auto) 2.5 (0-4) % Baso % (Auto) 0.5 (0-2) % Lymph # (Auto) 1.8 (1.2-4.9) X10*3/uL [place] # (Auto) 0.5 (0.1-1.2) X10*3/uL Eos # (Auto) 0.2 (0.0-0.4) X10*3/uL Baso # (Auto) 0.0 (0.0-0.2) X10*3/uL Abs Immat Gran (auto) 0.02 (0.00-0.03) X10*3/uL Absolute Neuts (auto) 5.2 (2.0-8.3) x10*3/uL Absolute Nucleated RBC 0.000 (0.0-0.012) X10*3/uL Nucleated RBC % (auto) 0.0 (0.0-0.2) /100WBC ESR 2 (0-15) MM/HR Sodium 141 (135-145) mmol/L Potassium 4.7 (3.3-5.1) mmol/L Chloride 110 H (96-108) mmol/L Carbon Dioxide 26 (22-29) mmol/L Anion Gap 10 L (12-20) BUN 24 H (9-16) mg/dL Creatinine 1.17 (0.5-1.4) mg/dL Estim Creat Clear Calc 71.2 Estimated GFR > 60 Random Glucose 92 (60-115) mg/dL Calcium 9.0 (8.4-10.2) mg/dL C-Reactive Protein < 0.10 (< or = 0.50) mg/dL Radiology Impression Discussion of test interpretation with radiology: I have reviewed the radiologist's reading. External Record Review External record reviewed: Inpatient record, Office record, Outpatient record, Prior outpatient labs, Prior outpatient radiology, Primary care record and Outside ED record Tests considered The following testing was considered but not selected: As above Prescription Management I considered prescription management with: Pain Medication and Antibiotic Chronic Conditions Patient?s care impacted by: Hypertension Discharge Plan Discharge Clinical Impression: Cellulitis, Rash Patient Disposition: Home, Self-Care Instructions: Cellulitis (DC), Acute Rash (ED) Prescriptions: No Action omega-3 fatty acids Capsule 1 cap PO DAILY buspirone 30 mg tablet 20 mg PO TID 30 Days Qty: 90 0RF quetiapine 25 mg Tablet 25 mg PO BID PRN (Reason: Anxiety) 30 Days Qty: 60 0RF trazodone 50 mg Tablet 50 mg PO BEDTIME PRN (Reason: Insomnia) 30 Days Qty: 30 0RF clonazepam 0.5 mg Tablet 0.5 mg PO TID 30 Days Qty: 90 0RF clonazepam 0.5 mg Tablet 0.5 mg PO BID PRN (Reason: Anxiety) 30 Days Qty: 30 0RF ropinirole 0.25 mg Tablet 0.25 mg PO BID 30 Days Qty: 60 0RF amlodipine 5 mg tablet 5 mg PO DAILY 30 Days Qty: 30 0RF mirtazapine 30 mg tablet 1 tab PO BEDTIME 30 Days Qty: 30 0RF fluoxetine 20 mg Capsule 80 mg PO DAILY 30 Days Qty: 120 0RF cholecalciferol (vitamin D3) [Vitamin D3] 25 mcg (1,000 unit) Tablet 125 mcg PO DAILY 30 Days Qty: 150 0RF amlodipine-benazepril 2.5-10 mg Capsule 1 cap PO DAILY quetiapine 50 mg tablet 50 mg PO BEDTIME prednisone 20 mg tablet 40 mg PO DAILY Qty: 10 0RF cephalexin 500 mg capsule 500 mg PO QID 7 Days Qty: 28 0RF doxycycline hyclate 100 mg tablet 100 mg PO BID Qty: 20 0RF hydroxyzine HCl 50 mg tablet 50 mg PO Q6-8H PRN (Reason: itching) Qty: 20 0RF Referrals: [facility] [Outside]
[2023-10-27 14:40] LABS: MANUAL DIFF FLAG NO
[2023-10-27 14:42] LABS: Basophils Percent Auto 0.5 % (0-2); Eosinophils Absolute Auto 0.2 X10*3/uL (0.0-0.4); Eosinophils Percent Auto 2.5 % (0-4); Hemoglobin 13.1 g/dl (14.0-18.0); Imm Gran Abs Auto 0.02 X10*3/uL (0.00-0.03); Imm Gran Pct Auto 0.3 % (0.0-0.4); Lymphocytes Absolute Auto 1.8 X10*3/uL (1.2-4.9); Lymphocytes Percent Auto 23.3 % (20-40); Mean Corpuscular HGB Conc 34.5 g/dl (31.0-36.0); Mean Corpuscular Hemoglobin 30.5 pg (27.0-33.0); Mean Corpuscular Volume 88.4 fL (80.0-98.0); Mean Platelet Volume 10.2 fL (9.4-12.4); Monocytes Absolute Auto 0.5 X10*3/uL (0.1-1.2); Neutrophils Absolute Auto 5.2 x10*3/uL (2.0-8.3); Neutrophils Percent Auto 67.4 % (45-73); Platelet Count 183 X10*3/uL (160-400); Red Cell Distribution Width 13.6 % (11.0-16.0); White Blood Count 7.7 X10*3/uL (4.8-10.8)
[2023-10-27 15:03] LABS: Anion Gap 10 (12-20); Blood Urea Nitrogen 24 mg/dL (9-16); C Reactive Protein < 0.10 mg/dL (< or = 0.50); Carbon Dioxide 26 mmol/L (22-29); Chloride 110 mmol/L (96-108); Creatinine Clr Calc Pharmacy 71.2; Estimated Glomerular Filt Rate > 60; Glucose Random 92 mg/dL (60-115); Potassium 4.7 mmol/L (3.3-5.1); Sodium 141 mmol/L (135-145)
--- NOTE | 2023-10-27 15:08 | PC.NURSE ---
pharmacy contacted re:hydrocortisone will send to dept
[2023-10-27 15:25] LABS: Erythrocyte Sedimentation Rate 2 MM/HR (0-15)
[2023-10-27] MEDS: Hydrocortisone 1 % Cream 28.35 GM TUBE 1 APPL TOPICAL (15:29)
[2023-10-27 16:04] VITALS: BP 121/73; PULSE 60; RESP 18; TEMP 36.4; O2SAT 96
== END 2023-10-27 17:02 | disposition home or self-care (01) ==
PROVIDERS: Physician Assistant; Emergency Provider Emergency Medicine Emergency Medical Services
DX: L03.114 Cellulitis of left upper limb (principal); L03.113 Cellulitis of right upper limb; R21 Rash and other nonspecific skin eruption; I10 Essential (primary) hypertension; Z87.891 Personal history of nicotine dependence; Z79.899 Other long term (current) drug therapy
CPT/HCPCS: 36415; 80048; 85025; 85652; 86140; 99283

== ENCOUNTER 2025-01-24 14:00 | Outpatient (AMB) | payer MEDICARE, MEDICAID, SELFPAY ==
[2025-01-24 14:02] VITALS: BP 130/84; PULSE 54; RESP 18; TEMP 36.8; O2SAT 98; BMI 24.7
--- NOTE | 2025-01-24 14:02 | A.OFFPC_ITS ---
Vital Signs 01/24/25 14:02 Height 6 ft 0.24 in Weight 183 lb BMI 24.7 BP 130/84 Blood Pressure Location Lt brachial Position Sitting Respiration 18 Pulse 54 Pulse Source Pulse Oximeter Temp 98.3 F Temp Source Oral Pulse Oximetry (%) 98 Oxygen Delivery Method Room Air Intake Visit Reasons: establish care Intake Note: Patient is a new patient here to establish care. Transferring care from [facility]. Medical records have been requested and have not been received. Airport Location Manager Required: No Accompanied by: Self / Same As Patient Allergies paroxetine [From PAXIL] Adverse Reaction (Unknown, Verified 01/24/25 15:03) AGITATION, MOOD SWINGS, ALL KINDS OF WEIRD THOUGHTS Medication List - Last Reconciled 01/24/25 by RICARDO Haynes amlodipine 5 mg PO DAILY 30 days buspirone 20 mg (0.6667 x 30 mg) PO TID 30 days cholecalciferol (vitamin D3) (Vitamin D3) 125 mcg (5 x 25 mcg (1,000 unit)) PO DAILY 30 days clonazepam 0.5 mg PO BID fluoxetine 80 mg (4 x 20 mg) PO DAILY 30 days mirtazapine 1 tab PO BEDTIME 30 days omega-3 fatty acids 1 cap PO DAILY ropinirole 0.25 mg PO BID 30 days trazodone 50 mg PO BEDTIME PRN 30 days Tobacco use date assessed: 01/24/25 Fall risk assessment: 2 + Falls in past year Last assessed Fall Risk: 01/24/25 Dental Screening Dental Screen Date: 01/24/25 Did you have a dental visit in the last 12 months?: No Did you have a dental problem in the last 6 months where you did not have access to dental care?: No Was dental information given to patient?: Patient has dentist HPI establish care HPI Details The patient is a 69-year-old male presenting to establish care Previous PCP: Does not remember the name Last visit: Last PE: couple years ago Specialist: therapist every Tuesday, [facility] counselling with SORAIDA Sexton: n/a Past medical history: Shoulder fx in high school, depression, ocd, taking anger management course through the Medications: Family HX: Father massive coronary at 65 PASSED [place] 87 y/o from [place], brother has 4 stents, mother had aneurysm-passed at 81 2007. Problem: Patient reports that he is doing okay Denies shortness of breath, chest pain, dizziness or heart palpitation Denies any change in bowel habits Denies urinary symptoms On exam: Bilateral ear impaction: Recommended Debrox ear drops, we will reassessment patient return for physical [facility], [facility] Medical History (Updated 01/27/25 @ 18:20 by RICARDO aHynes) History of electroconvulsive therapy RBBB (right bundle branch block) OCD (obsessive compulsive disorder) HTN (hypertension) Anxiety Depression Surgical History (Updated 01/27/25 @ 18:23 by RICARDO Haynes) H/O oral surgery History of surgery on arm Family History (Updated 01/27/25 @ 18:24 by RICARDO Haynes) Father Arteriosclerosis Mother Aneurysm Son No problems noted. Brother Stented coronary artery Social History Household Members: Friend(s) Housing: House Do you presently have visiting nurse or other home services: Yes Patient Tobacco Use Status: Former Tobacco user Tobacco use type: Cigarette e-Cigarette/Vaping Use: Never Used Second Hand Smoke Exposure: No Substance Use Type: Former Substance User service: No Current occupational status: retired Sexual orientation: Straight/Heterosexual Cognitive needs: No Hearing needs: No Vision needs: Yes Questionnaire PHQ-9 Over the last 2 weeks, how often have you been bothered by any of the following problems? 1. Little interest or pleasure in doing things: not at all 2. Feeling down, depressed, or hopeless: not at all 3. Trouble falling or staying asleep, or sleeping too much: not at all 4. Feeling tired or having little energy: not at all 5. Poor appetite or overeating: not at all 6. Feeling bad about yourself - or that you are a failure or have let yourself or your family down: not at all 7. Trouble concentrating on things, such as reading the newspaper or watching television: not at all 8. Moving or speaking so slowly that other people could have noticed. Or the opposite - being so fidgety or restless that you have been moving around a lot more than usual: not at all 9. Thoughts that you would be better off or of hurting yourself in some way: not at all Total score: 0 Depression Screening Interpretation: Negative Depression Screening Done: Yes 87253 - PHQ-9 Billing: Yes Source: Developed by Renetta Landa Kurt Kroenke and colleagues, with an educational orlando from [employer]. Thrive Questionnaire Date Thrive assessed: 01/24/25 I am a: Patient What is your living situation today?: I have a steady place to live Within the past 12 months, did the food you bought not last and you didn't have the money to get more?: Never true Within the past 12 months, did you worry whether your food would run out before you got money to buy more?: Never true Do you have trouble paying for medicines?: No Do you have trouble getting transportation to medical appointments?: No Do you have trouble paying your heating and electricity bill?: No Do you have trouble taking care of your child, family member or friend?: No Do you have trouble with day-to-day activities such as bathing, preparing meals, shopping, managing finances, etc.?: No Are you currently unemployed and looking for a job?: Yes Are you interested in more education?: No Please select the resources that you would like help with: Housing/Chcf Currently or been in a relationship where the following occur: No concerns reported THRIVE Score: 0 AUDIT C Alcohol Use Questionnaire (AUDIT-C) 1. How often do you have a drink containing alcohol?: Never Total Score: 0 DARRICK-7 AMB Questionnaire DARRICK-7 Date DARRICK - 7 assessed: 01/24/25 Feeling nervous, anxious, or on edge: 1 = Several days Not being able to stop or control worryin = Several days Worrying too much about different things: 1 = Several days Trouble relaxin = Several days Being so restless that it is hard to sit still: 1 = Several days Becoming easily annoyed or irritable: 0 = Not at all Feeling afraid as if something awful might happen: 0 = Not at all Total DARRICK-7 score (0-4 normal; 5-9 mild; 10-14 moderate; 15-21 severe): 5 Source: Developed by Renetta Landa Kurt Kroenke and colleagues, with an educational orlando from [employer]. DARRICK-7 Assessment Billing DARRICK-7 Assessment Tool: DARRICK-7 Assessment 86108 Review of Systems Const Denies headache(s) Eyes Denies loss of vision ENT Denies vertigo, Denies dizziness, Denies headache(s) and Denies sore throat Card Denies chest pain, Denies leg edema and Denies lightheadedness Resp Denies cough, Denies hemoptysis and Denies wheezing GI Denies abdominal pain, Denies melena, Denies constipation, Denies diarrhea and Denies vomiting Denies dysuria, Denies urinary frequency and Denies urinary urgency Musc Denies arthralgias, Denies joint swelling, Denies numbness and Denies tingling Neuro Denies Abnormal speech present, Denies behavioral changes, Denies vertigo, Denies dizziness, Denies headache(s), Denies loss of vision, Denies memory loss, Denies numbness and Denies tingling Psych Reports anxiety, Denies behavioral changes, Reports depression and Denies memory loss David/Lymph Denies easy bleeding and Denies easy bruising Aller/Immun Denies wheezing Physical exam (Primary Care) Vital Signs: Last Vital Signs Temp 98.3 F 01/24/25 14:02 Pulse 54 01/24/25 14:02 Resp 18 01/24/25 14:02 BP 130/84 01/24/25 14:02 Pulse Ox 98 01/24/25 14:02 Oxygen Delivery Method Room Air 01/24/25 14:02 BMI result Body Mass Index 24.7 Tobacco/Smoking Status: Tobacco use Status Tobacco use date assessed 01/24/25 01/24/25 14:28 Patient Tobacco Use Status Former Tobacco user 01/24/25 14:28 Tobacco use type Cigarette 01/24/25 14:28 e-Cigarette/Vaping Use Never Used 01/24/25 14:28 PHQ-9: PHQ-9 Score PHQ-9: Total score 0 01/27/25 18:00 Depression Screening Interpretation: Negative Thrive Assessment: Date of Thrive Assessment Date Thrive assessed 01/24/25 01/24/25 14:28 Currently or been in a relationship where the following occur: No concerns reported Const General: healthy appearing, no acute distress, alert and awake Nutritional Appearance: well nourished Orientation/consciousness: oriented to person, oriented to place and oriented to time [facility] Head: Yes normal to inspection and Yes normocephalic Ears: hearing grossly normal bilaterally, external ears normal and Abnormal EAC present (bilateral ear impaction, dark brown cerumen) General nose exam: Normal nasal mucous membranes and turbinates present Eyes Conjunctivae: conjunctivae normal Sclerae: sclerae normal Pupils: Equal, round and reactive pupils present Neck Neck: Yes no lymphadenopathy and Yes no JVD Thyroid: Thyroid normal Carotids: no bruits Resp Effort & Inspection: normal respiratory effort and not tachypneic Auscultation: no crackles, no rales, no rhonchi and no wheezes Cardio Rate: regular rate Rhythm: regular rhythm Heart sounds: no murmurs and normal S1 and S2 GI Palpation (GI): Soft to palpation, nontender, no hepatomegaly and no splenomegaly Auscultation: normal bowel sounds Back/Spine/Pelvis Cervical Spine: cervical ROM normal Thoracic/Lumbar Spine: thoracic and lumbar spine normal to inspection Skin General skin exam: no rashes or lesions noted and dry skin Neuro General: oriented to person, oriented to place and oriented to time Cranial nerves: Yes Equal, round and reactive pupils present Speech: No Abnormal speech present Gait exam (Neuro): Normal gait present Motor exam (neuro): no tremor noted Extrem Right upper extremity: full ROM Left upper extremity: full ROM Right lower extremity: full ROM; no edema Left lower extremity: full ROM; no edema Psych Mental Status: mental status grossly normal Speech and movement: Normal speech and movement present Affect: normal affect Attitude: cooperative Thought process: Normal thought process present Coding Level of Care Code New Pt Level 4 (15353) Diagnoses Major depressive disorder, recurrent F33.3 Active/Remission status: currently active Major depression episode severity: severe Psychotic features: with psychotic features Obsessive-compulsive disorder, unspecified type F42.9 Obsessive-compulsive disorder type: unspecified Hypertension, unspecified type I10 Hypertension type: unspecified Anxiety F41.9 Additional Codes DARRICK-7 Assessment Billing - DARRICK-7 Assessment Tool: DARRICK-7 Assessment 11019 ([id number]) PHQ-9 - 07036 - PHQ-9 Billing: Yes ([id number]) Time Spent (min) 36 Assessment & Plan Assessment & Plan (1) Major depressive disorder, recurrent: Code(s): F33.9 - Major depressive disorder, recurrent, unspecified Category: Medical Qualifiers: Active/Remission status: currently active Major depression episode severity: severe Psychotic features: with psychotic features Qualified Code(s): F33.3 - Major depressive disorder, recurrent, severe with psychotic symptoms Plan: fluoxetine 80 mg (4x20 mg) daily, mirtazapine 30 mg at bedtime Reports that he sees a therapist every week at the [facility] (Donta Romeo) Denies si/hi (2) Obsessive compulsive disorder: Code(s): F42.9 - Obsessive-compulsive disorder, unspecified Category: Medical Qualifiers: Obsessive-compulsive disorder type: unspecified Qualified Code(s): F42.9 - Obsessive-compulsive disorder, unspecified Plan: same as above (3) Hypertension: Code(s): I10 - Essential (primary) hypertension Category: Medical Qualifiers: Hypertension type: unspecified Qualified Code(s): I10 - Essential (primary) hypertension Plan: Reinforced low-sodium diet Continue amlodipine 10 mg daily (4) Anxiety: Code(s): F41.9 - Anxiety disorder, unspecified Category: Medical Plan: Continue buspirone mg 20 mg TID, clonazepam 0.5 mg BID Denies si/hi Orders: Orders UA CC w/rflx Micro + Cult 01/24/25 Z00. - Encounter for general adult medical examination without abnormal findings Vitamin D 25-OH Total 01/24/25 Z00. - Encounter for general adult medical examination without abnormal findings Comprehensive [place]. Panel Fast 01/24/25 Z00. - Encounter for general adult medical examination without abnormal findings Complete Blood Count Auto Diff 01/24/25 Z. - Encounter for general adult medical examination without abnormal findings Lipid Panel 01/24/25 Z00. - Encounter for general adult medical examination without abnormal findings TSH reflex Free T4 01/24/25 Z00. - Encounter for general adult medical examination without abnormal findings Glucose Fasting 01/24/25 Z00. - Encounter for general adult medical e xamination without abnormal findings PSA,Total (Free>4and<10) 01/24/25 Z00. - Encounter for general adult medical examination without abnormal findings ECG 12 lead EKG 01/24/25 I45.10 - Unspecified right bundle-branch block Medications: New clonazepam 0.5 mg PO BID 60 tabs 0RF Changed From mirtazapine 1 tab PO BEDTIME 30 days 30 tabs 0RF To mirtazapine 30 mg PO BEDTIME 30 days 30 tabs 0RF Discontinued clonazepam Discontinued Reason: Duplicate 0.5 mg PO BID 30 days PRN 30 tabs 0RF Anxiety quetiapine Discontinued Reason: Patient no longer taking 25 mg PO BID 30 days PRN 60 tabs 0RF Anxiety cephalexin Discontinued Reason: Patient no longer taking 500 mg PO QID 7 days 28 caps 0RF doxycycline hyclate Discontinued Reason: Patient no longer taking 100 mg PO BID 20 tabs 0RF hydroxyzine HCl Discontinued Reason: Patient no longer taking 50 mg PO Q6-8H PRN 20 tabs 0RF itching cephalexin Discontinued Reason: Patient no longer taking 500 mg PO QID 7 days 28 caps 0RF cetirizine (Zyrtec) Discontinued Reason: Patient no longer taking 10 mg PO DAILY PRN 14 caps 0RF allergy symptoms prednisone Discontinued Reason: Patient no longer taking 40 mg (2 x 20 mg) PO DAILY 10 tabs 0RF hydrocortisone 1% (Anti-Itch (hydrocortisone)) Discontinued Reason: Patient no longer taking 1 appl topical BID PRN 453.6 grams 0RF rash
--- OUTSIDE RECORDS SUMMARY | 2025-01-24 17:09 | XMS_ITS | Patient Health Record ---
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 Primary Care Provider Reji Pelayo Jr Unavailable [phone] Allergies Allergen (clinical drug ingredient) Drug/Non Drug Allergy documented on EMR Reaction Allergy Type Onset Date Status paroxetine PARoxetine HCl ER Unknown Drug Allergy Active Reason For Referral No Information Medications Medication SIG (Take, Route, Frequency, Duration) Notes Start Date End Date Status Loperamide HCl 2 MG 1 capsule as needed Orally Four times a day Active traZODone HCl 50 MG 1 tablet at bedtime as needed Orally Once a day for 30 day(s) Active FLUoxetine HCl 20 MG 1 capsule Orally On ce a day for 30 day(s) Active MiraLax (colon prep) 17 GM/SCOOP mixed with Gatorade or Crystal Light Orally begin at 5:00 p.m. the day before the procedure for 1 day 06/21/2022 Active BuSpar Active Mirtazapine 30 MG 1 tablet at bedtime Orally Once a day for 30 day(s) Active QUEtiapine Fumarate 50 MG 1 tablet at be dtime Orally Once a day for 30 day(s) Active Mylanta Coat & Cool 1200-270-80 MG/10ML 10 mL as needed Orally Three times a day Active rOPINIRole HCl 0.25 MG 1 tablet 1 to 3 h ours before bedtime Orally Once a day for 30 day(s) Active amLODIPine Besy-Benazepril HCl 2.5-10 MG as directed Orally Active Fish Oil 1000 MG 1 capsule Orally Onc e a day for 30 day(s) Active Tylenol 325 MG 1 tablet as needed O rally every 4 hrs Active Vitamin D 50 MCG (1999) 1 tablet Oral ly Once a day for 30 day(s) Active clonazePAM 0.5 MG 1 tablet at bedtime Orally Once a day Active Immunizations Vaccine Route Administration Date Status Comme nts Influenza Unknown 10/13/2021 Administered Social History Tobacco Use: Social History Observation Description Date Details (start date - stop date) Never Smoker NA - NA Tobacco Use/Smoking Question Answer Notes Patient is a nonsmoker Alcohol Screen Question Answer Notes Did you have a drink containing alcohol in the p ast year? No Points 0 Interpretation Negative Problems Problem Type SNOMED Code ICD Code Onset Dates Problem Status W/U Status Risk Notes Problem 356056123 Colon cancer screening (Z12.11) Active confirmed Problem 512447538 Long-term curren t use of high risk medication other than anticoagulant (Z79.899) Active confirmed Plan Of Treatment Future Test Test Name Order Date COLONOSCOPY 06/21/2022 Insurance Providers Payer Name Payer Address Payer Phone Subscriber Number Group Number Insured Name Patient Relationship to Insured Coverage Start Date Coverage End Date MEDICARE OF [place] [address] [place] [address] [id number] ZAINAB HUGHES Self - patient is the insured [facility]ICAID [facility] [address] [place] [address] [id number] ZAINAB HUGHES Self - patient is the insured Medical (General) History Medical History History ICD Code hypertension Anxiety/depression Obsessive compulsive disorder Right bundle-branch block Surgical History Surgery Date(Month/Year) broken arm in high school
== END 2025-01-24 15:29 | disposition home or self-care (01) ==
DX: F33.3 Major depressive disorder, recurrent, severe with psychotic symptoms (principal); F42.9 Obsessive-compulsive disorder, unspecified; I10 Essential (primary) hypertension; F41.9 Anxiety disorder, unspecified

== ENCOUNTER → 2025-01-24 14:00 | Outpatient (BNVA) | payer OTHER, SELFPAY | DX: F33.3 Major depressive disorder, recurrent, severe with psychotic symptoms (principal); F42.9 Obsessive-compulsive disorder, unspecified; F41.9 Anxiety disorder, unspecified; I10 Essential (primary) hypertension | CPT/HCPCS: 96127; 99202 ==

== ENCOUNTER 2025-03-04 09:43 | Outpatient (REF) | payer OTHER, SELFPAY ==
[2025-03-04 09:53] LABS: MANUAL DIFF FLAG NO
--- NOTE | 2025-03-04 10:03 | ECG_ITS ---
Test Reason : rbbb Blood Pressure : */* mmHG Vent. Rate : 51 BPM Atrial Rate : 51 BPM P-R Int : 184 ms QRS Dur : 128 ms QT Int : 464 ms P-R-T Axes : 77 33 48 degrees QTcB Int : 427 ms Sinus bradycardia Right bundle branch block Abnormal ECG When compared with ECG of 30-Nov-2021 14:35, QRS axis Shifted right Nonspecific T wave abnormality no longer evident in Anterior leads Referred By: Kris Park Electronically Signed By: TALIA BOWER MD
--- OUTSIDE RECORDS SUMMARY | 2025-03-04 10:49 | XMS_ITS | Patient Health Record ---
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 Primary Care Provider Reji Pelayo Jr Unavailable Allergies Allergen (clinical drug ingredient) Drug/Non Drug [...] Problem Status W/U Status Risk Notes Problem 972599423 Colon cancer screening (Z12.11) Active confirmed Problem 715537645 Long-term curren t use of high risk medication other than anticoagulant (Z79.899) Active confirmed Plan Of Treatment Future Test Test Name Order Date COLONOSCOPY 06/21/2022 Insurance Providers Payer Name Payer Address Payer Phone Subscriber Number Group Number Insured Name Patient Relationship to Insured Coverage Start Date Coverage End Date MEDICARE OF [place] [address] [place] [address] [id number] ZAINAB HUGHES Self - patient is the insured [facility] [address] [place] [address] [phone] [id number] ZAINAB HUGHES Self - patient is the insured Medical (General) History Medical History History ICD Code hypertension Anxiety/depression Obsessive compulsive disorder Right bundle-branch block Surgical History Surgery Date(Month/Year) broken arm in high school
[2025-03-04 11:06] LABS: Basophils Absolute Auto 0.1 X10*3/uL (0.0-0.2); Basophils Percent Auto 0.8 % (0-2); Eosinophils Absolute Auto 0.1 X10*3/uL (0.0-0.4); Eosinophils Percent Auto 0.8 % (0-4); Hematocrit 41.3 % (42.0-52.0); Imm Gran Abs Auto 0.01 X10*3/uL (0.00-0.03); Imm Gran Pct Auto 0.2 % (0.0-0.4); Lymphocytes Absolute Auto 1.8 X10*3/uL (1.2-4.9); Lymphocytes Percent Auto 30.3 % (20-40); Mean Corpuscular HGB Conc 33.9 g/dl (31.0-36.0); Mean Corpuscular Hemoglobin 30.6 pg (27.0-33.0); Mean Corpuscular Volume 90.2 fL (80.0-98.0); Mean Platelet Volume 10.8 fL (9.4-12.4); Monocytes Absolute Auto 0.5 X10*3/uL (0.1-1.2); Monocytes Percent Auto 7.8 % (2-11); Neutrophils Absolute Auto 3.6 x10*3/uL (2.0-8.3); Neutrophils Percent Auto 60.1 % (45-73); Platelet Count 214 X10*3/uL (160-400); Red Blood Count 4.58 X10*6/uL (4.60-5.80); Red Cell Distribution Width 13.5 % (11.0-16.0)
[2025-03-04 11:10] LABS: Appearance Urine Clear; Color Urine Dark Yellow; Glucose Urine UA Negative (Negative); Leukocyte Esterase Urine Negative (Negative); Nitrite Urine Negative (Negative); PH 5.5 (5.0-9.0); Urine Blood Negative (Negative); Urine Ketones Trace mg/dL (Negative); Urine Protein Negative (Neg-Trace)
[2025-03-04 11:59] LABS: PSA,Total (Free>4and<10) 3.27 ng/mL (0.00-4.00)
[2025-03-04 12:01] LABS: Alanine Aminotransferase 41 U/L (0-40); Albumin Level 4.2 g/dL (3.5-5.0); Alkaline Phosphatase 67 U/L (39-117); Anion Gap 13 (12-20); Aspartate Amino Transferase 39 U/L (5-37); Bilirubin Total 0.9 mg/dL (0.0-1.0); Blood Urea Nitrogen 32 mg/dL (9-16); Calcium 9.6 mg/dL (8.4-10.2); Carbon Dioxide 24 mmol/L (22-29); Chloride 106 mmol/L (96-108); Cholesterol 186 mg/dL (<200); Estimated Glomerular Filt Rate > 60; Glucose Fasting 84 mg/dL (60-99); HDL Cholesterol 70 mg/dL (>40); LDL Cholesterol Calculated 107 mg/dL (<100); Potassium 4.8 mmol/L (3.3-5.1); Sodium 138 mmol/L (135-145); Total Protein 6.8 g/dL (6.5-8.0); Triglycerides 45 mg/dL (<150)
[2025-03-04 12:05] LABS: TSH reflex Free T4 1.32 uIU/mL (0.32-4.0); Vitamin D 25-OH Total 65.3 ng/mL (>30)
== END 2025-03-04 09:44 | disposition home or self-care (01) ==
LOC: HO.LAB 09:43
DX: Z00.00 Encounter for general adult medical examination without abnormal findings (principal); I45.10 Unspecified right bundle-branch block; Z12.5 Encounter for screening for malignant neoplasm of prostate
CPT/HCPCS: 36415; 80053; 80061; 81003; 82306; 84153; 84443; 85025; 93005

== ENCOUNTER → 2025-03-04 10:03 | Outpatient (BNV) | payer OTHER, SELFPAY | PROVIDERS: Visit Provider Internal Medicine Cardiovascular Disease | DX: I45.10 Unspecified right bundle-branch block (principal); R00.1 Bradycardia, unspecified | CPT/HCPCS: 93010 ==

== ENCOUNTER 2025-03-12 09:04 | Outpatient (AMB) | payer OTHER, SELFPAY ==
[2025-03-12 09:16] VITALS: BP 162/92; PULSE 55; RESP 18; TEMP 37; O2SAT 99; BMI 23.8
--- NOTE | 2025-03-12 09:16 | MHC.PC.OV ---
Vital Signs 03/12/25 09:16 03/12/25 09:25 Height 6 ft 0.25 in Weight 177 lb BMI 23.8 BP 162/92 H 136/82 Blood Pressure Location Lt brachial Lt brachial Position Sitting Sitting Respiration 18 Pulse 55 Pulse Source Pulse Oximeter Temp 98.6 F Temp Source Oral Pulse Oximetry (%) 99 Oxygen Delivery Method Room Air Intake Visit Reasons: annual exam Senior Visual Designer Required: No Allergies paroxetine [From PAXIL] Adverse Reaction (Unknown, Verified 03/13/25 08:17) AGITATION, MOOD SWINGS, ALL KINDS OF WEIRD THOUGHTS Medication List - Last Reconciled 03/13/25 by RICARDO Haynes amlodipine 5 mg PO DAILY 30 days buspirone 20 mg (0.6667 x 30 mg) PO TID 30 days cholecalciferol (vitamin D3) (Vitamin D3) 125 mcg (5 x 25 mcg (1,000 unit)) PO DAILY 30 days clonazepam 0.5 mg PO BID fluoxetine 80 mg (4 x 20 mg) PO DAILY 30 days trazodone 50 mg PO BEDTIME PRN 30 days Tobacco use date assessed: 03/12/25 Fall risk assessment: 1 Fall in past year Last assessed Fall Risk: 03/12/25 Dental Screening Dental Screen Date: 03/12/25 Did you have a dental visit in the last 12 months?: No Did you have a dental problem in the last 6 months where you did not have access to dental care?: No Was dental information given to patient?: Patient has dentist HPI annual exam HPI Details The patient is presenting for annual physical Dentist:dentures couple years ago (over 3 years) Eye: not in years Snellen: Right: Left: Corrected vision: recommend making appt STI screening: Colonoscopy: 2.5 years, good for 7 years Tetanus: due, given in office Management of chronic medical conditions, including anemia and management of hyperlipidemia, hypertension, and Right Bundle Branch Block. Laboratory evaluations indicate mild anemia, potentially related to iron or B12 levels, and an elevated BUN, likely due to insufficient hydration. Hyperlipidemia is noted, with LDL levels slightly exceeding the optimal range. Right Bundle Branch Block's stability is confirmed during this visit, and there are no reported exacerbations of hypertension or significant cardiac symptoms like chest pain or dyspnea. The patient experiences ear blockage due to impacted cerumen due to inadequate Debrox usage. Notably, there is an absence of current coronary artery disease in the patient?s history. Initial blood pressure was slightly elevated. Recheck blood pressure 136/82. Bilateral ears still have excess cerumen, the patient admitted to only using Debrox ear drops few times. Encouraged to continue treatment. The patient has paper work to be filled out for [employer], fax [phone] The patient reports that this will be his new rest home. [facility] Medical History (Updated 03/12/25 @ 10:15 by RICARDO Haynes) History of electroconvulsive therapy RBBB (right bundle branch block) OCD (obsessive compulsive disorder) HTN (hypertension) Anxiety Depression Surgical History H/O oral surgery History of surgery on arm Family History Father Arteriosclerosis Mother Aneurysm Son No problems noted. Brother Stented coronary artery Social History Household Members: Friend(s) Housing: House Do you presently have visiting nurse or other home services: Yes Patient Tobacco Use Status: Former Tobacco user Tobacco use type: Cigarette e-Cigarette/Vaping Use: Never Used Second Hand Smoke Exposure: No Substance Use Type: Former Substance User service: No Current occupational status: retired Sexual orientation: Straight/Heterosexual Cognitive needs: No Hearing needs: No Vision needs: Yes (Reading glasses) Questionnaire PHQ-9 Over the last 2 weeks, how often have you been bothered by any of the following problems? 1. Little interest or pleasure in doing things: not at all 2. Feeling down, depressed, or hopeless: not at all 3. Trouble falling or staying asleep, or sleeping too much: several days 4. Feeling tired or having little energy: not at all 5. Poor appetite or overeating: not at all 6. Feeling bad about yourself - or that you are a failure or have let yourself or your family down: several days 7. Trouble concentrating on things, such as reading the newspaper or watching television: not at all 8. Moving or speaking so slowly that other people could have noticed. Or the opposite - being so fidgety or restless that you have been moving around a lot more than usual: several days 9. Thoughts that you would be better off or of hurting yourself in some way: not at all Total score: 3 Depression Screening Interpretation: Negative Depression Screening Done: Yes Source: Developed by Drs. Ernie Khan, Renetta Sung, Alberto Frias and colleagues, with an educational orlando from [employer]. Thrive Questionnaire Date Thrive assessed: 01/24/25 I am a: Patient What is your living situation today?: I have a steady place to live Within the past 12 months, did the food you bought not last and you didn't have the money to get more?: Never true Within the past 12 months, did you worry whether your food would run out before you got money to buy more?: Never true Do you have trouble paying for medicines?: No Do you have trouble getting transportation to medical appointments?: No Do you have trouble paying your heating and electricity bill?: No Do you have trouble taking care of your child, family member or friend?: No Do you have trouble with day-to-day activities such as bathing, preparing meals, shopping, managing finances, etc.?: No Are you currently unemployed and looking for a job?: Yes Are you interested in more education?: No Please select the resources that you would like help with: Housing/Fpc Currently or been in a relationship where the following occur: No concerns reported THRIVE Score: 0 AUDIT C Alcohol Use Questionnaire (AUDIT-C) 1. How often do you have a drink containing alcohol?: Never 3. How often do you have six or more drinks on one occasion?: Never Total Score: 0 Score Reviewed/Action Taken: No DARRICK-7 AMB Questionnaire DARRICK-7 Date DARRICK - 7 assessed: 03/12/25 Feeling nervous, anxious, or on edge: 1 = Several days Not being able to stop or control worryin = Several days Worrying too much about different things: 0 = Not at all Trouble relaxin = Several days Being so restless that it is hard to sit still: 0 = Not at all Becoming easily annoyed or irritable: 0 = Not at all Feeling afraid as if something awful might happen: 0 = Not at all Total DARRICK-7 score (0-4 normal; 5-9 mild; 10-14 moderate; 15-21 severe): 3 Source: Developed by Drs. Ernie Khan, Renetta Sung, Alberto Frais and colleagues, with an educational orlando from [employer]. Review of Systems Const Denies headache(s) Eyes Denies loss of vision ENT Denies vertigo, Denies dizziness, Denies headache(s) and Denies sore throat Card Denies chest pain, Denies leg edema and Denies lightheadedness Resp Denies cough, Denies hemoptysis and Denies wheezing GI Denies abdominal pain, Denies melena, Denies constipation, Denies diarrhea and Denies vomiting Denies dysuria, Denies urinary frequency and Denies urinary urgency Musc Denies arthralgias, Denies joint swelling, Denies numbness and Denies tingling Neuro Denies Abnormal speech present, Denies behavioral changes, Denies vertigo, Denies dizziness, Denies headache(s), Denies loss of vision, Denies memory loss, Denies numbness and Denies tingling Psych Denies anxiety, Denies behavioral changes, Denies depression, Denies memory loss and Denies panic attacks David/Lymph Denies easy bleeding and Denies easy bruising Aller/Immun Denies wheezing Physical exam (Primary Care) Vital Signs: Last Vital Signs Temp 98.6 F 03/12/25 09:16 Pulse 55 03/12/25 09:16 Resp 18 03/12/25 09:16 BP 162/92 H 03/12/25 09:16 Pulse Ox 99 03/12/25 09:16 Oxygen Delivery Method Room Air 03/12/25 09:16 BMI result Body Mass Index 23.8 Tobacco/Smoking Status: Tobacco use Status Tobacco use date assessed 03/12/25 03/12/25 09:29 Patient Tobacco Use Status Former Tobacco user 03/12/25 09:29 Tobacco use type Cigarette 03/12/25 09:29 e-Cigarette/Vaping Use Never Used 03/12/25 09:29 PHQ-9: PHQ-9 Score PHQ-9: Total score 3 03/13/25 08:15 Depression Screening Interpretation: Negative Thrive Assessment: Date of Thrive Assessment Date Thrive assessed 01/24/25 03/12/25 09:29 Currently or been in a relationship where the following occur: No concerns reported Const Other: - General appearance- Cooperative, no apparent distress - HEENT- Eyes inspected, tongue appeared normal upon inspection. Ears noted to have impacted cerumen - Cardiovascular- Regular rate and rhythm auscultated - Musculoskeletal- Strong collet maker strength and range of motion in extremities tested - Skin- Right arm prepped and administered with Tdap vaccine General: healthy appearing, no acute distress, alert and awake Nutritional Appearance: well nourished Orientation/consciousness: oriented to person, oriented to place and oriented to time HENMT Ears: Abnormal EAC present excessive cerumen (encouraged to continue with the Debrox) General nose exam: Normal nasal mucous membranes and turbinates present Eyes Conjunctivae: conjunctivae normal Sclerae: sclerae normal Pupils: Equal, round and reactive pupils present Neck Neck: Yes no lymphadenopathy and Yes no JVD Thyroid: Thyroid normal Carotids: no bruits Resp Effort & Inspection: normal respiratory effort and not tachypneic Auscultation: no crackles, no rales, no rhonchi and no wheezes Cardio Rate: regular rate Rhythm: regular rhythm Heart sounds: no murmurs and normal S1 and S2 GI Palpation (GI): Soft to palpation, nontender, no hepatomegaly and no splenomegaly Auscultation: normal bowel sounds Skin General skin exam: no rashes or lesions noted and dry skin Neuro General: oriented to person, oriented to place and oriented to time Cranial nerves: Yes Equal, round and reactive pupils present Speech: No Abnormal speech present Gait exam (Neuro): Normal gait present Motor exam (neuro): no tremor noted Extrem Right upper extremity: full ROM Left upper extremity: full ROM Right lower extremity: full ROM; no edema Left lower extremity: full ROM; no edema Psych Mental Status: mental status grossly normal Speech and movement: Normal speech and movement present Affect: normal affect Attitude: cooperative Thought process: Normal thought process present Immunizations Boostrix Tdap 2.5 Lf unit-8 mcg-5 Lf/0.5 mL intramuscular syringe Performing Provider: RICARDO Haynes [facility] [place] [facility] Administered by: Laura Justice CMA on 03/12/25 10:10 Dose Route Admin Location Dispensed Lot Number Expiration Date [facility] Mushroom Press Operator 0.5 mL IM Right Deltoid 0.5 mL [id number] 07/17/27 [id number] [employer] VIS Given Date VIS Provided VIS Publication Date 03/12/25 Single Vaccine 24 Eligibility Eligibility Date Funding Source Not [facility] Eligible 03/12/25 Private Results Reviewed Results Reviewed: Laboratory Tests 03/04/25 03/04/25 09:49 09:52 WBC 6.0 RBC 4.58 L Hgb 14.0 Hct 41.3 L MCV 90.2 MCH 30.6 MCHC 33.9 RDW 13.5 Plt Count 214 Sodium 138 Potassium 4.8 Chloride 106 Carbon Dioxide 24 Anion Gap 13 BUN 32 H Creatinine 1.14 Estimated GFR > 60 Fasting Glucose 84 Calcium 9.6 D AST 39 H ALT 41 H Alkaline Phosphatase 67 Total Protein 6.8 Albumin 4.2 Triglycerides 45 Cholesterol 186 LDL Cholesterol, Calc 107 H HDL Cholesterol 70 Total PSA 3.27 25-OH Vitamin D Total 65.3 TSH 1.32 Urine Color Dark Yellow Urine Appearance Clear Urine pH 5.5 Ur Specific Ashley 1.020 Urine Protein Negative Urine Glucose (UA) Negative Urine Ketones Trace Urine Blood Negative Urine Nitrite Negative Ur Leukocyte Esterase Negative Coding Level of Care Code Est Pt Prev Care >65y(29970) Diagnoses Annual physical exam Z00.00 Anxiety F41.9 Hypertension, unspecified type I10 Hypertension type: unspecified Obsessive-compulsive disorder, unspecified type F42.9 Obsessive-compulsive disorder type: unspecified Major depressive disorder, recurrent F33.3 Active/Remission status: currently active Major depression episode severity: severe Psychotic features: with psychotic features Elevated liver enzymes R74.8 Elevated LDL cholesterol level E78.00 Time Spent (min) 41 Assessment & Plan Assessment & Plan (1) Annual physical exam: Code(s): Z00.00 - Encounter for general adult medical examination without abnormal findings Category: Medical (2) Anxiety: Code(s): F41.9 - Anxiety disorder, unspecified Category: Medical (3) Hypertension: Code(s): I10 - Essential (primary) hypertension Category: Medical Qualifiers: Hypertension type: unspecified Qualified Code(s): I10 - Essential (primary) hypertension (4) Obsessive compulsive disorder: Code(s): F42.9 - Obsessive-compulsive disorder, unspecified Category: Medical Qualifiers: Obsessive-compulsive disorder type: unspecified Qualified Code(s): F42.9 - Obsessive-compulsive disorder, unspecified (5) Major depressive disorder, recurrent: Code(s): F33.9 - Major depressive disorder, recurrent, unspecified Category: Medical Qualifiers: Active/Remission status: currently active Major depression episode severity: severe Psychotic features: with psychotic features Qualified Code(s): F33.3 - Major depressive disorder, recurrent, severe with psychotic symptoms (6) Elevated liver enzymes: Code(s): R74.8 - Abnormal levels of other serum enzymes Category: Medical (7) Elevated LDL cholesterol level: Code(s): E78.00 - Pure hypercholesterolemia, unspecified Category: Medical Plan Preventative guidelines and recent labs reviewed with the patient. Patient is up-to-date on most guidelines. He is due for an eye and dental exam. Encouraged to make appointments. Addressing the patient?s anemia involves close monitoring, with considerations for underlying chronic disease. Hydration will be prioritized to address the elevated BUN, with intentional increases in water intake. For hyperlipidemia, dietary adjustments will remain a focus, eventually leading to further intervention if required by future lab results. The stability of the Right Bundle Branch Block will be maintained through wellness monitoring. Impacted cerumen is managed via routine vigilance with prescribed solutions. Vaccination boosters, such as Tetanus, are brought current, with recommendations to sustain other preventive health measures. Patient was informed and verbally consented to the use of an ambient scribe for clinic note documentation during this visit. Orders: Orders IRON PROFILE 4 Months D64.9 - Anemia, unspecified, F33.3 - Major depressive disorder, recurrent, severe with psychotic symptoms, F41.9 - Anxiety disorder, unspecified, F42.9 - Obsessive-compulsive disorder, unspecified, I10 - Essential (primary) hypertension, I45.10 - Unspecified right bundle-branch block Vitamin D 25-OH Total 4 Months D64.9 - Anemia, unspecified, F33.3 - Major depressive disorder, recurrent, severe with psychotic symptoms, F41.9 - Anxiety disorder, unspecified, F42.9 - Obsessive-compulsive disorder, unspecified, I10 - Essential (primary) hypertension, I45.10 - Unspecified right bundle-branch block Vitamin B12 and Folate 4 Months D64.9 - Anemia, unspecified, F33.3 - Major depressive disorder, recurrent, severe with psychotic symptoms, F41.9 - Anxiety disorder, unspecified, F42.9 - Obsessive-compulsive disorder, unspecified, I10 - Essential (primary) hypertension, I45.10 - Unspecified right bundle-branch block UA CC w/rflx Micro + Cult 4 Months D64.9 - Anemia, unspecified, F33.3 - Major depressive disorder, recurrent, severe with psychotic symptoms, F41.9 - Anxiety disorder, unspecified, F42.9 - Obsessive-compulsive disorder, unspecified, I10 - Essential (primary) hypertension, I45.10 - Unspecified right bundle-branch block TDaP Immunization 03/12/25 Z23 - Encounter for immunization Complete Blood Count Auto Diff 4 Months D64.9 - Anemia, unspecified, F33.3 - Major depressive disorder, recurrent, severe with psychotic symptoms, F41.9 - Anxiety disorder, unspecified, F42.9 - Obsessive-compulsive disorder, unspecified, I10 - Essential (primary) hypertension, I45.10 - Unspecified right bundle-branch block Comprehensive [place]. Panel Fast 4 Months D64.9 - Anemia, unspecified, F33.3 - Major depressive disorder, recurrent, severe with psychotic symptoms, F41.9 - Anxiety disorder, unspecified, F42.9 - Obsessive-compulsive disorder, unspecified, I10 - Essential (primary) hypertension, I45.10 - Unspecified right bundle-branch block Lipid Panel 4 Months D64.9 - Anemia, unspecified, F33.3 - Major depressive disorder, recurrent, severe with psychotic symptoms, F41.9 - Anxiety disorder, unspecified, F42.9 - Obsessive-compulsive disorder, unspecified, I10 - Essential (primary) hypertension, I45.10 - Unspecified right bundle-branch block TSH reflex Free T4 4 Months D64.9 - Anemia, unspecified, F33.3 - Major depressive disorder, recurrent, severe with psychotic symptoms, F41.9 - Anxiety disorder, unspecified, F42.9 - Obsessive-compulsive disorder, unspecified, I10 - Essential (primary) hypertension, I45.10 - Unspecified right bundle-branch block Glucose Fasting 4 Months D64.9 - Anemia, unspecified, F33.3 - Major depressive disorder, recurrent, severe with psychotic symptoms, F41.9 - Anxiety disorder, unspecified, F42.9 - Obsessive-compulsive disorder, unspecified, I10 - Essential (primary) hypertension, I45.10 - Unspecified right bundle-branch block Medications: Refilled amlodipine 5 mg PO DAILY 30 days 30 tabs 3RF I10 - Essential (primary) hypertension Patient Instructions: - Drink more water to improve hydration levels. - Ensure diet is rich in vegetables and lean proteins. - Schedule and attend an eye exam and dental check-up. - Continue workout sessions but bring a water bottle to stay hydrated. - Use Debrox consistently to manage ear wax. - Follow up in four months for re-evaluation of blood work. - Receive your yearly flu shot and update me on any new symptoms. - Maintain routine therapy appointments.
[2025-03-12 09:25] VITALS: BP 136/82
--- OUTSIDE RECORDS SUMMARY | 2025-03-12 09:37 | XMS_ITS | Patient Health Record ---
Author Organization [facility] Address [address] [place] [address] Care Team Providers Care Extractor Puller Name Role Phone JOSE MAYO N.P. Primary Care Provider Reji Pelayo Jr Unavailable [phone] Allergies Allergen (clinical drug ingredient) Drug/Non Drug [...] Problem Status W/U Status Risk Notes Problem [id number] Colon cancer screening (Z12.11) Active confirmed Problem [id number] Long-term curren t use of high risk medication other than anticoagulant (Z79.899) Active confirmed Plan Of Treatment Future Test Test Name Order Date COLONOSCOPY 06/21/2022 Insurance Providers Payer Name Payer Address Payer Phone Subscriber Number Group Number Insured Name Patient Relationship to Insured Coverage Start Date Coverage End Date MEDICARE OF [place] [address] [place] [address] [id number] ZAINAB HUGHES Self - patient is the insured MEDICAID OF [facility] [address] [place] [address] [id number] ZAINAB HUGHES Self - patient is the insured Medical (General) History Medical History History ICD Code hypertension Anxiety/depression Obsessive compulsive disorder Right bundle-branch block Surgical History Surgery Date(Month/Year) broken arm in high school
== END 2025-03-12 10:22 | disposition home or self-care (01) ==
LOC: HO.HMCH 09:05
DX: Z23 Encounter for immunization (principal)

== ENCOUNTER → 2025-03-12 09:04 | Outpatient (BNVA) | payer OTHER, SELFPAY | DX: Z00.00 Encounter for general adult medical examination without abnormal findings (principal); Z23 Encounter for immunization; F41.9 Anxiety disorder, unspecified; I10 Essential (primary) hypertension; F42.9 Obsessive-compulsive disorder, unspecified; F33.3 Major depressive disorder, recurrent, severe with psychotic symptoms; R74.8 Abnormal levels of other serum enzymes; E78.00 Pure hypercholesterolemia, unspecified | CPT/HCPCS: 90471; 90715; 99397 ==

== ENCOUNTER 2025-07-11 08:20 | Outpatient (REF) | payer OTHER, SELFPAY ==
[2025-07-11 08:41] LABS: MANUAL DIFF FLAG NO
--- OUTSIDE RECORDS SUMMARY | 2025-07-11 09:09 | XMS_ITS | Patient Health Record ---
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 Primary [...] Problem Status W/U Status Risk Notes Problem [id number] Colon cancer screening (Z12.11) Active confirmed Problem [id number] Long-term curren t use of high risk medication other than anticoagulant (Z79.899) Active confirmed Plan Of Treatment Future Test Test Name Order Date COLONOSCOPY 06/21/2022 Insurance Providers Payer Name Payer Address Payer Phone Subscriber Number Group Number Insured Name Patient Relationship to Insured Coverage Start Date Coverage End Date MEDICARE OF [place] [address] [place] [address] [id number] ZAINAB HUGHES Self - patient is the insured MEDICAID OF [facility] [address] [place] [address] [id number] ZAINAB HUGHES Self - patient is the insured Medical (General) History Medical History History ICD Code hypertension Anxiety/depression Obsessive compulsive disorder Right bundle-branch block Surgical History Surgery Date(Month/Year) broken arm in high school
[2025-07-11 09:30] LABS: Hematocrit 41.4 % (42.0-52.0); Hemoglobin 14.2 g/dl (14.0-18.0); Imm Gran Abs Auto 0.02 X10*3/uL (0.00-0.03); Imm Gran Pct Auto 0.4 % (0.0-0.4); Lymphocytes Absolute Auto 1.8 X10*3/uL (1.2-4.9); Mean Corpuscular HGB Conc 34.3 g/dl (31.0-36.0); Mean Corpuscular Hemoglobin 30.3 pg (27.0-33.0); Mean Corpuscular Volume 88.3 fL (80.0-98.0); NRBC Abs Auto 0.000 X10*3/uL (0.0-0.012); NRBC Pct Auto 0.0 /100WBC (0.0-0.2); Platelet Count 203 X10*3/uL (160-400); Red Blood Count 4.69 X10*6/uL (4.60-5.80); White Blood Count 5.4 X10*3/uL (4.8-10.8)
[2025-07-11 09:35] LABS: Appearance Urine Clear; Glucose Urine UA Negative (Negative); PH 6.0 (5.0-9.0); Specific Gravity - Urine 1.020 (1.005-1.025)
[2025-07-11 10:42] LABS: Alanine Aminotransferase 43 U/L (0-40); Albumin Level 4.2 g/dL (3.5-5.0); Alkaline Phosphatase 73 U/L (39-117); Anion Gap 9 (12-20); Aspartate Amino Transferase 42 U/L (5-37); Blood Urea Nitrogen 29 mg/dL (9-16); Calcium 9.3 mg/dL (8.4-10.2); Carbon Dioxide 30 mmol/L (22-29); Chloride 107 mmol/L (96-108); Cholesterol 196 mg/dL (<200); Estimated Glomerular Filt Rate 57; HDL Cholesterol 57 mg/dL (>40); Iron 99 mcg/dL (45-160); Percent Iron Saturation 34 % (15-50); Potassium 4.7 mmol/L (3.3-5.1); Sodium 141 mmol/L (135-145); Total Iron Binding Capacity 287 mcg/dL (228-428); Total Protein 6.7 g/dL (6.5-8.0); Triglycerides 74 mg/dL (<150); Unsaturated Iron Binding 188 ug/dL
[2025-07-11 10:56] LABS: Folate 11.6 ng/mL (> or = 4.0); Vitamin B12 1025 pg/mL (200-900)
== END 2025-07-11 08:21 | disposition home or self-care (01) ==
LOC: HO.LAB 08:20
DX: F33.3 Major depressive disorder, recurrent, severe with psychotic symptoms (principal); I10 Essential (primary) hypertension; F41.9 Anxiety disorder, unspecified; I45.10 Unspecified right bundle-branch block; F42.9 Obsessive-compulsive disorder, unspecified; D64.9 Anemia, unspecified
CPT/HCPCS: 36415; 80053; 80061; 81003; 82306; 82607; 82746; 83540; 84443; 85025

== ENCOUNTER 2025-07-12 14:29 | Outpatient (AMB) | payer OTHER, SELFPAY ==
--- OUTSIDE RECORDS SUMMARY | 2025-07-12 14:32 | XMS_ITS | Patient Health Record ---
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 Primary [...] Problem Status W/U Status Risk Notes Problem [id number] Colon cancer screening (Z12.11) Active confirmed Problem [id number] Long-term curren t use of high risk medication other than anticoagulant (Z79.899) Active confirmed Plan Of Treatment Future Test Test Name Order Date COLONOSCOPY 06/21/2022 Insurance Providers Payer Name Payer Address Payer Phone Subscriber Number Group Number Insured Name Patient Relationship to Insured Coverage Start Date Coverage End Date MEDICARE OF [place] [address] [place] [address] [id number] ZAINAB HUGHES Self - patient is the insured MEDICAID OF [facility] [address] [place] [address] [id number] ZAINAB HUGHES Self - patient is the insured Medical (General) History Medical History History ICD Code hypertension Anxiety/depression Obsessive compulsive disorder Right bundle-branch block Surgical History Surgery Date(Month/Year) broken arm in high school
[2025-07-12 14:33] VITALS: BP 110/60; PULSE 63; RESP 18; TEMP 36.1; O2SAT 95; BMI 24.8
--- NOTE | 2025-07-12 14:33 | A.OFFPC_ITS ---
Vital Signs 07/12/25 14:33 07/12/25 15:29 Height 6 ft 0.25 in Weight 184 lb 4 oz BMI 24.8 BP 110/60 132/78 Blood Pressure Location Lt brachial Lt brachial Position Sitting Sitting Respiration 18 Pulse 63 Pulse Source Pulse Oximeter Temp 96.9 F Temp Source Temporal Artery Scan Pulse Oximetry (%) 95 Oxygen Delivery Method Room Air Intake Visit Reasons: elevated liver enzymes/HLD/Anemia First Cook Required: No Accompanied by: Self / Same As Patient Allergies paroxetine (From PAXIL) Adverse Reaction (Unknown, Verified 07/12/25 22:29) AGITATION, MOOD SWINGS, ALL KINDS OF WEIRD THOUGHTS Medication List - Last Reconciled 07/12/25 by RICARDO Haynes cholecalciferol (vitamin D3) (Vitamin D3) 125 mcg (5 x 25 mcg (1,000 unit)) PO BEDTIME 30 days Tobacco use date assessed: 07/12/25 Last assessed Fall Risk: 07/12/25 Dental Screening Dental Screen Date: 07/12/25 Did you have a dental visit in the last 12 months?: No Did you have a dental problem in the last 6 months where you did not have access to dental care?: No Was dental information given to patient?: No HPI elevated liver enzymes/HLD/Anemia HPI Details The patient is a 69-year-old male presenting for a follow-up on medication management and evaluation of current health status. The patient has a history of anxiety for which he was previously taking clonazepam. He gradually reduced the dosage over time and eventually discontinued it, reporting no worsening of symptoms and feeling slightly better without it. He is not currently taking any antidepressants or trazodone for sleep, and he continues to see a therapist weekly, who supports his decision to manage anxiety without medication as long as he is not experiencing anxiety attacks. The patient reports elevated liver enzymes, which were noted previously but are not high enough to cause significant concern. He denies alcohol consumption and Tylenol use, and there is no associated abdominal pain. He takes several supplements, including L-carnitine and CoQ10, and drinks a lot of coffee, which he wonders might affect his liver enzymes. The patient has a history of hypertension but is not currently taking any antihypertensive medication. His blood pressure readings have been stable, with recent measurements of 110/60 mmHg and 116/65 mmHg. He monitors his blood pressure every two to three weeks. The patient experiences easy bruising, which he attributes to thinning skin common in older adults. He tries to avoid injury by being cautious. The patient maintains an active lifestyle, attending the gym five to six times a week, which he finds beneficial for his mental health. He reports that exercise helps him manage stress and maintain a positive outlook. He is currently going to scientology as well. [facility] Medical History History of electroconvulsive therapy RBBB (right bundle branch block) OCD (obsessive compulsive disorder) HTN (hypertension) Anxiety Depression Surgical History H/O oral surgery History of surgery on arm Family History Father Arteriosclerosis Mother Aneurysm Son No problems noted. Brother Stented coronary artery Social History Household Members: Friend(s) Housing: House Do you presently have visiting nurse or other home services: Yes Patient Tobacco Use Status: Former Tobacco user Tobacco use type: Cigarette e-Cigarette/Vaping Use: Never Used Second Hand Smoke Exposure: No Substance Use Type: Former Substance User service: No Current occupational status: retired Sexual orientation: Straight/Heterosexual Cognitive needs: No Hearing needs: No Vision needs: Yes (Reading glasses) Questionnaire PHQ-9 Over the last 2 weeks, how often have you been bothered by any of the following problems? 1. Little interest or pleasure in doing things: not at all 2. Feeling down, depressed, or hopeless: not at all 3. Trouble falling or staying asleep, or sleeping too much: several days 4. Feeling tired or having little energy: not at all 5. Poor appetite or overeating: not at all 6. Feeling bad about yourself - or that you are a failure or have let yourself or your family down: several days 7. Trouble concentrating on things, such as reading the newspaper or watching television: not at all 8. Moving or speaking so slowly that other people could have noticed. Or the opposite - being so fidgety or restless that you have been moving around a lot more than usual: several days 9. Thoughts that you would be better off or of hurting yourself in some way: not at all Total score: 3 Depression Screening Interpretation: Negative Depression Screening Done: Yes Source: Developed by Drs. Ernie Khan, Renetta Sung, Alberto Frias and colleagues, with an educational orlando from [employer]. Thrive Questionnaire Date Thrive assessed: 07/12/25 I am a: Patient What is your living situation today?: I have a steady place to live Within the past 12 months, did the food you bought not last and you didn't have the money to get more?: Never true Within the past 12 months, did you worry whether your food would run out before you got money to buy more?: Never true Do you have trouble paying for medicines?: No Do you have trouble getting transportation to medical appointments?: No Do you have trouble paying your heating and electricity bill?: No Do you have trouble taking care of your child, family member or friend?: No Do you have trouble with day-to-day activities such as bathing, preparing meals, shopping, managing finances, etc.?: No Are you currently unemployed and looking for a job?: Yes Are you interested in more education?: No Please select the resources that you would like help with: Housing/Half-Way Currently or been in a relationship where the following occur: No concerns reported THRIVE Score: 0 AUDIT C Alcohol Use Questionnaire (AUDIT-C) 1. How often do you have a drink containing alcohol?: Never 3. How often do you have six or more drinks on one occasion?: Never Total Score: 0 Score Reviewed/Action Taken: No DARRICK-7 AMB Questionnaire DARRICK-7 Date DARRICK - 7 assessed: 07/12/25 Feeling nervous, anxious, or on edge: 1 = Several days Not being able to stop or control worryin = Several days Worrying too much about different things: 0 = Not at all Trouble relaxin = Several days Being so restless that it is hard to sit still: 0 = Not at all Becoming easily annoyed or irritable: 0 = Not at all Feeling afraid as if something awful might happen: 0 = Not at all Total DARRICK-7 score (0-4 normal; 5-9 mild; 10-14 moderate; 15-21 severe): 3 Source: Developed by Drs. Ernie Khan, Renetta Sung, Alberto Frias and colleagues, with an educational orlando from [employer]. Review of Systems Const Denies body aches, Denies chills, Denies fever(s), Denies headache(s) and Denies poor appetite Eyes Reports no additional complaints ENT Denies dysphagia, Denies dizziness, Denies headache(s) and Denies odynophagia Card Denies chest pain, Denies syncope, Denies edema, Denies irregular heart rhythm, Denies lightheadedness and Denies dyspnea Resp Denies cough and Denies dyspnea GI Denies abdominal pain, Denies constipation, Denies dysphagia, Denies diarrhea, Denies nausea, Denies odynophagia and Denies vomiting Reports no additional complaints Musc Reports no additional complaints and Denies abnormal gait Skin/Breast Reports system reviewed and no additional complaints, except as documented Neuro Denies abnormal gait, Denies dizziness, Denies syncope and Denies headache(s) Psych Reports anxiety (improved significantly), Reports depression (improved significantly), Denies homicidal ideation and Denies suicidal ideation Physical exam (Primary Care) Vital Signs: Last Vital Signs Temp 96.9 F 07/12/25 14:33 Pulse 63 07/12/25 14:33 Resp 18 07/12/25 14:33 BP 132/78 07/12/25 15:29 Pulse Ox 95 07/12/25 14:33 Oxygen Delivery Method Room Air 07/12/25 14:33 BMI result Body Mass Index 24.8 Tobacco/Smoking Status: Tobacco use Status Tobacco use date assessed 07/12/25 07/12/25 14:40 Patient Tobacco Use Status Former Tobacco user 07/12/25 14:40 Tobacco use type Cigarette 07/12/25 14:40 e-Cigarette/Vaping Use Never Used 07/12/25 14:40 PHQ-9: PHQ-9 Score PHQ-9: Total score 3 07/12/25 15:28 Depression Screening Interpretation: Negative Thrive Assessment: Date of Thrive Assessment Date Thrive assessed 07/12/25 07/12/25 14:40 Currently or been in a relationship where the following occur: No concerns reported Const General: cooperative, healthy appearing, comfortable and no acute distress Orientation/consciousness: patient oriented x3 [facility] Head: Yes normocephalic Ears: hearing grossly normal bilaterally General nose exam: Normal external nose present Eyes General: appearance normal, both eyes and all related structures Conjunctivae: conjunctivae normal Neck Neck: Yes full ROM and Yes no lymphadenopathy Resp Effort & Inspection: normal respiratory effort Auscultation: clear to auscultation bilaterally, no crackles, no rales, no rhon chi and no wheezes Cardio Rate: regular rate Rhythm: regular rhythm GI Palpation (GI): Soft to palpation, nontender and No hepatosplenomegaly present Auscultation: normal bowel sounds General: Yes no CVA tenderness Back/Spine/Pelvis Back: no CVA tenderness Skin General skin exam: no rashes or lesions noted Neuro General: patient oriented x3 Gait exam (Neuro): Normal gait present Extrem General: Yes normal to inspection, Yes full ROM and No edema Psych Affect: normal affect Attitude: cooperative Insight: Good insight present (Psych) Judgement: Good judgement present (Psych) Coding Level of Care Code Est Pt Level 4 (40185) Diagnoses Major depressive disorder, recurrent F33.3 Active/Remission status: currently active Major depression episode severity: severe Psychotic features: with psychotic features Obsessive-compulsive disorder, unspecified type F42.9 Obsessive-compulsive disorder type: unspecified Anxiety F41.9 Hypertension, unspecified type I10 Hypertension type: unspecified Elevated LDL cholesterol level E78.00 Elevated liver enzymes R74.8 Anemia, unspecified type D64.9 Anemia type: unspecified type Time Spent (min) 39 Assessment & Plan Assessment & Plan (1) Major depressive disorder, recurrent: Code(s): F33.9 - Major depressive disorder, recurrent, unspecified Category: Medical Qualifiers: Active/Remission status: currently active Major depression episode severity: severe Psychotic features: with psychotic features Qualified Code(s): F33.3 - Major depressive disorder, recurrent, severe with psychotic symptoms (2) Obsessive compulsive disorder: Code(s): F42.9 - Obsessive-compulsive disorder, unspecified Category: Medical Qualifiers: Obsessive-compulsive disorder type: unspecified Qualified Code(s): F42.9 - Obsessive-compulsive disorder, unspecified (3) Anxiety: Code(s): F41.9 - Anxiety disorder, unspecified Category: Medical (4) Hypertension: Code(s): I10 - Essential (primary) hypertension Category: Medical Qualifiers: Hypertension type: unspecified Qualified Code(s): I10 - Essential (primary) hypertension (5) Elevated LDL cholesterol level: Code(s): E78.00 - Pure hypercholesterolemia, unspecified Category: Medical (6) Elevated liver enzymes: Code(s): R74.8 - Abnormal levels of other serum enzymes Category: Medical (7) Anemia: Code(s): D64.9 - Anemia, unspecified Category: Medical Qualifiers: Anemia type: unspecified type Qualified Code(s): D64.9 - Anemia, unspecified Plan The patient is a 69-year-old male presenting for a follow-up on medication management and evaluation of current health status. The patient has a history of anxiety for which he was previously taking clonazepam. He gradually reduced the dosage over time and eventually discontinued it, reporting no worsening of symptoms and feeling slightly better without it. He is not currently taking any antidepressants or trazodone for sleep, and he continues to see a therapist weekly, who supports his decision to manage anxiety without medication as long as he is not experiencing anxiety attacks. The patient reports elevated liver enzymes, which were noted previously but are not high enough to cause significant concern. He denies alcohol consumption and Tylenol use, and there is no associated abdominal pain. He takes several supplements, including L-carnitine and CoQ10, and drinks a lot of coffee, which he wonders might affect his liver enzymes. The patient has a history of hypertension but is not currently taking any antihypertensive medication. His blood pressure readings have been stable, with recent measurements of 110/60 mmHg and 116/65 mmHg. He monitors his blood pressure every two to three weeks. The patient experiences easy bruising, which he attributes to thinning skin common in older adults. He tries to avoid injury by being cautious. The patient maintains an active lifestyle, attending the gym five to six times a week, which he finds beneficial for his mental health. He reports that exercise helps him manage stress and maintain a positive outlook. He is currently going to scientology as well. Orders: Orders Complete Blood Count Auto Diff 3 Months D64.9 - Anemia, unspecified, E78.00 - Pure hypercholesterolemia, unspecified, F33.3 - Major depressive disorder, recurrent, severe with psychotic symptoms, F41.9 - Anxiety disorder, unspecified, F42.9 - Obsessive-compulsive disorder, unspecified, I10 - Essential (primary) hypertension, I45.10 - Unspecified right bundle-branch block, R74.8 - Abnormal levels of other serum enzymes Comprehensive Whitlash. Panel Fast 3 Months D64.9 - Anemia, unspecified, E78.00 - Pure hypercholesterolemia, unspecified, F33.3 - Major depressive disorder, recurrent, severe with psychotic symptoms, F41.9 - Anxiety disorder, unspecified, F42.9 - Obsessive-compulsive disorder, unspecified, I10 - Essential (primary) hypertension, I45.10 - Unspecified right bundle-branch block, R74.8 - Abnormal levels of other serum enzymes TSH reflex Free T4 3 Months D64.9 - Anemia, unspecified, E78.00 - Pure hypercholesterolemia, unspecified, F33.3 - Major depressive disorder, recurrent, severe with psychotic symptoms, F41.9 - Anxiety disorder, unspecified, F42.9 - Obsessive-compulsive disorder, unspecified, I10 - Essential (primary) hypertension, I45.10 - Unspecified right bundle-branch block, R74.8 - Abnormal levels of other serum enzymes UA CC w/rflx Micro + Cult 3 Months D64.9 - Anemia, unspecified, E78.00 - Pure hypercholesterolemia, unspecified, F33.3 - Major depressive disorder, recurrent, severe with psychotic symptoms, F41.9 - Anxiety disorder, unspecified, F42.9 - Obsessive-compulsive disorder, unspecified, I10 - Essential (primary) hypertension, I45.10 - Unspecified right bundle-branch block, R74.8 - Abnormal levels of other serum enzymes Lipid Panel 3 Months D64.9 - Anemia, unspecified, E78.00 - Pure hypercholesterolemia, unspecified, F33.3 - Major depressive disorder, recurrent, severe with psychotic symptoms, F41.9 - Anxiety disorder, unspecified, F42.9 - Obsessive-compulsive disorder, unspecified, I10 - Essential (primary) hypertension, I45.10 - Unspecified right bundle-branch block, R74.8 - Abnormal levels of other serum enzymes Vitamin B12 and Folate 3 Months D64.9 - Anemia, unspecified, E78.00 - Pure hypercholesterolemia, unspecified, F33.3 - Major depressive disorder, recurrent, severe with psychotic symptoms, F41.9 - Anxiety disorder, unspecified, F42.9 - Obsessive-compulsive disorder, unspecified, I10 - Essential (primary) hypertension, I45.10 - Unspecified right bundle-branch block, R74.8 - Abnormal levels of other serum enzymes Vitamin D 25-OH Total 3 Months D64.9 - Anemia, unspecified, E78.00 - Pure hypercholesterolemia, unspecified, F33.3 - Major depressive disorder, recurrent, severe with psychotic symptoms, F41.9 - Anxiety disorder, unspecified, F42.9 - Obsessive-compulsive disorder, unspecified, I10 - Essential (primary) hypertension, I45.10 - Unspecified right bundle-branch block, R74.8 - Abnormal levels of other serum enzymes Medications: Changed From cholecalciferol (vitamin D3) (Vitamin D3) 125 mcg (5 x 25 mcg (1,000 unit)) PO DAILY 150 tabs 0RF 30 days To cholecalciferol (vitamin D3) (Vitamin D3) 125 mcg (5 x 25 mcg (1,000 unit)) PO BEDTIME 150 tabs 0RF 30 days Discontinued trazodone Discontinued Reason: Doctor's Order 50 mg PO BEDTIME 30 days PRN 30 tabs 0RF Insomnia buspirone Discontinued Reason: Doctor's Order 20 mg (0.6667 x 30 mg) PO TID 90 tabs 0RF 30 days amlodipine Discontinued Reason: Doctor's Order 5 mg PO DAILY 30 tabs 3RF 30 days I10 - Essential (primary) hypertension clonazepam Discontinued Reason: Doctor's Order 0.5 mg PO BID 60 tabs 0RF fluoxetine Discontinued Reason: Doctor's Order 80 mg (2 x 40 mg) PO DAILY 180 caps 0RF
[2025-07-12 15:29] VITALS: BP 132/78
== END 2025-07-12 15:37 | disposition home or self-care (01) ==
LOC: HO.HMCH 14:30
DX: F33.3 Major depressive disorder, recurrent, severe with psychotic symptoms (principal); F42.9 Obsessive-compulsive disorder, unspecified; F41.9 Anxiety disorder, unspecified; I10 Essential (primary) hypertension; E78.00 Pure hypercholesterolemia, unspecified; R74.8 Abnormal levels of other serum enzymes; D64.9 Anemia, unspecified

== ENCOUNTER → 2025-07-12 14:29 | Outpatient (BNVA) | payer OTHER, SELFPAY | DX: F33.3 Major depressive disorder, recurrent, severe with psychotic symptoms (principal); F42.9 Obsessive-compulsive disorder, unspecified; F41.9 Anxiety disorder, unspecified; I10 Essential (primary) hypertension; E78.00 Pure hypercholesterolemia, unspecified; R74.8 Abnormal levels of other serum enzymes; D64.9 Anemia, unspecified | CPT/HCPCS: 99212 ==

== ENCOUNTER 2025-10-16 13:28 | Outpatient (AMB) | payer OTHER, SELFPAY ==
--- NOTE | 2025-10-16 13:36 | A.OFFPC_ITS ---
Vital Signs 10/16/25 13:37 Height 6 ft 0.25 in Weight 185 lb 4 oz BMI 24.9 BP 132/88 Blood Pressure Location Lt brachial Position Sitting Pulse 54 Pulse Source Pulse Oximeter Temp 97.1 F Temp Source Temporal Artery Scan Pulse Oximetry (%) 96 Oxygen Delivery Method Room Air Intake Visit Reasons: htn/RBBB/HLD/OCD Allergies paroxetine (From PAXIL) Adverse Reaction (Unknown, Verified 10/16/25 13:44) AGITATION, MOOD SWINGS, ALL KINDS OF WEIRD THOUGHTS Medication List - Last Reconciled 10/16/25 by RICARDO Haynes cholecalciferol (vitamin D3) (Vitamin D3) 125 mcg (5 x 25 mcg (1,000 unit)) PO BEDTIME 30 days Tobacco use date assessed: 10/16/25 Fall risk assessment: No Falls in past year Last assessed Fall Risk: 10/16/25 Dental Screening Dental Screen Date: 10/16/25 Did you have a dental visit in the last 12 months?: No Did you have a dental problem in the last 6 months where you did not have access to dental care?: No Was dental information given to patient?: Patient has dentist HPI HPI Comments History of Present Illness Details 69-year-old male with past medical histo ry of right bundle branch block, obsessive compulsive disorder, major depressive disorder, recurrent, anxiety Patient is presenting today due to concerns of increased anxiety, leading to panic attacks Couple of months ago the patient [facility] He was pretending to be taking the medication and allegedly will get rid of the medication later Patient reported then that he was exercising and going to anabaptism, which were helping him to cope with his mental health His medications were discontinued out of fear of the patient hoarding the medications, plus he is was refusing the medication and psych evaluation Per patient, he was doing well and did not need the medications anymore He also reports that he was doing bad at one time and needed to be hospitalized and he was doing better Today the patient reports experiencing episodes of anxiety, described as spells. waking up panicking Reports that he is uneasy all the time now and does not like the feeling Per patient, maybe he needed to see that he does need the medications, and he is willing to do whatever is requiring of him to feel better He reports that his counselor at the facility told him that he could take something as needed for his anxiety Allegedly, his counselor encouraged him to take diphenhydramine as needed. The patient reports that if he takes two, this makes him sleep, but does not take away his anxiety when he wakes up The patient reports he has had thoughts of harming himself never dwell on those thoughts long and this is not something that he wants to do, nor does he has any plans. The patient's past psychological medication history upon establishing care on 01/24/2025 includes Prozac (fluoxetine 80 mg daily) clonazepam 0.5 mg b.i.d., buspirone 20 mg t.i.d., mirtazapine (Remeron) 30mg, and [facility] [address] [facility] Notes: [facility] [phone] [facility] Medical History History of electroconvulsive therapy RBBB (right bundle branch block) OCD (obsessive compulsive disorder) HTN (hypertension) Anxiety Depression Surgical History H/O oral surgery History of surgery on arm Family History Father Arteriosclerosis Mother Aneurysm Son No problems noted. Brother Stented coronary artery Social History Household Members: Friend(s) Housing: House Do you presently have visiting nurse or other home services: Yes Patient Tobacco Use Status: Former Tobacco user Tobacco use type: Cigarette e-Cigarette/Vaping Use: Never Used Second Hand Smoke Exposure: No Substance Use Type: Former Substance User service: No Current occupational status: retired Sexual orientation: Straight/Heterosexual Cognitive needs: No Hearing needs: No Vision needs: Yes (Reading glasses) Questionnaire PHQ-9 Over the last 2 weeks, how often have you been bothered by any of the following problems? 1. Little interest or pleasure in doing things: not at all 2. Feeling down, depressed, or hopeless: not at all 3. Trouble falling or staying asleep, or sleeping too much: several days 4. Feeling tired or having little energy: not at all 5. Poor appetite or overeating: not at all 6. Feeling bad about yourself - or that you are a failure or have let yourself or your family down: several days 7. Trouble concentrating on things, such as reading the newspaper or watching television: not at all 8. Moving or speaking so slowly that other people could have noticed. Or the opposite - being so fidgety or restless that you have been moving around a lot more than usual: several days 9. Thoughts that you would be better off or of hurting yourself in some way: not at all Total score: 3 Depression Screening Interpretation: Negative Depression Screening Done: Yes Source: Developed by Drs. Ernie Khan, Renetta Sung, Alberto Frias and colleagues, with an educational orlando from [employer]. Thrive Questionnaire Date Thrive assessed: 01/24/25 I am a: Patient What is your living situation today?: I have a steady place to live Within the past 12 months, did the food you bought not last and you didn't have the money to get more?: Never true Within the past 12 months, did you worry whether your food would run out before you got money to buy more?: Never true Do you have trouble paying for medicines?: No Do you have trouble getting transportation to medical appointments?: No Do you have trouble paying your heating and electricity bill?: No Do you have trouble taking care of your child, family member or friend?: No Do you have trouble with day-to-day activities such as bathing, preparing meals, shopping, managing finances, etc.?: No Are you currently unemployed and looking for a job?: Yes Are you interested in more education?: No Please select the resources that you would like help with: Housing/Assisted Currently or been in a relationship where the following occur: No concerns reported THRIVE Score: 0 AUDIT C Alcohol Use Questionnaire (AUDIT-C) 1. How often do you have a drink containing alcohol?: Never 3. How often do you have six or more drinks on one occasion?: Never Total Score: 0 DARRICK-7 AMB Questionnaire DARRICK-7 Date DARRICK - 7 assessed: 07/12/25 Feeling nervous, anxious, or on edge: 1 = Several days Not being able to stop or control worryin = Several days Worrying too much about different things: 0 = Not at all Trouble relaxin = Several days Being so restless that it is hard to sit still: 0 = Not at all Becoming easily annoyed or irritable: 0 = Not at all Feeling afraid as if something awful might happen: 0 = Not at all Total DARRICK-7 score (0-4 normal; 5-9 mild; 10-14 moderate; 15-21 severe): 3 Source: Developed by Drs. Ernie Khan, Renetta Sung, Alberto Frias and colleagues, with an educational orlando from [employer]. Review of Systems Narrative Review of Systems - Psychiatric: Reports spells of mild anxiety and problems with memory and concentration. - Neurological: Reports a history of tingling and restless legs. Const Denies body aches, Denies chills, Denies fever(s), Denies headache(s) and Denies poor appetite Eyes Reports no additional complaints ENT Denies dysphagia, Denies dizziness, Denies headache(s) and Denies odynophagia Card Denies chest pain, Denies syncope, Denies edema, Denies irregular heart rhythm, Denies lightheadedness and Denies dyspnea Resp Denies cough and Denies dyspnea GI Denies abdominal pain, Denies constipation, Denies dysphagia, Denies diarrhea, Denies nausea, Denies odynophagia and Denies vomiting Reports no additional complaints Musc Reports no additional complaints and Denies abnormal gait Skin/Breast Reports system reviewed and no additional complaints, except as documented Neuro Denies abnormal gait, Denies dizziness, Denies syncope and Denies headache(s) Psych Reports anxiety, Reports depression, Reports panic attacks (wakes up with these feelings), Denies homicidal ideation and Reports suicidal ideation (few times but he did not dwell on this, and has not plan to do so) Physical exam (Primary Care) Vital Signs: Last Vital Signs Temp 97.1 F 10/16/25 13:37 Pulse 54 10/16/25 13:37 BP 132/88 10/16/25 13:37 Pulse Ox 96 10/16/25 13:37 Oxygen Delivery Method Room Air 10/16/25 13:37 BMI result Body Mass Index 24.9 Tobacco/Smoking Status: Tobacco use Status Tobacco use date assessed 10/16/25 10/16/25 13:41 Patient Tobacco Use Status Former Tobacco user 10/16/25 13:41 Tobacco use type Cigarette 10/16/25 13:41 e-Cigarette/Vaping Use Never Used 10/16/25 13:41 PHQ-9: PHQ-9 Score PHQ-9: Total score 3 10/16/25 13:41 Depression Screening Interpretation: Negative Thrive Assessment: Date of Thrive Assessment Date Thrive assessed 01/24/25 10/16/25 13:41 Currently or been in a relationship where the following occur: No concerns reported Narrative Physical Exam Const General: cooperative, healthy appearing, comfortable and no acute distress Orientation/consciousness: patient oriented x3 HENMT Head: Yes normocephalic Ears: hearing grossly normal bilaterally General nose exam: Normal external nose present Eyes General: appearance normal, both eyes and all related structures Conjunctivae: conjunctivae normal Neck Neck: Yes full ROM and Yes no lymphadenopathy Resp Effort & Inspection: normal respiratory effort Auscultation: clear to auscultation bilaterally, no crackles, no rales, no rhonchi and no wheezes Cardio Rate: regular rate Rhythm: regular rhythm GI Palpation (GI): Soft to palpation, nontender and No hepatosplenomegaly present Auscultation: normal bowel sounds General: Yes no CVA tenderness Back/Spine/Pelvis Back: no CVA tenderness Skin General skin exam: no rashes or lesions noted Neuro General: patient oriented x3 Gait exam (Neuro): Normal gait present Extrem General: Yes normal to inspection, Yes full ROM and No edema Psych Affect: normal affect Attitude: cooperative Insight: Good insight present (Psych) Judgement: Good judgement present (Psych) Coding Level of Care Code Est Pt Level 4 (16300) Diagnoses Major depressive disorder, recurrent F33.3 Active/Remission status: currently active Major depression episode severity: severe Psychotic features: with psychotic features Anxiety F41.9 Obsessive-compulsive disorder, unspecified type F42.9 Obsessive-compulsive disorder type: unspecified Time Spent (min) 37 Assessment & Plan Assessment & Plan (1) Major depressive disorder, recurrent: Code(s): F33.9 - Major depressive disorder, recurrent, unspecified Category: Medical Qualifiers: Active/Remission status: currently active Major depression episode severity: severe Psychotic features: with psychotic features Qualified Code(s): F33.3 - Major depressive disorder, recurrent, severe with psychotic symptoms (2) Anxiety: Code(s): F41.9 - Anxiety disorder, unspecified Category: Medical (3) Obsessive compulsive disorder: Code(s): F42.9 - Obsessive-compulsive disorder, unspecified Category: Medical Qualifiers: Obsessive-compulsive disorder type: unspecified Qualified Code(s): F4 2.9 - Obsessive-compulsive disorder, unspecified Plan Plan Explained to the patient that his mental health was severe enough to the point of hospitalization. He was feeling better because he was on the medication and they were working, and after stopping his medications he was feeling okay because the medications take some time to get out of his system. Fast forward to now, the medications are out of the system and his symptoms have returned. We will start back the patient's buspirone, fluoxetine, clonazepam at their previous therapeutic dosages. And we will put in an urgent referral to outpatient psychiatry for the patient to be evaluated. We will have the patient return in 1 month to be re-evaluated. Orders: Referrals Psychiatry Outpatient Consultation Service F33.3 - Major depressive disorder, recurrent, severe with psychotic symptoms, F41.9 - Anxiety disorder, unspecified, F42.9 - Obsessive-compulsive disorder, unspecified Medications: New clonazepam 0.5 mg PO BID 60 tabs 0RF Refilled buspirone 20 mg (0.6667 x 30 mg) PO TID 90 tabs 3RF 30 days fluoxetine 80 mg (4 x 20 mg) PO DAILY 30 days 120 caps 3RF fluoxetine 80 mg (4 x 20 mg) PO DAILY 120 caps 3RF 30 days
[2025-10-16 13:37] VITALS: BP 132/88; PULSE 54; TEMP 36.2; O2SAT 96; BMI 24.9
== END 2025-10-16 14:32 | disposition home or self-care (01) ==
LOC: HO.HMCH 13:29
DX: F33.3 Major depressive disorder, recurrent, severe with psychotic symptoms (principal); F41.9 Anxiety disorder, unspecified; F42.9 Obsessive-compulsive disorder, unspecified

== ENCOUNTER → 2025-10-16 13:28 | Outpatient (BNVA) | payer OTHER, SELFPAY | DX: F33.3 Major depressive disorder, recurrent, severe with psychotic symptoms (principal); F42.9 Obsessive-compulsive disorder, unspecified; F41.9 Anxiety disorder, unspecified | CPT/HCPCS: 99212 ==